=== PATIENT | male | born 1985 | race American Indian/Alaskan Native ===

== ENCOUNTER 2017-02-13 11:46 | Inpatient (IN) | payer OTHER ==
[2017-02-13] MEDS ORDERED: ZOFRAN ONE (11:51)
[2017-02-13] MEDS ORDERED: NACL 0.9% 1000 ML 1,000 ML ONE ×2 (11:51→20:13)
[2017-02-13] MEDS ORDERED: ZOFRAN IV ONE ×3 (12:15→13:20)
[2017-02-13] MEDS ORDERED: NACL 0.9% 1000 ML 1,000 ML IV ONE ×3 (12:15→21:11)
[2017-02-13 12:49] LABS: Basophils % (Auto) 0.7 % (0.0-1.8); Eosinophils % (Auto) 0.9 % (0.0-4.3); Hematocrit 38.5 % (35.5-45.6); Mean Corpuscular HGB Conc 31 % (32-34); Mean Corpuscular Hemoglobin 26 pg (28-32); Mean Corpuscular Volume 84 fl (84-94); Platelet Count 321 K/mm3 (140-440); Red Blood Count 4.59 M/mm3 (3.65-5.03); Red Cell Distribution Width 12.8 % (13.2-15.2); White Blood Count 7.5 K/mm3 (4.5-11.0)
[2017-02-13 13:14] LABS: Anion Gap 35 mmol/L; BUN/Creatinine Ratio 20.95; Blood Urea Nitrogen 44 mg/dL (9-20); Calcium 9.8 mg/dL (8.4-10.2); Carbon Dioxide 16 mmol/L (22-30); Chloride 87.3 mmol/L (98-107); Potassium 5.1 mmol/L (3.6-5.0); Sodium 133 mmol/L (137-145)
[2017-02-13] MEDS ORDERED: MORPHINE ONE ×2 (13:14→19:28)
[2017-02-13 13:16] LABS: Glucose 664 mg/dL (75-100)
[2017-02-13 13:25] LABS: Alanine Aminotransferase 103 units/L (7-56)
[2017-02-13 13:38] LABS: Alkaline Phosphatase 89 units/L (35-129)
[2017-02-13 14:35] LABS: BUN/Creatinine Ratio 24.21; Calcium 9.3 mg/dL (8.4-10.2); Chloride 90.3 mmol/L (98-107); Magnesium 2.3 mg/dL (1.7-2.3)
[2017-02-13] MEDS ORDERED: NovoLIN R 100 UNITS in NACL 0.9% 99 ML IV SCH (16:00)
[2017-02-13] MEDS ORDERED: D50W (25GM) Syringe IV PRN ×2 (17:00→21:11)
[2017-02-13] MEDS ORDERED: PHENERGAN PR ONE (18:00)
[2017-02-13 19:37] LABS: Bilirubin,Urine NEG (Negative); Blood,Urine SM (Negative); Ketones,Urine 80 mg/dL (Negative); Leukocyte Esterase,Urine NEG (Negative); Mucus,Urine FEW /HPF; Nitrite,Urine NEG (Negative); Protein,Urine <15 mg/dL mg/dL (Negative); Urobilinogen,Urine < 2.0 mg/dL (<2.0); WBC,Urine < 1.0 /HPF (0.0-6.0)
--- NOTE | 2017-02-13 20:21 | History and Physical Report ---
History of Present Illness Date of examination: 02/13/17 (Accu-Cheks with sliding scale NovoLog high-dose normally split type 2 diabetes) Date of admission: 02/13/2017 Chief complaint: Nausea vomiting diarrhea abdominal pain and elevated blood sugars History of present illness: 31-year-old gentleman who has been in long term for the past 2 years was released from long term yesterday apparently he has been out of insulin since after he was released. He states that he has not gotten any insulin even while he was in long term since Monday because he was being transferred over here. He started having severe abdominal pain cramping nausea vomiting and diarrhea and has not been able to tolerate anything by mouth since yesterday. His blood sugars started running high and he was getting ready significant for further evaluation and management. He denies any fevers chills no chest pain shortness of breath palpitations no other GI or symptoms Past History Past Medical History: diabetes (type 1) Past Surgical History: Other (brain surgery) Social history: other (was released from long term yesterday). denies: smoking, alcohol abuse, IV drug use Medications and Allergies Allergies Allergy/AdvReac Type Severity Reaction Status Date / Time phenytoin sodium Allergy Hives Verified 02/13/17 13:07 [From Dilantin] phenytoin sodium extended Allergy Hives Verified 02/13/17 13:07 [From Dilantin] Active Meds: Active Medications Dextrose (D50w (25gm) Syringe) 50 ml IV PRN PRN PRN Reason: Hypoglycemia Insulin Human Regular 100 (units/ Sodium Chloride) 100 mls @ 1 mls/hr IV TITR CODY; 1 UNITS/HR PRN Reason: Protocol Review of Systems All systems: negative (as in HPI) Exam - Constitutional Vitals: Temp Pulse Resp BP Pulse Ox 97.3 F L 102 H 18 115/61 96 02/13/17 12:08 02/13/17 13:31 02/13/17 13:31 02/13/17 13:31 02/13/17 13:31 General appearance: Present: mild distress, well-nourished - EENT Eyes: Present: PERRL, EOM intact ENT: clear oral mucosa (severely dry), no oropharyngeal erythema - Neck Neck: Present: supple, normal ROM. Absent: enlarged thyroid, masses or JVD, cervical LAD, carotid bruits - Respiratory Respiratory effort: normal Respiratory: bilateral: CTA - Cardiovascular Rhythm: regular Heart Sounds: Present: S1 & S2. Absent: gallop, systolic murmur - Extremities Extremities: no ischemia, pulses intact, pulses symmetrical, No edema, normal temperature, normal color, Full ROM - Abdominal General gastrointestinal: Present: soft, tender (generalized mildly, no rebound guarding or rigidity), non-distended - Integumentary Integumentary: Present: clear, warm, dry. Absent: erythema, rash - Musculoskeletal Musculoskeletal: strength equal bilaterally - Psychiatric Psychiatric: appropriate mood/affect, intact judgment & insight - Neurologic Neurologic: CNII-XII intact, no focal deficits, moves all extremities Results - Labs CBC & Chem 7: 02/13/17 12:28 02/13/17 16:52 Labs: Laboratory Last Values WBC 7.5 K/mm3 (4.5-11.0) 02/13/17 12:28 RBC 4.59 M/mm3 (3.65-5.03) 02/13/17 12:28 Hgb 12.0 gm/dl (11.8-15.2) 02/13/17 12:28 Hct 38.5 % (35.5-45.6) 02/13/17 12:28 MCV 84 fl (84-94) 02/13/17 12:28 MCH 26 pg (28-32) L 02/13/17 12:28 MCHC 31 % (32-34) L 02/13/17 12:28 RDW 12.8 % (13.2-15.2) L 02/13/17 12:28 Plt Count 321 K/mm3 (140-440) 02/13/17 12:28 Lymph % (Auto) 19.2 % (13.4-35.0) 02/13/17 12:28 [place] % (Auto) 5.9 % (0.0-7.3) 02/13/17 12:28 Eos % (Auto) 0.9 % (0.0-4.3) 02/13/17 12:28 Baso % (Auto) 0.7 % (0.0-1.8) 02/13/17 12:28 Lymph # 1.4 K/mm3 (1.2-5.4) 02/13/17 12:28 [place] # 0.4 K/mm3 (0.0-0.8) 02/13/17 12:28 Eos # 0.1 K/mm3 (0.0-0.4) 02/13/17 12:28 Baso # 0.1 K/mm3 (0.0-0.1) 02/13/17 12:28 Seg Neutrophils % 73.3 % (40.0-70.0) H 02/13/17 12:28 Seg Neutrophils # 5.5 K/mm3 (1.8-7.7) 02/13/17 12:28 VBG pH 7.219 (7.320-7.420) L 02/13/17 12:28 Sodium 133 mmol/L (137-145) L 02/13/17 14:06 Potassium 6.0 mmol/L (3.6-5.0) H 02/13/17 14:06 Chloride 90.3 mmol/L (98-107) L 02/13/17 14:06 Carbon Dioxide 17 mmol/L (22-30) L 02/13/17 14:06 Anion Gap 32 mmol/L 02/13/17 14:06 BUN 46 mg/dL (9-20) H 02/13/17 14:06 Creatinine 1.9 mg/dL (0.8-1.5) H 02/13/17 14:06 Estimated GFR 50 ml/min 02/13/17 14:06 BUN/Creatinine Ratio 24.21 % 02/13/17 14:06 Glucose 507 mg/dL (75-100) H* 02/13/17 16:52 POC Glucose 343 (70-105) H 02/13/17 19:21 Lactic Acid 2.40 mmol/L (0.7-2.0) H* 02/13/17 12:47 Calcium 9.3 mg/dL (8.4-10.2) 02/13/17 14:06 Phosphorus 5.00 mg/dL (2.5-4.5) H 02/13/17 14:06 Magnesium 2.30 mg/dL (1.7-2.3) 02/13/17 14:06 Total Bilirubin 0.30 mg/dL (0.1-1.2) 02/13/17 12:47 AST 77 units/L (5-40) H 02/13/17 12:47 ALT 103 units/L (7-56) H 02/13/17 12:47 Alkaline Phosphatase 89 units/L (35-129) 02/13/17 12:47 Total Protein 8.0 g/dL (6.3-8.2) 02/13/17 12:47 Albumin 4.0 g/dL (3.9-5) 02/13/17 12:47 Albumin/Globulin Ratio 1.0 % 02/13/17 12:47 Urine Color Straw (Yellow) 02/13/17 18:30 Urine Turbidity Clear (Clear) 02/13/17 18:30 Urine pH 5.0 (5.0-7.0) 02/13/17 18:30 Ur Specific [place] 1.023 (1.003-1.030) 02/13/17 18:30 Urine Protein <15 mg/dl mg/dL (Negative) 02/13/17 18:30 Urine Glucose (UA) >=500 mg/dL (Negative) 02/13/17 18:30 Urine Ketones 80 mg/dL (Negative) 02/13/17 18:30 Urine Blood Sm (Negative) 02/13/17 18:30 Urine Nitrite Neg (Negative) 02/13/17 18:30 Urine Bilirubin Neg (Negative) 02/13/17 18:30 Urine Urobilinogen < 2.0 mg/dL (<2.0) 02/13/17 18:30 Ur Leukocyte Esterase Neg (Negative) 02/13/17 18:30 Urine WBC (Auto) < 1.0 /HPF (0.0-6.0) 02/13/17 18:30 Urine RBC (Auto) 3.0 /HPF (0.0-6.0) 02/13/17 18:30 Urine Mucus Few /HPF 02/13/17 18:30 Assessment and Plan VTE prophylaxis?: Chemical, Mechanical Plan of care discussed with patient/family: Yes
[2017-02-13] MEDS ORDERED: MORPHINE IV PRN (21:19)
[2017-02-13] MEDS ORDERED: AMBIEN PO PRN (21:20)
[2017-02-13] MEDS ORDERED: ZOFRAN IV PRN (21:20)
[2017-02-13] MEDS ORDERED: ATIVAN IV PRN (21:21)
[2017-02-13 21:40] LABS: BUN/Creatinine Ratio 23.52; Calcium 8.9 mg/dL (8.4-10.2)
[2017-02-13 21:43] LABS: Potassium 4.7 mmol/L (3.6-5.0)
[2017-02-13] MEDS ORDERED: KCL 10MEQ/100ML 10 MEQ/100 ML BAG IV SCH ×2 (22:00)
[2017-02-13] MEDS ORDERED: SODIUM CHLORIDE FLUSH SYRINGE 10 ML IV NR (22:00)
[2017-02-13] MEDS ORDERED: D5W/0.45% NACL/KCL 20 MEQ 20 MEQ/1,000 ML BAG IV SCH (22:00)
[2017-02-13] MEDS ORDERED: KCL 10MEQ/100ML 20 MEQ/200 ML BAG IV ONE (22:16)
[2017-02-13] MEDS ORDERED: D5NS 0.2% 0 ML IV ONE (22:19)
[2017-02-13] MEDS ORDERED: D5/0.45NS 1,000 ML IV ONE (22:23)
[2017-02-13 23:16] LABS: BUN/Creatinine Ratio 22.35; Calcium 8.9 mg/dL (8.4-10.2); Chloride 103.9 mmol/L (98-107); Potassium 4.8 mmol/L (3.6-5.0)
[2017-02-13 23:21] LABS: Magnesium 2.4 mg/dL (1.7-2.3)
[2017-02-13 23:43] LABS: Phosphorous 3.6 mg/dL (2.5-4.5)
[2017-02-14 06:35] LABS: Anion Gap 21 mmol/L; BUN/Creatinine Ratio 21.42; Blood Urea Nitrogen 30 mg/dL (9-20); Calcium 9.2 mg/dL (8.4-10.2); Carbon Dioxide 20 mmol/L (22-30); Glucose 99 mg/dL (75-100); Potassium 5.3 mmol/L (3.6-5.0); Sodium 144 mmol/L (137-145)
[2017-02-14] MEDS ORDERED: D5/0.45NS 1,000 ML IV ONE (08:37)
[2017-02-14 09:26] LABS: Anion Gap 20 mmol/L; Blood Urea Nitrogen 28 mg/dL (9-20); Calcium 9.1 mg/dL (8.4-10.2); Carbon Dioxide 22 mmol/L (22-30); Chloride 106.7 mmol/L (98-107); Glucose 110 mg/dL (75-100); Potassium 4.7 mmol/L (3.6-5.0); Sodium 144 mmol/L (137-145)
[2017-02-14 09:30] LABS: Alanine Aminotransferase 66 units/L (7-56); Albumin 3.5 g/dL (3.9-5); Albumin/Globulin Ratio 1.1 %; Alkaline Phosphatase 67 units/L (35-129); Anion Gap 21 mmol/L; BUN/Creatinine Ratio 18.66; Blood Urea Nitrogen 28 mg/dL (9-20); Carbon Dioxide 22 mmol/L (22-30); Chloride 105.9 mmol/L (98-107); Glucose 110 mg/dL (75-100); Potassium 4.7 mmol/L (3.6-5.0); Sodium 144 mmol/L (137-145); Total Protein 6.6 g/dL (6.3-8.2)
[2017-02-14] MEDS: NOVOLOG SUB-Q SCH ×2 (10:17→17:31)
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
[2017-02-14 14:25] LABS: Anion Gap 19 mmol/L; BUN/Creatinine Ratio 18.46; Blood Urea Nitrogen 24 mg/dL (9-20); Carbon Dioxide 23 mmol/L (22-30); Chloride 102.3 mmol/L (98-107); Glucose 148 mg/dL (75-100); Potassium 4.2 mmol/L (3.6-5.0); Sodium 140 mmol/L (137-145)
[2017-02-14] MEDS ORDERED: REGLAN IV PRN (14:50)
--- NOTE | 2017-02-14 14:58 | Progress Note ---
Assessment and Plan Assessment and plan: Patient is a 31-year-old man with history of insulin-dependent diabetes mellitus and seizure disorder who presents with nausea vomiting diarrhea and hyperglycemia and DKA. Patient states he was just released from [facility] yesterday without insulin. -DKA, anion gap closed and I Discussed with Dr. Verde, ok to start long-acting insulin, feed him and he tolerates diet he can be transferred out of ICU -Acute renal failure, vasomotor nephropathy present on admission: To IV fluids -Hyperkalemia related to above -Acute gastroenteritis: Treat symptomatically -History of seizure disorder: Restart his home medication -DVT prophylaxis: SCDs and subcutaneous heparin History Interval history: Patient was seen and examined. Follow-up on current diagnosis/hyperglycemia. Overnight uneventful. Patient denies any chest pain, shortness breath, or severe headaches. Imaging, nursing note, chart, labs and old chart reviewed. Discussed with patient. Hospitalist Physical - Physical exam Narrative exam: GEN: WDWN, NAD, AWAKE, ALERT, ORIENTATED 3 HEENT: NCAT, EOMI, PERRL, OP Clear NECK: supple, no adenopathy, no thyromegaly, no JVD CVS/HEART: RRR, NORMAL S1S2, NO JVD, pulses present bilaterally CHEST/LUNGS: CTA B, Symmetrical chest expansion, good air entry bilaterally GI/Abdomen: soft, NTND, good bowel sounds, no guarding or rebound /Bladder: no suprapubic tenderness, no CVA or paraspinal tenderness EXT/Skin: no c/c/e, no significant edema or obvious rash MSK: FROM x 4 Neuro: CN 2-12 grossly intact, no new focal deficits Psych: calm - Constitutional Vitals: Temp Pulse Resp BP Pulse Ox 98 F 81 10 L 112/62 98 02/14/17 12:00 02/14/17 11:00 02/14/17 11:00 02/14/17 11:00 02/14/17 11:00 General appearance: Present: well-nourished Results - Labs CBC & Chem 7: 02/13/17 12:28 02/14/17 13:41 Labs: Laboratory Last Values WBC 7.5 K/mm3 (4.5-11.0) 02/13/17 12:28 RBC 4.59 M/mm3 (3.65-5.03) 02/13/17 12:28 Hgb 12.0 gm/dl (11.8-15.2) 02/13/17 12:28 Hct 38.5 % (35.5-45.6) 02/13/17 12:28 MCV 84 fl (84-94) 02/13/17 12:28 MCH 26 pg (28-32) L 02/13/17 12:28 MCHC 31 % (32-34) L 02/13/17 12:28 RDW 12.8 % (13.2-15.2) L 02/13/17 12:28 Plt Count 321 K/mm3 (140-440) 02/13/17 12:28 Lymph % (Auto) 19.2 % (13.4-35.0) 02/13/17 12:28 [place] % (Auto) 5.9 % (0.0-7.3) 02/13/17 12:28 Eos % (Auto) 0.9 % (0.0-4.3) 02/13/17 12:28 Baso % (Auto) 0.7 % (0.0-1.8) 02/13/17 12:28 Lymph # 1.4 K/mm3 (1.2-5.4) 02/13/17 12:28 [place] # 0.4 K/mm3 (0.0-0.8) 02/13/17 12:28 Eos # 0.1 K/mm3 (0.0-0.4) 02/13/17 12:28 Baso # 0.1 K/mm3 (0.0-0.1) 02/13/17 12:28 Seg Neutrophils % 73.3 % (40.0-70.0) H 02/13/17 12:28 Seg Neutrophils # 5.5 K/mm3 (1.8-7.7) 02/13/17 12:28 VBG pH 7.219 (7.320-7.420) L 02/13/17 12:28 Sodium 140 mmol/L (137-145) 02/14/17 13:41 Potassium 4.2 mmol/L (3.6-5.0) 02/14/17 13:41 Chloride 102.3 mmol/L (98-107) 02/14/17 13:41 Carbon Dioxide 23 mmol/L (22-30) 02/14/17 13:41 Anion Gap 19 mmol/L 02/14/17 13:41 BUN 24 mg/dL (9-20) H 02/14/17 13:41 Creatinine 1.3 mg/dL (0.8-1.5) 02/14/17 13:41 Estimated GFR > 60 ml/min 02/14/17 13:41 BUN/Creatinine Ratio 18.46 % 02/14/17 13:41 Glucose 148 mg/dL (75-100) H 02/14/17 13:41 POC Glucose 112 (70-105) H 02/14/17 06:04 Lactic Acid 2.40 mmol/L (0.7-2.0) H* 02/13/17 12:47 Calcium 9.0 mg/dL (8.4-10.2) 02/14/17 13:41 Phosphorus 3.60 mg/dL (2.5-4.5) D 02/13/17 22:07 Magnesium 2.40 mg/dL (1.7-2.3) H 02/13/17 22:07 Total Bilirubin 0.30 mg/dL (0.1-1.2) 02/14/17 08:34 AST 32 units/L (5-40) 02/14/17 08:34 ALT 66 units/L (7-56) H 02/14/17 08:34 Alkaline Phosphatase 67 units/L (35-129) 02/14/17 08:34 Total Protein 6.6 g/dL (6.3-8.2) 02/14/17 08:34 Albumin 3.5 g/dL (3.9-5) L 02/14/17 08:34 Albumin/Globulin Ratio 1.1 % 02/14/17 08:34 Urine Color Straw (Yellow) 02/13/17 18:30 Urine Turbidity Clear (Clear) 02/13/17 18:30 Urine pH 5.0 (5.0-7.0) 02/13/17 18:30 Ur Specific [place] 1.023 (1.003-1.030) 02/13/17 18:30 Urine Protein <15 mg/dl mg/dL (Negative) 02/13/17 18:30 Urine Glucose (UA) >=500 mg/dL (Negative) 02/13/17 18:30 Urine Ketones 80 mg/dL (Negative) 02/13/17 18:30 Urine Blood Sm (Negative) 02/13/17 18:30 Urine Nitrite Neg (Negative) 02/13/17 18:30 Urine Bilirubin Neg (Negative) 02/13/17 18:30 Urine Urobilinogen < 2.0 mg/dL (<2.0) 02/13/17 18:30 Ur Leukocyte Esterase Neg (Negative) 02/13/17 18:30 Urine WBC (Auto) < 1.0 /HPF (0.0-6.0) 02/13/17 18:30 Urine RBC (Auto) 3.0 /HPF (0.0-6.0) 02/13/17 18:30 Urine Mucus Few /HPF 02/13/17 18:30
[2017-02-14] MEDS ORDERED: D50W (25GM) Syringe IV PRN (16:00)
[2017-02-14] MEDS ORDERED: ZOFRAN IV PRN (16:00)
[2017-02-14] MEDS ORDERED: NACL 0.9% 1000 ML 1,000 ML IV SCH (16:00)
[2017-02-14] MEDS ORDERED: TYLENOL PO PRN (16:00)
[2017-02-14] MEDS ORDERED: LEVEMIR SUB-Q ONE (16:30)
[2017-02-15 06:17] LABS: Hematocrit 33.3 % (35.5-45.6); Hemoglobin 10.8 gm/dl (11.8-15.2); Mean Corpuscular HGB Conc 32 % (32-34); Mean Corpuscular Hemoglobin 26 pg (28-32); Mean Corpuscular Volume 82 fl (84-94); Platelet Count 260 K/mm3 (140-440); Red Blood Count 4.08 M/mm3 (3.65-5.03); Red Cell Distribution Width 13.6 % (13.2-15.2); White Blood Count 6.3 K/mm3 (4.5-11.0)
[2017-02-15 07:50] LABS: Anion Gap 17 mmol/L; BUN/Creatinine Ratio 11.81; Blood Urea Nitrogen 13 mg/dL (9-20); Carbon Dioxide 24 mmol/L (22-30); Chloride 103.1 mmol/L (98-107); Glucose 219 mg/dL (75-100); Potassium 4.2 mmol/L (3.6-5.0); Sodium 140 mmol/L (137-145)
[2017-02-15] MEDS ORDERED: LEVEMIR 20 UNIT SQ SCH (08:00)
[2017-02-15] MEDS ORDERED: LEVEMIR SUB-Q SCH (08:00)
[2017-02-15] MEDS: NOVOLOG SUB-Q SCH ×3 (09:09→13:24)
[2017-02-15] MEDS ORDERED: PROTONIX PO SCH (10:00)
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
[2017-02-15 11:25] VITALS: BP 151/87
[2017-02-15] MEDS ORDERED: HEPARIN SUB-Q SCH (18:00)
== END 2017-02-15 13:28 | disposition home or self-care (01) | DRG 682 ==
LOC: ED 11:46 → CC1 17:00 → 3A 02-14 17:59
PROVIDERS: ADMIT Internal Medicine Geriatric Medicine; ATTEND Internal Medicine
DX: N17.0 Acute kidney failure with tubular necrosis (principal); E13.10 Other specified diabetes mellitus with ketoacidosis without coma; Z88.8 Allergy status to other drugs, medicaments and biological substances; E87.5 Hyperkalemia; K52.9 Noninfective gastroenteritis and colitis, unspecified; G40.909 Epilepsy, unspecified, not intractable, without status epilepticus
CPT/HCPCS: 36415; 80048; 80053; 81001; 82140; 82805; 82947; 82962; 83735; 84100; 85025; 85027; 93005; 93010; 96365; 96375; 96376; 99285; J1815; J1818; J2270; J2405; J3480; J7030

== ENCOUNTER 2017-11-13 17:46 | Inpatient (IN) | payer OTHER ==
[2017-11-13] MEDS ORDERED: NACL 0.9% 500 ML 500 ML IV ONE (18:33)
[2017-11-13 19:18] LABS: Basophils % (Auto) 0.6 % (0.0-1.8); Eosinophils # (Auto) 0.1 K/mm3 (0.0-0.4); Hemoglobin 11.2 gm/dl (11.8-15.2); Lymphocytes # (Auto) 1.3 K/mm3 (1.2-5.4); Lymphocytes % (Auto) 17.3 % (13.4-35.0); Mean Corpuscular HGB Conc 32 % (32-34); Mean Corpuscular Hemoglobin 26 pg (28-32); Mean Corpuscular Volume 83 fl (84-94); Monocytes # (Auto) 0.5 K/mm3 (0.0-0.8); Monocytes % (Auto) 7.4 % (0.0-7.3); Platelet Count 314 K/mm3 (140-440); Red Blood Count 4.24 M/mm3 (3.65-5.03); Red Cell Distribution Width 12.4 % (13.2-15.2)
[2017-11-13 19:25] LABS: INR 0.8 (0.87-1.13)
[2017-11-13 19:36] LABS: Albumin 2.9 g/dL (3.9-5); Calcium 8.9 mg/dL (8.4-10.2)
--- NOTE | 2017-11-13 20:03 | XRay Report ---
FINAL REPORT EXAM: XR CHEST ROUTINE 2V HISTORY: possible Sepsis TECHNIQUE: Two view chest PA and lateral PRIORS: None. FINDINGS: Cardiac and mediastinal contours are unremarkable. No focal pulmonary infiltrate is identified. No pleural fluid collection seen. Pulmonary vasculature is unremarkable. IMPRESSION: Negative two-view chest
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
--- NOTE | 2017-11-14 00:42 | XRay Report ---
FINAL REPORT EXAM: XR FOOT 3+V LT HISTORY: diabetic foot infection fourth and fifth toes COMPARISON: None available. FINDINGS: Three views of left foot obtained. Soft tissue swelling and pockets a gas along the lateral margin of the 5th toe. No focal bony erosive changes by plain film. Bony structures are intact. IMPRESSION: Soft tissue swelling along the lateral margin of the 5th toe. No definite bony erosive changes by plain film.
[2017-11-14] MEDS ORDERED: VANCOMYCIN 1,500 MG in NACL 0.9% 500 ML 500 ML IV ONE (01:00)
[2017-11-14] MEDS ORDERED: VANCOMYCIN/NS 1 GM/250 ML 1 GM/250 ML BAG IV SCH (01:00)
[2017-11-14] MEDS ORDERED: VANCOMYCIN PHARMACY TO DOSE IV SCH (01:00)
[2017-11-14] MEDS ORDERED: ZOSYN/NS 4.5GM/100ML 4.5 GM/100 ML VIAL IV SCH (01:00)
[2017-11-14] MEDS ORDERED: NORCO 5/325 PO ONE (01:13)
[2017-11-14] MEDS ORDERED: HumuLIN R IV ONE (01:13)
[2017-11-14] MEDS ORDERED: NACL 0.9% 1000 ML 1,000 ML IV ONE (01:13)
[2017-11-14] MEDS ORDERED: REGLAN IV PRN (01:51)
[2017-11-14] MEDS ORDERED: TYLENOL PO PRN (01:51)
[2017-11-14] MEDS ORDERED: D50W (25GM) Syringe IV PRN (01:51)
[2017-11-14] MEDS ORDERED: ZOFRAN IV PRN (01:51)
--- NOTE | 2017-11-14 01:55 | History and Physical Report ---
History of Present Illness Date of examination: 11/14/17 History of present illness: 31-year-old man with a history of diabetes, seizure goes emergency room for evaluation of his left foot. He stated that he usually stand on his feet at work for total of 7 hours. It is noticed that his feet started swelling at the end of the day,his shoes felt tight. Patient state that his left fifth toe was so swollen that it burst open. He denies any fever or chills, admits to. In a discharge from the left fifth toe Review of systems Constitutional: no weight loss, chills Ears, eyes, nose, mouth and throat: no nasal congestion, no nasal discharge, no sinus pressure, no vision change, no red eye. Neck: No neck pain or rigidity. Cardiovascular: no chest pain, palpitations Respiratory: No shortness of breath, cough Gastrointestinal: no abdominal pain, hematochezia Genitourinary : no frequency , no hematuria Musculoskeletal: no joint swelling or muscle ache Integumentary: no rash, no pruritis Neurological: no parathesias, no numbness, no focal weakness Endocrine: no cold or heat intolerance, no polyuria or polydipsia Hematologic/Lymphatic: no easy bruising, no easy bleeding, no gland swelling Allergic/Immunologic: no urticaria, no angioedema. PAST MEDICAL HISTORY: diabetes, seizure PAST SURGICAL HISTORY: Brain surgery SOCIAL HISTORY: Smokes cigars, social alcohol, no drug FAMILY HISTORY: Hypertension Medications and Allergies Allergies Allergy/AdvReac Type Severity Reaction Status Date / Time phenytoin sodium Allergy Hives Verified 02/13/17 13:07 [From Dilantin] phenytoin sodium extended Allergy Hives Verified 02/13/17 13:07 [From Dilantin] Home Medications Medication Instructions Recorded Confirmed Last Taken Type carBAMazepine [TEGretol] 200 mg PO BID #60 tablet 02/15/17 11/14/17 Unknown Rx Insulin Aspart [NovoLOG Flexpen] See Protocol SQ AC 11/14/17 11/17/17 11/13/17 08:00 History Lantus 20 units SQ BID 11/17/17 11/17/17 Unknown History Active Meds: Active Medications Vancomycin HCl 1,500 mg/ (Sodium Chloride) 515 mls @ 333.333 mls/hr IV ONCE ONE Stop: 11/14/17 02:32 Sodium Chloride (Nacl 0.9% 1000 Ml) 1,000 mls @ 999 mls/hr IV ONCE ONE Stop: 11/14/17 02:13 Vancomycin HCl (Vancomycin Pharmacy To Dose) 1 each IV PKCONSULT CODY Exam - Physical Exam Narrative exam: Gen. appearance: Patient lying in bed, no apparent distress HEENT: Normocephalic, atraumatic, pupils equally round and reactive to light, extraocular movement intact, and no sclericterus,. No JVD or thyromegaly or nodule,neck supple, no carotid bruit ,mucous membranes moist, no exudate or erythema Heart: S1, S2, regular rate and rhythm Lungs: Clear to auscultation bilaterally, breathing comfortable Abdomen: Positive bowel sounds, nontender, nondistended, no organomegaly Extremity: No edema left foot diffusely swollen, small ulceration on the medial 4th digit, ulceration on the medial tip and lateral aspect of the fifth digit, purulent discharge, tender to touch, no cyanosis, clubbing Skin: No rash, nodules, warm, dry Neuro: no tremors, Oriented 3, cranial nerves II-12 intact, speech is fluent, motor and sensory intact - Constitutional Vitals: Temp Pulse Resp BP Pulse Ox 98.9 F 88 16 144/95 96 11/13/17 23:00 11/13/17 23:00 11/14/17 00:05 11/13/17 23:00 11/13/17 23:00 Results - Labs CBC & Chem 7: 11/20/17 05:28 11/19/17 08:04 Labs: Abnormal lab results 11/13/17 11/13/17 11/13/17 Range/Units 18:44 18:44 18:44 Hgb 11.2 L (11.8-15.2) gm/dl Hct 35.0 L (35.5-45.6) % MCV 83 L (84-94) fl MCH 26 L (28-32) pg RDW 12.4 L (13.2-15.2) % [place] % (Auto) 7.4 H (0.0-7.3) % Seg Neutrophils % 72.7 H (40.0-70.0) % PT 11.5 L (12.2-14.9) Sec. INR 0.80 L (0.87-1.13) Sodium 128 L (137-145) mmol/L Chloride 89.9 L (98-107) mmol/L Creatinine 1.8 H (0.8-1.5) mg/dL Glucose 526 H* (75-100) mg/dL POC Glucose (70-105) Albumin 2.9 L (3.9-5) g/dL 11/13/17 11/14/17 Range/Units 22:54 01:16 Hgb (11.8-15.2) gm/dl Hct (35.5-45.6) % MCV (84-94) fl MCH (28-32) pg RDW (13.2-15.2) % [place] % (Auto) (0.0-7.3) % Seg Neutrophils % (40.0-70.0) % PT (12.2-14.9) Sec. INR (0.87-1.13) Sodium (137-145) mmol/L Chloride (98-107) mmol/L Creatinine (0.8-1.5) mg/dL Glucose (75-100) mg/dL POC Glucose 492 H 439 H (70-105) Albumin (3.9-5) g/dL - Imaging and Cardiology Chest x-ray: image reviewed Assessment and Plan Surgery of left foot reviewed Assessment Diabetic foot ulcer Renal insufficiency, probably acute Seizure Plan Admit to medicine Start IV Zosyn, follow cultures Start IV fluids, check fingersticks initiate insulin sliding scale Continue appropriate outpatient medications DVT prophylaxis,pain medication
[2017-11-14] MEDS ORDERED: ZOSYN/NS 3.375GM/50ML 3.375 GM/50 ML BAG IV SCH (02:00)
[2017-11-14] MEDS: SODIUM CHLORIDE FLUSH SYRINGE 10 ML IV PRN (03:20)
[2017-11-14 03:28] LABS: Bilirubin,Urine NEG (Negative); Blood,Urine SM (Negative); Color,Urine Yellow (Yellow); Urobilinogen,Urine < 2.0 mg/dL (<2.0)
[2017-11-14] MEDS ORDERED: INSULIN DETEMIR 20 UNIT SUB-Q SCH (08:00)
[2017-11-14] MEDS: HumaLOG SUB-Q SCH ×4 (09:47→23:00)
[2017-11-14] MEDS: LANTUS SUB-Q SCH (09:47)
[2017-11-14] MEDS: LOVENOX SUB-Q SCH (09:48)
[2017-11-14] MEDS: SODIUM CHLORIDE FLUSH SYRINGE 10 ML IV SCH ×2 (09:48→23:00)
[2017-11-14] MEDS ORDERED: LOVENOX SUB-Q SCH (10:00)
[2017-11-14] MEDS: ZOSYN/NS 4.5GM/100ML 4.5 GM/100 ML VIAL IV SCH ×2 (10:44→18:23)
--- NOTE | 2017-11-14 18:05 | Event Note ---
Date: 11/14/17 Patient reassesed Assessment and Plan Surgery of left foot reviewed Assessment Diabetic foot ulcer Renal insufficiency, probably acute Seizure Plan Admit to medicine Start IV Zosyn, follow cultures Start IV fluids, check fingersticks initiate insulin sliding scale Continue appropriate outpatient medications DVT prophylaxis,pain medication
[2017-11-14] MEDS: MORPHINE IV PRN (19:38)
[2017-11-15] MEDS: MORPHINE IV PRN ×2 (01:06→10:51)
[2017-11-15] MEDS: ZOSYN/NS 4.5GM/100ML 4.5 GM/100 ML VIAL IV SCH ×3 (02:30→18:47)
[2017-11-15 08:18] LABS: Basophils # (Auto) 0.1 K/mm3 (0.0-0.1); Basophils % (Auto) 0.8 % (0.0-1.8); Eosinophils # (Auto) 0.2 K/mm3 (0.0-0.4); Eosinophils % (Auto) 3.8 % (0.0-4.3); Hematocrit 33.1 % (35.5-45.6); Hemoglobin 10.8 gm/dl (11.8-15.2); Lymphocytes % (Auto) 32.9 % (13.4-35.0); Mean Corpuscular HGB Conc 33 % (32-34); Mean Corpuscular Hemoglobin 27 pg (28-32); Mean Corpuscular Volume 82 fl (84-94); Monocytes # (Auto) 0.4 K/mm3 (0.0-0.8); Platelet Count 324 K/mm3 (140-440); Red Blood Count 4.02 M/mm3 (3.65-5.03); Red Cell Distribution Width 12.6 % (13.2-15.2)
[2017-11-15 08:28] LABS: Calcium 8.8 mg/dL (8.4-10.2)
[2017-11-15] MEDS: LOVENOX SUB-Q SCH (09:13)
[2017-11-15] MEDS: HumaLOG SUB-Q SCH ×3 (09:13→17:16)
[2017-11-15] MEDS: SODIUM CHLORIDE FLUSH SYRINGE 10 ML IV SCH ×2 (09:16→22:40)
[2017-11-15] MEDS: LANTUS SUB-Q SCH (09:17)
[2017-11-15] MEDS ORDERED: LANTUS SUB-Q SCH (10:00)
[2017-11-15] MEDS ORDERED: LANTUS SUB-Q NR (11:00)
--- NOTE | 2017-11-15 17:26 | Progress Note ---
Assessment and Plan - Patient Problems (1) Diabetic foot infection Current Visit: Yes Status: Acute Plan to address problem: Wound care initiated Surgery consult initiated for possible debridement IV abx pending cultures (2) IDDM (insulin dependent diabetes mellitus) Current Visit: Yes Status: Chronic Plan to address problem: Patient started on Lantus 30 units BID and coverage Maybe changed to Basal bolus regimen (3) Anemia Current Visit: Yes Status: Acute Qualifiers: Anemia type: unspecified type Qualified Code(s): D64.9 - Anemia, unspecified Plan to address problem: Anemia work up (4) DVT prophylaxis Current Visit: Yes Status: Acute Plan to address problem: On Heparin Subjective Date of service: 11/15/17 Principal diagnosis: L 5th toe ulcer with drainage Interval history: Running high sugars Objective - Constitutional Vitals: Vital Signs - 12hr 11/15/17 11/15/17 11/15/17 07:42 10:00 15:41 Temperature 97.7 F 98.0 F Pulse Rate 67 79 Respiratory 15 15 Rate Blood Pressure 148/88 128/85 O2 Sat by Pulse 96 96 98 Oximetry General appearance: Present: no acute distress, well-nourished - EENT Eyes: PERRL, EOM intact ENT: hearing intact, clear oral mucosa Ears: bilateral: normal - Neck Neck: supple, normal ROM - Respiratory Respiratory effort: normal Respiratory: bilateral: CTA - Breasts Breasts: normal - Cardiovascular Heart rate: 78 Rhythm: regular Heart Sounds: Present: S1 & S2. Absent: gallop, rub Extremities: pulses intact, No edema, normal color, Full ROM, abnormal Extremity abnormal: ulceration ( with serosanguinous discharge), other - Gastrointestinal General gastrointestinal: Present: soft, non-tender, non-distended, normal bowel sounds - Genitourinary Male genitourinary: normal - Integumentary Integumentary: clear, warm, dry - Musculoskeletal Musculoskeletal: 1, strength equal bilaterally - Neurologic Neurologic: moves all extremities - Psychiatric Psychiatric: memory intact, appropriate mood/affect, intact judgment & insight - Labs CBC & Chem 7: 11/15/17 06:46 11/15/17 06:46 Labs: Abnormal lab results 11/15/17 11/15/17 11/15/17 Range/Units 06:27 06:46 06:46 Hgb 10.8 L (11.8-15.2) gm/dl Hct 33.1 L (35.5-45.6) % MCV 82 L (84-94) fl MCH 27 L (28-32) pg RDW 12.6 L (13.2-15.2) % Sodium 133 L (137-145) mmol/L Chloride 94.9 L (98-107) mmol/L Creatinine 1.8 H (0.8-1.5) mg/dL Glucose 467 H (75-100) mg/dL POC Glucose 433 H (70-105) 11/15/17 11/15/17 Range/Units 12:18 17:16 Hgb (11.8-15.2) gm/dl Hct (35.5-45.6) % MCV (84-94) fl MCH (28-32) pg RDW (13.2-15.2) % Sodium (137-145) mmol/L Chloride (98-107) mmol/L Creatinine (0.8-1.5) mg/dL Glucose (75-100) mg/dL POC Glucose 246 H 61 L (70-105)
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
[2017-11-16] MEDS: HumaLOG SUB-Q SCH ×5 (01:24→23:15)
[2017-11-16] MEDS: ZOSYN/NS 4.5GM/100ML 4.5 GM/100 ML VIAL IV SCH ×3 (01:25→19:02)
[2017-11-16] MEDS: LANTUS SUB-Q SCH ×3 (01:30→23:18)
[2017-11-16] MEDS: SODIUM CHLORIDE FLUSH SYRINGE 10 ML IV PRN ×3 (01:34→06:15)
[2017-11-16] MEDS: MORPHINE IV PRN ×5 (01:41→20:39)
[2017-11-16] MEDS: SODIUM CHLORIDE FLUSH SYRINGE 10 ML IV SCH ×2 (09:36→23:20)
[2017-11-16] MEDS: LOVENOX SUB-Q SCH (09:37)
--- NOTE | 2017-11-16 17:37 | Progress Note ---
Assessment and Plan - Patient Problems (1) Diabetic foot infection Current Visit: Yes Status: Acute Plan to address problem: A ruth with diabetic foot wound continue present broad-spectrum antibiotic coverage. Patient scheduled for debridement in a.m. Plan would be home antibiotics. (2) IDDM (insulin dependent diabetes mellitus) Current Visit: Yes Status: Chronic Plan to address problem: Patient continues to have suboptimal control diabetes we'll increase Lantus to 35 units twice a day. History Interval history: Patient resting comfortably scheduled for surgical debridement of diabetic foot in the a.m. Plan to discharge in a.m. after debridement. Hospitalist Physical - Constitutional Vitals: Temp Pulse Resp BP Pulse Ox 98.0 F 76 19 146/84 98 11/16/17 07:48 11/16/17 07:48 11/16/17 07:48 11/16/17 07:48 11/16/17 07:48 General appearance: Present: no acute distress, well-nourished - EENT Eyes: Present: PERRL, EOM intact ENT: hearing intact, clear oral mucosa, dentition normal - Neck Neck: Present: supple, normal ROM - Respiratory Respiratory: bilateral: CTA - Extremities Extremities: no ischemia, pulses intact, normal temperature Extremity abnormal: edema, other (patient has ulcers on the third and fourth toe and dry necrosis on fourth toe) - Abdominal General gastrointestinal: soft, non-tender, non-distended - Psychiatric Psychiatric: appropriate mood/affect, intact judgment & insight - Neurologic Neurologic: CNII-XII intact, moves all extremities Results - Labs CBC & Chem 7: 11/15/17 06:46 11/15/17 06:46 Labs: Laboratory Last Values WBC 6.1 K/mm3 (4.5-11.0) 11/15/17 06:46 RBC 4.02 M/mm3 (3.65-5.03) 11/15/17 06:46 Hgb 10.8 gm/dl (11.8-15.2) L 11/15/17 06:46 Hct 33.1 % (35.5-45.6) L 11/15/17 06:46 MCV 82 fl (84-94) L 11/15/17 06:46 MCH 27 pg (28-32) L 11/15/17 06:46 MCHC 33 % (32-34) 11/15/17 06:46 RDW 12.6 % (13.2-15.2) L 11/15/17 06:46 Plt Count 324 K/mm3 (140-440) 11/15/17 06:46 Lymph % (Auto) 32.9 % (13.4-35.0) 11/15/17 06:46 [place] % (Auto) 7.0 % (0.0-7.3) 11/15/17 06:46 Eos % (Auto) 3.8 % (0.0-4.3) 11/15/17 06:46 Baso % (Auto) 0.8 % (0.0-1.8) 11/15/17 06:46 Lymph # 2.0 K/mm3 (1.2-5.4) 11/15/17 06:46 [place] # 0.4 K/mm3 (0.0-0.8) 11/15/17 06:46 Eos # 0.2 K/mm3 (0.0-0.4) 11/15/17 06:46 Baso # 0.1 K/mm3 (0.0-0.1) 11/15/17 06:46 Seg Neutrophils % 55.5 % (40.0-70.0) 11/15/17 06:46 Seg Neutrophils # 3.4 K/mm3 (1.8-7.7) 11/15/17 06:46 PT 11.5 Sec. (12.2-14.9) L 11/13/17 18:44 INR 0.80 (0.87-1.13) L 11/13/17 18:44 VBG pH 7.390 (7.320-7.420) 11/13/17 18:44 Sodium 133 mmol/L (137-145) L 11/15/17 06:46 Potassium 5.0 mmol/L (3.6-5.0) 11/15/17 06:46 Chloride 94.9 mmol/L (98-107) L 11/15/17 06:46 Carbon Dioxide 28 mmol/L (22-30) 11/15/17 06:46 Anion Gap 15 mmol/L 11/15/17 06:46 BUN 17 mg/dL (9-20) 11/15/17 06:46 Creatinine 1.8 mg/dL (0.8-1.5) H 11/15/17 06:46 Estimated GFR 54 ml/min 11/15/17 06:46 BUN/Creatinine Ratio 9 % 11/15/17 06:46 Glucose 467 mg/dL (75-100) H 11/15/17 06:46 POC Glucose 123 (70-105) H 11/16/17 05:18 Hemoglobin A1c 12.8 % (4-6) H 11/14/17 02:05 Lactic Acid 1.40 mmol/L (0.7-2.0) 11/13/17 21:18 Calcium 8.8 mg/dL (8.4-10.2) 11/15/17 06:46 Total Bilirubin 0.40 mg/dL (0.1-1.2) 11/13/17 18:44 AST 20 units/L (5-40) 11/13/17 18:44 ALT 15 units/L (7-56) 11/13/17 18:44 Alkaline Phosphatase 60 units/L (35-129) 11/13/17 18:44 Total Protein 7.6 g/dL (6.3-8.2) 11/13/17 18:44 Albumin 2.9 g/dL (3.9-5) L 11/13/17 18:44 Albumin/Globulin Ratio 0.6 % 11/13/17 18:44 Urine Color Yellow (Yellow) 11/13/17 03:00 Urine Turbidity Clear (Clear) 11/13/17 03:00 Urine pH 6.0 (5.0-7.0) 11/13/17 03:00 Ur Specific [place] 1.025 (1.003-1.030) 11/13/17 03:00 Urine Protein 100 mg/dl mg/dL (Negative) 11/13/17 03:00 Urine Glucose (UA) >=500 mg/dL (Negative) 11/13/17 03:00 Urine Ketones Neg mg/dL (Negative) 11/13/17 03:00 Urine Blood Sm (Negative) 11/13/17 03:00 Urine Nitrite Neg (Negative) 11/13/17 03:00 Urine Bilirubin Neg (Negative) 11/13/17 03:00 Urine Urobilinogen < 2.0 mg/dL (<2.0) 11/13/17 03:00 Ur Leukocyte Esterase Neg (Negative) 11/13/17 03:00 Urine WBC (Auto) 1.0 /HPF (0.0-6.0) 11/13/17 03:00 Urine RBC (Auto) 4.0 /HPF (0.0-6.0) 11/13/17 03:00
--- NOTE | 2017-11-16 20:02 | Progress Note ---
Assessment and Plan - Patient Problems (1) Diabetic foot infection Current Visit: Yes Status: Acute Plan to address problem: Pt stable. In need of debridement in the OR. Discussed the importance of post- op wound care. He may have to buy supplies on his own as he has no insurance. Procedure, risks, benefits alternatives discussed. All questions answered. Pt wishes to proceed. Consent obtained. To OR tomorrow. time=15min Subjective Date of service: 11/16/17 Patient Reports: Positive: no new complaints Objective Vital Signs - 12hr 11/16/17 18:34 Temperature 98.0 F Pulse Rate 90 Respiratory 19 Rate Blood Pressure 140/86 O2 Sat by Pulse 98 Oximetry - General physical appearance no distress, no pain - Respiratory normal expansion, normal respiratory effort - Integumentary other - Psychiatric oriented to time, oriented to person, oriented to place, speech is normal, memory intact - Labs 11/15/17 06:46 11/15/17 06:46
[2017-11-17] MEDS: MORPHINE IV PRN ×4 (02:03→20:00)
[2017-11-17] MEDS: ZOSYN/NS 4.5GM/100ML 4.5 GM/100 ML VIAL IV SCH ×3 (02:04→19:54)
[2017-11-17] MEDS: HumaLOG SUB-Q SCH ×4 (09:13→22:17)
[2017-11-17] MEDS: LANTUS SUB-Q SCH ×2 (09:14→22:18)
[2017-11-17] MEDS: LOVENOX SUB-Q SCH (09:14)
[2017-11-17] MEDS: SODIUM CHLORIDE FLUSH SYRINGE 10 ML IV SCH ×2 (11:23→22:17)
[2017-11-17] MEDS ORDERED: D5NS 1,000 ML IV SCH (13:00)
[2017-11-17] MEDS ORDERED: DIPRIVAN 10 MG/ML IV ONE (14:55)
[2017-11-17] MEDS ORDERED: XYLOCAINE MPF 2% ONE (14:55)
[2017-11-17] MEDS ORDERED: HYDROGEN PEROXIDE ONE (15:05)
[2017-11-17] MEDS ORDERED: MARCAINE 0.5% 30 ML INFILTRATI ONE (15:05)
[2017-11-17] MEDS ORDERED: NACL 0.9% 1000 ML 1,000 ML ONE (15:47)
--- NOTE | 2017-11-17 15:49 | Anesthesia Day of Surgery ---
Anesthesia Day of Surgery - Day of Surgery Patient Examined: Yes Patient H&P Reviewed: Yes Patient is NPO: Yes
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
[2017-11-17] MEDS ORDERED: ZOFRAN IV PRN (15:54)
[2017-11-17] MEDS ORDERED: DILAUDID IV PRN (15:54)
[2017-11-17] MEDS: NACL 0.9% 1000 ML 1,000 ML IV SCH (16:00)
[2017-11-17] MEDS ORDERED: NACL 0.9% 1000 ML 1,000 ML IV SCH (16:00)
[2017-11-17] MEDS: VERSED IV NR ×2 (16:13→16:18)
--- NOTE | 2017-11-17 17:31 | Post Operative Note ---
Date of procedure: 11/17/17 (Dictation:[id number]) Pre-op diagnosis: Diabetic Foot Ulcers Post-op diagnosis: same Findings: Necrotic tissue on both toes. No tunneling Procedure: Debridement of 4th/5th toes on left foot Anesthesia: ANDERSON Surgeon: JUAN VILLAGOMEZ Estimated blood loss: minimal Pathology: list (toe skin and tissue cultures) Specimen disposition: to lab Condition: stable Disposition: PACU
--- NOTE | 2017-11-17 19:35 | Progress Note ---
Assessment and Plan Assessment and plan: --Diabetic foot infection; Elevate the limb, IV antibiotics, wound care, pain management Surgical debridement today --Type 2 diabetes mellitus; uncontrolled Accu-Chek sliding scale coverage and ADA diet and insulin Hemoglobin A1c 12.8, diabetic education, nutrition education --Severe malnutrition; hypoalbuminemia[albumin 2.9] Nutrition supplements, supportive care --Acute kidney injury; gentle hydration, due to ATN Closely monitor his renal function, avoid nephrotoxins, nephrology evaluation, If no improvement --DVT prophylaxis; Lovenox DC planning per case management; patient may need home health Home health nurse for disease monitoring when medically stable Closely monitor the patient and adjust the management as needed Plan of care reviewed with the patient and his nurse History Interval history: Patient seen and examined medical records reviewed Admitted with diabetic foot ulcers Scheduled for surgical debridement of the left foot fourth and fifth toes She complains of some pain Alert awake oriented 3 Vital signs reviewed Hospitalist Physical - Constitutional Vitals: Temp Pulse Resp BP Pulse Ox 97.5 F L 69 16 165/101 99 11/17/17 18:45 11/17/17 18:45 11/17/17 18:45 11/17/17 18:45 11/17/17 18:45 General appearance: Present: no acute distress, well-nourished - EENT Eyes: Present: PERRL, EOM intact - Neck Neck: Present: supple, normal ROM - Respiratory Respiratory effort: normal Respiratory: negative: rales, rhonchi, wheezing - Cardiovascular Rhythm: regular Heart Sounds: Present: S1 & S2 - Extremities Extremities: abnormal (diabetic foot ulcer left foot, toes, dressing in place) Extremity abnormal: edema - Abdominal General gastrointestinal: soft, non-tender, non-distended, normal bowel sounds - Integumentary Integumentary: Present: clear, warm - Psychiatric Psychiatric: appropriate mood/affect, cooperative - Neurologic Neurologic: CNII-XII intact, moves all extremities Results - Labs CBC & Chem 7: 11/15/17 06:46 11/17/17 13:37 Labs: Laboratory Last Values WBC 6.1 K/mm3 (4.5-11.0) 11/15/17 06:46 RBC 4.02 M/mm3 (3.65-5.03) 11/15/17 06:46 Hgb 10.8 gm/dl (11.8-15.2) L 11/15/17 06:46 Hct 33.1 % (35.5-45.6) L 11/15/17 06:46 MCV 82 fl (84-94) L 11/15/17 06:46 MCH 27 pg (28-32) L 11/15/17 06:46 MCHC 33 % (32-34) 11/15/17 06:46 RDW 12.6 % (13.2-15.2) L 11/15/17 06:46 Plt Count 324 K/mm3 (140-440) 11/15/17 06:46 Lymph % (Auto) 32.9 % (13.4-35.0) 11/15/17 06:46 [place] % (Auto) 7.0 % (0.0-7.3) 11/15/17 06:46 Eos % (Auto) 3.8 % (0.0-4.3) 11/15/17 06:46 Baso % (Auto) 0.8 % (0.0-1.8) 11/15/17 06:46 Lymph # 2.0 K/mm3 (1.2-5.4) 11/15/17 06:46 [place] # 0.4 K/mm3 (0.0-0.8) 11/15/17 06:46 Eos # 0.2 K/mm3 (0.0-0.4) 11/15/17 06:46 Baso # 0.1 K/mm3 (0.0-0.1) 11/15/17 06:46 Seg Neutrophils % 55.5 % (40.0-70.0) 11/15/17 06:46 Seg Neutrophils # 3.4 K/mm3 (1.8-7.7) 11/15/17 06:46 PT 11.5 Sec. (12.2-14.9) L 11/13/17 18:44 INR 0.80 (0.87-1.13) L 11/13/17 18:44 VBG pH 7.390 (7.320-7.420) 11/13/17 18:44 Sodium 133 mmol/L (137-145) L 11/15/17 06:46 Potassium 4.7 mmol/L (3.6-5.0) 11/17/17 13:37 Chloride 94.9 mmol/L (98-107) L 11/15/17 06:46 Carbon Dioxide 28 mmol/L (22-30) 11/15/17 06:46 Anion Gap 15 mmol/L 11/15/17 06:46 BUN 17 mg/dL (9-20) 11/15/17 06:46 Creatinine 1.8 mg/dL (0.8-1.5) H 11/15/17 06:46 Estimated GFR 54 ml/min 11/15/17 06:46 BUN/Creatinine Ratio 9 % 11/15/17 06:46 Glucose 467 mg/dL (75-100) H 11/15/17 06:46 POC Glucose 123 (70-105) H 11/17/17 15:30 Hemoglobin A1c 12.8 % (4-6) H 11/14/17 02:05 Lactic Acid 1.40 mmol/L (0.7-2.0) 11/13/17 21:18 Calcium 8.8 mg/dL (8.4-10.2) 11/15/17 06:46 Total Bilirubin 0.40 mg/dL (0.1-1.2) 11/13/17 18:44 AST 20 units/L (5-40) 11/13/17 18:44 ALT 15 units/L (7-56) 11/13/17 18:44 Alkaline Phosphatase 60 units/L (35-129) 11/13/17 18:44 Total Protein 7.6 g/dL (6.3-8.2) 11/13/17 18:44 Albumin 2.9 g/dL (3.9-5) L 11/13/17 18:44 Albumin/Globulin Ratio 0.6 % 11/13/17 18:44 Urine Color Yellow (Yellow) 11/13/17 03:00 Urine Turbidity Clear (Clear) 11/13/17 03:00 Urine pH 6.0 (5.0-7.0) 11/13/17 03:00 Ur Specific [place] 1.025 (1.003-1.030) 11/13/17 03:00 Urine Protein 100 mg/dl mg/dL (Negative) 11/13/17 03:00 Urine Glucose (UA) >=500 mg/dL (Negative) 11/13/17 03:00 Urine Ketones Neg mg/dL (Negative) 11/13/17 03:00 Urine Blood Sm (Negative) 11/13/17 03:00 Urine Nitrite Neg (Negative) 11/13/17 03:00 Urine Bilirubin Neg (Negative) 11/13/17 03:00 Urine Urobilinogen < 2.0 mg/dL (<2.0) 11/13/17 03:00 Ur Leukocyte Esterase Neg (Negative) 11/13/17 03:00 Urine WBC (Auto) 1.0 /HPF (0.0-6.0) 11/13/17 03:00 Urine RBC (Auto) 4.0 /HPF (0.0-6.0) 11/13/17 03:00
--- NOTE | 2017-11-17 22:09 | Operative Report ---
PREOPERATIVE DIAGNOSIS: Diabetic foot ulcers on the left fourth and fifth digits. POSTOPERATIVE DIAGNOSIS: Diabetic foot ulcers on the left fourth and fifth digits. PROCEDURE: Debridement of subcutaneous tissue including epidermis and dermis. ATTENDING PHYSICIAN: Drew Santa MD ANESTHESIA: General. ESTIMATED BLOOD LOSS: Minimal. FLUIDS: 25 mL. FINDINGS: Hyperkeratotic and necrotic tissue on the lateral aspects of the fourth and fifth toes. The fifth toe was significantly swollen, some necrotic and purulent material, were found on the inside of the fifth toe just underneath the ulcer. SPECIMENS: Tissue was sent for permanent evaluation as well as tissue culture of the fifth toe. DRAINS: None. COMPLICATIONS: None. DISPOSITION: Stable transport to Recovery Room. INDICATIONS: This is a 31-year-old male with diabetic foot ulcers, who is felt to be in need for debridement. The patient still had sensation intact and I felt the amount of debridement that would be necessary would be difficult to tolerate at the bedside. Therefore, the patient was assessed to be in need for debridement in the operating room. Procedure, risks, benefits were explained to the patient. Risks included but were not limited to infection, bleeding, pain, injury to surrounding structures, possible need for further procedures in the future, possible chronic wounds. The patient understood and consented. OPERATIVE NOTE: The patient was brought to the operating room and placed on the table in supine position. After adequate general anesthesia was established. The patient was prepped and draped in usual sterile fashion. Time-out had been called. SCD was present on the right leg. The patient was already on antibiotics. I began by excising the nonviable tissue and hyperkeratotic tissue on both digits. On the fifth digit, there was some necrotic tissue underneath. This was sent for tissue culture. The surrounding nonviable tissue was sent for permanent. On the fourth digit, the nonviable tissue was sent for permanent evaluation. The wounds were then curetted to get rid of any chronic tissue. Once this was done, pressure was held for hemostasis. Electrocautery was also used eventually for hemostasis. I then placed 0.5% Marcaine soaked dressing in each wound. Dressings were placed. The patient tolerated procedure well. There were no complications. All counts were correct at the end of the case. I did check each wound to make sure that it did not tunnel anywhere and I could not find any tunneling into any adjacent area. PSYCHIATRIC# [id number] RESHMA/YENY
[2017-11-17] MEDS: APRESOLINE PO SCH (22:16)
[2017-11-18] MEDS: MORPHINE IV PRN ×4 (01:11→17:53)
[2017-11-18] MEDS: ZOSYN/NS 4.5GM/100ML 4.5 GM/100 ML VIAL IV SCH ×3 (01:12→17:35)
[2017-11-18] MEDS: APRESOLINE PO SCH ×4 (06:38→21:11)
[2017-11-18 07:48] LABS: Basophils % (Auto) 0.8 % (0.0-1.8); Calcium 8.8 mg/dL (8.4-10.2); Eosinophils # (Auto) 0.1 K/mm3 (0.0-0.4); Eosinophils % (Auto) 2.5 % (0.0-4.3); Hematocrit 32.7 % (35.5-45.6); Hemoglobin 10.7 gm/dl (11.8-15.2); Lymphocytes # (Auto) 1.7 K/mm3 (1.2-5.4); Lymphocytes % (Auto) 34.8 % (13.4-35.0); Mean Corpuscular HGB Conc 33 % (32-34); Mean Corpuscular Hemoglobin 27 pg (28-32); Mean Corpuscular Volume 82 fl (84-94); Monocytes # (Auto) 0.3 K/mm3 (0.0-0.8); Monocytes % (Auto) 6.8 % (0.0-7.3); Platelet Count 358 K/mm3 (140-440); Red Cell Distribution Width 12.3 % (13.2-15.2)
[2017-11-18] MEDS: HumaLOG SUB-Q SCH ×4 (08:00→22:10)
--- NOTE | 2017-11-18 09:21 | Progress Note ---
Subjective Date of service: 11/18/17 Principal diagnosis: L 5th toe ulcer with drainage Interval history: Patient is doing well He has no anesthetic complaints. Objective - Constitutional Vitals: Vital Signs - 12hr 11/17/17 11/17/17 11/17/17 21:44 22:00 22:16 Temperature 97.8 F Pulse Rate 76 75 Respiratory 20 Rate Respiratory 18 Rate [Abdomen] Blood Pressure 154/94 154/94 O2 Sat by Pulse 98 Oximetry 11/17/17 11/18/17 11/18/17 22:19 01:11 01:41 Temperature Pulse Rate Respiratory 18 17 18 Rate Respiratory Rate [Abdomen] Blood Pressure O2 Sat by Pulse Oximetry 11/18/17 11/18/17 11/18/17 06:34 06:38 06:39 Temperature Pulse Rate 77 74 Respiratory 18 Rate Respiratory Rate [Abdomen] Blood Pressure 157/100 157/100 O2 Sat by Pulse 96 Oximetry 11/18/17 07:09 Temperature Pulse Rate Respiratory 17 Rate Respiratory Rate [Abdomen] Blood Pressure O2 Sat by Pulse Oximetry - Labs CBC & Chem 7: 11/18/17 05:25 11/18/17 05:25 Labs: Abnormal lab results 11/17/17 11/17/17 11/17/17 Range/Units 07:58 10:10 15:30 Hgb (11.8-15.2) gm/dl Hct (35.5-45.6) % MCV (84-94) fl MCH (28-32) pg RDW (13.2-15.2) % Creatinine (0.8-1.5) mg/dL Glucose (75-100) mg/dL POC Glucose 159 H 139 H 123 H (70-105) 11/17/17 11/18/17 11/18/17 Range/Units 21:29 00:59 05:25 Hgb 10.7 L (11.8-15.2) gm/dl Hct 32.7 L (35.5-45.6) % MCV 82 L (84-94) fl MCH 27 L (28-32) pg RDW 12.3 L (13.2-15.2) % Creatinine (0.8-1.5) mg/dL Glucose (75-100) mg/dL POC Glucose 273 H 231 H (70-105) 11/18/17 11/18/17 11/18/17 Range/Units 05:25 05:34 06:47 Hgb (11.8-15.2) gm/dl Hct (35.5-45.6) % MCV (84-94) fl MCH (28-32) pg RDW (13.2-15.2) % Creatinine 1.7 H (0.8-1.5) mg/dL Glucose 53 L (75-100) mg/dL POC Glucose 54 L 146 H (70-105)
[2017-11-18] MEDS: LOVENOX SUB-Q SCH (10:14)
[2017-11-18] MEDS: LANTUS SUB-Q SCH ×2 (10:15→22:10)
[2017-11-18] MEDS: SODIUM CHLORIDE FLUSH SYRINGE 10 ML IV SCH ×2 (10:16→21:14)
--- NOTE | 2017-11-18 11:39 | Progress Note ---
Assessment and Plan Assessment and plan: --Hypertension: Uncontrolled Secondary to noncompliance, counseled the patient advised the importance of BP control --Diabetic foot infection; s/p surgical debridement left 4th,5th toes yesterday Elevate the limb, IV antibiotics, wound care, pain management --Type 2 diabetes mellitus; uncontrolled Accu-Chek sliding scale coverage and ADA diet and insulin Hemoglobin A1c 12.8, diabetic education, nutrition education --Severe malnutrition; hypoalbuminemia[albumin 2.9] Nutrition supplements, supportive care --Acute kidney injury; gentle hydration, due to ATN Closely monitor his renal function, avoid nephrotoxins, nephrology evaluation, If no improvement --DVT prophylaxis; Lovenox DC planning per case management; patient may need home health Home health nurse for disease monitoring when medically stable Closely monitor the patient and adjust the management as needed Plan of care reviewed with the patient and his nurse History Interval history: Patient seen and examined medical records reviewed Patient complains of pain Refusing blood pressure medications Counseled the importance of optimal BP controlled Verbalized understanding Alert awake oriented 3 not in acute distress Hospitalist Physical - Constitutional Vitals: Temp Pulse Resp BP Pulse Ox 97.7 F 79 20 161/102 96 11/18/17 07:40 11/18/17 10:34 11/18/17 07:40 11/18/17 10:34 11/18/17 06:34 General appearance: Present: no acute distress, well-nourished - EENT Eyes: Present: PERRL, EOM intact - Neck Neck: Present: supple, normal ROM - Respiratory Respiratory effort: normal Respiratory: negative: rales, rhonchi, wheezing - Cardiovascular Rhythm: regular Heart Sounds: Present: S1 & S2 - Extremities Extremities: abnormal (foot dressing in place) - Abdominal General gastrointestinal: soft, non-tender, non-distended, normal bowel sounds - Integumentary Integumentary: Present: clear, warm - Psychiatric Psychiatric: appropriate mood/affect, cooperative - Neurologic Neurologic: CNII-XII intact, moves all extremities Results - Labs CBC & Chem 7: 11/18/17 05:25 11/18/17 05:25 Labs: Laboratory Last Values WBC 4.8 K/mm3 (4.5-11.0) 11/18/17 05:25 RBC 4.00 M/mm3 (3.65-5.03) 11/18/17 05:25 Hgb 10.7 gm/dl (11.8-15.2) L 11/18/17 05:25 Hct 32.7 % (35.5-45.6) L 11/18/17 05:25 MCV 82 fl (84-94) L 11/18/17 05:25 MCH 27 pg (28-32) L 11/18/17 05:25 MCHC 33 % (32-34) 11/18/17 05:25 RDW 12.3 % (13.2-15.2) L 11/18/17 05:25 Plt Count 358 K/mm3 (140-440) 11/18/17 05:25 Lymph % (Auto) 34.8 % (13.4-35.0) 11/18/17 05:25 [place] % (Auto) 6.8 % (0.0-7.3) 11/18/17 05:25 Eos % (Auto) 2.5 % (0.0-4.3) 11/18/17 05:25 Baso % (Auto) 0.8 % (0.0-1.8) 11/18/17 05:25 Lymph # 1.7 K/mm3 (1.2-5.4) 11/18/17 05:25 [place] # 0.3 K/mm3 (0.0-0.8) 11/18/17 05:25 Eos # 0.1 K/mm3 (0.0-0.4) 11/18/17 05:25 Baso # 0.0 K/mm3 (0.0-0.1) 11/18/17 05:25 Seg Neutrophils % 55.1 % (40.0-70.0) 11/18/17 05:25 Seg Neutrophils # 2.6 K/mm3 (1.8-7.7) 11/18/17 05:25 PT 11.5 Sec. (12.2-14.9) L 11/13/17 18:44 INR 0.80 (0.87-1.13) L 11/13/17 18:44 VBG pH 7.390 (7.320-7.420) 11/13/17 18:44 Sodium 141 mmol/L (137-145) D 11/18/17 05:25 Potassium 4.2 mmol/L (3.6-5.0) 11/18/17 05:25 Chloride 103.0 mmol/L (98-107) 11/18/17 05:25 Carbon Dioxide 28 mmol/L (22-30) 11/18/17 05:25 Anion Gap 14 mmol/L 11/18/17 05:25 BUN 13 mg/dL (9-20) 11/18/17 05:25 Creatinine 1.7 mg/dL (0.8-1.5) H 11/18/17 05:25 Estimated GFR 57 ml/min 11/18/17 05:25 BUN/Creatinine Ratio 8 % 11/18/17 05:25 Glucose 53 mg/dL (75-100) L 11/18/17 05:25 POC Glucose 146 (70-105) H 11/18/17 06:47 Hemoglobin A1c 12.8 % (4-6) H 11/14/17 02:05 Lactic Acid 1.40 mmol/L (0.7-2.0) 11/13/17 21:18 Calcium 8.8 mg/dL (8.4-10.2) 11/18/17 05:25 Magnesium 1.90 mg/dL (1.7-2.3) 11/18/17 05:25 Total Bilirubin 0.40 mg/dL (0.1-1.2) 11/13/17 18:44 AST 20 units/L (5-40) 11/13/17 18:44 ALT 15 units/L (7-56) 11/13/17 18:44 Alkaline Phosphatase 60 units/L (35-129) 11/13/17 18:44 Total Protein 7.6 g/dL (6.3-8.2) 11/13/17 18:44 Albumin 2.9 g/dL (3.9-5) L 11/13/17 18:44 Albumin/Globulin Ratio 0.6 % 11/13/17 18:44 Urine Color Yellow (Yellow) 11/13/17 03:00 Urine Turbidity Clear (Clear) 11/13/17 03:00 Urine pH 6.0 (5.0-7.0) 11/13/17 03:00 Ur Specific [place] 1.025 (1.003-1.030) 11/13/17 03:00 Urine Protein 100 mg/dl mg/dL (Negative) 11/13/17 03:00 Urine Glucose (UA) >=500 mg/dL (Negative) 11/13/17 03:00 Urine Ketones Neg mg/dL (Negative) 11/13/17 03:00 Urine Blood Sm (Negative) 11/13/17 03:00 Urine Nitrite Neg (Negative) 11/13/17 03:00 Urine Bilirubin Neg (Negative) 11/13/17 03:00 Urine Urobilinogen < 2.0 mg/dL (<2.0) 11/13/17 03:00 Ur Leukocyte Esterase Neg (Negative) 11/13/17 03:00 Urine WBC (Auto) 1.0 /HPF (0.0-6.0) 11/13/17 03:00 Urine RBC (Auto) 4.0 /HPF (0.0-6.0) 11/13/17 03:00
[2017-11-18] MEDS ORDERED: DILAUDID IV ONE (14:00)
--- NOTE | 2017-11-18 14:14 | Progress Note ---
Assessment and Plan - Patient Problems (1) Diabetic foot infection Current Visit: Yes Status: Acute Plan to address problem: Diabetic Foot Ulcers. Pt stable. s/p Debridement of Left 4th/5th toes - 11/17/17 - POD#1. Pt stable. Wound look good. Mesalt applied. Next dressing change by Wound Care Nurse on Monday. Should be ok to discharge after that. Needs to speak with Tool Grinder Operator for multiple social issues. Please call with questions. Subjective Date of service: 11/18/17 Patient Reports: Positive: still having pain Objective Vital Signs - 12hr 11/18/17 11/18/17 11/18/17 06:34 06:38 06:39 Temperature Pulse Rate 77 74 Respiratory 18 Rate Blood Pressure 157/100 157/100 O2 Sat by Pulse 96 Oximetry 11/18/17 11/18/17 11/18/17 07:09 07:40 10:34 Temperature 97.7 F Pulse Rate 79 Respiratory 17 20 Rate Blood Pressure 155/94 161/102 O2 Sat by Pulse Oximetry - General physical appearance no distress, no pain, other (does not appear ill. In very good spirits) - Respiratory normal expansion, normal respiratory effort - Integumentary other (Wounds are clean. No signs of residual necrotic or infected tissue) - Labs 11/18/17 05:25 11/18/17 05:25 Diabetes panel 11/17/17 11/18/17 Range/Units 13:37 05:25 Sodium 141 D (137-145) mmol/L Potassium 4.7 4.2 (3.6-5.0) mmol/L Chloride 103.0 (98-107) mmol/L Carbon Dioxide 28 (22-30) mmol/L BUN 13 (9-20) mg/dL Creatinine 1.7 H (0.8-1.5) mg/dL Glucose 53 L (75-100) mg/dL Calcium 8.8 (8.4-10.2) mg/dL Calcium panel 11/18/17 Range/Units 05:25 Calcium 8.8 (8.4-10.2) mg/dL Pituitary panel 11/17/17 11/18/17 Range/Units 13:37 05:25 Sodium 141 D (137-145) mmol/L Potassium 4.7 4.2 (3.6-5.0) mmol/L Chloride 103.0 (98-107) mmol/L Carbon Dioxide 28 (22-30) mmol/L BUN 13 (9-20) mg/dL Creatinine 1.7 H (0.8-1.5) mg/dL Glucose 53 L (75-100) mg/dL Calcium 8.8 (8.4-10.2) mg/dL Adrenal panel 11/17/17 11/18/17 Range/Units 13:37 05:25 Sodium 141 D (137-145) mmol/L Potassium 4.7 4.2 (3.6-5.0) mmol/L Chloride 103.0 (98-107) mmol/L Carbon Dioxide 28 (22-30) mmol/L BUN 13 (9-20) mg/dL Creatinine 1.7 H (0.8-1.5) mg/dL Glucose 53 L (75-100) mg/dL Calcium 8.8 (8.4-10.2) mg/dL
[2017-11-18] MEDS: PERCOCET 5/325 PO PRN (21:12)
[2017-11-18] MEDS: NACL 0.9% 1000 ML 1,000 ML IV SCH (21:24)
[2017-11-19] MEDS: ZOSYN/NS 4.5GM/100ML 4.5 GM/100 ML VIAL IV SCH ×3 (01:46→18:35)
[2017-11-19] MEDS: MORPHINE IV PRN ×3 (01:46→18:36)
[2017-11-19] MEDS: APRESOLINE PO SCH ×3 (06:02→23:05)
[2017-11-19] MEDS: HumaLOG SUB-Q SCH ×4 (08:00→23:05)
[2017-11-19 09:09] LABS: Calcium 8.8 mg/dL (8.4-10.2)
[2017-11-19] MEDS: LANTUS SUB-Q SCH ×2 (09:43→23:06)
[2017-11-19] MEDS: NACL 0.9% 1000 ML 1,000 ML IV SCH ×2 (09:49→23:04)
[2017-11-19] MEDS: LOVENOX SUB-Q SCH (09:50)
[2017-11-19] MEDS: SODIUM CHLORIDE FLUSH SYRINGE 10 ML IV SCH ×2 (09:53→22:05)
--- NOTE | 2017-11-19 09:54 | Progress Note ---
Assessment and Plan Assessment and plan: --Hypertension: Uncontrolled Secondary to noncompliance, counseled the patient advised the importance of BP control --Diabetic foot infection; s/p surgical debridement left 4th,5th toes yesterday Elevate the limb, IV antibiotics, wound care, pain management Wound cultures gram-negative, follow sensitivities, continue Zosyn --Type 2 diabetes mellitus; uncontrolled Accu-Chek sliding scale coverage and ADA diet and insulin Hemoglobin A1c 12.8, diabetic education, nutrition education --Severe malnutrition; hypoalbuminemia[albumin 2.9] Nutrition supplements, supportive care --Acute kidney injury; gentle hydration, due to ATN Closely monitor his renal function, avoid nephrotoxins, nephrology evaluation, If no improvement --DVT prophylaxis; Lovenox DC planning per case management; patient may need home health Home health nurse for disease monitoring when medically stable Closely monitor the patient and adjust the management as needed Plan of care reviewed with the patient and his nurse History Interval history: Patient seen and examined medical records reviewed Patient doesn't like the food and keeps complaining not good Poor oral intake, hypoglycemia Morning 70/30 insulin held Alert awake oriented 3 Vital Signs noted Hospitalist Physical - Constitutional Vitals: Temp Pulse Resp BP Pulse Ox 97.7 F 71 20 153/79 98 11/19/17 07:38 11/19/17 07:38 11/19/17 07:38 11/19/17 07:38 11/19/17 07:38 General appearance: Present: no acute distress, well-nourished - EENT Eyes: Present: PERRL, EOM intact - Neck Neck: Present: supple, normal ROM - Respiratory Respiratory effort: normal Respiratory: negative: rales, rhonchi, wheezing - Cardiovascular Rhythm: regular Heart Sounds: Present: S1 & S2 - Extremities Extremities: No edema, abnormal (diabetic foot ulcer status post debridement) - Abdominal General gastrointestinal: soft, non-tender, non-distended, normal bowel sounds - Integumentary Integumentary: Present: clear, warm - Psychiatric Psychiatric: appropriate mood/affect, cooperative - Neurologic Neurologic: moves all extremities Results - Labs CBC & Chem 7: 11/18/17 05:25 11/19/17 08:04 Labs: Laboratory Last Values WBC 4.8 K/mm3 (4.5-11.0) 11/18/17 05:25 RBC 4.00 M/mm3 (3.65-5.03) 11/18/17 05:25 Hgb 10.7 gm/dl (11.8-15.2) L 11/18/17 05:25 Hct 32.7 % (35.5-45.6) L 11/18/17 05:25 MCV 82 fl (84-94) L 11/18/17 05:25 MCH 27 pg (28-32) L 11/18/17 05:25 MCHC 33 % (32-34) 11/18/17 05:25 RDW 12.3 % (13.2-15.2) L 11/18/17 05:25 Plt Count 358 K/mm3 (140-440) 11/18/17 05:25 Lymph % (Auto) 34.8 % (13.4-35.0) 11/18/17 05:25 [place] % (Auto) 6.8 % (0.0-7.3) 11/18/17 05:25 Eos % (Auto) 2.5 % (0.0-4.3) 11/18/17 05:25 Baso % (Auto) 0.8 % (0.0-1.8) 11/18/17 05:25 Lymph # 1.7 K/mm3 (1.2-5.4) 11/18/17 05:25 [place] # 0.3 K/mm3 (0.0-0.8) 11/18/17 05:25 Eos # 0.1 K/mm3 (0.0-0.4) 11/18/17 05:25 Baso # 0.0 K/mm3 (0.0-0.1) 11/18/17 05:25 Seg Neutrophils % 55.1 % (40.0-70.0) 11/18/17 05:25 Seg Neutrophils # 2.6 K/mm3 (1.8-7.7) 11/18/17 05:25 PT 11.5 Sec. (12.2-14.9) L 11/13/17 18:44 INR 0.80 (0.87-1.13) L 11/13/17 18:44 VBG pH 7.390 (7.320-7.420) 11/13/17 18:44 Sodium 142 mmol/L (137-145) 11/19/17 08:04 Potassium 4.8 mmol/L (3.6-5.0) 11/19/17 08:04 Chloride 103.0 mmol/L (98-107) 11/19/17 08:04 Carbon Dioxide 30 mmol/L (22-30) 11/19/17 08:04 Anion Gap 14 mmol/L 11/19/17 08:04 BUN 22 mg/dL (9-20) H 11/19/17 08:04 Creatinine 2.0 mg/dL (0.8-1.5) H 11/19/17 08:04 Estimated GFR 47 ml/min 11/19/17 08:04 BUN/Creatinine Ratio 11 % 11/19/17 08:04 Glucose 77 mg/dL (75-100) 11/19/17 08:04 POC Glucose 67 (70-105) L 11/19/17 06:00 Hemoglobin A1c 12.8 % (4-6) H 11/14/17 02:05 Lactic Acid 1.40 mmol/L (0.7-2.0) 11/13/17 21:18 Calcium 8.8 mg/dL (8.4-10.2) 11/19/17 08:04 Magnesium 1.90 mg/dL (1.7-2.3) 11/18/17 05:25 Total Bilirubin 0.40 mg/dL (0.1-1.2) 11/13/17 18:44 AST 20 units/L (5-40) 11/13/17 18:44 ALT 15 units/L (7-56) 11/13/17 18:44 Alkaline Phosphatase 60 units/L (35-129) 11/13/17 18:44 Total Protein 7.6 g/dL (6.3-8.2) 11/13/17 18:44 Albumin 2.9 g/dL (3.9-5) L 11/13/17 18:44 Albumin/Globulin Ratio 0.6 % 11/13/17 18:44 Urine Color Yellow (Yellow) 11/13/17 03:00 Urine Turbidity Clear (Clear) 11/13/17 03:00 Urine pH 6.0 (5.0-7.0) 11/13/17 03:00 Ur Specific [place] 1.025 (1.003-1.030) 11/13/17 03:00 Urine Protein 100 mg/dl mg/dL (Negative) 11/13/17 03:00 Urine Glucose (UA) >=500 mg/dL (Negative) 11/13/17 03:00 Urine Ketones Neg mg/dL (Negative) 11/13/17 03:00 Urine Blood Sm (Negative) 11/13/17 03:00 Urine Nitrite Neg (Negative) 11/13/17 03:00 Urine Bilirubin Neg (Negative) 11/13/17 03:00 Urine Urobilinogen < 2.0 mg/dL (<2.0) 11/13/17 03:00 Ur Leukocyte Esterase Neg (Negative) 11/13/17 03:00 Urine WBC (Auto) 1.0 /HPF (0.0-6.0) 11/13/17 03:00 Urine RBC (Auto) 4.0 /HPF (0.0-6.0) 11/13/17 03:00
[2017-11-19] MEDS ORDERED: LANTUS SUB-Q SCH (11:00)
[2017-11-19] MEDS: PERCOCET 5/325 PO PRN ×2 (17:23→23:11)
[2017-11-20] MEDS: MORPHINE IV PRN ×3 (01:33→13:54)
[2017-11-20] MEDS: ZOSYN/NS 4.5GM/100ML 4.5 GM/100 ML VIAL IV SCH ×2 (02:31→10:00)
[2017-11-20] MEDS ORDERED: BENADRYL IV PRN (04:06)
[2017-11-20 06:32] LABS: Basophils % (Auto) 0.6 % (0.0-1.8); Eosinophils # (Auto) 0.1 K/mm3 (0.0-0.4); Eosinophils % (Auto) 2.4 % (0.0-4.3); Hematocrit 32.3 % (35.5-45.6); Hemoglobin 10.5 gm/dl (11.8-15.2); Lymphocytes # (Auto) 2.2 K/mm3 (1.2-5.4); Lymphocytes % (Auto) 36.7 % (13.4-35.0); Mean Corpuscular HGB Conc 32 % (32-34); Mean Corpuscular Hemoglobin 27 pg (28-32); Mean Corpuscular Volume 83 fl (84-94); Monocytes # (Auto) 0.4 K/mm3 (0.0-0.8); Monocytes % (Auto) 7.5 % (0.0-7.3); Platelet Count 341 K/mm3 (140-440); Red Blood Count 3.89 M/mm3 (3.65-5.03); Red Cell Distribution Width 12.6 % (13.2-15.2)
[2017-11-20 06:53] LABS: Calcium 8.6 mg/dL (8.4-10.2)
[2017-11-20] MEDS: APRESOLINE PO SCH ×2 (06:56→13:53)
[2017-11-20] MEDS: HumaLOG SUB-Q SCH ×3 (07:30→16:30)
[2017-11-20 08:15] VITALS: BP 164/96
[2017-11-20] MEDS: LOVENOX SUB-Q SCH (10:11)
[2017-11-20] MEDS: LANTUS SUB-Q SCH (10:12)
[2017-11-20] MEDS: NACL 0.9% 1000 ML 1,000 ML IV SCH (10:13)
[2017-11-20] MEDS: SODIUM CHLORIDE FLUSH SYRINGE 10 ML IV SCH (10:14)
--- NOTE | 2017-11-20 17:17 | Discharge Summary ---
Providers - Providers Date of Admission: 11/14/17 01:51 Date of discharge: 11/20/17 Attending physician: JJ WASHINGTON 11/14/17 06:39 Consult to Wound/ET Nurse [CONS] Stat Reason For Exam: wound eval 11/15/17 10:52 Consult to Physician [CONS] Urgent Comment: Consulting Provider: JUAN VILLAGOMEZ Physician Instructions: PLEASE EVALUATE FOR DEBRIDEMENT Reason For Exam: EVALUATE FOR DEBRIDEMENT Primary care physician: FORMATION TESTING OPERATOR Hospitalization Condition: Fair Disposition: DC/[place]-06 HOME UNDER HOME [facility] Time spent for discharge: 35 min Core Measure Documentation - Palliative Care Palliative Care/ Comfort Measures: Not Applicable - Core Measures Any of the following diagnoses?: none Exam - Constitutional Vitals: Temp Pulse Resp BP Pulse Ox 97.7 F 76 19 164/96 97 11/20/17 07:48 11/20/17 07:30 11/20/17 07:48 11/20/17 07:48 11/20/17 07:30 General appearance: Present: no acute distress, well-nourished - EENT Eyes: Present: PERRL, EOM intact - Neck Neck: Present: supple, normal ROM - Respiratory Respiratory effort: normal Respiratory: negative: rales, rhonchi, wheezing - Cardiovascular Rhythm: regular Heart Sounds: Present: S1 & S2 - Extremities Extremities: no ischemia, No edema, abnormal (lt foot wound /dressing in place) - Abdominal General gastrointestinal: Present: soft, non-tender, non-distended, normal bowel sounds - Integumentary Integumentary: Present: clear, warm - Musculoskeletal Musculoskeletal: strength equal bilaterally - Psychiatric Psychiatric: appropriate mood/affect, cooperative - Neurologic Neurologic: CNII-XII intact Plan Diet: low salt, diabetic Wound: per wound nurse instructions, other (home wound care) Special Instructions: smoking cessation Additional Instructions: Outpatient wound care as needed Follow up with: EDWAR SINGH MD [Primary Care Provider] - 3-5 Days JUAN VILLAGOMEZ MD [Staff Physician] - 7 Days SUNNY DE LA CRUZ MD [Staff Physician] - 7 Days Prescriptions: carBAMazepine [TEGretol] 200 mg PO BID #60 tablet Ciprofloxacin HCl [Ciprofloxacin TAB] 250 mg PO BID #20 tablet Clindamycin HCl 300 mg PO TID #30 capsule hydrALAZINE [Apresoline TAB] 10 mg PO Q8HR #90 tablet Insulin Aspart [NovoLOG Flexpen] See Protocol SQ AC #1 [email or web address].pen Insulin Glargine [Lantus VIAL] 14 units SUB-Q BID 30 Days units Lantus 20 units SQ BID 30 Days Lispro Insulin [Humalog] 0 unit SUB-Q ACHS 30 Days units
[2017-11-20] MEDS: PERCOCET 5/325 PO PRN (18:11)
[2017-11-20] MEDS ORDERED: HumaLOG SUB-Q SCH (22:00)
== END 2017-11-20 18:41 | disposition home health service (06) | DRG 622 ==
LOC: ED 17:46 → 3A 11-14 01:51
PROVIDERS: ADMIT Internal Medicine; ATTEND Internal Medicine
PROC: 0JBR0ZZ Excision of Left Foot Subcutaneous Tissue and Fascia, Open Approach (ICD-10-PCS; principal; 2017-11-17)
DX: E10.621 Type 1 diabetes mellitus with foot ulcer (principal); E43 Unspecified severe protein-calorie malnutrition; G40.909 Epilepsy, unspecified, not intractable, without status epilepticus; F17.200 Nicotine dependence, unspecified, uncomplicated; E10.21 Type 1 diabetes mellitus with diabetic nephropathy; I10 Essential (primary) hypertension; E88.09 Other disorders of plasma-protein metabolism, not elsewhere classified; N17.0 Acute kidney failure with tubular necrosis; K21.9 Gastro-esophageal reflux disease without esophagitis; D64.9 Anemia, unspecified; L97.529 Non-pressure chronic ulcer of other part of left foot with unspecified severity; E10.65 Type 1 diabetes mellitus with hyperglycemia; Z71.6 Tobacco abuse counseling; Z91.14 Patient's other noncompliance with medication regimen; Z71.89 Other specified counseling; Z68.22 Body mass index [BMI] 22.0-22.9, adult; Z79.4 Long term (current) use of insulin; Z79.899 Other long term (current) drug therapy; Z82.49 Family history of ischemic heart disease and other diseases of the circulatory system
CPT/HCPCS: 36415; 71046; 80048; 80053; 81001; 82140; 82805; 82962; 83036; 83735; 84132; 85025; 85610; 87040; 87076; 87086; 87116; 87186; 88302; 88311; 93005; 93010; 99406; J1170; J1200; J1650; J1815; J2250; J2270; J2543; J2704; J3370; J7030; J7040; J7042

== ENCOUNTER 2018-09-06 13:05 | Inpatient (IN) | payer SELFPAY ==
--- NOTE | 2018-09-06 13:36 | Emergency Department Report ---
Blank Doc - Documentation Documentation: This is a 32-year-old male that presents with nausea vomiting and abdominal pa in. This initial assessment/diagnostic orders/clinical plan/treatment(s) is/are subject to change based on patient's health status, clinical progression and re- assessment by fellow clinical providers in the ED. Further treatment and workup at subsequent clinical providers discretion. Patient/guardians urged not to elope from the ED as their condition may be serious if not clinically assessed and managed. Initial orders include: 1- Patient sent to [facility] for further evaluation and treatment 2- labs 3- UA
[2018-09-06] MEDS ORDERED: ZOFRAN ODT PO ONE (13:37)
[2018-09-06] MEDS ORDERED: TORADOL IV ONE (14:11)
[2018-09-06] MEDS ORDERED: PEPCID IV ONE (14:11)
[2018-09-06] MEDS ORDERED: NACL 0.9% 1000 ML 1,000 ML IV ONE ×3 (14:11→18:25)
[2018-09-06] MEDS ORDERED: ZOFRAN IV ONE ×2 (14:11→18:25)
[2018-09-06] MEDS ORDERED: BENTYL IM ONE (14:12)
[2018-09-06 15:14] LABS: Basophils % (Auto) 0.8 % (0.0-1.8); Eosinophils # (Auto) 0.1 K/mm3 (0.0-0.4); Eosinophils % (Auto) 1.1 % (0.0-4.3); Hematocrit 35.6 % (35.5-45.6); Hemoglobin 11.6 gm/dl (11.8-15.2); Lymphocytes # (Auto) 1.4 K/mm3 (1.2-5.4); Lymphocytes % (Auto) 24.9 % (13.4-35.0); Mean Corpuscular HGB Conc 33 % (32-34); Mean Corpuscular Volume 82 fl (84-94); Monocytes # (Auto) 0.4 K/mm3 (0.0-0.8); Monocytes % (Auto) 7.8 % (0.0-7.3); Platelet Count 262 K/mm3 (140-440); Red Blood Count 4.36 M/mm3 (3.65-5.03); Red Cell Distribution Width 13.3 % (13.2-15.2)
[2018-09-06] MEDS ORDERED: MORPHINE IV ONE ×2 (15:25→18:25)
[2018-09-06 15:30] LABS: Alanine Aminotransferase 26 units/L (7-56); Albumin 2.9 g/dL (3.9-5); BUN/Creatinine Ratio 8; Blood Urea Nitrogen 19 mg/dL (9-20); Hemolysis Index 45
[2018-09-06 15:38] LABS: Bilirubin,Direct < 0.2 mg/dL (0-0.2)
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
--- NOTE | 2018-09-06 18:22 | Cat Scan Report ---
PROCEDURE: CT ABDOMEN PELVIS WO CON TECHNIQUE: CT of the abdomen and pelvis was performed without intravenous contrast. Coronal and sagittal reconstructions were included. HISTORY: NV abd pain COMPARISONS: None FINDINGS: Lower thorax: The lung bases are clear. The visualized portions of the heart demonstrate no abnormali ty. Liver: Normal attenuation. No masses. Gallbladder/biliary system: No cholelithiasis. The common bile duct appears nondilated. Spleen: No splenic mass. Pancreas: No masses. No pancreatic duct dilation. Adrenal glands: No masses. Kidneys: No masses or cysts. No hydronephrosis. No renal or ureteral calculi. Vasculature: The abdominal aorta is nondilated. Lymph nodes: No enlarged lymph nodes. Bowel: No bowel obstruction. No free fluid. No free air. The appendix is nondilated and noninflamed. No diverticulosis. Pelvis: Normal anatomy. No urinary bladder wall thickening or filling defects. There is a trace amoun t of free fluid in the pelvis. Abdominal wall: No hernia or other subcutaneous findings. Bones: Subacute right lateral 10th and 11th rib fractures are seen. Subacute left lateral 11th rib fr acture is seen. IMPRESSION: 1. Trace amount of free fluid in the pelvis. 2. Subacute right 10th and 11th and left 11th rib fractures. This document is electronically signed by Tess Perez., September 06 2018 06:20:34 PM ET
[2018-09-06] MEDS ORDERED: REGLAN PO ONE (18:25)
[2018-09-06] MEDS ORDERED: MORPHINE ONE (18:28)
[2018-09-06] MEDS ORDERED: ZOFRAN ONE (18:28)
[2018-09-06] MEDS ORDERED: TYLENOL PO PRN (18:54)
[2018-09-06] MEDS ORDERED: PROVENTIL IH PRN (18:54)
[2018-09-06] MEDS ORDERED: SODIUM CHLORIDE FLUSH SYRINGE 10 ML IV PRN (18:54)
[2018-09-06] MEDS ORDERED: D50W (25GM) Syringe IV PRN (18:57)
--- NOTE | 2018-09-06 18:58 | History and Physical Report ---
History of Present Illness Chief complaint: My stomach started hurting after I ate some [employer] History of present illness: 32 YO Male with Seizure Disorder, DM complicated by Gastroparesis, Asthma presents to ED for evaluation. Pt states that he has experienced abdominal pain over the past 3 days. Pt states that the pain began after eating [employer]. Pt also acknowledges nausea, and multiple episodes of vomiting. Pt states that he has been unable to tolerate oral diet over the past 3 days. Pt denies fever, chills, CP, Palpitations, hemoptysis, BRBPR, Skin rash, Trauma, syncope, or recent ill contacts. Pt transported to [facility] ED via private vehicle. Pt seen and evaluated in ED and found to have Acute Renal Failure, and Hypertensive Urgency. Pt admitted to medical floor, and initiated on antihypertensive therapy. Urine drug screen pending at time of exam. CT Abdomen pelvis shows subacute right rib fractures. Prior admission on 11/14/17/ reviewed. All listed medication reconciled at time of exam. Past History Past Medical History: diabetes, seizures Past Surgical History: Other (brain surgery) Social history: single. denies: smoking, alcohol abuse, prescription drug abuse Family history: no significant family history (reviewed) Medications and Allergies Allergies Allergy/AdvReac Type Severity Reaction Status Date / Time phenytoin sodium Allergy Hives Verified 02/13/17 13:07 [From Dilantin] phenytoin sodium extended Allergy Hives Verified 02/13/17 13:07 [From Dilantin] Home Medications Medication Instructions Recorded Confirmed Last Taken Type Ciprofloxacin HCl [Ciprofloxacin 250 mg PO BID #20 tablet 11/20/17 Unknown Rx TAB] Clindamycin HCl 300 mg PO TID #30 capsule 11/20/17 Unknown Rx Lantus 20 units SQ BID 30 Days 11/20/17 Unknown Rx Lispro Insulin [Humalog] 0 unit SUB-Q ACHS 30 Days units 11/20/17 Unknown Rx carBAMazepine [TEGretol] 200 mg PO BID #30 tablet 11/20/17 Unknown Rx hydrALAZINE [Apresoline TAB] 10 mg PO Q8HR #90 tablet 11/20/17 Unknown Rx Active Meds: Active Medications Acetaminophen (Tylenol) 650 mg PO Q4H PRN PRN Reason: Pain MILD(1-3)/Fever >100.5/[place]OD[place] Albuterol (Proventil) 2.5 mg IH Q4HRT PRN PRN Reason: Shortness Of Breath Carbamazepine (Tegretol) 200 mg PO BID [facility] Dextrose (D50w (25gm) Syringe) 50 ml IV PRN PRN PRN Reason: Hypoglycemia Hydralazine HCl (Apresoline) 10 mg PO Q8HR [facility] Sodium Chloride (Nacl 0.9% 1000 Ml) 1,000 mls @ 999 mls/hr IV BOLUS ONE Stop: 09/06/18 19:25 Last Admin: 09/06/18 18:28 Dose: 999 mls/hr Documented by: Insulin Human Lispro (Humalog) 0 unit SUB-Q Q6HR [facility]; Protocol Ondansetron HCl (Zofran) 4 mg IV Q8H PRN PRN Reason: Nausea And Vomiting Sodium Chloride (Sodium Chloride Flush Syringe 10 Ml) 10 ml IV BID [facility] Sodium Chloride (Sodium Chloride Flush Syringe 10 Ml) 10 ml IV PRN PRN PRN Reason: LINE FLUSH Review of Systems Constitutional: no weight loss, no weight gain, no fever, no chills Cardiovascular: no chest pain, no orthopnea, no palpitations, no rapid/irregular heart beat, no edema, no syncope, no lightheadedness, no shortness of breath, no dyspnea on exertion, no paroxysmal nocturnal dyspnea, no claudication, no phlebitis Respiratory: no cough, no cough with sputum, no excessive sputum, no hemoptysis, no shortness of breath Gastrointestinal: abdominal pain, nausea, vomiting, no diarrhea, no constipation, no BRBPR, no melena, no hematochezia Genitourinary Male: no dysuria, no hematuria, no flank pain, no discharge, no urinary frequency, no urinary hesitancy Rectal: no pain, no incontinence, no bleeding Musculoskeletal: no neck stiffness, no neck pain, no shooting arm pain, no arm numbness/tingling Integumentary: no rash, no pruritis, no redness, no sores, no wounds, no jaundice Neurological: no head injury, no transient paralysis, no paralysis, no weakness, no numbness, no tingling, no seizures Psychiatric: no anxiety, no memory loss, no change in sleep habits, no sleep disturbances, no hypersomnia Endocrine: no cold intolerance, no heat intolerance, no polyphagia, no excessive thirst, no polydipsia, no polyuria Hematologic/Lymphatic: no easy bruising, no easy bleeding, no lymphadenopathy Allergic/Immunologic: no urticaria, no allergic rhinitis, no persistent infections, no anaphylaxis Exam - Constitutional Vitals: Temp Pulse Resp BP Pulse Ox 98.1 F 111 H 18 153/106 99 09/06/18 13:35 09/06/18 13:35 09/06/18 18:33 09/06/18 13:35 09/06/18 18:33 General appearance: Present: no acute distress, well-nourished - EENT Eyes: Present: PERRL ENT: hearing intact, clear oral mucosa - Neck Neck: Present: supple, normal ROM - Respiratory Respiratory effort: normal Respiratory: bilateral: CTA - Cardiovascular Heart Sounds: Present: S1 & S2. Absent: rub, click - Extremities Extremities: pulses symmetrical, No edema Peripheral Pulses: within normal limits - Abdominal General gastrointestinal: Present: soft, non-tender, non-distended, normal bowel sounds Male genitourinary: Present: normal - Integumentary Integumentary: Present: clear, warm, dry - Musculoskeletal Musculoskeletal: gait normal, strength equal bilaterally - Psychiatric Psychiatric: appropriate mood/affect, intact judgment & insight - Neurologic Neurologic: CNII-XII intact, moves all extremities Results - Labs CBC & Chem 7: 09/06/18 14:49 09/06/18 14:49 Labs: Abnormal lab results 09/06/18 09/06/18 Range/Units 14:49 14:49 Hgb 11.6 L (11.8-15.2) gm/dl MCV 82 L (84-94) fl MCH 27 L (28-32) pg [place] % (Auto) 7.8 H (0.0-7.3) % Creatinine 2.5 H (0.8-1.5) mg/dL Total Protein 6.2 L (6.3-8.2) g/dL Albumin 2.9 L (3.9-5) g/dL Lipase 8 L (13-60) units/L Assessment and Plan - Patient Problems (1) ARF (acute renal failure) with tubular necrosis Current Visit: Yes Status: Acute Plan to address problem: IVF resuscitation therapy, monitor uop q shift, urine electrolytes, repeat bmp to monitor serum creatnine, UDS pending at time of admission, avoid nephrotoxic agents. (2) Seizure disorder Current Visit: Yes Status: Acute Plan to address problem: Resume tegretol, seizure precautions, neuro checks (3) IDDM (insulin dependent diabetes mellitus) Current Visit: No Status: Chronic Plan to address problem: ADA diet, insulin, accu check (4) Hypertensive urgency Current Visit: Yes Status: Acute Plan to address problem: Urine drug screen, IV hydralazine prn, monitor bp q shift, (5) DVT prophylaxis Current Visit: No Status: Acute Plan to address problem: SCD to BLE while in bed, Prophylactic heparin
[2018-09-06] MEDS ORDERED: APRESOLINE IV PRN (19:29)
[2018-09-06 21:14] LABS: Bacteria,Urine 1+ /HPF (Negative); Bilirubin,Urine NEG (Negative); Blood,Urine MOD (Negative); Color,Urine Yellow (Yellow); Mucus,Urine FEW /HPF; Urobilinogen,Urine < 2.0 mg/dL (<2.0)
[2018-09-06 21:16] LABS: Protein,Urine >500 mg/dL (Negative)
[2018-09-06 21:18] LABS: Amphetamine Screen,Urine PRESUMPTIVE NEGATIVE; Benzodiazepines Screen,Urine PRESUMPTIVE NEGATIVE; Cannabinoid Screen,Urine PRESUMPTIVE NEGATIVE; Cocaine Screen,Urine PRESUMPTIVE NEGATIVE; Creatinine,Urine 353.3 mg/dL (0.1-20.0); Methadone Screen,Urine PRESUMPTIVE NEGATIVE; Opiate Screen,Urine PRESUMPTIVE NEGATIVE
[2018-09-06] MEDS ORDERED: ATIVAN IV PRN (22:13)
[2018-09-06] MEDS: APRESOLINE PO SCH (23:09)
[2018-09-06] MEDS: HEPARIN SUB-Q SCH (23:10)
[2018-09-06] MEDS: APRESOLINE IV PRN (23:11)
[2018-09-06] MEDS: SODIUM CHLORIDE FLUSH SYRINGE 10 ML IV SCH (23:16)
[2018-09-06] MEDS: MORPHINE IV PRN (23:45)
[2018-09-06] MEDS ORDERED: NACL 0.9% 1000 ML 1,000 ML IV SCH (23:45)
[2018-09-07] MEDS: HumaLOG SUB-Q SCH ×4 (00:23→17:36)
[2018-09-07] MEDS: MORPHINE IV PRN ×6 (05:04→22:56)
[2018-09-07] MEDS: ZOFRAN IV PRN ×2 (05:28→22:57)
[2018-09-07] MEDS: APRESOLINE PO SCH ×3 (05:33→23:41)
[2018-09-07] MEDS: HEPARIN SUB-Q SCH ×2 (09:27→22:57)
[2018-09-07] MEDS: APRESOLINE IV PRN ×2 (13:42→17:56)
[2018-09-07] MEDS: SODIUM CHLORIDE FLUSH SYRINGE 10 ML IV SCH ×2 (13:43→22:58)
[2018-09-07] MEDS ORDERED: APRESOLINE PO SCH (17:20)
--- NOTE | 2018-09-07 17:21 | Progress Note ---
Assessment and Plan (1) ARF (acute renal failure) with tubular necrosis Current Visit: Yes Status: Acute Plan to address problem: IVF resuscitation therapy, monitor uop q shift, urine electrolytes, repeat bmp to monitor serum creatnine, UDS pending at time of admission, avoid nephrotoxic agents. Check creainine levels Cr 2.5 Baseline creatnine 1.8 11/20/17 (2) Seizure disorder Current Visit: Yes Status: Acute Plan to address problem: Resume tegretol, seizure precautions, neuro checks (3) IDDM (insulin dependent diabetes mellitus) Current Visit: No Status: Chronic Plan to address problem: ADA diet, insulin, accu check (4) Hypertensive urgency Current Visit: Yes Status: Acute Plan to address problem: Urine drug screen, IV hydralazine prn, monitor bp q shift, (5) DVT prophylaxis Current Visit: No Status: Acute Plan to address problem: SCD to BLE while in bed, Prophylactic heparin Subjective Date of service: 09/07/18 Principal diagnosis: DEANNA Interval history: Symptomatically better Objective - Constitutional Vitals: Vital Signs - 12hr 09/07/18 09/07/18 09/07/18 10:00 11:18 13:42 Temperature 97.9 F Pulse Rate 100 H 90 Respiratory 18 Rate Blood Pressure 151/91 189/114 O2 Sat by Pulse 99 99 Oximetry 09/07/18 13:45 Temperature Pulse Rate 90 Respiratory Rate Blood Pressure 189/114 O2 Sat by Pulse Oximetry General appearance: Present: no acute distress, well-nourished - EENT Eyes: PERRL, EOM intact ENT: hearing intact, clear oral mucosa Ears: bilateral: normal - Neck Neck: supple, normal ROM - Respiratory Respiratory effort: normal Respiratory: bilateral: CTA - Breasts Breasts: normal - Cardiovascular Rhythm: regular Heart Sounds: Present: S1 & S2. Absent: gallop, rub Extremities: pulses intact, No edema, normal color, Full ROM - Gastrointestinal General gastrointestinal: Present: soft, non-tender, non-distended, normal bowel sounds - Genitourinary Male genitourinary: normal - Integumentary Integumentary: clear, warm, dry - Musculoskeletal Musculoskeletal: 1, strength equal bilaterally - Neurologic Neurologic: moves all extremities - Psychiatric Psychiatric: memory intact, appropriate mood/affect, intact judgment & insight - Labs CBC & Chem 7: 09/08/18 06:19 09/09/18 15:49 Labs: Abnormal lab results 09/06/18 09/06/18 09/06/18 Range/Units 20:50 20:50 23:38 Chloride (98-107) mmol/L Creatinine (0.8-1.5) mg/dL Glucose (75-100) mg/dL POC Glucose 332 H (70-105) Calcium (8.4-10.2) mg/dL Urine WBC (Auto) 8.0 H (0.0-6.0) /HPF Urine Creatinine 353.3 H (0.1-20.0) mg/dL 09/07/18 09/07/18 09/07/18 Range/Units 04:48 05:21 11:21 Chloride 108.6 H (98-107) mmol/L Creatinine 2.9 H (0.8-1.5) mg/dL Glucose 205 H (75-100) mg/dL POC Glucose 223 H 180 H (70-105) Calcium 8.0 L (8.4-10.2) mg/dL Urine WBC (Auto) (0.0-6.0) /HPF Urine Creatinine (0.1-20.0) mg/dL
[2018-09-07] MEDS: COZAAR PO SCH (17:47)
[2018-09-07] MEDS: COREG PO SCH (22:58)
[2018-09-08] MEDS: HumaLOG SUB-Q SCH ×6 (01:33→23:08)
[2018-09-08] MEDS: MORPHINE IV PRN ×4 (05:09→20:18)
[2018-09-08] MEDS: ZOFRAN IV PRN ×3 (05:09→16:59)
[2018-09-08] MEDS: APRESOLINE PO SCH ×3 (05:12→23:07)
[2018-09-08] MEDS ORDERED: APRESOLINE PO SCH (06:00)
[2018-09-08 07:01] LABS: Basophils % (Auto) 0.7 % (0.0-1.8); Eosinophils # (Auto) 0.2 K/mm3 (0.0-0.4); Eosinophils % (Auto) 3.5 % (0.0-4.3); Hematocrit 29.3 % (35.5-45.6); Hemoglobin 9.7 gm/dl (11.8-15.2); Lymphocytes # (Auto) 1.8 K/mm3 (1.2-5.4); Lymphocytes % (Auto) 34.3 % (13.4-35.0); Mean Corpuscular HGB Conc 33 % (32-34); Mean Corpuscular Volume 83 fl (84-94); Monocytes # (Auto) 0.4 K/mm3 (0.0-0.8); Monocytes % (Auto) 7.5 % (0.0-7.3); Platelet Count 205 K/mm3 (140-440); Red Blood Count 3.52 M/mm3 (3.65-5.03); Red Cell Distribution Width 13.6 % (13.2-15.2)
[2018-09-08 07:22] LABS: Albumin 2.6 g/dL (3.9-5); Calcium 7.9 mg/dL (8.4-10.2)
[2018-09-08] MEDS: COZAAR PO SCH (09:34)
[2018-09-08] MEDS: COREG PO SCH ×2 (09:35→23:06)
[2018-09-08] MEDS: SODIUM CHLORIDE FLUSH SYRINGE 10 ML IV SCH ×2 (09:38→23:07)
[2018-09-08] MEDS: HEPARIN SUB-Q SCH ×2 (12:21→23:08)
[2018-09-08] MEDS: APRESOLINE IV PRN ×2 (12:22→17:25)
--- NOTE | 2018-09-08 13:20 | Progress Note ---
Assessment and Plan (1) ARF (acute renal failure) with tubular necrosis Current Visit: Yes Status: Acute Plan to address problem: IVF resuscitation therapy Creatinine 2.5 No improvement inspite of IV fluids (2) Seizure disorder Current Visit: Yes Status: Acute Plan to address problem: Cont tegretol, seizure precautions, neuro checks (3) IDDM (insulin dependent diabetes mellitus) Current Visit: No Status: Chronic Plan to address problem: ADA diet, insulin, accu check (4) Hypertensive urgency Current Visit: Yes Status: Acute Plan to address problem: BP improved 148/88,131/81 (5) DVT prophylaxis Current Visit: No Status: Acute Plan to address problem: SCD to BLE while in bed, Prophylactic heparin Subjective Date of service: 09/08/18 Principal diagnosis: DEANNA,IDDM Interval history: Symptomatically better Objective - Constitutional Vitals: Vital Signs - 12hr 09/08/18 09/08/18 09/08/18 04:29 05:09 05:39 Temperature 98.1 F Pulse Rate 90 Respiratory 20 18 18 Rate Blood Pressure 160/96 O2 Sat by Pulse 95 Oximetry General appearance: Present: no acute distress, well-nourished - EENT Eyes: PERRL, EOM intact ENT: hearing intact, clear oral mucosa Ears: bilateral: normal - Neck Neck: supple, normal ROM - Respiratory Respiratory effort: normal Respiratory: bilateral: CTA - Breasts Breasts: normal - Cardiovascular Rhythm: regular Heart Sounds: Present: S1 & S2. Absent: gallop, rub Extremities: pulses intact, No edema, normal color, Full ROM - Gastrointestinal General gastrointestinal: Present: soft, non-tender, non-distended, normal bowel sounds - Genitourinary Male genitourinary: normal - Integumentary Integumentary: clear, warm, dry - Musculoskeletal Musculoskeletal: 1, strength equal bilaterally - Neurologic Neurologic: moves all extremities - Psychiatric Psychiatric: memory intact, appropriate mood/affect, intact judgment & insight - Labs CBC & Chem 7: 09/08/18 06:19 09/09/18 15:49 Labs: Abnormal lab results 09/07/18 09/07/18 09/08/18 Range/Units 17:23 23:51 06:19 RBC 3.52 L (3.65-5.03) M/mm3 Hgb 9.7 L (11.8-15.2) gm/dl Hct 29.3 L D (35.5-45.6) % MCV 83 L (84-94) fl MCH 27 L (28-32) pg [place] % (Auto) 7.5 H (0.0-7.3) % Creatinine (0.8-1.5) mg/dL Glucose (75-100) mg/dL POC Glucose 228 H 147 H (70-105) Calcium (8.4-10.2) mg/dL Total Protein (6.3-8.2) g/dL Albumin (3.9-5) g/dL 09/08/18 09/08/18 09/08/18 Range/Units 06:19 07:58 12:23 RBC (3.65-5.03) M/mm3 Hgb (11.8-15.2) gm/dl Hct (35.5-45.6) % MCV (84-94) fl MCH (28-32) pg [place] % (Auto) (0.0-7.3) % Creatinine 2.5 H (0.8-1.5) mg/dL Glucose 281 H (75-100) mg/dL POC Glucose 264 H 218 H (70-105) Calcium 7.9 L (8.4-10.2) mg/dL Total Protein 5.3 L (6.3-8.2) g/dL Albumin 2.6 L (3.9-5) g/dL
[2018-09-08] MEDS: NORVASC PO SCH (13:50)
[2018-09-08] MEDS: NACL 0.9% 1000 ML 1,000 ML IV SCH ×2 (14:30→23:20)
[2018-09-08] MEDS: REGLAN IV PRN (20:33)
[2018-09-08] MEDS: LANTUS SUB-Q SCH (23:08)
[2018-09-08] MEDS ORDERED: AMBIEN PO PRN (23:42)
[2018-09-09] MEDS: APRESOLINE IV PRN (02:13)
[2018-09-09] MEDS: APRESOLINE PO SCH ×2 (07:04→14:16)
[2018-09-09] MEDS: HumaLOG SUB-Q SCH ×3 (08:30→18:00)
[2018-09-09] MEDS: MORPHINE IV PRN (09:15)
[2018-09-09] MEDS: ZOFRAN IV PRN (09:15)
[2018-09-09] MEDS: COREG PO SCH (10:13)
[2018-09-09] MEDS: COZAAR PO SCH (10:13)
[2018-09-09] MEDS: HEPARIN SUB-Q SCH (10:14)
[2018-09-09] MEDS: NACL 0.9% 1000 ML 1,000 ML IV SCH (10:15)
[2018-09-09] MEDS: NORVASC PO SCH (10:25)
[2018-09-09] MEDS: SODIUM CHLORIDE FLUSH SYRINGE 10 ML IV SCH (10:26)
[2018-09-09] MEDS: LANTUS SUB-Q SCH (10:29)
[2018-09-09] MEDS: REGLAN IV PRN (13:14)
[2018-09-09 14:20] VITALS: BP 131/81
[2018-09-09 16:19] LABS: Calcium 7.7 mg/dL (8.4-10.2)
--- NOTE | 2018-09-09 22:40 | Discharge Summary ---
Providers - Providers Date of Admission: 09/06/18 18:55 Date of discharge: 09/09/18 Attending physician: JEREMY YOUNG None Hospitalization Condition: Stable Hospital course: (1) ARF (acute renal failure) with tubular necrosis Current Visit: Yes Status: Acute Plan to address problem: IVF resuscitation therapy Creatinine 2.5 No improvement inspite of IV fluids Patient has underlying CKD Cr 2.5 to 2.9 to 2.5 Needs follow up with Nephrology Follow up with Dr Salcedo Make appointment by calling [phone] (2) Seizure disorder Current Visit: Yes Status: Acute Plan to address problem: Cont tegretol, seizure precautions, neuro checks (3) IDDM (insulin dependent diabetes mellitus) Current Visit: No Status: Chronic Plan to address problem: Tighter control of BG levels Follow p with PCP (4) Hypertensive urgency Current Visit: Yes Status: Acute Plan to address problem: BP improved 148/88,131/81 Disposition: DC-01 TO HOME OR SELFCARE Core Measure Documentation - Palliative Care Palliative Care/ Comfort Measures: Not Applicable - Core Measures Any of the following diagnoses?: none Exam - Constitutional Vitals: Temp Pulse Resp BP Pulse Ox 98.3 F 84 16 131/81 96 09/09/18 12:14 09/09/18 14:16 09/09/18 12:14 09/09/18 14:16 09/09/18 12:14 General appearance: Present: no acute distress, well-nourished - EENT Eyes: Present: PERRL ENT: hearing intact, clear oral mucosa - Neck Neck: Present: supple, normal ROM - Respiratory Respiratory effort: normal Respiratory: bilateral: CTA - Cardiovascular Heart rate: 78 Rhythm: regular Heart Sounds: Present: S1 & S2. Absent: rub, click - Extremities Extremities: no ischemia, pulses intact, pulses symmetrical, No edema Peripheral Pulses: within normal limits - Abdominal General gastrointestinal: Present: soft, non-tender, non-distended, normal bowel sounds Male genitourinary: Present: normal - Rectal Rectal Exam: deferred - Integumentary Integumentary: Present: clear, warm, dry - Musculoskeletal Musculoskeletal: gait normal, strength equal bilaterally - Psychiatric Psychiatric: appropriate mood/affect, intact judgment & insight - Neurologic Neurologic: CNII-XII intact, moves all extremities - Allied Health Allied health notes reviewed: nursing, case management Plan Activity: no restrictions Diet: diabetic Follow up with: [facility] [Other] - 3-5 Days
== END 2018-09-09 19:00 | disposition home or self-care (01) | DRG 304 ==
LOC: ED 13:05 → 3A 18:55
PROVIDERS: ADMIT Internal Medicine; ATTEND Internal Medicine
DX: I16.0 Hypertensive urgency (principal); N17.0 Acute kidney failure with tubular necrosis; G40.909 Epilepsy, unspecified, not intractable, without status epilepticus; E11.9 Type 2 diabetes mellitus without complications; J45.909 Unspecified asthma, uncomplicated; Z79.899 Other long term (current) drug therapy; Z79.4 Long term (current) use of insulin
CPT/HCPCS: 36415; 74176; 80048; 80053; 80076; 80307; 81001; 82570; 82962; 83690; 84300; 85025; 87116; 87806; 93005; 93010; 96374; 96375; 99285; G0378; J0360; J0500; J1644; J1815; J1885; J2270; J2405; J2765; J7030; Q0162

== ENCOUNTER 2019-11-09 07:08 | Emergency (ER) | payer SELFPAY ==
[2019-11-09] MEDS ORDERED: DEXTROSE 50% IN WATER (25GM) 50 ML SYRINGE IV ONE (07:12)
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
[2019-11-09] MEDS ORDERED: ONDANSETRON 4 MG/2 ML INJ IV ONE (07:26)
[2019-11-09 08:10] LABS: Basophils % (Auto) 0.8 % (0.0-1.8); Eosinophils # (Auto) 0.1 K/mm3 (0.0-0.4); Eosinophils % (Auto) 1.6 % (0.0-4.3); Hematocrit 31.1 % (35.5-45.6); Hemoglobin 9.7 gm/dl (11.8-15.2); Lymphocytes # (Auto) 1.2 K/mm3 (1.2-5.4); Lymphocytes % (Auto) 19.5 % (13.4-35.0); Mean Corpuscular HGB Conc 31 % (32-34); Mean Corpuscular Volume 86 fl (84-94); Monocytes # (Auto) 0.4 K/mm3 (0.0-0.8); Monocytes % (Auto) 7.3 % (0.0-7.3); Platelet Count 348 K/mm3 (140-440); Red Blood Count 3.61 M/mm3 (3.65-5.03); Red Cell Distribution Width 14.1 % (13.2-15.2)
[2019-11-09 08:34] LABS: Calcium 8.8 mg/dL (8.4-10.2)
[2019-11-09 09:12] LABS: INR 0.9 (0.87-1.13); Partial Thromboplastin Time 24.7 Sec. (24.2-36.6)
[2019-11-09 09:13] LABS: Thrombin Time 20.5 Sec. (15.1-19.6)
[2019-11-09] MEDS ORDERED: METOCLOPRAMIDE 10 MG/2 ML INJ IM ONE (09:56)
[2019-11-09] MEDS ORDERED: GLUCAGON (HUMAN RECOMBINANT) 1 MG/ML INJ IM ONE (11:34)
[2019-11-09] MEDS ORDERED: ALUM-MAG HYDROXIDE-SIMETHICONE 200-200-20MG/5ML ORAL LIQD 30 ML PO ONE (11:34)
[2019-11-09] MEDS ORDERED: LIDOCAINE VISCOUS 2% 15 ML ORAL LIQD PO ONE (11:34)
[2019-11-09 11:51] LABS: Alanine Aminotransferase 31 units/L (7-56); Albumin 2.8 g/dL (3.9-5)
[2019-11-09 11:52] LABS: Bilirubin,Direct < 0.2 mg/dL (0-0.2)
[2019-11-09 16:11] VITALS: BP 196/100
== END 2019-11-09 13:10 | disposition home or self-care (01) ==
LOC: ED 07:08
DX: E11.649 Type 2 diabetes mellitus with hypoglycemia without coma (principal); Z87.891 Personal history of nicotine dependence; Z88.6 Allergy status to analgesic agent; Z79.899 Other long term (current) drug therapy
CPT/HCPCS: 36415; 70450; 80048; 80076; 80156; 82962; 83690; 85025; 85610; 85670; 85730; 96372; 99284; J1610; J2405; J2765

== ENCOUNTER 2019-11-11 09:22 | Inpatient (IN) | payer OTHER, SELFPAY ==
[2019-11-11] MEDS ORDERED: ONDANSETRON 4 MG/2 ML INJ IV ONE ×2 (10:13→11:54)
[2019-11-11] MEDS ORDERED: PANTOPRAZOLE 40 MG INJ IV ONE (10:25)
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
[2019-11-11] MEDS ORDERED: MORPHINE 4 MG/1 ML INJ IV ONE (10:45)
[2019-11-11 10:54] LABS: Basophils # (Auto) 0.1 K/mm3 (0.0-0.1); Basophils % (Auto) 1.4 % (0.0-1.8); Eosinophils % (Auto) 0.6 % (0.0-4.3); Hematocrit 31.9 % (35.5-45.6); Hemoglobin 10.3 gm/dl (11.8-15.2); Lymphocytes # (Auto) 1.1 K/mm3 (1.2-5.4); Lymphocytes % (Auto) 16.8 % (13.4-35.0); Mean Corpuscular HGB Conc 32 % (32-34); Mean Corpuscular Volume 87 fl (84-94); Monocytes # (Auto) 0.2 K/mm3 (0.0-0.8); Platelet Count 315 K/mm3 (140-440); Red Blood Count 3.69 M/mm3 (3.65-5.03); Red Cell Distribution Width 13.8 % (13.2-15.2)
[2019-11-11 11:03] LABS: INR 0.95 (0.87-1.13)
[2019-11-11 11:04] LABS: Partial Thromboplastin Time 23.3 Sec. (24.2-36.6)
[2019-11-11 11:22] LABS: Alanine Aminotransferase 36 units/L (7-56); Albumin 2.8 g/dL (3.9-5); BUN/Creatinine Ratio 6; Blood Urea Nitrogen 49 mg/dL (9-20); Hemolysis Index 20
[2019-11-11] MEDS ORDERED: SODIUM CHLORIDE 0.9% 1000 ML 1,000 ML IV ONE (11:24)
[2019-11-11 11:29] LABS: Bilirubin,Direct < 0.2 mg/dL (0-0.2)
[2019-11-11] MEDS ORDERED: ALBUTEROL 2.5 MG/3 ML NEBU IH ONE (11:34)
[2019-11-11] MEDS ORDERED: INSULIN REGULAR, HUMAN 100 UNITS/1 ML IV ONE (11:34)
--- NOTE | 2019-11-11 11:45 | XRay Report ---
ABDOMEN 4 VIEW(S) INDICATION / CLINICAL INFORMATION: Acute generalized abdominal pain. COMPARISON: CT abdomen/pelvis from 10/20/2019 FINDINGS: TUBES / LINES: None. BOWEL GAS PATTERN: No significant abnormality. FREE AIR / EXTRALUMINAL GAS: None seen. ADDITIONAL FINDINGS: Clear lungs with normal heart size. IMPRESSION: 1. No significant abnormality. Signer Name: Lemuel Collins MD Signed: 11/11/2019 11:41 AM Workstation Name: [id number]
[2019-11-11] MEDS ORDERED: CALCIUM GLUCONATE 1,000 MG in SODIUM CHLORIDE 0.9% 100 ML IV ONE (12:00)
--- NOTE | 2019-11-11 12:28 | Cat Scan Report ---
CT OF THE ABDOMEN AND PELVIS WITHOUT CONTRAST INDICATION / CLINICAL INFORMATION: Abdominal pain with nausea and vomiting. TECHNIQUE: All CT scans at this location are performed using CT dose reduction for ALARA by means of automated e xposure control. COMPARISON: 10/20/2019. FINDINGS: ABDOMEN: There is mild generalized body wall edema, increased from the prior exam. The liver, spleen, gallbladder, bile ducts, pancreas, adrenal glands, kidneys and bowel demonstrate no significant abno rmality. There is no evidence of bowel obstruction, wall thickening or free air. Small left para-aort ic lymph nodes are not pathologically enlarged. The lung bases are clear. PELVIS: A minimal amount of free fluid in the lower pelvis is new. Diffuse thickening of the wall of the urinary bladder may be partially related to incomplete distention. The prostate gland and seminal vesicles are normal. A normal appendix is present and there is no evidence of diverticulitis. There is no evidence of mass or hernia. No acute osseous abnormality is seen. IMPRESSION: 1. Mild anasarca and minimal free fluid in the pelvis. 2. Possible diffuse thickening of the wall of the urinary bladder. The findings may just be related t o incomplete distention. Signer Name: Adan León MD Signed: 11/11/2019 12:23 PM Workstation Name: [id number]
[2019-11-11] MEDS ORDERED: SODIUM POLYSTYRENE 15 GM/60 ML ORAL LIQD PO ONE ×2 (12:39→20:29)
[2019-11-11] MEDS ORDERED: SODIUM POLYSTYRENE 15 GM/60 ML ORAL LIQD ONE (13:18)
--- NOTE | 2019-11-11 14:14 | Consultation ---
History of Present Illness - Reason for Consult Consult date: 11/11/19 acute renal failure, chronic renal failure, hyperkalemia - History of Present Illness Very pleasant 33 y/o AAM, with PMHx of Type I DM diagnosed at the age of 18, with recent inability to follow up with his primary care physician secondary to financial constraints which have been affected by the recent COVID-19 pandemic, presented to the ER secondary to worsening nausea, vomiting, malaise. He had a similar admission earlier last month for severe DEANNA on likely underlying CKD secondary to HHS, pre-renal injury. He was hydrated and his HHS was treated medically prior to discharge. Per automotive internet sales consultant's note he was supposed to follow up with nephrology but had not been able to follow up as an outpatient since his admission. Nephrology consulted at this time secondary to hyperkalemia in the setting of severe renal impairment. Overall renal function is similar to previous admission, which increases likelihood of significant CKD V at baseline. Patient was given IVF along with kayexulate, insulin/D50 and albuterol for i nitial hyperkalemia. No repeat labs since being transferred from the ED. Past History Past Medical History: diabetes, hypertension, hyperlipidemia, renal failure, seizures Past Surgical History: Other (brain surgery ) Social history: single Family history: diabetes, hypertension Medications and Allergies Allergies Allergy/AdvReac Type Severity Reaction Status Date / Time phenytoin sodium Allergy Hives Verified 11/11/19 10:02 [From Dilantin] phenytoin sodium extended Allergy Hives Verified 11/11/19 10:02 [From Dilantin] Home Medications Medication Instructions Recorded Confirmed Last Taken Type Ciprofloxacin HCl [Ciprofloxacin 250 mg PO BID #20 tablet 11/20/17 10/21/19 Unknown Rx TAB] Clindamycin HCl 300 mg PO TID #30 capsule 11/20/17 10/21/19 Unknown Rx carBAMazepine [TEGretol] 200 mg PO BID #30 tablet 11/20/17 10/21/19 10/21/19 Rx hydrALAZINE [Apresoline TAB] 10 mg PO Q8HR #90 tablet 11/20/17 10/21/19 Unknown Rx Insulin Glargine,Hum.rec.anlog 15 unit SQ BID 09/08/18 10/21/19 Unknown History [Lantus] Insulin Regular, Human [HumuLIN R] 15 units SQ QAM&QHS 10/21/19 10/22/19 10/21/19 History Ondansetron [Zofran Odt] 4 mg PO Q8HR #30 tab.rapdis 10/25/19 Unknown Rx Famotidine [Pepcid] 20 mg PO BID #20 tablet 11/09/19 Unknown Rx Promethazine [Phenergan] 25 mg PO Q6HR PRN #20 tab 11/09/19 Unknown Rx Promethazine [Phenergan] 25 mg DE Q6HR PRN #5 supp.rect 11/09/19 Unknown Rx Active Meds: Active Medications Sodium Chloride (Nacl 0.9% 1000 Ml) 1,000 mls @ 250 mls/hr IV ONCE ONE Stop: 11/11/19 15:23 Last Admin: 11/11/19 12:02 Dose: 250 mls/hr Documented by: Review of Systems All systems: negative Constitutional: fatigue, weakness, malaise, poor appetite Exam - Vital Signs Vital signs: Vital Signs Pulse Ox 98 11/11/19 09:43 - General Appearance General appearance: appears stated age, fatigue EENT: ATNC Neck: Present: neck supple, trachea midline Respiratory: Clear to Ascultation, Normal Exam Heart: regular, S1S2 Gastrointestinal: Present: normal, normoactive bowel sounds Integumentary: no rash, warm and dry Neurologic: no focal deficit, no asterixis, alert and oriented x3 Musculoskeletal: Present: deferred Psychiatric: mood/affect appropriate, cooperative Results - Lab Results 11/11/19 10:19 11/11/19 10:19 Most recent lab results Calcium 9.0 mg/dL (8.4-10.2) 11/11/19 10:19 - Image Kidney/bladder ultrasound: pending (will order ) Assessment and Plan - Patient Problems (1) Acute on chronic renal failure Current Visit: Yes Status: Acute Qualifiers: Acute renal failure type: unspecified Chronic kidney disease stage: stage 5, not on chronic dialysis Qualified Code(s): N17.9 - Acute kidney failure, unspecified; N18.5 - Chronic kidney disease, stage 5 Plan to address problem: Patient has likely shown progression of his renal disease, and I am concerned that at this time he is likely progressed to CKD V. I am concerned that his symptoms of generalized malaise, persistent nausea, vomiting and poor appetite can also be as a consequence of worsening uremia. We will be rechecking his labs to see for appropriate correction of his hyperk alemia. Will start her on D5w/150 meq NaHCO3 at 100 cc/hr. Will obtain a renal US today. (2) Hypertensive chronic kidney disease with stage 5 chronic kidney disease or end stage renal disease Current Visit: Yes Status: Acute Plan to address problem: Maintain on current regimen. Will monitor closely. Blood pressures are currently stable at present time. (3) Hyperkalemia Current Visit: Yes Status: Acute Plan to address problem: Patient has received insulin, D50, albuterol, and is in the process of consuming kayexulate. Will plan to have labs rechecked this evening to ensure correction. Will monitor closely. (4) Intractable nausea and vomiting Current Visit: Yes Status: Acute Plan to address problem: This may be multi-factorial as this may be due to significant gastroparesis with his h/o DM, but it also may be in the setting of uremia from progressive renal failure. Symptomatic management per primary team. (5) Metabolic acidosis Current Visit: No Status: Acute Plan to address problem: Will initiate sodium bicarbonate with D5W at 100 cc/hr. (6) IDDM (insulin dependent diabetes mellitus) Current Visit: No Status: Chronic Plan to address problem: DM management per primary attending.
[2019-11-11] MEDS: SODIUM BICARBONATE 150 MEQ in DEXTROSE 5% IN WATER 1,000 ML IV SCH (15:51)
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
[2019-11-11] MEDS: HYDROmorphone 1 MG/1 ML INJ IV PRN ×2 (18:02→21:29)
[2019-11-11 19:19] LABS: Bilirubin,Urine NEG (Negative); Blood,Urine NEG (Negative); Color,Urine Straw (Yellow); RBC,Urine < 1.0 /HPF (0.0-6.0); Urobilinogen,Urine < 2.0 mg/dL (<2.0)
[2019-11-11 19:24] LABS: Protein,Urine >500 mg/dL (Negative)
[2019-11-11 19:58] LABS: Calcium 8.7 mg/dL (8.4-10.2)
[2019-11-11] MEDS ORDERED: CALCIUM GLUCONATE 2,000 MG in SODIUM CHLORIDE 0.9% 100 ML IV ONE (20:29)
[2019-11-11] MEDS ORDERED: ONDANSETRON 4 MG/2 ML INJ IV PRN (21:37)
[2019-11-11] MEDS ORDERED: INSULIN REGULAR, HUMAN 100 UNITS/1 ML SUB-Q ONE (21:47)
[2019-11-11] MEDS ORDERED: PROMETHAZINE 25 MG TAB PO PRN (21:58)
[2019-11-11] MEDS ORDERED: PROMETHAZINE 25 MG RECT SUPP PR PRN (21:58)
[2019-11-11] MEDS ORDERED: METOCLOPRAMIDE 10 MG/2 ML INJ IV PRN (22:01)
[2019-11-11] MEDS ORDERED: ACETAMINOPHEN 325 MG TAB PO PRN (22:01)
[2019-11-11] MEDS: ONDANSETRON 4 MG ODT TAB PO SCH (22:20)
[2019-11-11] MEDS: carBAMazepine 200 MG TAB PO SCH (22:28)
[2019-11-11] MEDS: hydrALAZINE 25 MG TAB PO SCH (22:29)
[2019-11-11] MEDS: METOCLOPRAMIDE 10 MG/2 ML INJ IV PRN (22:29)
[2019-11-11] MEDS ORDERED: FAMOTIDINE 20 MG/2 ML INJ IV SCH (23:00)
[2019-11-11] MEDS ORDERED: INSULIN LISPRO 100 UNIT/ML SUB-Q SCH (23:00)
--- NOTE | 2019-11-12 00:55 | Ultrasound Report ---
ULTRASOUND RENAL INDICATION: DEANNA. COMPARISON: CT abdomen and pelvis without contrast from 11/11/2019. FINDINGS: RIGHT KIDNEY: Size: 10.7 x 3.9 cm. Echogenicity: Normal. Cortical thickness: Moderate thinning, 0.9 cm. Hydronephrosis: None. Cyst or mass: None. Stones: None. LEFT KIDNEY: Size: 10.5 x 6.1 cm. Echogenicity: Normal. Cortical thickness: Mild thickening, 1.1 cm. Hydronephrosis: None. Cyst or mass: None. Stones: None. Urinary Bladder: No significant abnormality. Free Fluid: None. Additional Findings: None. IMPRESSION 1. No acute sonographic abnormality of the kidneys. Signer Name: Seferino Mallory MD Signed: 11/12/2019 12:51 AM Workstation Name: [id number]
[2019-11-12] MEDS: FAMOTIDINE 20 MG/2 ML INJ IV SCH ×3 (01:24→21:16)
[2019-11-12] MEDS: SODIUM BICARBONATE 150 MEQ in DEXTROSE 5% IN WATER 1,000 ML IV SCH (05:51)
[2019-11-12] MEDS: ONDANSETRON 4 MG ODT TAB PO SCH ×3 (05:51→21:15)
[2019-11-12 06:04] LABS: Basophils # (Auto) 0.1 K/mm3 (0.0-0.1); Eosinophils # (Auto) 0.2 K/mm3 (0.0-0.4); Eosinophils % (Auto) 2.3 % (0.0-4.3); Hematocrit 24.7 % (35.5-45.6); Hemoglobin 8.2 gm/dl (11.8-15.2); Lymphocytes # (Auto) 2.7 K/mm3 (1.2-5.4); Lymphocytes % (Auto) 29.6 % (13.4-35.0); Mean Corpuscular HGB Conc 33 % (32-34); Mean Corpuscular Volume 84 fl (84-94); Monocytes # (Auto) 1.1 K/mm3 (0.0-0.8); Monocytes % (Auto) 12.4 % (0.0-7.3); Platelet Count 278 K/mm3 (140-440); Red Blood Count 2.93 M/mm3 (3.65-5.03); Red Cell Distribution Width 13.6 % (13.2-15.2)
[2019-11-12] MEDS: METOCLOPRAMIDE 10 MG/2 ML INJ IV PRN ×2 (06:05→21:16)
[2019-11-12] MEDS: HYDROmorphone 1 MG/1 ML INJ IV PRN ×2 (06:05→21:18)
[2019-11-12] MEDS: ONDANSETRON 4 MG/2 ML INJ IV PRN (06:06)
[2019-11-12] MEDS: hydrALAZINE 25 MG TAB PO SCH ×3 (06:17→21:15)
[2019-11-12 06:24] LABS: Alanine Aminotransferase 25 units/L (7-56); Albumin 2.3 g/dL (3.9-5); BUN/Creatinine Ratio 6; Blood Urea Nitrogen 52 mg/dL (9-20); Calcium 8.9 mg/dL (8.4-10.2); Hemolysis Index 1
--- NOTE | 2019-11-12 09:59 | Progress Note ---
Assessment and Plan - Patient Problems (1) Acute on chronic renal failure Current Visit: Yes Status: Acute Qualifiers: Acute renal failure type: unspecified Chronic kidney disease stage: stage 5, not on chronic dialysis Qualified Code(s): N17.9 - Acute kidney failure, unspecified; N18.5 - Chronic kidney disease, stage 5 Plan to address problem: Patient has likely shown progression of his renal disease, and I am concerned that at this time he is likely progressed to CKD V. I am concerned that his symptoms of generalized malaise, persistent nausea, vomiting and poor appetite can also be as a consequence of worsening uremia. He has been having recurrent hyperkalemia despite medical treatment and with no changes in renal function, will decide to proceed with dialysis. Will make patient NPO at this time and have contacted IR for permcath placement. (2) Hypertensive chronic kidney disease with stage 5 chronic kidney disease or end stage renal disease Current Visit: Yes Status: Acute Plan to address problem: Maintain on current regimen. Will monitor closely. Blood pressures are currently stable at present time. (3) Hyperkalemia Current Visit: Yes Status: Acute Plan to address problem: Patient has received insulin, D50, albuterol, and is in the process of consuming kayexulate. Despite this he had another spike in serum potassium levels last which required another round of treatment. Will plan to have permcath placed and start him on HD during this admission. (4) Intractable nausea and vomiting Current Visit: Yes Status: Acute Plan to address problem: This may be multi-factorial as this may be due to significant gastroparesis with his h/o DM, but it also may be in the setting of uremia from progressive renal failure. Symptomatic management per primary team. (5) Metabolic acidosis Current Visit: No Status: Acute Plan to address problem: Initiated sodium bicarbonate gtt. Once HD is started will discontinue and manage with dialysis treatments. (6) IDDM (insulin dependent diabetes mellitus) Current Visit: No Status: Chronic Plan to address problem: DM management per primary attending. Subjective Date of service: 11/12/19 Interval history: Patient with recurrent hyperkalemia in the evening with no significant changes in renal function. Discussed with patient and at this point explained to him that we will need to proceed with dialysis. Objective - Vital Signs Vital signs: Vital Signs - 12hr 11/11/19 11/11/19 11/12/19 22:23 22:29 01:04 Temperature 98.0 F Pulse Rate 101 H 101 H 90 Respiratory 20 Rate Blood Pressure 196/94 196/94 149/83 O2 Sat by Pulse 95 95 Oximetry 11/12/19 11/12/19 06:11 06:17 Temperature 97.5 F L Pulse Rate 84 84 Respiratory 20 Rate Blood Pressure 164/90 164/90 O2 Sat by Pulse 95 Oximetry - General Appearance General appearance: appears stated age, frail EENT: ATNC Neck: no JVD Respiratory: Present: Clear to Ascultation Cardiology: regular, S1S2 Gastrointestinal: normal Integumentary: no rash Neurologic: no focal deficit, alert and oriented x3 Musculoskeletal: deferred Psychiatric: mood/affect appropriate, cooperative - Lab 11/12/19 05:17 11/12/19 05:17 Most recent lab results Calcium 8.9 mg/dL (8.4-10.2) 11/12/19 05:17 - Allied health notes Allied health notes reviewed: nursing Medications & Allergies - Medications Allergies/Adverse Reactions: Allergies phenytoin sodium [From Dilantin] Allergy (Verified 11/11/19 10:02) Hives phenytoin sodium extended [From Dilantin] Allergy (Verified 11/11/19 10:02) Hives Home Medications: Home Medications Medication Instructions Recorded Confirmed Last Taken Type Ciprofloxacin HCl [Ciprofloxacin 250 mg PO BID #20 tablet 11/20/17 10/21/19 Unknown Rx TAB] Clindamycin HCl 300 mg PO TID #30 capsule 11/20/17 10/21/19 Unknown Rx carBAMazepine [TEGretol] 200 mg PO BID #30 tablet 11/20/17 10/21/19 10/21/19 Rx hydrALAZINE [Apresoline TAB] 10 mg PO Q8HR #90 tablet 11/20/17 10/21/19 Unknown Rx Insulin Glargine,Hum.rec.anlog 15 unit SQ BID 09/08/18 10/21/19 11/07/19 History [Lantus] Insulin Regular, Human [HumuLIN R] 15 units SQ QAM&QHS 10/21/19 10/22/19 11/07/19 History Ondansetron [Zofran Odt] 4 mg PO Q8HR #30 tab.rapdis 10/25/19 Unknown Rx Famotidine [Pepcid] 20 mg PO BID #20 tablet 11/09/19 Unknown Rx Promethazine [Phenergan] 25 mg PO Q6HR PRN #20 tab 11/09/19 Unknown Rx Promethazine [Phenergan] 25 mg [place] Q6HR PRN #5 supp.rect 11/09/19 Unknown Rx Active Medications: Generic Name Dose Route Start Last Admin Trade Name Freq PRN Reason Stop Dose Admin Acetaminophen 650 mg 11/11/19 22:01 Tylenol PO Q4H PRN Pain MILD(1-3)/Fever >100.5/RODGERS Carbamazepine 200 mg 11/11/19 22:00 11/11/19 22:28 Tegretol PO 200 mg BID CODY Administration Famotidine 10 mg 11/11/19 23:00 11/12/19 01:24 Pepcid IV 10 mg BID CODY Administration Hydralazine HCl 25 mg 11/11/19 22:00 11/12/19 06:17 Apresoline PO 25 mg Q8HR CODY Administration Hydromorphone HCl 1 mg 11/11/19 22:05 11/12/19 06:05 Dilaudid IV 1 mg Q3H PRN Administration Pain , Severe (7-10) Sodium Bicarbonate 150 meq/ 1,150 mls @ 100 mls/hr 11/11/19 15:00 11/12/19 05:51 Dextrose IV 100 mls/hr DIRECT CODY Administration Insulin Human Isoph/Insulin Regular 15 unit 11/12/19 08:00 Humulin 70/30 SUB-Q BIDDIAB CODY Insulin Human Lispro 0 unit 11/12/19 11:30 Humalog SUB-Q ACHS [facility] Protocol Metoclopramide HCl 5 mg 11/11/19 22:13 11/12/19 06:05 Reglan IV 5 mg Q6H PRN Administration Nausea And Vomiting Ondansetron HCl 4 mg 11/11/19 22:00 11/12/19 05:51 Zofran Odt PO 4 mg Q8HR CODY Administration Ondansetron HCl 4 mg 11/11/19 22:01 11/12/19 06:06 Zofran IV 4 mg Q3H PRN Administration Nausea And Vomiting Oxycodone/Acetaminophen 1 tab 11/11/19 22:01 Percocet 5/325 PO Q6H PRN Pain, Moderate (4-6) Promethazine HCl 25 mg 11/11/19 21:58 Phenergan PO Q6HR PRN Nausea Promethazine HCl 25 mg 11/11/19 21:58 Phenergan [place] Q6HR PRN Vomiting Sodium Chloride 10 ml 11/12/19 10:00 Sodium Chloride Flush Syringe 10 Ml IV BID CODY Sodium Chloride 10 ml 11/11/19 22:01 Sodium Chloride Flush Syringe 10 Ml IV PRN PRN LINE FLUSH
[2019-11-12] MEDS ORDERED: ALBUMIN HUMAN 25% (12.5 GM/50 ML) INJ IV PRN (10:00)
[2019-11-12] MEDS ORDERED: SODIUM CHLORIDE 0.9% 100 ML IV PRN ×3 (10:00→10:52)
[2019-11-12] MEDS ORDERED: LIDOCAINE 1%/EPINEPHRINE 1:100,000 VIAL (20 ML) INFILTRATI ONE ×2 (12:07→13:30)
[2019-11-12] MEDS ORDERED: HEPARIN 10,000 UNITS/10 ML VIAL ONE (12:07)
[2019-11-12] MEDS ORDERED: HEPARIN/NS 5000 UNIT/500ML 500 ML IR ONE (12:07)
[2019-11-12] MEDS ORDERED: SODIUM CHLORIDE 0.9% 250ML 0 ML ONE (12:08)
[2019-11-12] MEDS ORDERED: ceFAZolin/Water 2 GM/20 ML 2 GM/20 ML SYRINGE IV ONE (12:08)
[2019-11-12] MEDS: MIDAZOLAM 2 MG/2 ML INJ ONE ×2 (13:20→13:25)
[2019-11-12] MEDS: fentaNYL 100 MCG/2 ML INJ ONE ×2 (13:20→13:25)
--- NOTE | 2019-11-12 13:55 | Progress Note ---
Assessment and Plan Day # 2 For vascath today and HD - Patient Problems (1) DEANNA (acute kidney injury) Current Visit: Yes Status: Acute Plan to address problem: A small component this time ATN No IV fluids -becuse he may go into fluid overload (2) End-stage renal disease needing dialysis Current Visit: Yes Status: Acute Plan to address problem: patient will need HD Will defer to Nephrology For vascath and HD today (3) Hyperkalemia Current Visit: Yes Status: Acute Plan to address problem: Treatedd in ED HD sonia (4) Non-compliance Current Visit: No Status: Acute Plan to address problem: Counselled about compliance (5) IDDM (insulin dependent diabetes mellitus) Current Visit: No Status: Chronic (6) DVT prophylaxis Current Visit: No Status: Acute Subjective Date of service: 11/12/19 Principal diagnosis: ESRd needing HD Interval history: 33-year-old -Swedish male presents to the emergency department with a complaint of a 3-day history of nausea and vomiting with some hematemesis, diarrhea, and left-sided abdominal pain. Patient has a history of diabetes, hypertension, seizure disorder and he also appears to have a history of some chronic kidney disease. Patient denies any history of CKD but had a creatinine of 2 in 2018. Patient was here in October of this year for similar symptoms as today and was found to have acute renal failure at that time with a creatinine of greater than 10. The patient was also here 2 days ago for a hypoglycemic unresponsive episode. He improved after getting glucose and was able to be discharged home but the patient had a creatinine of 7.6 at that time as well showing his CKD. 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 He has not taken anything for his current symptoms prior to presentation today. He denies taking any NSAIDs. He does admit to some decreased urine output but cannot give a timeframe for when he has noticed this. No recent travel or sick contacts at home. Symptomatically better Objective - Constitutional Vitals: Vital Signs - 12hr 11/12/19 11/12/19 11/12/19 06:11 06:17 11:18 Temperature 97.5 F L 98.1 F Pulse Rate 84 84 88 Respiratory 20 18 Rate Blood Pressure 164/90 164/90 178/99 O2 Sat by Pulse 95 96 Oximetry General appearance: Present: no acute distress, well-nourished - EENT Eyes: PERRL, EOM intact ENT: hearing intact, clear oral mucosa Ears: bilateral: normal - Neck Neck: supple, normal ROM - Respiratory Respiratory effort: normal Respiratory: bilateral: CTA - Breasts Breasts: normal - Cardiovascular Rhythm: regular Heart Sounds: Present: S1 & S2. Absent: gallop, rub Extremities: pulses intact, No edema, normal color, Full ROM - Gastrointestinal General gastrointestinal: Present: soft, non-tender, non-distended, normal bowel sounds - Genitourinary Male genitourinary: normal - Integumentary Integumentary: clear, warm, dry - Musculoskeletal Musculoskeletal: 1, strength equal bilaterally - Neurologic Neurologic: moves all extremities - Psychiatric Psychiatric: memory intact, appropriate mood/affect, intact judgment & insight - Labs CBC & Chem 7: 11/12/19 05:17 11/12/19 05:17 Labs: Abnormal lab results 11/11/19 11/11/19 11/12/19 Range/Units 18:18 21:44 05:17 RBC 2.93 L (3.65-5.03) M/mm3 Hgb 8.2 L (11.8-15.2) gm/dl Hct 24.7 L D (35.5-45.6) % Steele % (Auto) 12.4 H (0.0-7.3) % Steele # 1.1 H (0.0-0.8) K/mm3 Sodium 134 L (137-145) mmol/L Potassium 7.5 H* (3.6-5.0) mmol/L Carbon Dioxide 10 L (22-30) mmol/L BUN 52 H (9-20) mg/dL Creatinine 8.6 H (0.8-1.5) mg/dL Glucose 455 H (75-100) mg/dL POC Glucose 460 H (70-105) Hemoglobin A1c (4-6) % Total Protein (6.3-8.2) g/dL Albumin (3.9-5) g/dL 11/12/19 11/12/19 11/12/19 Range/Units 05:17 05:17 11:29 RBC (3.65-5.03) M/mm3 Hgb (11.8-15.2) gm/dl Hct (35.5-45.6) % Steele % (Auto) (0.0-7.3) % Steele # (0.0-0.8) K/mm3 Sodium (137-145) mmol/L Potassium 5.2 H D (3.6-5.0) mmol/L Carbon Dioxide (22-30) mmol/L BUN 52 H (9-20) mg/dL Creatinine 9.1 H (0.8-1.5) mg/dL Glucose 121 H (75-100) mg/dL POC Glucose 264 H (70-105) Hemoglobin A1c 8.6 H (4-6) % Total Protein 5.1 L (6.3-8.2) g/dL Albumin 2.3 L (3.9-5) g/dL
--- NOTE | 2019-11-12 14:01 | Consultation ---
History of Present Illness - Reason for Consult Consult date: 11/12/19 ESRD Requesting physician: TYREL RAMOS - History of Present Illness Very pleasant 33 y/o AAM, with PMHx of Type I DM diagnosed at the age of 18, with recent inability to follow up with his primary care physician secondary to financial constraints which have been affected by the recent COVID-19 pandemic, presented to the ER secondary to worsening nausea, vomiting, malaise. He had a similar admission earlier last month for severe DEANNA on likely underlying CKD secondary to HHS, pre-renal injury. He was hydrated and his HHS was treated medically prior to discharge. Per client service consultant's note he was supposed to follow up with nephrology but had not been able to follow up as an outpatient since his admission. Nephrology consulted at this time secondary to hyperkalemia in the setting of severe renal impairment. Overall renal function is similar to previous admission, which increases likelihood of significant CKD V at baseline. Patient was given IVF along with kayexulate, insulin/D50 and albuterol for initial hyperkalemia. No repeat labs since being transferred from the ED. Vascular consulted for PermCath placement. Patient is right-handed. Discussed dialysis initiation and types of dialysis and hemodialysis. Provided card told to follow-up as outpatient. Plan for PermCath. Past History Past Medical History: diabetes, hypertension, hyperlipidemia, renal failure, seizures Past Surgical History: Other (brain surgery ) Social history: single Family history: diabetes, hypertension Medications and Allergies Allergies Allergy/AdvReac Type Severity Reaction Status Date / Time phenytoin sodium Allergy Hives Verified 11/11/19 10:02 [From Dilantin] phenytoin sodium extended Allergy Hives Verified 11/11/19 10:02 [From Dilantin] Home Medications Medication Instructions Recorded Confirmed Last Taken Type Ciprofloxacin HCl [Ciprofloxacin 250 mg PO BID #20 tablet 11/20/17 10/21/19 Unknown Rx TAB] Clindamycin HCl 300 mg PO TID #30 capsule 11/20/17 10/21/19 Unknown Rx carBAMazepine [TEGretol] 200 mg PO BID #30 tablet 11/20/17 10/21/19 10/21/19 Rx hydrALAZINE [Apresoline TAB] 10 mg PO Q8HR #90 tablet 11/20/17 10/21/19 Unknown Rx Insulin Glargine,Hum.rec.anlog 15 unit SQ BID 09/08/18 10/21/19 11/07/19 History [Lantus] Insulin Regular, Human [HumuLIN R] 15 units SQ QAM&QHS 10/21/19 10/22/19 11/07/19 History Ondansetron [Zofran Odt] 4 mg PO Q8HR #30 tab.rapdis 10/25/19 Unknown Rx Famotidine [Pepcid] 20 mg PO BID #20 tablet 11/09/19 Unknown Rx Promethazine [Phenergan] 25 mg PO Q6HR PRN #20 tab 11/09/19 Unknown Rx Promethazine [Phenergan] 25 mg [place] Q6HR PRN #5 supp.rect 11/09/19 Unknown Rx Active Meds: Active Medications Acetaminophen (Tylenol) 650 mg PO Q4H PRN PRN Reason: Pain MILD(1-3)/Fever >100.5/RODGERS Albumin Human (Alburx 25% (Albumin)) 12.5 gm IV KATE PRN PRN Reason: Hypotension Carbamazepine (Tegretol) 200 mg PO BID [facility] Last Admin: 11/11/19 22:28 Dose: 200 mg Documented by: Famotidine (Pepcid) 10 mg IV BID [facility] Last Admin: 11/12/19 01:24 Dose: 10 mg Documented by: Hydralazine HCl (Apresoline) 25 mg PO Q8HR [facility] Last Admin: 11/12/19 06:17 Dose: 25 mg Documented by: Hydromorphone HCl (Dilaudid) 1 mg IV Q3H PRN PRN Reason: Pain , Severe (7-10) Last Admin: 11/12/19 06:05 Dose: 1 mg Documented by: Sodium Bicarbonate 150 meq/ (Dextrose) 1,150 mls @ 100 mls/hr IV DIRECT [facility] Last Admin: 11/12/19 05:51 Dose: 100 mls/hr Documented by: Sodium Chloride (Nacl 0.9%) 100 mls @ 999 mls/hr IV KATE PRN PRN Reason: Hypotension Insulin Human Isoph/Insulin Regular (Humulin 70/30) 15 unit SUB-Q BIDDIAB [facility] Insulin Human Lispro (Humalog) 0 unit SUB-Q ACHS [facility]; Protocol Metoclopramide HCl (Reglan) 5 mg IV Q6H PRN PRN Reason: Nausea And Vomiting Last Admin: 11/12/19 06:05 Dose: 5 mg Documented by: Ondansetron HCl (Zofran Odt) 4 mg PO Q8HR CODY Last Admin: 11/12/19 05:51 Dose: 4 mg Documented by: Ondansetron HCl (Zofran) 4 mg IV Q3H PRN PRN Reason: Nausea And Vomiting Last Admin: 11/12/19 06:06 Dose: 4 mg Documented by: Oxycodone/Acetaminophen (Percocet 5/325) 1 tab PO Q6H PRN PRN Reason: Pain, Moderate (4-6) Promethazine HCl (Phenergan) 25 mg PO Q6HR PRN PRN Reason: Nausea Promethazine HCl (Phenergan) 25 mg [place] Q6HR PRN PRN Reason: Vomiting Sodium Chloride (Sodium Chloride Flush Syringe 10 Ml) 10 ml IV BID CODY Sodium Chloride (Sodium Chloride Flush Syringe 10 Ml) 10 ml IV PRN PRN PRN Reason: LINE FLUSH Review of Systems All systems: negative (see HPI) Exam - Constitutional Vitals: Temp Pulse Resp BP Pulse Ox 98.1 F 88 18 178/99 96 11/12/19 11:18 11/12/19 11:18 11/12/19 11:18 11/12/19 11:18 11/12/19 11:18 General appearance: Present: no acute distress - EENT Eyes: Present: EOM intact ENT: hearing intact - Respiratory Respiratory effort: normal - Extremities Extremities: normal temperature, normal color Peripheral Pulses: within normal limits (Bilateral upper extremities) - Abdominal General gastrointestinal: Present: soft - Psychiatric Psychiatric: appropriate mood/affect, cooperative Results - Labs CBC & Chem 7: 11/12/19 05:17 11/12/19 05:17 Labs: Abnormal lab results 11/11/19 11/11/19 11/12/19 Range/Units 18:18 21:44 05:17 RBC 2.93 L (3.65-5.03) M/mm3 Hgb 8.2 L (11.8-15.2) gm/dl Hct 24.7 L D (35.5-45.6) % [place] % (Auto) 12.4 H (0.0-7.3) % [place] # 1.1 H (0.0-0.8) K/mm3 Sodium 134 L (137-145) mmol/L Potassium 7.5 H* (3.6-5.0) mmol/L Carbon Dioxide 10 L (22-30) mmol/L BUN 52 H (9-20) mg/dL Creatinine 8.6 H (0.8-1.5) mg/dL Glucose 455 H (75-100) mg/dL POC Glucose 460 H (70-105) Hemoglobin A1c (4-6) % Total Protein (6.3-8.2) g/dL Albumin (3.9-5) g/dL 11/12/19 11/12/19 11/12/19 Range/Units 05:17 05:17 11:29 RBC (3.65-5.03) M/mm3 Hgb (11.8-15.2) gm/dl Hct (35.5-45.6) % [place] % (Auto) (0.0-7.3) % [place] # (0.0-0.8) K/mm3 Sodium (137-145) mmol/L Potassium 5.2 H D (3.6-5.0) mmol/L Carbon Dioxide (22-30) mmol/L BUN 52 H (9-20) mg/dL Creatinine 9.1 H (0.8-1.5) mg/dL Glucose 121 H (75-100) mg/dL POC Glucose 264 H (70-105) Hemoglobin A1c 8.6 H (4-6) % Total Protein 5.1 L (6.3-8.2) g/dL Albumin 2.3 L (3.9-5) g/dL Assessment and Plan 33-year-old male with type 1 diabetes and end-stage renal disease requiring initiation of hemodialysis. N.p.o. except sips of water with meds. PermCath placement today. Follow-up for dialysis access creation. Provided card. Vein mapping ordered. Avoid venipunctures and IV placement in the left upper extremity.
--- NOTE | 2019-11-12 14:04 | Operative Report ---
Operative Report Operative Report: EXAM: 1. Ultrasound-guided puncture of the right internal jugular vein 2. Fluoroscopic-guided placement of a right internal jugular tunneled cuffed hemodialysis catheter. DATE: 11/12/2019 INDICATION: End-stage renal disease requiring hemodialysis access. MEDICATIONS: Please see nursing report for full details. DEVICES: 23 cm tip to cuff 15 Fr dual lumen hemodialysis catheter TOE LINING CLOSER: JASPREET BOB MD CONTRAST: None PROCEDURE: The risks, benefits, and alternatives were discussed and informed consent was obtained. The patient was transported to the angiography suite in satisfactory/stable condition and was transported onto the angiography table. The patient's right internal jugular vein was assessed with ultrasound and determined to be patent prior to procedure. The patient was prepped and draped in a sterile fashion. The puncture site was anesthetized. Under sonographic guidance, the right internal jugular vein was punctured with a 21-gauge micropuncture needle and a 0.018 inch wire was advanced into the inferior vena cava. The micropuncture needle was exchanged for a transitional dilator and the wire was retracted into the right atrium to lyudmila intravascular distance. The wire and inner dilator were removed. 0.035 inch wire was advanced through the transitional dilator into the inferior vena cava. A suitable exit site was identified on the patient's chest inferior and lateral to the venotomy. The site was anesthetized with local anesthetic and the track was anesthetized. Dermatotomy was made. The PermCath was attached to the tunneling device and tunneled between the dermatotomy to the venotomy. Over the 0.035 inch wire, serial dilatation was performed with ultimate placement of a peel-away sheath. The catheter was advanced through the peel- away sheath after the wire was removed and positioned centrally under fluoroscopic guidance. The peel-away sheath was removed. 4-0 Vicryl suture was used to close the venotomy and Dermabond was then applied. 2-0 Ethilon suture was used to secure the catheter at the dermatotomy. The catheter was charged with heparin 1000 units/mL of space. Sterile dressing and Biopatch applied. The patient was transferred from the angiography suite back to the floor in stable condition. FINDINGS: 1. Excellent flow was obtained through the dialysis catheter with 20 mL syringes. 2. The catheter tip is in the right atrium. IMPRESSION: 1. Successful ultrasound and fluoroscopically guided placement of a right internal jugular tunneled cuffed hemodialysis catheter.
[2019-11-12] MEDS: INSULIN NPH/REGULAR 70/30 INJ SUB-Q SCH ×2 (17:02→17:29)
[2019-11-12] MEDS: carBAMazepine 200 MG TAB PO SCH ×2 (17:27→21:16)
[2019-11-12] MEDS: INSULIN LISPRO 100 UNIT/ML SUB-Q SCH ×3 (17:28→21:17)
[2019-11-12] MEDS: oxyCODONE /ACETAMINOPHEN 5-325MG TAB PO PRN (17:38)
[2019-11-12 18:23] LABS: Hepatitis B Surface Antigen Non-Reactive (Negative); Hepatitis C Virus Antibody Non-Reactive (NonReactive)
[2019-11-13] MEDS: HYDROmorphone 1 MG/1 ML INJ IV PRN ×2 (01:50→09:15)
[2019-11-13] MEDS: ONDANSETRON 4 MG/2 ML INJ IV PRN ×2 (01:50→06:48)
[2019-11-13] MEDS: ONDANSETRON 4 MG ODT TAB PO SCH ×4 (06:48→22:41)
[2019-11-13] MEDS: hydrALAZINE 25 MG TAB PO SCH ×3 (06:52→23:39)
[2019-11-13] MEDS: INSULIN LISPRO 100 UNIT/ML SUB-Q SCH ×4 (09:03→22:36)
[2019-11-13] MEDS: INSULIN NPH/REGULAR 70/30 INJ SUB-Q SCH ×2 (09:04→17:29)
[2019-11-13] MEDS: FAMOTIDINE 20 MG/2 ML INJ IV SCH (09:19)
--- NOTE | 2019-11-13 09:57 | Progress Note ---
Assessment and Plan - Patient Problems (1) Acute on chronic renal failure Current Visit: Yes Status: Acute Qualifiers: Acute renal failure type: unspecified Chronic kidney disease stage: stage 5, not on chronic dialysis Qualified Code(s): N17.9 - Acute kidney failure, unspecified; N18.5 - Chronic kidney disease, stage 5 Plan to address problem: Patient has likely shown progression of his renal disease, and I am concerned that at this time he is likely progressed to CKD V. I am concerned that his symptoms of generalized malaise, persistent nausea, vomiting and poor appetite can also be as a consequence of worsening uremia. He has been having recurrent hyperkalemia despite medical treatment and with no changes in renal function, will decide to proceed with dialysis. Patient is s/p permcath placement and had first session of HD yesterday. Plan for two more consecutive treatments and then will place on inpatient schedule. CM working with placement at outpatient dialysis facility. (2) Hypertensive chronic kidney disease with stage 5 chronic kidney disease or end stage renal disease Current Visit: Yes Status: Acute Plan to address problem: Maintain on current regimen. Will monitor closely. (3) Hyperkalemia Current Visit: Yes Status: Acute Plan to address problem: Will correct now with HD. Please ensure that he is on a low K diet. (4) Intractable nausea and vomiting Current Visit: Yes Status: Acute Plan to address problem: This may be multi-factorial as this may be due to significant gastroparesis with his h/o DM, but it also may be in the setting of uremia from progressive renal failure. Symptomatic management per primary team. (5) Metabolic acidosis Current Visit: No Status: Acute Plan to address problem: As HD has been started, we will discontinue IV sodium bicarbonate and manage with dialysis treatments. (6) IDDM (insulin dependent diabetes mellitus) Current Visit: No Status: Chronic Plan to address problem: DM management per primary attending. Subjective Date of service: 11/13/19 Interval history: s/p RIJ permcath placement yesterday. Had first session of HD and tolerated well. Plan for second HD session today. Objective - Vital Signs Vital signs: Vital Signs - 12hr 11/13/19 11/13/19 04:43 06:52 Temperature 98.2 F Pulse Rate 80 80 Respiratory 20 Rate Blood Pressure 190/109 190/109 O2 Sat by Pulse 95 Oximetry - General Appearance General appearance: appears stated age EENT: ATNC Neck: no JVD, no thyromegaly Respiratory: Present: Clear to Ascultation, Normal Exam Cardiology: regular, S1S2 Gastrointestinal: normal, normoactive bowel sounds Integumentary: no rash, warm and dry Neurologic: no focal deficit, alert and oriented x3 Musculoskeletal: deferred Psychiatric: mood/affect appropriate, cooperative - Lab 11/12/19 05:17 11/12/19 05:17 Most recent lab results Calcium 8.9 mg/dL (8.4-10.2) 11/12/19 05:17 - Allied health notes Allied health notes reviewed: nursing Medications & Allergies - Medications Allergies/Adverse Reactions: Allergies phenytoin sodium [From Dilantin] Allergy (Verified 11/11/19 10:02) Hives phenytoin sodium extended [From Dilantin] Allergy (Verified 11/11/19 10:02) Hives Home Medications: Home Medications Medication Instructions Recorded Confirmed Last Taken Type Ciprofloxacin HCl [Ciprofloxacin 250 mg PO BID #20 tablet 11/20/17 10/21/19 Unknown Rx TAB] Clindamycin HCl 300 mg PO TID #30 capsule 11/20/17 10/21/19 Unknown Rx carBAMazepine [TEGretol] 200 mg PO BID #30 tablet 11/20/17 10/21/19 10/21/19 Rx hydrALAZINE [Apresoline TAB] 10 mg PO Q8HR #90 tablet 11/20/17 10/21/19 Unknown Rx Insulin Glargine,Hum.rec.anlog 15 unit SQ BID 09/08/18 10/21/19 11/07/19 History [Lantus] Insulin Regular, Human [HumuLIN R] 15 units SQ QAM&QHS 10/21/19 10/22/19 11/07/19 History Ondansetron [Zofran Odt] 4 mg PO Q8HR #30 tab.rapdis 10/25/19 Unknown Rx Famotidine [Pepcid] 20 mg PO BID #20 tablet 11/09/19 Unknown Rx Promethazine [Phenergan] 25 mg PO Q6HR PRN #20 tab 11/09/19 Unknown Rx Promethazine [Phenergan] 25 mg ID Q6HR PRN #5 supp.rect 11/09/19 Unknown Rx Active Medications: Generic Name Dose Route Start Last Admin Trade Name Freq PRN Reason Stop Dose Admin Acetaminophen 650 mg 11/11/19 22:01 Tylenol PO Q4H PRN Pain MILD(1-3)/Fever >100.5/RODGERS Albumin Human 12.5 gm 11/12/19 10:00 Alburx 25% (Albumin) IV KATE PRN Hypotension Carbamazepine 200 mg 11/11/19 22:00 11/12/19 21:16 Tegretol PO 200 mg BID COYD Administration Famotidine 10 mg 11/11/19 23:00 11/13/19 09:19 Pepcid IV 10 mg BID CODY Administration Hydralazine HCl 25 mg 11/11/19 22:00 11/13/19 06:52 Apresoline PO 25 mg Q8HR CODY Administration Hydromorphone HCl 1 mg 11/11/19 22:05 11/13/19 09:15 Dilaudid IV 1 mg Q3H PRN Administration Pain , Severe (7-10) Sodium Bicarbonate 150 meq/ 1,150 mls @ 100 mls/hr 11/11/19 15:00 11/12/19 05:51 Dextrose IV 100 mls/hr DIRECT CODY Administration Sodium Chloride 100 mls @ 999 mls/hr 11/12/19 10:52 Nacl 0.9% IV KATE PRN Hypotension Insulin Human Isoph/Insulin Regular 15 unit 11/12/19 08:00 11/13/19 09:04 Humulin 70/30 SUB-Q 15 unit BIDDIAB CODY Administration Insulin Human Lispro 0 unit 11/12/19 11:30 11/13/19 09:03 Humalog SUB-Q 3 unit ACHS CODY Administration Protocol Metoclopramide HCl 5 mg 11/11/19 22:13 11/12/19 21:16 Reglan IV 5 mg Q6H PRN Administration Nausea And Vomiting Ondansetron HCl 4 mg 11/11/19 22:00 11/13/19 06:50 Zofran Odt PO 4 mg Q8HR CODY Administration Ondansetron HCl 4 mg 11/11/19 22:01 11/13/19 06:48 Zofran IV 4 mg Q3H PRN Administration Nausea And Vomiting Oxycodone/Acetaminophen 1 tab 11/11/19 22:01 11/12/19 17:38 Percocet 5/325 PO 1 tab Q6H PRN Administration Pain, Moderate (4-6) Promethazine HCl 25 mg 11/11/19 21:58 Phenergan PO Q6HR PRN Nausea Promethazine HCl 25 mg 11/11/19 21:58 Phenergan ID Q6HR PRN Vomiting Sodium Chloride 10 ml 11/12/19 10:00 11/12/19 21:18 Sodium Chloride Flush Syringe 10 Ml IV 10 ml BID CODY Administration Sodium Chloride 10 ml 11/11/19 22:01 Sodium Chloride Flush Syringe 10 Ml IV PRN PRN LINE FLUSH
[2019-11-13] MEDS: carBAMazepine 200 MG TAB PO SCH ×2 (11:56→22:41)
--- NOTE | 2019-11-13 16:23 | Vascular Lab Report ---
DOPPLER ULTRASOUND UPPER EXTREMITY VENOUS MAPPING, BILATERAL INDICATION: Vein mapping UE, ESRD TECHNIQUE: Grayscale, color and spectral Doppler imaging of the venous system of the right and left upper extrem ities was performed. COMPARISON: None available. FINDINGS: RIGHT UPPER EXTREMITY: Cephalic Vein (Diameter (cm) - Upper Arm: 0.07 / - Mid Arm: 0.06 / - Antecubital: 0.13 / - Upper Forearm: 0.11 / - Mid Forearm: 0.07 / - Wrist: 2.08 / Basilic Vein (Diameter (cm) - Upper Arm: 0.17 / - Mid Arm: 0.18 / - Antecubital: 0.09 / - Upper Forearm: 0.08 / - Mid Forearm: 0.05 / - Wrist: 0.05 / Brachial vein (diameter) (centimeters) -Upper arm: 0.70/0.55 -Mid: 0.52/0.32 LEFT UPPER EXTREMITY: Cephalic Vein (Diameter /(cm) - Upper Arm: 0.11 / - Mid Arm: 0.09 / - Antecubital: 0.09 / - Upper Forearm: 0.10 / - Mid Forearm: 0.04 / - Wrist: 0.04 / Basilic Vein (Diameter (cm) - Upper Arm: 0.25 / - Mid Arm: 0.20 / - Antecubital: 0.15 / - Upper Forearm: 0.17 / - Mid Forearm: 0.18 / - Wrist: 0.07 / Brachial vein (diameter) (CM) -Upper arm: 0.39/0.29 -Mid: 0.36/0.27 -Lower: 0.34/0.42 Right radial artery diameters 0.23 cm. With velocity of 72 cm/s Left radial artery diameter is 0.31 cm. With velocity of 98 cm/s Additional Findings: None. IMPRESSION: 1. There appears to be some thrombus in the left cephalic vein. 2. Upper extremity venous mapping as above. Signer Name: Julian Wilburn MD Signed: 11/13/2019 4:19 PM Workstation Name: [id number]
[2019-11-13] MEDS: oxyCODONE /ACETAMINOPHEN 5-325MG TAB PO PRN (17:20)
[2019-11-13] MEDS: METOCLOPRAMIDE 10 MG/2 ML INJ IV PRN (17:21)
[2019-11-13] MEDS ORDERED: hydrALAZINE 20 MG/1 ML INJ IV ONE (20:37)
[2019-11-13] MEDS ORDERED: cloNIDine 0.1 MG TAB PO ONE (22:30)
[2019-11-13] MEDS: FAMOTIDINE 10 MG TAB PO SCH (22:41)
[2019-11-14] MEDS: hydrALAZINE 25 MG TAB PO SCH ×3 (05:48→22:29)
[2019-11-14] MEDS: ONDANSETRON 4 MG ODT TAB PO SCH ×3 (05:48→22:29)
--- NOTE | 2019-11-14 07:21 | Progress Note ---
Assessment and Plan - Patient Problems (1) DEANNA (acute kidney injury) Current Visit: Yes Status: Acute Plan to address problem: A small component this time ATN Vas cath --HD (2) End-stage renal disease needing dialysis Current Visit: Yes Status: Acute Plan to address problem: patient will need HD Will defer to Nephrology Vac cath to HD and then outpatient set up for HD (3) Hyperkalemia Current Visit: Yes Status: Acute Plan to address problem: Treatedd in ED HD sonia (4) Non-compliance Current Visit: No Status: Acute Plan to address problem: Counselled about compliance (5) IDDM (insulin dependent diabetes mellitus) Current Visit: No Status: Chronic Plan to address problem: CNeeds tighter control Check A1c (6) DVT prophylaxis Current Visit: No Status: Acute Plan to address problem: On Heparin (7) Discharge planning issues Current Visit: Yes Status: Acute Plan to address problem: Patient can be dischared if HD chair and time arranged Subjective Date of service: 11/13/19 Principal diagnosis: New onset ESRd needing vas cath and HD Interval history: 33-year-old -Citizen Of [place] male presents to the emergency department with a complaint of a 3-day history of nausea and vomiting with some hematemesis, diarrhea, and left-sided abdominal pain. Patient has a history of diabetes, hypertension, seizure disorder and he also appears to have a history of some chronic kidney disease. Patient denies any history of CKD but had a creatinine of 2 in 2018. Patient was here in October of this year for similar symptoms as today and was found to have acute renal failure at that time with a creatinine of greater than 10. The patient was also here 2 days ago for a hypoglycemic unr esponsive episode. He improved after getting glucose and was able to be discharged home but the patient had a creatinine of 7.6 at that time as well showing his CKD. He says he has an appointment coming up on the with a word processing supervisor, although he cannot remember the name of the physician or group. He has not taken anything for his current symptoms prior to presentation today. He denies taking any NSAIDs. He does admit to some decreased urine output but cannot give a timeframe for when he has noticed this. No recent travel or sick contacts at home. Symptomatically better Objective - Constitutional Vitals: Vital Signs - 12hr 06/10/20 06/10/20 06/10/20 20:27 21:42 23:36 Temperature 98.5 F Pulse Rate 98 H Respiratory 18 Rate Blood Pressure 183/107 182/105 150/87 O2 Sat by Pulse 96 Oximetry 11/14/19 11/14/19 05:27 06:07 Temperature 98.2 F Pulse Rate 75 Respiratory 18 Rate Blood Pressure 152/100 164/102 O2 Sat by Pulse 95 Oximetry General appearance: Present: no acute distress, well-nourished - EENT Eyes: PERRL, EOM intact ENT: hearing intact, clear oral mucosa Ears: bilateral: normal - Neck Neck: supple, normal ROM - Respiratory Respiratory effort: normal Respiratory: bilateral: CTA - Breasts Breasts: normal - Cardiovascular Rhythm: regular Heart Sounds: Present: S1 & S2. Absent: gallop, rub Extremities: pulses intact, No edema, normal color, Full ROM - Gastrointestinal General gastrointestinal: Present: soft, non-tender, non-distended, normal bowel sounds - Genitourinary Male genitourinary: normal - Integumentary Integumentary: clear, warm, dry - Musculoskeletal Musculoskeletal: 1, strength equal bilaterally - Neurologic Neurologic: moves all extremities - Psychiatric Psychiatric: memory intact, appropriate mood/affect, intact judgment & insight - Labs CBC & Chem 7: 11/12/19 05:17 11/12/19 05:17 Labs: Abnormal lab results 11/13/19 Range/Units 07:43 POC Glucose 226 H (70-105)
[2019-11-14 08:55] LABS: Basophils % (Auto) 0.4 % (0.0-1.8); Eosinophils # (Auto) 0.2 K/mm3 (0.0-0.4); Eosinophils % (Auto) 3.2 % (0.0-4.3); Hematocrit 24.8 % (35.5-45.6); Hemoglobin 8.1 gm/dl (11.8-15.2); Lymphocytes # (Auto) 1.4 K/mm3 (1.2-5.4); Lymphocytes % (Auto) 24.5 % (13.4-35.0); Mean Corpuscular HGB Conc 33 % (32-34); Mean Corpuscular Volume 85 fl (84-94); Monocytes # (Auto) 0.7 K/mm3 (0.0-0.8); Monocytes % (Auto) 12.6 % (0.0-7.3); Platelet Count 181 K/mm3 (140-440); Red Blood Count 2.92 M/mm3 (3.65-5.03); Red Cell Distribution Width 13.5 % (13.2-15.2)
[2019-11-14] MEDS: INSULIN LISPRO 100 UNIT/ML SUB-Q SCH ×4 (09:04→22:30)
[2019-11-14] MEDS: INSULIN NPH/REGULAR 70/30 INJ SUB-Q SCH ×2 (09:04→17:07)
[2019-11-14 09:10] LABS: Calcium 7.6 mg/dL (8.4-10.2)
[2019-11-14] MEDS: FAMOTIDINE 10 MG TAB PO SCH ×2 (09:15→22:29)
[2019-11-14] MEDS: carBAMazepine 200 MG TAB PO SCH ×2 (09:16→22:29)
--- NOTE | 2019-11-14 13:54 | Progress Note ---
Assessment and Plan - Patient Problems (1) Acute on chronic renal failure Current Visit: Yes Status: Acute Qualifiers: Acute renal failure type: unspecified Chronic kidney disease stage: stage 5, not on chronic dialysis Qualified Code(s): N17.9 - Acute kidney failure, unspecified; N18.5 - Chronic kidney disease, stage 5 Plan to address problem: Patient has likely shown progression of his renal disease, and I am concerned that at this time he is likely progressed to CKD V. I am concerned that his symptoms of generalized malaise, persistent nausea, vomiting and poor appetite can also be as a consequence of worsening uremia. He has been having recurrent hyperkalemia despite medical treatment and with no changes in renal function, will decide to proceed with dialysis. Patient is s/p permcath placement and had three sessions of HD as an inpatient. Place on inpatient TTS schedule. Outpatient dialysis placement for TTS at [facility]. (2) Hypertensive chronic kidney disease with stage 5 chronic kidney disease or end stage renal disease Current Visit: Yes Status: Acute Plan to address problem: Maintain on current regimen. Will monitor closely. (3) Hyperkalemia Current Visit: Yes Status: Acute Plan to address problem: Will correct now with HD. Please ensure that he is on a low K diet. (4) Intractable nausea and vomiting Current Visit: Yes Status: Acute Plan to address problem: This may be multi-factorial as this may be due to significant gastroparesis with his h/o DM, but it also may be in the setting of uremia from progressive renal failure. Symptomatic management per primary team. (5) Metabolic acidosis Current Visit: No Status: Acute Plan to address problem: As HD has been started, we have discontinued IV sodium bicarbonate and manage with dialysis treatments. (6) IDDM (insulin dependent diabetes mellitus) Current Visit: No Status: Chronic Plan to address problem: DM management per primary attending. Subjective Date of service: 11/14/19 Principal diagnosis: ESRd needing HD Interval history: Tolerated his third session of HD well. Patient placed at [facility] to start on 11/18. Objective - Vital Signs Vital signs: Vital Signs - 12hr 11/14/19 11/14/19 11/14/19 05:27 06:07 09:35 Temperature 98.2 F 98.4 F Pulse Rate 75 81 Respiratory 18 16 Rate Blood Pressure 152/100 164/102 194/107 O2 Sat by Pulse 95 Oximetry 11/14/19 11/14/19 11/14/19 09:50 10:00 10:20 Temperature Pulse Rate 81 79 85 Respiratory Rate Blood Pressure 164/107 188/111 198/106 O2 Sat by Pulse Oximetry 11/14/19 11/14/19 11/14/19 10:30 10:45 11:00 Temperature Pulse Rate 80 88 76 Respiratory Rate Blood Pressure 196/108 184/109 191/104 O2 Sat by Pulse Oximetry 11/14/19 11/14/19 11/14/19 11:15 11:30 11:45 Temperature Pulse Rate 76 72 70 Respiratory Rate Blood Pressure 175/102 176/100 175/100 O2 Sat by Pulse Oximetry 11/14/19 11/14/19 11/14/19 12:01 12:15 12:32 Temperature Pulse Rate 71 70 70 Respiratory Rate Blood Pressure 174/96 183/100 180/101 O2 Sat by Pulse Oximetry 11/14/19 11/14/19 11/14/19 12:45 12:50 13:01 Temperature 98.4 F Pulse Rate 77 88 86 Respiratory 16 Rate Blood Pressure 180/100 180/96 180/94 O2 Sat by Pulse Oximetry 11/14/19 13:31 Temperature Pulse Rate Respiratory Rate Blood Pressure 167/100 O2 Sat by Pulse Oximetry - General Appearance General appearance: well-developed, well-nourished, appears stated age EENT: ATNC, PERRL Neck: no JVD, no thyromegaly Respiratory: Present: Clear to Ascultation, Normal Exam Cardiology: regular, S1S2 Gastrointestinal: normal Integumentary: no rash, warm and dry Neurologic: no focal deficit, alert and oriented x3 Musculoskeletal: deferred Psychiatric: cooperative - Lab 11/14/19 08:35 11/14/19 08:35 Most recent lab results Calcium 7.6 mg/dL (8.4-10.2) L 11/14/19 08:35 - Allied health notes Allied health notes reviewed: nursing Medications & Allergies - Medications Allergies/Adverse Reactions: Allergies phenytoin sodium [From Dilantin] Allergy (Verified 11/11/19 10:02) Hives phenytoin sodium extended [From Dilantin] Allergy (Verified 11/11/19 10:02) Hives Home Medications: Home Medications Medication Instructions Recorded Confirmed Last Taken Type Ciprofloxacin HCl [Ciprofloxacin 250 mg PO BID #20 tablet 11/20/17 10/21/19 Unknown Rx TAB] Clindamycin HCl 300 mg PO TID #30 capsule 11/20/17 10/21/19 Unknown Rx carBAMazepine [TEGretol] 200 mg PO BID #30 tablet 11/20/17 10/21/19 10/21/19 Rx hydrALAZINE [Apresoline TAB] 10 mg PO Q8HR #90 tablet 11/20/17 10/21/19 Unknown Rx Insulin Glargine,Hum.rec.anlog 15 unit SQ BID 09/08/18 10/21/19 11/07/19 History [Lantus] Insulin Regular, Human [HumuLIN R] 15 units SQ QAM&QHS 10/21/19 10/22/19 11/07/19 History Ondansetron [Zofran Odt] 4 mg PO Q8HR #30 tab.rapdis 10/25/19 Unknown Rx Famotidine [Pepcid] 20 mg PO BID #20 tablet 11/09/19 Unknown Rx Promethazine [Phenergan] 25 mg PO Q6HR PRN #20 tab 11/09/19 Unknown Rx Promethazine [Phenergan] 25 mg NM Q6HR PRN #5 supp.rect 11/09/19 Unknown Rx Active Medications: Generic Name Dose Route Start Last Admin Trade Name Freq PRN Reason Stop Dose Admin Acetaminophen 650 mg 11/11/19 22:01 Tylenol PO Q4H PRN Pain MILD(1-3)/Fever >100.5/RODGERS Albumin Human 12.5 gm 11/12/19 10:00 Alburx 25% (Albumin) IV KATE PRN Hypotension Carbamazepine 200 mg 11/11/19 22:00 11/14/19 09:16 Tegretol PO 200 mg BID CODY Administration Famotidine 10 mg 11/13/19 22:00 11/14/19 09:15 Pepcid PO 10 mg BID CODY Administration Hydralazine HCl 25 mg 11/11/19 22:00 11/14/19 13:31 Apresoline PO 25 mg Q8HR CODY Administration Hydromorphone HCl 1 mg 11/11/19 22:05 11/13/19 09:15 Dilaudid IV 1 mg Q3H PRN Administration Pain , Severe (7-10) Sodium Chloride 100 mls @ 999 mls/hr 11/12/19 10:52 Nacl 0.9% IV AKTE PRN Hypotension Insulin Human Isoph/Insulin Regular 15 unit 11/12/19 08:00 11/14/19 09:04 Humulin 70/30 SUB-Q 15 unit BIDDIAB CODY Administration Insulin Human Lispro 0 unit 11/12/19 11:30 11/14/19 13:32 Humalog SUB-Q Not Given A[facility]S [facility] Protocol Metoclopramide HCl 5 mg 11/11/19 22:13 11/13/19 17:21 Reglan IV 5 mg Q6H PRN Administration Nausea And Vomiting Ondansetron HCl 4 mg 11/11/19 22:00 11/14/19 13:31 Zofran Odt PO 4 mg Q8HR CODY Administration Ondansetron HCl 4 mg 11/11/19 22:01 11/13/19 06:48 Zofran IV 4 mg Q3H PRN Administration Nausea And Vomiting Oxycodone/Acetaminophen 1 tab 11/11/19 22:01 11/13/19 17:20 Percocet 5/325 PO 1 tab Q6H PRN Administration Pain, Moderate (4-6) Promethazine HCl 25 mg 11/11/19 21:58 Phenergan PO Q6HR PRN Nausea Sodium Chloride 10 ml 11/12/19 10:00 11/14/19 09:05 Sodium Chloride Flush Syringe 10 Ml IV 10 ml BID CODY Administration Sodium Chloride 10 ml 11/11/19 22:01 Sodium Chloride Flush Syringe 10 Ml IV PRN PRN LINE FLUSH
--- NOTE | 2019-11-14 14:25 | Progress Note ---
Assessment and Plan Assessment and plan: 33-year-old -Micron[place] male presents to the emergency department with a complaint of a 3-day history of nausea and vomiting with some hematemesis, diarrhea, and left-sided abdominal pain. Patient has a history of diabetes, hypertension, seizure disorder and he also appears to have a history of some chronic kidney disease. Patient denies any history of CKD but had a creatinine of 2 in 2018. Patient was here in October of this year for similar symptoms as today and was found to have acute renal failure at that time with a creatinine of greater than 10. The patient was also here 2 days ago for a hypoglycemic unresponsive episode. He improved after getting glucose and was able to be discharged home but the patient had a creatinine of 7.6 at that time as well showing his CKD. He says he has an appointment coming up on the with a strapper, although he cannot remember the name of the physician or group. He has not taken anything for his current symptoms prior to presentation today. He denies taking any NSAIDs. He does admit to some decreased urine output but cannot give a timeframe for when he has noticed this. No recent travel or sick contacts at home. Symptomatically better 11/13: Elevated BP, Hydralazin, needs assistance - Patient Problems (1) DEANNA (acute kidney injury) with vasomotor nephropathy Current Visit: Yes Status: Acute Plan to address problem: A small component this time ATN Vas cath --HD (2) End-stage renal disease needing dialysis Current Visit: Yes Status: Acute Plan to address problem: patient will need HD Will defer to Nephrology Vac cath to HD and then outpatient set up for HD (3) Hyperkalemia Current Visit: Yes Status: Acute Plan to address problem: Treatedd in ED HD sonia (4) Non-compliance Current Visit: No Status: Acute Plan to address problem: Counselled about compliance (5) IDDM (insulin dependent diabetes mellitus) Current Visit: No Status: Chronic Plan to address problem: CNeeds tighter control Check A1c (6) DVT prophylaxis Current Visit: No Status: Acute Plan to address problem: On Heparin (7) Discharge planning issues Current Visit: Yes Status: Acute Plan to address problem: Patient can be dischared if HD chair and time arranged History Interval history: Patient seen and examined, resting comfortable. Bp slightly elevated Hospitalist Physical - Physical exam Narrative exam: General appearance: Present: no acute distress, well-nourished - EENT Eyes: PERRL, EOM intact ENT: hearing intact, clear oral mucosa Ears: bilateral: normal - Neck Neck: supple, normal ROM - Respiratory Respiratory effort: normal Respiratory: bilateral: CTA - Breasts Breasts: normal - Cardiovascular Rhythm: regular Heart Sounds: Present: S1 & S2. Absent: gallop, rub Extremities: pulses intact, No edema, normal color, Full ROM - Gastrointestinal General gastrointestinal: Present: soft, non-tender, non-distended, normal bowel sounds - Genitourinary Male genitourinary: normal - Integumentary Integumentary: clear, warm, dry - Musculoskeletal Musculoskeletal: 1, strength equal bilaterally - Neurologic Neurologic: moves all extremities - Psychiatric Psychiatric: memory intact, appropriate mood/affect, intact judgment & insight - Constitutional Vitals: Temp Pulse Resp BP Pulse Ox 98.4 F 86 16 167/100 95 11/14/19 13:01 11/14/19 13:01 11/14/19 13:01 11/14/19 13:31 11/14/19 05:27 General appearance: Present: no acute distress, well-nourished Results - Labs CBC & Chem 7: 11/14/19 08:35 11/14/19 08:35 Labs: Laboratory Last Values WBC 5.8 K/mm3 (4.5-11.0) 11/14/19 08:35 RBC 2.92 M/mm3 (3.65-5.03) L 11/14/19 08:35 Hgb 8.1 gm/dl (11.8-15.2) L 11/14/19 08:35 Hct 24.8 % (35.5-45.6) L 11/14/19 08:35 MCV 85 fl (84-94) 11/14/19 08:35 MCH 28 pg (28-32) 11/14/19 08:35 MCHC 33 % (32-34) 11/14/19 08:35 RDW 13.5 % (13.2-15.2) 11/14/19 08:35 Plt Count 181 K/mm3 (140-440) 11/14/19 08:35 Lymph % (Auto) 24.5 % (13.4-35.0) 11/14/19 08:35 [place] % (Auto) 12.6 % (0.0-7.3) H 11/14/19 08:35 Eos % (Auto) 3.2 % (0.0-4.3) 11/14/19 08:35 Baso % (Auto) 0.4 % (0.0-1.8) 11/14/19 08:35 Lymph # 1.4 K/mm3 (1.2-5.4) 11/14/19 08:35 [place] # 0.7 K/mm3 (0.0-0.8) 11/14/19 08:35 Eos # 0.2 K/mm3 (0.0-0.4) 11/14/19 08:35 Baso # 0.0 K/mm3 (0.0-0.1) 11/14/19 08:35 Seg Neutrophils % 59.3 % (40.0-70.0) 11/14/19 08:35 Seg Neutrophils # 3.5 K/mm3 (1.8-7.7) 11/14/19 08:35 PT 12.5 Sec. (12.2-14.9) 11/11/19 10:19 INR 0.95 (0.87-1.13) 11/11/19 10:19 APTT 23.3 Sec. (24.2-36.6) L 11/11/19 10:19 Sodium 135 mmol/L (137-145) L 11/14/19 08:35 Potassium 4.3 mmol/L (3.6-5.0) 11/14/19 08:35 Chloride 98.3 mmol/L (98-107) 11/14/19 08:35 Carbon Dioxide 26 mmol/L (22-30) 11/14/19 08:35 Anion Gap 15 mmol/L 11/14/19 08:35 BUN 19 mg/dL (9-20) 11/14/19 08:35 Creatinine 5.7 mg/dL (0.8-1.5) H 11/14/19 08:35 Estimated GFR 14 ml/min 11/14/19 08:35 BUN/Creatinine Ratio 3 % 11/14/19 08:35 Glucose 287 mg/dL (75-100) H 11/14/19 08:35 POC Glucose 258 (70-105) H 11/14/19 08:14 Hemoglobin A1c 8.6 % (4-6) H 11/12/19 05:17 Calcium 7.6 mg/dL (8.4-10.2) L 11/14/19 08:35 Total Bilirubin < 0.20 mg/dL (0.1-1.2) 11/12/19 05:17 Direct Bilirubin < 0.2 mg/dL (0-0.2) 11/11/19 10:19 Indirect Bilirubin 0.0 mg/dL 11/11/19 10:19 AST 12 units/L (5-40) 11/12/19 05:17 ALT 25 units/L (7-56) 11/12/19 05:17 Alkaline Phosphatase 61 units/L (35-129) 11/12/19 05:17 Total Protein 5.1 g/dL (6.3-8.2) L 11/12/19 05:17 Albumin 2.3 g/dL (3.9-5) L 11/12/19 05:17 Albumin/Globulin Ratio 0.8 % 11/12/19 05:17 Lipase 17 units/L (13-60) 11/11/19 10:19 Urine Color Straw (Yellow) 11/11/19 Unknown Urine Turbidity Clear (Clear) 11/11/19 Unknown Urine pH 6.0 (5.0-7.0) 11/11/19 Unknown Ur Specific [place] 1.011 (1.003-1.030) 11/11/19 Unknown Urine Protein >500 mg/dL (Negative) 11/11/19 Unknown Urine Glucose (UA) 50 mg/dL (Negative) 11/11/19 Unknown Urine Ketones Neg mg/dL (Negative) 11/11/19 Unknown Urine Blood Neg (Negative) 11/11/19 Unknown Urine Nitrite Neg (Negative) 11/11/19 Unknown Urine Bilirubin Neg (Negative) 11/11/19 Unknown Urine Urobilinogen < 2.0 mg/dL (<2.0) 11/11/19 Unknown Ur Leukocyte Esterase Neg (Negative) 11/11/19 Unknown Urine WBC (Auto) 2.0 /HPF (0.0-6.0) 11/11/19 Unknown Urine RBC (Auto) < 1.0 /HPF (0.0-6.0) 11/11/19 Unknown Hepatitis A IgM Ab Non-reactive (NonReactive) 11/12/19 14:00 Hep Bs Antigen Non-reactive (Negative) 11/12/19 14:00 Hep B Core IgM Ab Non-reactive (NonReactive) 11/12/19 14:00 Hepatitis C Antibody Non-reactive (NonReactive) 11/12/19 14:00 Wells/IV: Voiding Method Toilet IV Catheter Type [Right perm cath Internal Jugular] IV Catheter Type [Left Hand] INT / Saline Lock Active Medications - Current Medications Current Medications: Generic Name Dose Route Start Last Admin Trade Name Freq PRN Reason Stop Dose Admin Acetaminophen 650 mg 11/11/19 22:01 Tylenol PO Q4H PRN Pain MILD(1-3)/Fever >100.5/RODGERS Albumin Human 12.5 gm 11/12/19 10:00 Alburx 25% (Albumin) IV KATE PRN Hypotension Carbamazepine 200 mg 11/11/19 22:00 11/14/19 09:16 Tegretol PO 200 mg BID CODY Administration Famotidine 10 mg 11/13/19 22:00 11/14/19 09:15 Pepcid PO 10 mg BID CODY Administration Hydralazine HCl 25 mg 11/11/19 22:00 11/14/19 13:31 Apresoline PO 25 mg Q8HR CODY Administration Hydromorphone HCl 1 mg 11/11/19 22:05 11/13/19 09:15 Dilaudid IV 1 mg Q3H PRN Administration Pain , Severe (7-10) Sodium Chloride 100 mls @ 999 mls/hr 11/14/19 14:30 Nacl 0.9% IV KATE PRN Hypotension Insulin Human Isoph/Insulin Regular 15 unit 11/12/19 08:00 11/14/19 09:04 Humulin 70/30 SUB-Q 15 unit BIDDIAB CODY Administration Insulin Human Lispro 0 unit 11/12/19 11:30 11/14/19 13:32 Humalog SUB-Q Not Given [facility] Protocol Metoclopramide HCl 5 mg 11/11/19 22:13 11/13/19 17:21 Reglan IV 5 mg Q6H PRN Administration Nausea And Vomiting Ondansetron HCl 4 mg 11/11/19 22:00 11/14/19 13:31 Zofran Odt PO 4 mg Q8HR CODY Administration Ondansetron HCl 4 mg 11/11/19 22:01 11/13/19 06:48 Zofran IV 4 mg Q3H PRN Administration Nausea And Vomiting Oxycodone/Acetaminophen 1 tab 11/11/19 22:01 11/13/19 17:20 Percocet 5/325 PO 1 tab Q6H PRN Administration Pain, Moderate (4-6) Promethazine HCl 25 mg 11/11/19 21:58 Phenergan PO Q6HR PRN Nausea Sodium Chloride 10 ml 11/12/19 10:00 11/14/19 09:05 Sodium Chloride Flush Syringe 10 Ml IV 10 ml BID CODY Administration Sodium Chloride 10 ml 11/11/19 22:01 Sodium Chloride Flush Syringe 10 Ml IV PRN PRN LINE FLUSH
[2019-11-14] MEDS ORDERED: SODIUM CHLORIDE 0.9% 100 ML IV PRN (14:30)
[2019-11-14] MEDS: HYDROmorphone 1 MG/1 ML INJ IV PRN (22:23)
[2019-11-14] MEDS: hydrALAZINE 20 MG/1 ML INJ IV PRN (22:23)
[2019-11-15] MEDS: hydrALAZINE 20 MG/1 ML INJ IV PRN ×2 (00:20→06:32)
[2019-11-15] MEDS ORDERED: ZOLPIDEM 5 MG TAB PO ONE (01:00)
[2019-11-15] MEDS: ONDANSETRON 4 MG ODT TAB PO SCH ×4 (06:33→21:49)
[2019-11-15] MEDS: oxyCODONE /ACETAMINOPHEN 5-325MG TAB PO PRN (06:33)
[2019-11-15] MEDS: ONDANSETRON 4 MG/2 ML INJ IV PRN (06:39)
[2019-11-15] MEDS: hydrALAZINE 25 MG TAB PO SCH ×3 (06:42→21:49)
[2019-11-15] MEDS: INSULIN LISPRO 100 UNIT/ML SUB-Q SCH ×4 (07:51→23:04)
[2019-11-15] MEDS: carBAMazepine 200 MG TAB PO SCH ×2 (09:19→21:50)
[2019-11-15] MEDS: FAMOTIDINE 10 MG TAB PO SCH ×2 (09:20→21:49)
[2019-11-15] MEDS: amLODIPine 10 MG TAB PO SCH (09:21)
[2019-11-15] MEDS: INSULIN NPH/REGULAR 70/30 INJ SUB-Q SCH ×2 (09:26→18:04)
--- NOTE | 2019-11-15 15:41 | Progress Note ---
Assessment and Plan Assessment and plan: 33-year-old -Croatian male presents to the emergency department with a complaint of a 3-day history of nausea and vomiting with some hematemesis, diarrhea, and left-sided abdominal pain. Patient has a history of diabetes, hypertension, seizure disorder and he also appears to have a history of some chronic kidney disease. Patient denies any history of CKD but had a creatinine of 2 in 2018. Patient was here in October of this year for similar symptoms as today and was found to have acute renal failure at that time with a creatinine of greater than 10. The patient was also here 2 days ago for a hypoglycemic unresponsive episode. He improved after getting glucose and was able to be discharged home but the patient had a creatinine of 7.6 at that time as well showing his CKD. He says he has an appointment coming up on the with a paper wood cutter, although he cannot remember the name of the physician or group. He has not taken anything for his current symptoms prior to presentation today. He denies taking any NSAIDs. He does admit to some decreased urine output but cannot give a timeframe for when he has noticed this. No recent travel or sick contacts at home. Symptomatically better 11/13: Elevated BP, Hydralazine 11/14: Blood pressure improving. We will continue to monitor adjustments may need to be made. Anticipate discharge in a.m. Patient verbalized understanding and understands the need for compliance on discharge. - Patient Problems (1) DEANNA (acute kidney injury) with vasomotor nephropathy Current Visit: Yes Status: Acute Plan to address problem: A small component this time ATN Vas cath --HD (2) End-stage renal disease needing dialysis Current Visit: Yes Status: Acute Plan to address problem: patient will need HD Will defer to Nephrology Vac cath to HD and then outpatient set up for HD (3) Hyperkalemia Current Visit: Yes Status: Acute Plan to address problem: Treatedd in ED HD sonia (4) Non-compliance Current Visit: No Status: Acute Plan to address problem: Counselled about compliance (5) IDDM (insulin dependent diabetes mellitus) Current Visit: No Status: Chronic Plan to address problem: CNeeds tighter control Check A1c (6) DVT prophylaxis Current Visit: No Status: Acute Plan to address problem: On Heparin (7) Discharge planning issues Current Visit: Yes Status: Acute Plan to address problem: Patient can be dischared if HD chair and time arranged History Interval history: Patient seen and examined, resting comfortable. Bp slightly elevated but improving compared to yesterday no other acute issues reported Hospitalist Physical - Physical exam Narrative exam: General appearance: Present: no acute distress, well-nourished - EENT Eyes: PERRL, EOM intact ENT: hearing intact, clear oral mucosa Ears: bilateral: normal - Neck Neck: supple, normal ROM - Respiratory Respiratory effort: normal Respiratory: bilateral: CTA - Breasts Breasts: normal - Cardiovascular Rhythm: regular Heart Sounds: Present: S1 & S2. Absent: gallop, rub Extremities: pulses intact, No edema, normal color, Full ROM - Gastrointestinal General gastrointestinal: Present: soft, non-tender, non-distended, normal bowel sounds - Genitourinary Male genitourinary: normal - Integumentary Integumentary: clear, warm, dry - Musculoskeletal Musculoskeletal: 1, strength equal bilaterally - Neurologic Neurologic: moves all extremities - Psychiatric Psychiatric: memory intact, appropriate mood/affect, intact judgment & insight - Constitutional Vitals: Temp Pulse Resp BP Pulse Ox 97.3 F L 81 20 157/85 95 11/15/19 11:51 11/15/19 11:51 11/15/19 11:51 11/15/19 13:19 11/15/19 11:51 General appearance: Present: no acute distress, well-nourished Results - Labs CBC & Chem 7: 11/14/19 08:35 11/14/19 08:35 Labs: Laboratory Last Values WBC 5.8 K/mm3 (4.5-11.0) 11/14/19 08:35 RBC 2.92 M/mm3 (3.65-5.03) L 11/14/19 08:35 Hgb 8.1 gm/dl (11.8-15.2) L 11/14/19 08:35 Hct 24.8 % (35.5-45.6) L 11/14/19 08:35 MCV 85 fl (84-94) 11/14/19 08:35 MCH 28 pg (28-32) 11/14/19 08:35 MCHC 33 % (32-34) 11/14/19 08:35 RDW 13.5 % (13.2-15.2) 11/14/19 08:35 Plt Count 181 K/mm3 (140-440) 11/14/19 08:35 Lymph % (Auto) 24.5 % (13.4-35.0) 11/14/19 08:35 [place] % (Auto) 12.6 % (0.0-7.3) H 11/14/19 08:35 Eos % (Auto) 3.2 % (0.0-4.3) 11/14/19 08:35 Baso % (Auto) 0.4 % (0.0-1.8) 11/14/19 08:35 Lymph # 1.4 K/mm3 (1.2-5.4) 11/14/19 08:35 [place] # 0.7 K/mm3 (0.0-0.8) 11/14/19 08:35 Eos # 0.2 K/mm3 (0.0-0.4) 11/14/19 08:35 Baso # 0.0 K/mm3 (0.0-0.1) 11/14/19 08:35 Seg Neutrophils % 59.3 % (40.0-70.0) 11/14/19 08:35 Seg Neutrophils # 3.5 K/mm3 (1.8-7.7) 11/14/19 08:35 PT 12.5 Sec. (12.2-14.9) 11/11/19 10:19 INR 0.95 (0.87-1.13) 11/11/19 10:19 APTT 23.3 Sec. (24.2-36.6) L 11/11/19 10:19 Sodium 135 mmol/L (137-145) L 11/14/19 08:35 Potassium 4.3 mmol/L (3.6-5.0) 11/14/19 08:35 Chloride 98.3 mmol/L (98-107) 11/14/19 08:35 Carbon Dioxide 26 mmol/L (22-30) 11/14/19 08:35 Anion Gap 15 mmol/L 11/14/19 08:35 BUN 19 mg/dL (9-20) 11/14/19 08:35 Creatinine 5.7 mg/dL (0.8-1.5) H 11/14/19 08:35 Estimated GFR 14 ml/min 11/14/19 08:35 BUN/Creatinine Ratio 3 % 11/14/19 08:35 Glucose 287 mg/dL (75-100) H 11/14/19 08:35 POC Glucose 142 (70-105) H 11/15/19 12:05 Hemoglobin A1c 8.6 % (4-6) H 11/12/19 05:17 Calcium 7.6 mg/dL (8.4-10.2) L 11/14/19 08:35 Total Bilirubin < 0.20 mg/dL (0.1-1.2) 11/12/19 05:17 Direct Bilirubin < 0.2 mg/dL (0-0.2) 11/11/19 10:19 Indirect Bilirubin 0.0 mg/dL 11/11/19 10:19 AST 12 units/L (5-40) 11/12/19 05:17 ALT 25 units/L (7-56) 11/12/19 05:17 Alkaline Phosphatase 61 units/L (35-129) 11/12/19 05:17 Total Protein 5.1 g/dL (6.3-8.2) L 11/12/19 05:17 Albumin 2.3 g/dL (3.9-5) L 11/12/19 05:17 Albumin/Globulin Ratio 0.8 % 11/12/19 05:17 Lipase 17 units/L (13-60) 11/11/19 10:19 Urine Color Straw (Yellow) 11/11/19 Unknown Urine Turbidity Clear (Clear) 11/11/19 Unknown Urine pH 6.0 (5.0-7.0) 11/11/19 Unknown Ur Specific [place] 1.011 (1.003-1.030) 11/11/19 Unknown Urine Protein >500 mg/dL (Negative) 11/11/19 Unknown Urine Glucose (UA) 50 mg/dL (Negative) 11/11/19 Unknown Urine Ketones Neg mg/dL (Negative) 11/11/19 Unknown Urine Blood Neg (Negative) 11/11/19 Unknown Urine Nitrite Neg (Negative) 11/11/19 Unknown Urine Bilirubin Neg (Negative) 11/11/19 Unknown Urine Urobilinogen < 2.0 mg/dL (<2.0) 11/11/19 Unknown Ur Leukocyte Esterase Neg (Negative) 11/11/19 Unknown Urine WBC (Auto) 2.0 /HPF (0.0-6.0) 11/11/19 Unknown Urine RBC (Auto) < 1.0 /HPF (0.0-6.0) 11/11/19 Unknown Coronavirus (PCR) Negative (Negative) 11/14/19 Unknown Hepatitis A IgM Ab Non-reactive (NonReactive) 11/12/19 14:00 Hep Bs Antigen Non-reactive (Negative) 11/12/19 14:00 Hep B Core IgM Ab Non-reactive (NonReactive) 11/12/19 14:00 Hepatitis C Antibody Non-reactive (NonReactive) 11/12/19 14:00 Wells/IV: Voiding Method Urinal IV Catheter Type [Right perm cath Internal Jugular] IV Catheter Type [Left Hand] INT / Saline Lock Active Medications - Current Medications Current Medications: Generic Name Dose Route Start Last Admin Trade Name Freq PRN Reason Stop Dose Admin Acetaminophen 650 mg 11/11/19 22:01 11/14/19 16:06 Tylenol PO 650 mg Q4H PRN Administration Pain MILD(1-3)/Fever >100.5/RODGERS Albumin Human 12.5 gm 11/12/19 10:00 Alburx 25% (Albumin) IV KATE PRN Hypotension Amlodipine Besylate 10 mg 11/15/19 10:00 11/15/19 09:21 Amlodipine PO 10 mg QDAY CODY Administration Carbamazepine 200 mg 11/11/19 22:00 11/15/19 09:19 Tegretol PO 200 mg BID CODY Administration Famotidine 10 mg 11/13/19 22:00 11/15/19 09:20 Pepcid PO 10 mg BID CODY Administration Hydralazine HCl 10 mg 11/14/19 19:16 11/15/19 06:32 Apresoline IV 10 mg Q6H PRN Administration Blood Pressure Hydralazine HCl 50 mg 11/14/19 22:46 11/15/19 13:19 Apresoline PO 50 mg Q8HR CODY Administration Hydromorphone HCl 1 mg 11/11/19 22:05 11/14/19 22:23 Dilaudid IV 1 mg Q3H PRN Administration Pain , Severe (7-10) Sodium Chloride 100 mls @ 999 mls/hr 11/14/19 14:30 Nacl 0.9% IV KATE PRN Hypotension Insulin Human Isoph/Insulin Regular 15 unit 11/12/19 08:00 11/15/19 09:26 Humulin 70/30 SUB-Q 15 unit BIDDIAB CODY Administration Insulin Human Lispro 0 unit 11/12/19 11:30 11/15/19 12:20 Humalog SUB-Q Not Given [facility] Protocol Metoclopramide HCl 5 mg 11/11/19 22:13 11/13/19 17:21 Reglan IV 5 mg Q6H PRN Administration Nausea And Vomiting Ondansetron HCl 4 mg 11/11/19 22:00 11/15/19 13:19 Zofran Odt PO 4 mg Q8HR CODY Administration Ondansetron HCl 4 mg 11/11/19 22:01 11/15/19 06:39 Zofran IV 4 mg Q3H PRN Administration Nausea And Vomiting Oxycodone/Acetaminophen 1 tab 11/11/19 22:01 11/15/19 06:33 Percocet 5/325 PO 1 tab Q6H PRN Administration Pain, Moderate (4-6) Promethazine HCl 25 mg 11/11/19 21:58 Phenergan PO Q6HR PRN Nausea Sodium Chloride 10 ml 11/12/19 10:00 11/15/19 09:20 Sodium Chloride Flush Syringe 10 Ml IV 10 ml BID CODY Administration Sodium Chloride 10 ml 11/11/19 22:01 Sodium Chloride Flush Syringe 10 Ml IV PRN PRN LINE FLUSH
[2019-11-15] MEDS: HYDROmorphone 1 MG/1 ML INJ IV PRN (21:50)
[2019-11-16] MEDS: HYDROmorphone 1 MG/1 ML INJ IV PRN ×2 (02:59→08:03)
[2019-11-16] MEDS: hydrALAZINE 20 MG/1 ML INJ IV PRN (03:08)
[2019-11-16] MEDS: ONDANSETRON 4 MG ODT TAB PO SCH (05:55)
[2019-11-16] MEDS: hydrALAZINE 25 MG TAB PO SCH (05:56)
[2019-11-16] MEDS: INSULIN NPH/REGULAR 70/30 INJ SUB-Q SCH (08:03)
[2019-11-16] MEDS: INSULIN LISPRO 100 UNIT/ML SUB-Q SCH ×2 (08:37→12:05)
[2019-11-16] MEDS ORDERED: amLODIPine 10 MG TAB ONE (10:00)
--- NOTE | 2019-11-16 10:05 | Discharge Summary ---
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 Patient has a history of diabetes, hypertension, seizure disorder and he also appears to have a history of some chronic kidney disease. Patient denies any history of CKD but had a creatinine of 2 in 2018. Patient was here in October of this year for similar symptoms as today and was found to have acute renal failure at that time with a creatinine of greater than 10. The patient was also here 2 days ago for a hypoglycemic unresponsive episode. He improved after getting glucose and was able to be discharged home but the patient had a creatinine of 7.6 at that time as well showing his CKD. He says he has an appointment coming up on the with a gallery manager, although he cannot remember the name of the physician or group. He has not taken anything for his current symptoms prior to presentation today. He denies taking any NSAIDs. He does admit to some decreased urine output but cannot give a timeframe for when he has noticed this. No recent travel or sick contacts at home. Symptomatically better 11/13: Elevated BP, Hydralazine 11/14: Blood pressure improving. We will continue to monitor adjustments may need to be made. Anticipate discharge in a.m. Patient verbalized understanding and understands the need for compliance on discharge. 11/15: Secondary patient clinically improved dialysis hemo-catheter was placed and patient will be discharged today to continue dialysis outpatient which has been set up. Adjustments were made to blood pressure control. Dialysis days has been discussed with the patient he is aware compliance has been stressed 30 minutes of counseling provided - Patient Problems (1) DEANNA (acute kidney injury) with vasomotor nephropathy (2) End-stage renal disease needing dialysis (3) Hyperkalemia (4) Non-compliance (5) IDDM (insulin dependent diabetes mellitus) (6) Hypertensive chronic kidney disease with stage 5 chronic kidney disease or end stage renal disease (7) Intractable nausea and vomiting (8) Metabolic acidosis Current Visit: No Status: Acute Disposition: DC-01 TO HOME OR SELFCARE Time spent for discharge: 35-minute Core Measure Documentation - Palliative Care Palliative Care/ Comfort Measures: Not Applicable - Core Measures Any of the following diagnoses?: none Exam - Physical Exam Narrative exam: General appearance: Present: no acute distress, well-nourished - EENT Eyes: PERRL, EOM intact ENT: hearing intact, clear oral mucosa Ears: bilateral: normal - Neck Neck: supple, normal ROM - Respiratory Respiratory effort: normal Respiratory: bilateral: CTA - Breasts Breasts: normal - Cardiovascular Rhythm: regular Heart Sounds: Present: S1 & S2. Absent: gallop, rub Extremities: pulses intact, No edema, normal color, Full ROM - Gastrointestinal General gastrointestinal: Present: soft, non-tender, non-distended, normal bowel sounds - Genitourinary Male genitourinary: normal - Integumentary Integumentary: clear, warm, dry - Musculoskeletal Musculoskeletal: 1, strength equal bilaterally - Neurologic Neurologic: moves all extremities - Psychiatric Psychiatric: memory intact, appropriate mood/affect, intact judgment & insight - Constitutional Vitals: Temp Pulse Resp BP Pulse Ox 97.4 F L 100 H 20 160/92 97 11/16/19 05:57 11/16/19 05:57 11/16/19 05:57 11/16/19 05:57 11/16/19 05:57 Plan Activity: advance as tolerated, fall precautions Diet: diabetic, renal Special Instructions: restrict fluid intake to (1200cc/hr), record daily weights, record daily BP diary Additional Instructions: Outpatient dialysis placement for TTS at [facility]. Follow up with: PRIMARY CARE, [Primary Care Provider] - 7 Days TYREL RAMOS DO [Staff Physician] - 7 Days Prescriptions: amLODIPine 10 mg PO QDAY #30 tablet hydrALAZINE [Apresoline TAB] 50 mg PO Q8HR #90 tablet Famotidine [Pepcid] 10 mg PO BID #60 tablet
--- NOTE | 2019-11-16 11:27 | Progress Note ---
Assessment and Plan - Patient Problems (1) Acute on chronic renal failure Current Visit: Yes Status: Acute Qualifiers: Acute renal failure type: unspecified Chronic kidney disease stage: stage 5, not on chronic dialysis Qualified Code(s): N17.9 - Acute kidney failure, unspecified; N18.5 - Chronic kidney disease, stage 5 Plan to address problem: Patient has likely shown progression of his renal disease, and I am concerned that at this time he is likely progressed to CKD V. I am concerned that his symptoms of generalized malaise, persistent nausea, vomiting and poor appetite can also be as a consequence of worsening uremia. He has been having recurrent hyperkalemia despite medical treatment and with no changes in renal function, will decide to proceed with dialysis. Patient is s/p permcath placement and had three sessions of HD as an inpatient. Place on inpatient TTS schedule. Outpatient dialysis placement for TTS at [facility] From nephrology standpoint patient is stable for DC. (2) Hypertensive chronic kidney disease with stage 5 chronic kidney disease or end stage renal disease Current Visit: Yes Status: Acute Plan to address problem: Maintain on current regimen. Will monitor closely. (3) Hyperkalemia Current Visit: Yes Status: Acute Plan to address problem: Will correct now with HD. Please ensure that he is on a low K diet. (4) Intractable nausea and vomiting Current Visit: Yes Status: Acute Plan to address problem: This may be multi-factorial as this may be due to significant gastroparesis with his h/o DM, but it also may be in the setting of uremia from progressive renal failure. Symptomatic management per primary team. (5) Metabolic acidosis Current Visit: No Status: Acute Plan to address problem: As HD has been started, we have discontinued IV sodium bicarbonate and manage with dialysis treatments. (6) IDDM (insulin dependent diabetes mellitus) Current Visit: No Status: Chronic Plan to address problem: DM management per primary attending. Subjective Date of service: 11/16/19 Principal diagnosis: ESRd needing HD Interval history: No issues this am. Tolerated HD well. Has placement at [facility] set up for TTS with first session for November 18. Objective - Vital Signs Vital signs: Vital Signs - 12hr 11/16/19 11/16/19 11/16/19 02:53 03:08 05:56 Temperature Pulse Rate Respiratory Rate Blood Pressure 186/107 182/100 160/92 O2 Sat by Pulse Oximetry 11/16/19 05:57 Temperature 97.4 F L Pulse Rate 100 H Respiratory 20 Rate Blood Pressure 160/92 O2 Sat by Pulse 97 Oximetry - General Appearance General appearance: well-developed, well-nourished, appears stated age EENT: ATNC, PERRL Neck: no JVD Respiratory: Present: Clear to Ascultation, Normal Exam Cardiology: regular, S1S2 Gastrointestinal: normal, normoactive bowel sounds Integumentary: warm and dry Neurologic: no focal deficit, alert and oriented x3 Musculoskeletal: deferred Psychiatric: cooperative - Lab 11/14/19 08:35 11/14/19 08:35 Most recent lab results Calcium 7.6 mg/dL (8.4-10.2) L 11/14/19 08:35 - Allied health notes Allied health notes reviewed: nursing Medications & Allergies - Medications Allergies/Adverse Reactions: Allergies phenytoin sodium [From Dilantin] Allergy (Verified 11/11/19 10:02) Hives phenytoin sodium extended [From Dilantin] Allergy (Verified 11/11/19 10:02) Hives Home Medications: Home Medications Medication Instructions Recorded Confirmed Last Taken Type carBAMazepine [TEGretol] 200 mg PO BID #30 tablet 11/20/17 10/21/19 10/21/19 Rx Insulin Glargine,Hum.rec.anlog 15 unit SQ BID 09/08/18 10/21/19 11/07/19 History [Lantus] Insulin Regular, Human [HumuLIN R] 15 units SQ QAM&QHS 10/21/19 10/22/19 11/07/19 History Ondansetron [Zofran ODT TAB] 4 mg PO Q8HR #30 tab.rapdis 10/25/19 Unknown Rx Promethazine [Phenergan SUPPOS] 25 mg SD Q6HR PRN #5 supp.rect 11/09/19 Unknown Rx Promethazine [Phenergan] 25 mg PO Q6HR PRN #20 tab 11/09/19 Unknown Rx Famotidine [Pepcid] 10 mg PO BID #60 tablet 11/16/19 Unknown Rx amLODIPine 10 mg PO QDAY #30 tablet 11/16/19 Unknown Rx hydrALAZINE [Apresoline TAB] 50 mg PO Q8HR #90 tablet 11/16/19 Unknown Rx Active Medications: Generic Name Dose Route Start Last Admin Trade Name Freq PRN Reason Stop Dose Admin Acetaminophen 650 mg 11/11/19 22:01 11/14/19 16:06 Tylenol PO 650 mg Q4H PRN Administration Pain MILD(1-3)/Fever >100.5/RODGERS Albumin Human 12.5 gm 11/12/19 10:00 Alburx 25% (Albumin) IV KATE PRN Hypotension Amlodipine Besylate 10 mg 11/15/19 10:00 11/15/19 09:21 Amlodipine PO 10 mg QDAY CODY Administration Carbamazepine 200 mg 11/11/19 22:00 11/15/19 21:50 Tegretol PO 200 mg BID CODY Administration Famotidine 10 mg 11/13/19 22:00 11/15/19 21:49 Pepcid PO 10 mg BID CODY Administration Hydralazine HCl 10 mg 11/14/19 19:16 11/16/19 03:08 Apresoline IV 10 mg Q6H PRN Administration Blood Pressure Hydralazine HCl 50 mg 11/14/19 22:46 11/16/19 05:56 Apresoline PO 50 mg Q8HR CODY Administration Hydromorphone HCl 1 mg 11/11/19 22:05 11/16/19 08:03 Dilaudid IV 1 mg Q3H PRN Administration Pain , Severe (7-10) Sodium Chloride 100 mls @ 999 mls/hr 11/14/19 14:30 Nacl 0.9% IV KATE PRN Hypotension Insulin Human Isoph/Insulin Regular 15 unit 11/12/19 08:00 11/16/19 08:03 Humulin 70/30 SUB-Q 15 unit BIDDIAB CODY Administration Insulin Human Lispro 0 unit 11/12/19 11:30 11/16/19 08:37 Humalog SUB-Q 2 unit ACHS CODY Administration Protocol Metoclopramide HCl 5 mg 11/11/19 22:13 11/13/19 17:21 Reglan IV 5 mg Q6H PRN Administration Nausea And Vomiting Ondansetron HCl 4 mg 11/11/19 22:00 11/16/19 05:55 Zofran Odt PO 4 mg Q8HR CODY Administration Ondansetron HCl 4 mg 11/11/19 22:01 11/15/19 06:39 Zofran IV 4 mg Q3H PRN Administration Nausea And Vomiting Oxycodone/Acetaminophen 1 tab 11/11/19 22:01 11/15/19 06:33 Percocet 5/325 PO 1 tab Q6H PRN Administration Pain, Moderate (4-6) Promethazine HCl 25 mg 11/11/19 21:58 Phenergan PO Q6HR PRN Nausea Sodium Chloride 10 ml 11/12/19 10:00 11/15/19 21:50 Sodium Chloride Flush Syringe 10 Ml IV 10 ml BID CODY Administration Sodium Chloride 10 ml 11/11/19 22:01 Sodium Chloride Flush Syringe 10 Ml IV PRN PRN LINE FLUSH
[2019-11-16] MEDS: amLODIPine 10 MG TAB PO SCH (13:43)
[2019-11-16 13:48] VITALS: BP 170/90
[2019-11-16] MEDS ORDERED: SODIUM CHLORIDE*PRIMING MACHINE ONLY FOR DIALYSIS MC ONE (17:06)
== END 2019-11-16 14:19 | disposition home or self-care (01) | DRG 674 ==
LOC: ED 09:22 → 3A 12:31
PROVIDERS: ADMIT Internal Medicine; ATTEND Internal Medicine
PROC: 0JH63XZ Insertion of Tunneled Vascular Access Device into Chest Subcutaneous Tissue and Fascia, Percutaneous Approach (ICD-10-PCS; principal; 2019-11-12)
PROC: 02H633Z Insertion of Infusion Device into Right Atrium, Percutaneous Approach (ICD-10-PCS; 2019-11-12)
PROC: B5181ZA Fluoroscopy of Superior Vena Cava using Low Osmolar Contrast, Guidance (ICD-10-PCS; 2019-11-12)
PROC: B543ZZA Ultrasonography of Right Jugular Veins, Guidance (ICD-10-PCS; 2019-11-12)
PROC: 5A1D70Z Performance of Urinary Filtration, Intermittent, Less than 6 Hours Per Day (ICD-10-PCS; 2019-11-12)
PROC: 5A1D70Z Performance of Urinary Filtration, Intermittent, Less than 6 Hours Per Day (ICD-10-PCS; 2019-11-13)
PROC: 5A1D70Z Performance of Urinary Filtration, Intermittent, Less than 6 Hours Per Day (ICD-10-PCS; 2019-11-14)
PROC: 5A1D70Z Performance of Urinary Filtration, Intermittent, Less than 6 Hours Per Day (ICD-10-PCS; 2019-11-16)
DX: N17.0 Acute kidney failure with tubular necrosis (principal); E87.2 Acidosis; I12.0 Hypertensive chronic kidney disease with stage 5 chronic kidney disease or end stage renal disease; N18.6 End stage renal disease; E87.5 Hyperkalemia; E11.22 Type 2 diabetes mellitus with diabetic chronic kidney disease; E11.43 Type 2 diabetes mellitus with diabetic autonomic (poly)neuropathy; K31.84 Gastroparesis; Z20.828 Contact with and (suspected) exposure to other viral communicable diseases; Z79.4 Long term (current) use of insulin; Z91.14 Patient's other noncompliance with medication regimen; Z82.49 Family history of ischemic heart disease and other diseases of the circulatory system; Z79.899 Other long term (current) drug therapy; Z83.3 Family history of diabetes mellitus
CPT/HCPCS: 36415; 36558; 74022; 74176; 76770; 76937; 77001; 80048; 80053; 80074; 80076; 81001; 82962; 83036; 83690; 85025; 85610; 85730; 93005; 93970; 96374; 96375; 96376; G0378; C1750; C9113; J0360; J0610; J0690; J1170; J1644; J1815; J2250; J2270; J2405; J2765; J3010; J7030; J7050; J7070; Q0162; U0003-CS

== ENCOUNTER 2020-02-10 11:24 | Inpatient (IN) | payer OTHER ==
[2020-02-10] MEDS ORDERED: SODIUM CHLORIDE 0.9% 1000 ML 1,000 ML IV ONE ×2 (11:34→13:01)
[2020-02-10] MEDS ORDERED: ONDANSETRON 4 MG/2 ML INJ IV ONE (11:35)
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
[2020-02-10] MEDS ORDERED: INSULIN REGULAR, HUMAN 100 UNIT/ML 3ML VIAL IV ONE ×2 (11:57→14:32)
--- NOTE | 2020-02-10 12:19 | XRay Report ---
CHEST 1 VIEW 02/10/2020 11:07 AM INDICATION / CLINICAL INFORMATION: Lightheadedness/Dizziness. COMPARISON: 12/14/19 FINDINGS: SUPPORT DEVICES: Right PermCath is unchanged. HEART / MEDIASTINUM: Heart appears mildly enlarged for AP portable technique. LUNGS / PLEURA: No significant pulmonary or pleural abnormality. No pneumothorax. ADDITIONAL FINDINGS: No significant additional findings. IMPRESSION: 1. Borderline cardiomegaly but no acute pulmonary or pleural findings. Signer Name: Mandi Marroquin MD Signed: 02/10/2020 12:15 PM Workstation Name: [id number]
[2020-02-10 12:35] LABS: Mean Corpuscular HGB Conc 28 % (32-34); Mean Corpuscular Volume 94 fl (84-94); Platelet Count 214 K/mm3 (140-440); Red Blood Count 4.03 M/mm3 (3.65-5.03); Red Cell Distribution Width 18.4 % (13.2-15.2)
[2020-02-10 12:37] LABS: Hemoglobin 10.6 gm/dl (11.8-15.2)
[2020-02-10] MEDS ORDERED: CALCIUM CHLORIDE 1,000 MG in SODIUM CHLORIDE 0.9% 100 ML IV ONE (12:58)
[2020-02-10] MEDS ORDERED: SODIUM BICARB 8.4% 50 MEQ/50 ML SYRINGE IV ONE ×2 (12:58→12:59)
[2020-02-10] MEDS ORDERED: INSULIN REGULAR, HUMAN 100 UNITS/1 ML ONE ×3 (13:00)
[2020-02-10] MEDS ORDERED: ALBUTEROL 2.5 MG/3 ML NEBU IH ONE (13:01)
[2020-02-10] MEDS ORDERED: CALCIUM CHLORIDE 1,000 MG/10 ML SYRINGE IV ONE (13:02)
[2020-02-10] MEDS ORDERED: PIPERACILLIN/TAZOBACTAM 3.375 3.375 GM/50 ML BAG IV ONE (13:06)
--- NOTE | 2020-02-10 13:19 | History and Physical Report ---
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 Pt is confused, and lethargic upon exam and is unable to provide history at the time of my evaluation. Patient history provided by EMS staff, ED staff, as well as patient family. As per family the patient was found to be confused and "not acting right". Patient family also reports that patient has not been taking his insulin. EMS was notified and upon arrival the patient was found to be in distress and subsequently transported to [facility] for further evaluation and care. Patient seen and evaluated in the emergency department. Lab and imaging studies reviewed. Patient found to have DKA, Metabolic Acidosis, Metabolic Encephalopathy, SIRS without any sign of hypoperfusion. No further history obtainable. Nephrology team consulted in ED for urgent dialysis. Patient initiated on DKA protocol and admitted to ICU for medical stabilization due to increased risk of decompensation. Prior admission on 12/14/2019 reviewed. All listed medication reconciled at time of exam. Advanced care planning conducted in the emergency department. Past History Past Medical History: diabetes, other (See HPI) Past Surgical History: Other (Brain surgery) Social history: single. denies: smoking, alcohol abuse Family history: diabetes, hypertension Medications and Allergies Allergies Allergy/AdvReac Type Severity Reaction Status Date / Time phenytoin sodium Allergy Hives Verified 11/11/19 10:02 [From Dilantin] phenytoin sodium extended Allergy Hives Verified 11/11/19 10:02 [From Dilantin] Home Medications Medication Instructions Recorded Confirmed Last Taken Type carBAMazepine [TEGretol] 200 mg PO BID #30 tablet 11/20/17 12/15/19 12/14/19 Rx Insulin Glargine,Hum.rec.anlog 15 unit SQ BID 09/08/18 12/15/19 12/14/19 History [Lantus] Insulin Regular, Human [HumuLIN R] 15 units SQ QAM&QHS 10/21/19 12/15/19 History Ondansetron [Zofran ODT TAB] 4 mg PO Q8HR #30 tab.rapdis 10/25/19 12/15/19 12/14/19 Rx Promethazine [Phenergan] 25 mg PO Q6HR PRN #20 tab 11/09/19 12/15/19 12/14/19 Rx Famotidine [Pepcid] 10 mg PO BID #60 tablet 11/16/19 12/15/19 12/14/19 Rx amLODIPine 10 mg PO QDAY #30 tablet 11/16/19 12/15/19 12/14/19 Rx hydrALAZINE [Apresoline TAB] 50 mg PO Q8HR #90 tablet 11/16/19 12/15/19 12/14/19 Rx Dicyclomine [Bentyl] 10 mg PO QID #20 capsule 12/17/19 Unknown Rx Lactulose [Cephulac] 30 gm PO Q6HR #450 ml 01/21/20 Unknown Rx Metoclopramide [Reglan] 10 mg PO BID #10 tab 01/21/20 Unknown Rx Active Meds: Active Medications Sodium Chloride (Nacl 0.9% 1000 Ml) 1,000 mls @ 999 mls/hr IV BOLUS ONE Stop: 02/10/20 14:01 Insulin Human Regular 100 (units/ Sodium Chloride) 100 mls @ 1 mls/hr IV TITR CODY; Protocol Piperacillin Sod/Tazobactam Sod (Zosyn/Ns 3.375gm/50ml) 3.375 gm in 50 mls @ 100 mls/hr IV ONCE ONE; Protocol Stop: 02/10/20 13:35 Review of Systems ROS unobtainable: due to mental status Exam - Constitutional Vitals: Temp Pulse Resp BP Pulse Ox 97.8 F 85 18 110/59 95 02/10/20 12:51 02/10/20 13:17 02/10/20 13:17 02/10/20 12:30 02/10/20 12:30 General appearance: Present: mild distress, obese - EENT Eyes: Present: PERRL ENT: clear oral mucosa, hearing decreased - Neck Neck: Present: supple, normal ROM - Respiratory Respiratory effort: normal Respiratory: bilateral: diminished - Cardiovascular Rhythm: regular Heart Sounds: Present: S1 & S2 Peripheral Pulses: within normal limits - Abdominal General gastrointestinal: Present: soft, non-tender, non-distended, normal bowel sounds Male genitourinary: Present: normal - Integumentary Integumentary: Present: dry, clammy, decreased turgor - Musculoskeletal Musculoskeletal: generalized weakness - Psychiatric Psychiatric: no appropriate mood/affect, no intact judgment & insight, no memory intact - Neurologic Neurologic: CNII-XII intact, no focal deficits, moves all extremities, no gait normal Results - Labs CBC & Chem 7: 02/10/20 12:02 02/10/20 14:00 Labs: Abnormal lab results 02/10/20 02/10/20 02/10/20 Range/Units 11:56 12:02 12:02 WBC 16.4 H (4.5-11.0) K/mm3 Hgb 10.6 L (11.8-15.2) gm/dl MCH 26 L (28-32) pg MCHC 28 L (32-34) % RDW 18.4 H (13.2-15.2) % Sodium 113 L* (137-145) mmol/L Potassium 8.6 H* (3.6-5.0) mmol/L Chloride 73.2 L (98-107) mmol/L Carbon Dioxide 11 L (22-30) mmol/L BUN 56 H (9-20) mg/dL Creatinine 9.8 H (0.8-1.3) mg/dL Glucose 1350 H* (75-100) mg/dL POC Glucose > 500 H (70-105) Lactic Acid (0.7-2.0) mmol/L 02/10/20 Range/Units 12:02 WBC (4.5-11.0) K/mm3 Hgb (11.8-15.2) gm/dl MCH (28-32) pg MCHC (32-34) % RDW (13.2-15.2) % Sodium (137-145) mmol/L Potassium (3.6-5.0) mmol/L Chloride (98-107) mmol/L Carbon Dioxide (22-30) mmol/L BUN (9-20) mg/dL Creatinine (0.8-1.3) mg/dL Glucose (75-100) mg/dL POC Glucose (70-105) Lactic Acid 5.90 H* (0.7-2.0) mmol/L Assessment and Plan - Patient Problems (1) DKA (diabetic ketoacidoses) Current Visit: Yes Status: Acute Plan to address problem: DKA protocol: Admit to ICU, CBC, CMP, insulin drip, serial BMP to monitor anion gap, IV fluid resuscitation therapy as clinically indicated, strict I's/O, monitor urine output every shift, serial lactic acid level, potassium repletion and monitoring as per protocol The high probability of a clinically significant, sudden or life threatening deterioration of the [renal, cardiac, pulmonary, neuro, endocrine] system(s) required my full and direct attention, intervention and personal management. The aggregate critical care time was [65] minutes. This time is in addition to time spent performing reported procedures but includes the following: [x] Data Review and interpretation [x] Patient assessment and monitoring of vital signs [x] Documentation [x] Medication orders and management (2) End stage renal disease Current Visit: Yes Status: Acute Plan to address problem: Nephrology team consulted in ED for urgent dialysis. Strict I/O, monitor urine output every shift, avoid nephrotoxic agents. (3) Metabolic encephalopathy Current Visit: Yes Status: Acute Plan to address problem: Supportive care. Suspect secondary to uremia due to missed dialysis. Urgent dialysis, neuro check, seizure precautions, aspiration precautions. (4) Metabolic acidosis Current Visit: Yes Status: Acute Plan to address problem: Supportive care, IV bicarbonate therapy, BMP, repeat BMP in a.m., (5) Systemic inflammatory response syndrome Current Visit: Yes Status: Acute Plan to address problem: CBC, CMP, chest x-ray, urinalysis, empiric IV antibiotic therapy. Suspect secondary to DKA. No active source of infection. No signs of hypoperfusion. (6) DVT prophylaxis Current Visit: Yes Status: Acute Plan to address problem: SCD bilateral lower extremities while in bed, prophylactic heparin (7) Advance care planning Current Visit: Yes Status: Acute Plan to address problem: Disease education conducted, patient and family counseled regarding symptoms of continued noncompliance. Patient is full code, disease education conducted, +30 minutes.
[2020-02-10] MEDS ORDERED: SODIUM CHLORIDE 0.9% 100 ML IV PRN (13:27)
[2020-02-10] MEDS ORDERED: EPOETIN ALFA 10,000 UNIT/1 ML INJ IV PRN (13:27)
[2020-02-10] MEDS ORDERED: HEPARIN 10,000 UNIT/1 ML VIAL IV PRN (13:27)
[2020-02-10 13:33] LABS: Anisocytosis 1+; Basophils % (Manual) 0 % (0.0-1.8); Eosinophils % (Manual) 0 % (0.0-4.3); Monocytes % (Manual) 0 % (0.0-7.3); Total Cells Counted 100
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
[2020-02-10 13:34] LABS: Macrocytosis Few; Platelet Estimate Consistent w Auto
[2020-02-10] MEDS ORDERED: EPOETIN ALFA 10,000 UNIT/1 ML INJ ONE (13:41)
[2020-02-10] MEDS ORDERED: ALBUTEROL 2.5 MG/3 ML NEBU IH PRN (13:58)
[2020-02-10] MEDS ORDERED: INSULIN REGULAR, HUMAN 100 UNITS in SODIUM CHLORIDE 0.9% 99 ML IV SCH (14:00)
[2020-02-10] MEDS ORDERED: HEPARIN 5,000 UNIT/1 ML VIAL ONE (14:16)
[2020-02-10 14:38] LABS: Calcium 9.2 mg/dL (8.4-10.2)
[2020-02-10 14:47] LABS: Hepatitis B Surface Antigen Non-Reactive (Negative); Hepatitis C Virus Antibody Non-Reactive (NonReactive)
[2020-02-10] MEDS ORDERED: LORazepam 2 MG/ML VIAL IV ONE (15:37)
[2020-02-10] MEDS ORDERED: LORazepam 2 MG/ML VIAL ONE (15:39)
[2020-02-10] MEDS ORDERED: SODIUM CHLORIDE 0.9% 1000 ML 2,000 ML ONE (17:16)
[2020-02-10 17:56] LABS: Calcium 8.3 mg/dL (8.4-10.2)
[2020-02-10 18:39] LABS: Calcium 8.6 mg/dL (8.4-10.2)
[2020-02-10 19:49] LABS: Calcium 8.7 mg/dL (8.4-10.2)
[2020-02-10] MEDS ORDERED: D5W/0.45% NACL 1,000 ML IV SCH (22:00)
[2020-02-11 05:47] LABS: Calcium 8.3 mg/dL (8.4-10.2)
--- NOTE | 2020-02-11 08:00 | Progress Note ---
Assessment and Plan Assessment and plan: DKA -Patient is managed according to DKA protocol -DKA resolved, anion gap closed -Patient started on sliding scale insulin and dose of Lantus -Patient counseled about compliance with medications Metabolic encephalopathy -Improving Severe metabolic acidosis -Resolved End-stage renal disease on hemodialysis -Nephrology consulted and patient dialyzed Hyponatremia -Due to hyperglycemia -corrected Hyperkalemia -Resolved Disposition; transfer to medical floor. History Interval history: Patient was seen and evaluated this morning Patient was alert and oriented Complains mild abdominal pain No other complaints Hospitalist Physical - Physical exam Narrative exam: Not in cardiopulmonary distress. The patient appeared well nourished and normally developed. Vital signs as documented. Head exam is unremarkable. No scleral icterus . Neck is without jugular venous distension, thyromegaly, or carotid bruits. Lungs are clear to auscultation. Cardiac exam reveals regular rate and Rhythm. Abdominal exam reveals normal bowel sounds, nontender, no organomegaly. Extremities are nonedematous and both femoral and pedal pulses are normal. ENVIRONMENTAL COMMUNICATIONS SPECIALIST: Alert and oriented 3. No focal weakness. - Constitutional Vitals: Temp Pulse Resp BP Pulse Ox 99.7 F H 89 14 177/102 91 02/11/20 04:00 02/11/20 06:15 02/11/20 06:15 02/11/20 06:15 02/11/20 06:15 General appearance: Present: mild distress, obese Results - Labs CBC & Chem 7: 02/10/20 12:02 02/11/20 04:49 Labs: Laboratory Last Values WBC 16.4 K/mm3 (4.5-11.0) H 02/10/20 12:02 RBC 4.03 M/mm3 (3.65-5.03) 02/10/20 12:02 Hgb 10.6 gm/dl (11.8-15.2) L 02/10/20 12:02 Hct 38.0 % (35.5-45.6) 02/10/20 12:02 MCV 94 fl (84-94) 02/10/20 12:02 MCH 26 pg (28-32) L 02/10/20 12:02 MCHC 28 % (32-34) L 02/10/20 12:02 RDW 18.4 % (13.2-15.2) H 02/10/20 12:02 Plt Count 214 K/mm3 (140-440) 02/10/20 12:02 Add Manual Diff Complete 02/10/20 12:02 Total Counted 100 02/10/20 12:02 Seg Neutrophils % Finish Inspector 02/10/20 12:02 Seg Neuts % (Manual) 94.0 % (40.0-70.0) H 02/10/20 12:02 Band Neutrophils % 0 % 02/10/20 12:02 Lymphocytes % (Manual) 6.0 % (13.4-35.0) L 02/10/20 12:02 Reactive Lymphs % (Man) 0 % 02/10/20 12:02 Monocytes % (Manual) 0 % (0.0-7.3) 02/10/20 12:02 Eosinophils % (Manual) 0 % (0.0-4.3) 02/10/20 12:02 Basophils % (Manual) 0 % (0.0-1.8) 02/10/20 12:02 Metamyelocytes % 0 % 02/10/20 12:02 Myelocytes % 0 % 02/10/20 12:02 Promyelocytes % 0 % 02/10/20 12:02 Blast Cells % 0 % 02/10/20 12:02 Nucleated RBC % Not Reportable 02/10/20 12:02 Seg Neutrophils # Man 15.4 K/mm3 (1.8-7.7) H 02/10/20 12:02 Band Neutrophils # 0.0 K/mm3 02/10/20 12:02 Lymphocytes # (Manual) 1.0 K/mm3 (1.2-5.4) L 02/10/20 12:02 Abs React Lymphs (Man) 0.0 K/mm3 02/10/20 12:02 Monocytes # (Manual) 0.0 K/mm3 (0.0-0.8) 02/10/20 12:02 Eosinophils # (Manual) 0.0 K/mm3 (0.0-0.4) 02/10/20 12:02 Basophils # (Manual) 0.0 K/mm3 (0.0-0.1) 02/10/20 12:02 Metamyelocytes # 0.0 K/mm3 02/10/20 12:02 Myelocytes # 0.0 K/mm3 02/10/20 12:02 Promyelocytes # 0.0 K/mm3 02/10/20 12:02 Blast Cells # 0.0 K/mm3 02/10/20 12:02 WBC Morphology Not Reportable 02/10/20 12:02 Hypersegmented Neuts Not Reportable 02/10/20 12:02 Hyposegmented Neuts Not Reportable 02/10/20 12:02 Hypogranular Neuts Not Reportable 02/10/20 12:02 Smudge Cells Not Reportable 02/10/20 12:02 Toxic Granulation Not Reportable 02/10/20 12:02 Toxic Vacuolation Not Reportable 02/10/20 12:02 Dohle Bodies Not Reportable 02/10/20 12:02 Pelger-Huet Anomaly Not Reportable 02/10/20 12:02 Codie Rods Not Reportable 02/10/20 12:02 Platelet Estimate Consistent w auto 02/10/20 12:02 Clumped Platelets Not Reportable 02/10/20 12:02 Plt Clumps, EDTA Not Reportable 02/10/20 12:02 Large Platelets Not Reportable 02/10/20 12:02 Giant Platelets Not Reportable 02/10/20 12:02 Platelet Satelliting Not Reportable 02/10/20 12:02 Plt Morphology Comment Not Reportable 02/10/20 12:02 RBC Morphology Not Reportable 02/10/20 12:02 Dimorphic RBCs Not Reportable 02/10/20 12:02 Polychromasia Not Reportable 02/10/20 12:02 Hypochromasia Not Reportable 02/10/20 12:02 Poikilocytosis Not Reportable 02/10/20 12:02 Anisocytosis 1+ 02/10/20 12:02 Microcytosis Few 02/10/20 12:02 Macrocytosis Few 02/10/20 12:02 Spherocytes Not Reportable 02/10/20 12:02 Pappenheimer Bodies Not Reportable 02/10/20 12:02 Sickle Cells Not Reportable 02/10/20 12:02 Target Cells Not Reportable 02/10/20 12:02 Tear Drop Cells Not Reportable 02/10/20 12:02 Ovalocytes Not Reportable 02/10/20 12:02 Helmet Cells Not Reportable 02/10/20 12:02 Olivia-Chalfont Bodies Not Reportable 02/10/20 12:02 Granite Quarry Rings Not Reportable 02/10/20 12:02 Goldfield Cells Not Reportable 02/10/20 12:02 Bite Cells Not Reportable 02/10/20 12:02 Crenated Cell Not Reportable 02/10/20 12:02 Elliptocytes Not Reportable 02/10/20 12:02 Acanthocytes (Spur) Not Reportable 02/10/20 12:02 Rouleaux Not Reportable 02/10/20 12:02 Hemoglobin C Crystals Not Reportable 02/10/20 12:02 Schistocytes Not Reportable 02/10/20 12:02 Malaria parasites Not Reportable 02/10/20 12:02 Wilson Bodies Not Reportable 02/10/20 12:02 Hem Pathologist Commnt No 02/10/20 12:02 Sodium 138 mmol/L (137-145) 02/11/20 04:49 Potassium 4.1 mmol/L (3.6-5.0) 02/11/20 04:49 Chloride 99.2 mmol/L (98-107) 02/11/20 04:49 Carbon Dioxide 27 mmol/L (22-30) 02/11/20 04:49 Anion Gap 16 mmol/L 02/11/20 04:49 BUN 32 mg/dL (9-20) H 02/11/20 04:49 Creatinine 7.3 mg/dL (0.8-1.3) H 02/11/20 04:49 Estimated GFR 10 ml/min 02/11/20 04:49 BUN/Creatinine Ratio 4 % 02/11/20 04:49 Glucose 101 mg/dL (75-100) H 02/11/20 04:49 POC Glucose 148 (70-105) H 02/11/20 07:49 Lactic Acid 0.70 mmol/L (0.7-2.0) 02/11/20 04:49 Calcium 8.3 mg/dL (8.4-10.2) L 02/11/20 04:49 Phosphorus 8.70 mg/dL (2.5-4.5) H 02/10/20 14:00 Magnesium 2.10 mg/dL (1.7-2.3) 02/10/20 14:00 Lipase 42 units/L (13-60) 02/10/20 12:02 Plasma/Serum Alcohol < 0.01 % (0-0.07) 02/10/20 12:02 Hepatitis A IgM Ab Non-reactive (NonReactive) 02/10/20 14:00 Hep Bs Antigen Non-reactive (Negative) 02/10/20 14:00 Hep B Core IgM Ab Non-reactive (NonReactive) 02/10/20 14:00 Hepatitis C Antibody Non-reactive (NonReactive) 02/10/20 14:00 Wells/IV: IV Catheter Type [Right Hand] Peripheral IV IV Catheter Type [Right Chest] VAS Cath IV Catheter Type [Left Hand] Peripheral IV Active Medications - Current Medications Current Medications: Generic Name Dose Route Start Last Admin Trade Name Freq PRN Reason Stop Dose Admin Albuterol 2.5 mg 02/10/20 13:58 Proventil IH Q3HRT PRN Shortness Of Breath Epoetin José Manuel 10,000 unit 02/10/20 13:27 Procrit IV KATE PRN hemodialysis Heparin Sodium (Porcine) 5,000 unit 02/10/20 13:27 Heparin IV KATE PRN hemodialysis Insulin Human Regular 100 100 mls @ 1 mls/hr 02/10/20 14:00 02/11/20 05:59 units/ Sodium Chloride IV 0 units/hr TITR CODY 0 mls/hr Titration Protocol 1 UNITS/HR Sodium Chloride 100 mls @ 999 mls/hr 02/10/20 13:27 Nacl 0.9% IV KATE PRN Hypotension Dextrose/Sodium Chloride 1,000 mls @ 125 mls/hr 02/10/20 22:00 02/11/20 05:59 D5/0.45ns IV 0 mls/hr DIRECT CODY Infusion Insulin Glargine 15 units 02/11/20 08:00 Lantus SUB-Q QAMDIAB CODY Insulin Human Lispro 0 unit 02/11/20 07:30 Humalog SUB-Q ACHS CODY Protocol Sodium Chloride 10 ml 02/10/20 22:00 02/10/20 22:01 Sodium Chloride Flush Syringe 10 Ml IV 10 ml BID CODY Administration Sodium Chloride 10 ml 02/10/20 13:58 Sodium Chloride Flush Syringe 10 Ml IV PRN PRN LINE FLUSH
[2020-02-11] MEDS: INSULIN GLARGINE 100 UNITS/ML SUB-Q SCH (08:30)
[2020-02-11] MEDS: INSULIN LISPRO 100 UNIT/ML VIAL 3 mL SUB-Q SCH ×4 (08:31→21:04)
[2020-02-11] MEDS ORDERED: PROMETHAZINE 25 MG TAB PO PRN (10:29)
[2020-02-11] MEDS: FAMOTIDINE 10 MG TAB PO SCH ×3 (10:45→21:07)
[2020-02-11] MEDS: amLODIPine 10 MG TAB PO SCH (10:45)
[2020-02-11] MEDS ORDERED: METOCLOPRAMIDE 10 MG TAB PO SCH (11:00)
[2020-02-11] MEDS: carBAMazepine 200 MG TAB PO SCH ×3 (11:00→21:07)
[2020-02-11] MEDS ORDERED: amLODIPine 10 MG TAB PO SCH (11:00)
[2020-02-11] MEDS: DICYCLOMINE 10 MG CAP PO SCH ×4 (13:03→21:06)
[2020-02-11] MEDS: hydrALAZINE 25 MG TAB PO SCH ×3 (13:03→21:06)
--- NOTE | 2020-02-11 19:55 | Progress Note ---
Assessment and Plan - Patient Problems (1) Acute hyperkalemia Current Visit: Yes Status: Acute Plan to address problem: Hyperkalemia secondary to transcellular shift with acidosis and also decreased clearance with end-stage renal disease status. Improved with dialysis. (2) Acute hyponatremia Current Visit: Yes Status: Acute Plan to address problem: Hyponatremia secondary to severe hyperglycemia. There is also associated hypervolemic hyponatremia. Improved with blood sugar control and fluid removal on dialysis (3) DKA (diabetic ketoacidoses) Current Visit: Yes Status: Acute Plan to address problem: Resolved. Continue blood sugar control by primary attending (4) Diabetic gastroparesis associated with type 1 diabetes mellitus Current Visit: Yes Status: Acute Plan to address problem: Antiemetics and analgesics per primary attending. (5) End-stage renal disease needing dialysis Current Visit: No Status: Chronic Plan to address problem: Hemodialysis stat. Hemodialysis again tomorrow and then resume regular schedule (6) Hypertensive chronic kidney disease with stage 5 chronic kidney disease or end stage renal disease Current Visit: No Status: Acute Plan to address problem: Follow-up blood pressure on current medications (7) Metabolic acidosis, increased anion gap Current Visit: No Status: Acute Plan to address problem: Ketoacidosis and uremic acidosis. Improved with dialysis and blood sugar control. Subjective Date of service: 02/11/20 Principal diagnosis: End-stage renal disease with refractory nausea, vomiting and abdominal pain Interval history: Patient seen lying in bed. Still complains of nausea and abdominal pain. He is not able to tolerate meals due to the nausea Objective - Exam Narrative Exam: Young -[place] male lying in bed in no acute distress. HEENT: NCAT, randolph Neck: Supple, no venous distention CVS: S1S2 RRR with no murmur, rub or gallop Chest: Clear to auscultation Abdomen: Protuberant, soft, nontender, no organomegaly, bowel sounds are present Extremities: Trace edema Genitourinary deferred Skin: Warm and dry Neuro: Awake and alert, moving all extremities - Vital Signs Vital signs: Vital Signs - 12hr 02/11/20 02/11/20 02/11/20 08:00 08:16 08:30 Temperature 99.2 F Pulse Rate 91 H 96 H 94 H Pulse Rate [ 91 H From Monitor] Respiratory 17 11 L 23 Rate Blood Pressure 171/83 158/80 182/108 Blood Pressure [Left] O2 Sat by Pulse 86 85 84 Oximetry 02/11/20 02/11/20 02/11/20 08:45 09:00 09:09 Temperature Pulse Rate 91 H 91 H Pulse Rate [ From Monitor] Respiratory 17 16 Rate Blood Pressure 175/97 176/95 Blood Pressure [Left] O2 Sat by Pulse 89 84 95 Oximetry 02/11/20 02/11/20 02/11/20 09:15 09:30 09:45 Temperature Pulse Rate 85 84 88 Pulse Rate [ From Monitor] Respiratory 16 14 15 Rate Blood Pressure 185/99 172/83 179/100 Blood Pressure [Left] O2 Sat by Pulse 92 92 94 Oximetry 02/11/20 02/11/20 02/11/20 10:00 10:15 10:30 Temperature Pulse Rate 85 83 85 Pulse Rate [ From Monitor] Respiratory 13 13 19 Rate Blood Pressure 173/85 172/86 176/94 Blood Pressure [Left] O2 Sat by Pulse 93 94 90 Oximetry 02/11/20 02/11/20 02/11/20 10:45 11:00 11:15 Temperature Pulse Rate 84 83 84 Pulse Rate [ From Monitor] Respiratory 20 23 24 Rate Blood Pressure 170/94 177/101 174/95 Blood Pressure [Left] O2 Sat by Pulse 86 85 88 Oximetry 02/11/20 02/11/20 02/11/20 11:30 11:45 12:00 Temperature 98.9 F Pulse Rate 87 83 86 Pulse Rate [ 86 From Monitor] Respiratory 15 19 16 Rate Blood Pressure 180/100 183/97 182/99 Blood Pressure [Left] O2 Sat by Pulse 87 88 Oximetry 02/11/20 02/11/20 02/11/20 12:16 12:30 12:45 Temperature Pulse Rate 92 H 86 85 Pulse Rate [ From Monitor] Respiratory 12 17 16 Rate Blood Pressure 182/99 187/101 162/80 Blood Pressure [Left] O2 Sat by Pulse 90 86 86 Oximetry 02/11/20 02/11/20 02/11/20 13:00 13:03 13:15 Temperature Pulse Rate 85 86 86 Pulse Rate [ From Monitor] Respiratory 14 18 Rate Blood Pressure 164/83 164/83 166/93 Blood Pressure [Left] O2 Sat by Pulse 94 94 Oximetry 02/11/20 15:08 Temperature 97.7 F Pulse Rate 80 Pulse Rate [ From Monitor] Respiratory 18 Rate Blood Pressure Blood Pressure 162/88 [Left] O2 Sat by Pulse 93 Oximetry - Lab 02/10/20 12:02 02/11/20 04:49 Most recent lab results Calcium 8.3 mg/dL (8.4-10.2) L 02/11/20 04:49 Phosphorus 8.70 mg/dL (2.5-4.5) H 02/10/20 14:00 Magnesium 2.10 mg/dL (1.7-2.3) 02/10/20 14:00 Medications & Allergies - Medications Allergies/Adverse Reactions: Allergies phenytoin sodium [From Dilantin] Allergy (Verified 11/11/19 10:02) Hives phenytoin sodium extended [From Dilantin] Allergy (Verified 11/11/19 10:02) Hives Home Medications: Home Medications Medication Instructions Recorded Confirmed Last Taken Type carBAMazepine [TEGretol] 200 mg PO BID #30 tablet 11/20/17 12/15/19 12/14/19 Rx Insulin Glargine,Hum.rec.anlog 15 unit SQ BID 09/08/18 12/15/19 12/14/19 History [Lantus] Insulin Regular, Human [HumuLIN R] 15 units SQ QAM&QHS 10/21/19 12/15/19 12/14/19 History Ondansetron [Zofran ODT TAB] 4 mg PO Q8HR #30 tab.rapdis 10/25/19 12/15/19 12/14/19 Rx Promethazine [Phenergan] 25 mg PO Q6HR PRN #20 tab 11/09/19 12/15/19 12/14/19 Rx Famotidine [Pepcid] 10 mg PO BID #60 tablet 11/16/19 12/15/19 12/14/19 Rx amLODIPine 10 mg PO QDAY #30 tablet 11/16/19 12/15/19 12/14/19 Rx hydrALAZINE [Apresoline TAB] 50 mg PO Q8HR #90 tablet 11/16/19 12/15/19 12/14/19 Rx Dicyclomine [Bentyl] 10 mg PO QID #20 capsule 12/17/19 Unknown Rx Lactulose [Cephulac] 30 gm PO Q6HR #450 ml 01/21/20 Unknown Rx Metoclopramide [Reglan] 10 mg PO BID #10 tab 01/21/20 Unknown Rx Active Medications: Generic Name Dose Route Start Last Admin Trade Name Freq PRN Reason Stop Dose Admin Albuterol 2.5 mg 02/10/20 13:58 Proventil IH Q3HRT PRN Shortness Of Breath Amlodipine Besylate 10 mg 02/11/20 11:00 02/11/20 10:45 Amlodipine PO 10 mg QDAY CODY Administration Carbamazepine 200 mg 02/11/20 11:00 02/11/20 11:00 Tegretol PO 200 mg BID CODY Administration Dicyclomine HCl 10 mg 02/11/20 14:00 02/11/20 18:20 Bentyl PO Not Given QID CODY Epoetin José Manuel 10,000 unit 02/10/20 13:27 Procrit IV KATE PRN hemodialysis Famotidine 10 mg 02/11/20 11:00 02/11/20 10:45 Pepcid PO 10 mg BID CODY Administration Heparin Sodium (Porcine) 5,000 unit 02/10/20 13:27 Heparin IV KATE PRN hemodialysis Hydralazine HCl 50 mg 02/11/20 14:00 02/11/20 13:03 Apresoline PO 50 mg Q8HR CODY Administration Sodium Chloride 100 mls @ 999 mls/hr 02/10/20 13:27 Nacl 0.9% IV KATE PRN Hypotension Dextrose/Sodium Chloride 1,000 mls @ 125 mls/hr 02/10/20 22:00 02/11/20 05:59 D5/0.45ns IV 0 mls/hr DIRECT CODY Infusion Insulin Glargine 15 units 02/11/20 08:00 02/11/20 08:30 Lantus SUB-Q 15 units QAMDIAB CODY Administration Insulin Human Lispro 0 unit 02/11/20 07:30 02/11/20 18:19 Humalog SUB-Q 2 unit ACHS CODY Administration Protocol Labetalol HCl 100 mg 02/11/20 11:00 02/11/20 10:45 Labetalol PO 100 mg BID CODY Administration Metoclopramide HCl 5 mg 02/11/20 22:00 Reglan PO BID CODY Promethazine HCl 25 mg 02/11/20 10:29 Phenergan PO Q6HR PRN Nausea Sodium Chloride 10 ml 02/10/20 22:00 02/11/20 09:41 Sodium Chloride Flush Syringe 10 Ml IV 10 ml BID CODY Administration Sodium Chloride 10 ml 02/10/20 13:58 Sodium Chloride Flush Syringe 10 Ml IV PRN PRN LINE FLUSH
[2020-02-11] MEDS: METOCLOPRAMIDE 10 MG TAB PO SCH ×2 (20:46→21:07)
[2020-02-12] MEDS: hydrALAZINE 25 MG TAB PO SCH ×2 (05:05→15:41)
[2020-02-12] MEDS: DICYCLOMINE 10 MG CAP PO SCH ×3 (05:06→15:41)
[2020-02-12] MEDS ORDERED: cloNIDine 0.2 MG TAB PO ONE (06:26)
[2020-02-12] MEDS: INSULIN LISPRO 100 UNIT/ML VIAL 3 mL SUB-Q SCH ×3 (07:30→11:30)
[2020-02-12] MEDS: INSULIN GLARGINE 100 UNITS/ML SUB-Q SCH (08:24)
[2020-02-12] MEDS: carBAMazepine 200 MG TAB PO SCH (09:35)
[2020-02-12] MEDS: FAMOTIDINE 10 MG TAB PO SCH (09:35)
[2020-02-12] MEDS: METOCLOPRAMIDE 10 MG TAB PO SCH (09:35)
[2020-02-12] MEDS: amLODIPine 10 MG TAB PO SCH (09:35)
--- NOTE | 2020-02-12 09:56 | Discharge Summary ---
Providers - Providers Date of Admission: 02/10/20 13:58 Date of discharge: 02/12/20 Attending physician: HENRRY SANABRIA MD 02/10/20 13:08 Consult to Physician [CONS] Stat Comment: Consulting Provider: CARMELA TOVAR Physician Instructions: Reason For Exam: End-stage renal disease, acute hyperkalemia 02/10/20 13:58 Consult to Physician [CONS] Routine Comment: Consulting Provider: CARLINE DAWN Physician Instructions: Reason For Exam: DKA Primary care physician: CONTENT COORDINATOR Hospitalization Reason for admission: DKA, hyperkalemia Condition: Stable Pertinent studies: Chest x-ray Hospital course: 34 YO Male with Seizure Disorder, 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 Pt is confused, and lethargic upon exam and is unable to provide history at the time of my evaluation. Patient history provided by EMS staff, ED staff, as well as patient family. As per family the patient was found to be confused and "not acting right". Patient family also reports that patient has not been taking his insulin. EMS was notified and upon arrival the patient was found to be in distress and subsequently transported to [facility] for further evaluation and care. Patient seen and evaluated in the emergency department. Lab and imaging studies reviewed. Patient found to have DKA, Metabolic Acidosis, Metabolic Encephalopathy, SIRS without any sign of hypoperfusion. No further history obtainable. Nephrology team consulted in ED for urgent dialysis. Patient initiated on DKA protocol and admitted to ICU for medical stabilization due to increased risk of decompens ation. Prior admission on 12/14/2019 reviewed. All listed medication reconciled at time of exam. Advanced care planning conducted in the emergency department. Patient was admitted to ICU and was managed for DKA according to DKA protocol and DKA resolved. Anion gap corrected. Lactic acid level resolved. Patient has end-stage renal disease on hemodialysis with hyperkalemia. Nephrology consulted and did dialysis. Hyperkalemia resolved with acute medical management and with dialysis. Patient said he was taking Lantus 15 units twice daily at home and regular insulin. He said he has medications at home. Patient counseled about compliance with medications. Patient verbalized he understood. Patient discharged home in stable condition. We will continue with dialysis as an outpatient. Disposition: DC-01 TO HOME OR SELFCARE Time spent for discharge: 32 minutes - Discharge Diagnoses (1) Acute hyperkalemia Status: Acute (2) Acute hyponatremia Status: Acute (3) Acute nausea with nonbilious vomiting Status: Acute (4) DKA (diabetic ketoacidoses) Status: Acute (5) Diabetic gastroparesis associated with type 1 diabetes mellitus Status: Acute (6) End stage renal disease Status: Acute Core Measure Documentation - Palliative Care Palliative Care/ Comfort Measures: Not Applicable - Core Measures Any of the following diagnoses?: none Exam - Physical Exam Narrative exam: Not in cardiopulmonary distress. The patient appeared well nourished and normally developed. Vital signs as documented. Head exam is unremarkable. No scleral icterus . Neck is without jugular venous distension, thyromegaly, or carotid bruits. Lungs are clear to auscultation. Cardiac exam reveals regular rate and Rhythm. Abdominal exam reveals normal bowel sounds, nontender, no organomegaly. Extremities are nonedematous and both femoral and pedal pulses are normal. ADMINISTRATIVE DIRECTOR: Alert and oriented 3. No focal weakness. - Constitutional Vitals: Temp Pulse Resp BP Pulse Ox 99.6 F 95 H 20 181/90 92 02/12/20 06:19 02/12/20 06:19 02/12/20 06:19 02/12/20 06:19 02/12/20 06:19 Plan Activity: no restrictions Weight Bearing Status: Full Weight Bearing Diet: diabetic, renal Follow up with: PRIMARY CARE, [Primary Care Provider] - 3-5 Days Prescriptions: Insulin Regular, Human [HumuLIN R] 15 units SQ QAM&QHS #1 units
[2020-02-12 10:40] LABS: Basophils # (Auto) 0.1 K/mm3 (0.0-0.1); Basophils % (Auto) 0.7 % (0.0-1.8); Eosinophils # (Auto) 0.1 K/mm3 (0.0-0.4); Eosinophils % (Auto) 0.8 % (0.0-4.3); Hematocrit 31.3 % (35.5-45.6); Hemoglobin 9.8 gm/dl (11.8-15.2); Lymphocytes # (Auto) 1.5 K/mm3 (1.2-5.4); Lymphocytes % (Auto) 12.1 % (13.4-35.0); Mean Corpuscular HGB Conc 31 % (32-34); Mean Corpuscular Volume 81 fl (84-94); Monocytes # (Auto) 0.7 K/mm3 (0.0-0.8); Monocytes % (Auto) 5.9 % (0.0-7.3); Platelet Count 188 K/mm3 (140-440); Red Blood Count 3.86 M/mm3 (3.65-5.03); Red Cell Distribution Width 17.1 % (13.2-15.2)
[2020-02-12] MEDS ORDERED: SODIUM CHLORIDE 0.9% 100 ML IV PRN (10:56)
[2020-02-12 10:59] LABS: Calcium 8.1 mg/dL (8.4-10.2)
[2020-02-12 16:41] VITALS: BP 177/94
--- NOTE | 2020-02-12 17:50 | Progress Note ---
Assessment and Plan - Patient Problems (1) Acute hyperkalemia Current Visit: Yes Status: Acute Plan to address problem: Hyperkalemia secondary to transcellular shift with acidosis and also decreased clearance with end-stage renal disease status. Improved with dialysis. (2) Acute hyponatremia Current Visit: Yes Status: Acute Plan to address problem: Hyponatremia secondary to severe hyperglycemia. There is also associated hypervolemic hyponatremia. Improved with blood sugar control and fluid removal on dialysis (3) DKA (diabetic ketoacidoses) Current Visit: Yes Status: Acute Plan to address problem: Resolved. Continue blood sugar control by primary attending (4) Diabetic gastroparesis associated with type 1 diabetes mellitus Current Visit: Yes Status: Acute Plan to address problem: Antiemetics and analgesics per primary attending. Follow-up with gas troenterologist as an outpatient (5) End-stage renal disease needing dialysis Current Visit: No Status: Chronic Plan to address problem: Hemodialysis today and then resume regular schedule on Monday, and Monday as an outpatient tomorrow (6) Hypertensive chronic kidney disease with stage 5 chronic kidney disease or end stage renal disease Current Visit: No Status: Acute Plan to address problem: Follow-up blood pressure on current medications (7) Metabolic acidosis, increased anion gap Current Visit: No Status: Acute Plan to address problem: Ketoacidosis and uremic acidosis. Improved with dialysis and blood sugar control. Subjective Date of service: 02/12/20 Principal diagnosis: End-stage renal disease with refractory nausea, vomiting and abdominal pain Interval history: Patient seen lying in bed. Still complains of abdominal pain. No longer having nausea or vomiting. Tolerating diet. Objective - Exam Narrative Exam: Young -[place] male lying in bed in no acute distress. HEENT: NCAT, randolph Neck: Supple, no venous distention CVS: S1S2 RRR with no murmur, rub or gallop Chest: Clear to auscultation Abdomen: Protuberant, soft, nontender, no organomegaly, bowel sounds are present Extremities: Trace edema Genitourinary deferred Skin: Warm and dry Neuro: Awake and alert, moving all extremities - Vital Signs Vital signs: Vital Signs - 12hr 02/12/20 02/12/20 02/12/20 06:19 10:00 10:45 Temperature 99.6 F 99.6 F Pulse Rate 95 H 89 Respiratory 20 20 Rate Blood Pressure 181/90 176/93 O2 Sat by Pulse 92 94 94 Oximetry 02/12/20 16:04 Temperature 98.0 F Pulse Rate 85 Respiratory 16 Rate Blood Pressure 177/94 O2 Sat by Pulse 92 Oximetry - Lab 02/12/20 09:43 02/12/20 09:43 Most recent lab results Calcium 8.1 mg/dL (8.4-10.2) L 02/12/20 09:43 Phosphorus 8.70 mg/dL (2.5-4.5) H 02/10/20 14:00 Magnesium 2.10 mg/dL (1.7-2.3) 02/10/20 14:00 Medications & Allergies - Medications Allergies/Adverse Reactions: Allergies phenytoin sodium [From Dilantin] Allergy (Verified 11/11/19 10:02) Hives phenytoin sodium extended [From Dilantin] Allergy (Verified 11/11/19 10:02) Hives Home Medications: Home Medications Medication Instructions Recorded Confirmed Last Taken Type carBAMazepine [TEGretol] 200 mg PO BID #30 tablet 11/20/17 02/12/20 12/14/19 Rx Insulin Glargine,Hum.rec.anlog 15 unit SQ BID 09/08/18 02/12/20 12/14/19 History [Lantus] Ondansetron [Zofran ODT TAB] 4 mg PO Q8HR #30 tab.rapdis 10/25/19 02/12/20 12/14/19 Rx Promethazine [Phenergan] 25 mg PO Q6HR PRN #20 tab 11/09/19 02/12/20 12/14/19 Rx Famotidine [Pepcid] 10 mg PO BID #60 tablet 11/16/19 02/12/20 12/14/19 Rx amLODIPine 10 mg PO QDAY #30 tablet 11/16/19 02/12/20 12/14/19 Rx hydrALAZINE [Apresoline TAB] 50 mg PO Q8HR #90 tablet 11/16/19 02/12/20 12/14/19 Rx Dicyclomine [Bentyl] 10 mg PO QID #20 capsule 12/17/19 02/12/20 Unknown Rx Lactulose [Cephulac] 30 gm PO Q6HR #450 ml 01/21/20 02/12/20 Unknown Rx Metoclopramide [Reglan TAB] 10 mg PO BID #10 tab 01/21/20 02/12/20 Unknown Rx Insulin Regular, Human [HumuLIN R] 15 units SQ QAM&QHS #1 units 02/12/20 Unknown Rx Active Medications: Generic Name Dose Route Start Last Admin Trade Name Freq PRN Reason Stop Dose Admin Albuterol 2.5 mg 02/10/20 13:58 Proventil IH Q3HRT PRN Shortness Of Breath Amlodipine Besylate 10 mg 02/11/20 11:00 02/12/20 09:35 Amlodipine PO 10 mg QDAY CODY Administration Carbamazepine 200 mg 02/11/20 11:00 02/12/20 09:35 Tegretol PO 200 mg BID CODY Administration Dicyclomine HCl 10 mg 02/11/20 14:00 02/12/20 15:41 Bentyl PO 10 mg QID CODY Administration Epoetin José Manuel 10,000 unit 02/10/20 13:27 Procrit IV KATE PRN hemodialysis Famotidine 10 mg 02/11/20 11:00 02/12/20 09:35 Pepcid PO 10 mg BID CODY Administration Heparin Sodium (Porcine) 5,000 unit 02/10/20 13:27 Heparin IV KATE PRN hemodialysis Hydralazine HCl 50 mg 02/11/20 14:00 02/12/20 15:41 Apresoline PO 50 mg Q8HR CODY Administration Dextrose/Sodium Chloride 1,000 mls @ 125 mls/hr 02/10/20 22:00 02/11/20 05:59 D5/0.45ns IV 0 mls/hr DIRECT CODY Infusion Sodium Chloride 100 mls @ 999 mls/hr 02/12/20 10:56 Nacl 0.9% IV KATE PRN Hypotension Insulin Glargine 15 units 02/11/20 08:00 02/12/20 08:24 Lantus SUB-Q 15 units QAMDIAB CODY Administration Insulin Human Lispro 0 unit 02/11/20 07:30 02/12/20 11:30 Humalog SUB-Q Not Given ACHS CODY Protocol Labetalol HCl 100 mg 02/11/20 11:00 02/12/20 09:36 Labetalol PO 100 mg BID CODY Administration Metoclopramide HCl 5 mg 02/11/20 22:00 02/12/20 09:35 Reglan PO 5 mg BID CODY Administration Promethazine HCl 25 mg 02/11/20 10:29 02/12/20 05:06 Phenergan PO 25 mg Q6HR PRN Administration Nausea Sodium Chloride 10 ml 02/10/20 22:00 02/12/20 09:35 Sodium Chloride Flush Syringe 10 Ml IV 10 ml BID CODY Administration Sodium Chloride 10 ml 02/10/20 13:58 Sodium Chloride Flush Syringe 10 Ml IV PRN PRN LINE FLUSH
== END 2020-02-12 17:59 | disposition home or self-care (01) | DRG 637 ==
LOC: ED 11:24 → CC1 13:58 → 3A 02-11 14:15
PROVIDERS: ADMIT Internal Medicine; ATTEND Internal Medicine
PROC: 5A1D70Z Performance of Urinary Filtration, Intermittent, Less than 6 Hours Per Day (ICD-10-PCS; principal; 2020-02-12)
DX: E10.10 Type 1 diabetes mellitus with ketoacidosis without coma (principal); N18.6 End stage renal disease; G93.41 Metabolic encephalopathy; G93.40 Encephalopathy, unspecified; R65.10 Systemic inflammatory response syndrome (SIRS) of non-infectious origin without acute organ dysfunction; E87.1 Hypo-osmolality and hyponatremia; I12.0 Hypertensive chronic kidney disease with stage 5 chronic kidney disease or end stage renal disease; E87.5 Hyperkalemia; G40.909 Epilepsy, unspecified, not intractable, without status epilepticus; K31.84 Gastroparesis; E10.22 Type 1 diabetes mellitus with diabetic chronic kidney disease; E10.43 Type 1 diabetes mellitus with diabetic autonomic (poly)neuropathy; Z99.2 Dependence on renal dialysis; Z79.4 Long term (current) use of insulin; Z91.14 Patient's other noncompliance with medication regimen; Z83.3 Family history of diabetes mellitus; Z82.49 Family history of ischemic heart disease and other diseases of the circulatory system
CPT/HCPCS: 36415; 71045; 80048; 80074; 80320; 82140; 82962; 83690; 83735; 84100; 85007; 85025; 93005; 94644; 94760; 96365; 96366; 96367; 96375; G0378; G0480; J0885; J1642; J1644; J1815; J2060; J2405; J2543; J7030; Q0169

== ENCOUNTER 2020-05-17 00:30 | Emergency (ER) | payer SELFPAY | END 2020-05-17 03:00 | disposition left against medical advice (07) | LOC: ED 00:30 | DX: F41.9 Anxiety disorder, unspecified (principal); Z53.21 Procedure and treatment not carried out due to patient leaving prior to being seen by health care provider ==

== ENCOUNTER 2020-07-05 18:57 | Emergency (ER) | payer MEDICAID ==
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
[2020-07-05] MEDS ORDERED: HYDROcodone/ACETAMINOPHEN 5-325 MG TAB PO ONE (21:21)
[2020-07-05 22:53] VITALS: BP 189/106
== END 2020-07-06 00:03 | disposition home or self-care (01) ==
LOC: ED 18:57
DX: S00.83XA Contusion of other part of head, initial encounter (principal); S09.90XA Unspecified injury of head, initial encounter; R41.82 Altered mental status, unspecified; E11.649 Type 2 diabetes mellitus with hypoglycemia without coma; I10 Essential (primary) hypertension; G40.909 Epilepsy, unspecified, not intractable, without status epilepticus; J45.909 Unspecified asthma, uncomplicated; Z79.899 Other long term (current) drug therapy; W06.XXXA Fall from bed, initial encounter; Y93.89 Activity, other specified; Y92.89 Other specified places as the place of occurrence of the external cause; Y99.8 Other external cause status
CPT/HCPCS: 70450; 70486; 82962; 99283

== ENCOUNTER 2020-08-14 11:59 | Emergency (ER) | payer MEDICAID ==
[2020-08-14] MEDS ORDERED: levETIRAcetam 1000 MG/NS 0.75% 1,000 MG/100 ML BAG IV ONE (12:28)
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
[2020-08-14 14:32] LABS: Calcium 9.4 mg/dL (8.4-10.2)
[2020-08-14 15:47] VITALS: BP 165/100
== END 2020-08-14 15:48 | disposition home or self-care (01) ==
LOC: ED 11:59
DX: E11.22 Type 2 diabetes mellitus with diabetic chronic kidney disease (principal); I12.0 Hypertensive chronic kidney disease with stage 5 chronic kidney disease or end stage renal disease; N18.6 End stage renal disease; G40.909 Epilepsy, unspecified, not intractable, without status epilepticus; E87.5 Hyperkalemia; Z99.2 Dependence on renal dialysis; J45.909 Unspecified asthma, uncomplicated; Z79.4 Long term (current) use of insulin; Z79.899 Other long term (current) drug therapy; Z88.8 Allergy status to other drugs, medicaments and biological substances
CPT/HCPCS: 36415; 80048; 82962; 96374; 99283; J1953

== ENCOUNTER 2020-08-22 19:10 | Emergency (ER) | payer MEDICAID ==
[2020-08-22 19:29] VITALS: BP 160/90
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
== END 2020-08-22 21:14 | disposition home or self-care (01) ==
LOC: ED 19:10
DX: L04.0 Acute lymphadenitis of face, head and neck (principal); I10 Essential (primary) hypertension; E11.9 Type 2 diabetes mellitus without complications; R56.9 Unspecified convulsions; J45.909 Unspecified asthma, uncomplicated; Z98.890 Other specified postprocedural states; Z79.4 Long term (current) use of insulin; Z79.899 Other long term (current) drug therapy; Z88.8 Allergy status to other drugs, medicaments and biological substances
CPT/HCPCS: 99282

== ENCOUNTER 2020-09-25 05:53 | Day surgery (SDC) | payer MEDICAID ==
[2020-09-25] MEDS ORDERED: SODIUM CHLORIDE 0.9% 1000 ML 1,000 ML IV SCH (06:00)
[2020-09-25] MEDS ORDERED: ceFAZolin/Water 2 GM/20 ML 2 GM/20 ML SYRINGE IV NR (06:00)
[2020-09-25] MEDS ORDERED: BACTERIOSTATIC SODIUM CHLORIDE 0.9% 30 ML VIAL INFILTRATI ONE (06:39)
[2020-09-25 07:09] LABS: Hematocrit 27.4 % (35.5-45.6); Hemoglobin 9.1 gm/dl (11.8-15.2); Mean Corpuscular HGB Conc 33 % (32-34); Mean Corpuscular Volume 84 fl (84-94); Platelet Count 215 K/mm3 (140-440); Red Blood Count 3.25 M/mm3 (3.65-5.03)
--- NOTE | 2020-09-25 07:10 | Anesthesia Consultation ---
Anesthesia Consult and Med Hx Date of service: 09/25/20 - Airway Anesthetic Teeth Evaluation: Good ROM Head & Neck: Adequate Mental/Hyoid Distance: Adequate Mallampati Class: Class II Intubation Access Assessment: Probably Good - Pulmonary Exam CTA: Yes - Cardiac Exam Cardiac Exam: RRR - Pre-Operative Health Status ASA Pre-Surgery Classification: ASA3 Proposed Anesthetic Plan: MAC Nerve Block: supraclavicular block - Pulmonary Hx Asthma: Yes COPD: No Hx Pneumonia: No - Cardiovascular System Hx Hypertension: Yes Hx Pacemaker: No Hx Internal Defibrillator: No - Central Nervous System Hx Seizures: Yes (last seizure 6 months ago, unknown cause ) Hx Psychiatric Problems: No - Gastrointestinal Hx Ulcer: Yes - Endocrine Hx Renal Disease: Yes (MW) Hx End Stage Renal Disease: Yes Hx Non-Insulin Dependent Diabetes: Yes (last HgbA1C >12. [id number]) - Other Systems Hx Alcohol Use: Yes Hx Substance Use: No Hx Cancer: No
[2020-09-25] MEDS ORDERED: fentaNYL 100 MCG/2 ML INJ IV NR (07:11)
--- NOTE | 2020-09-25 07:11 | Anesthesia Day of Surgery ---
Anesthesia Day of Surgery - Day of Surgery Patient Examined: Yes Patient H&P Reviewed: Yes Patient is NPO: Yes Beta Blockers: No
[2020-09-25 07:14] LABS: Red Cell Distribution Width 20.7 % (13.2-15.2)
[2020-09-25] MEDS ORDERED: LIDOCAINE (1%) 10 MG/1 ML VIAL 20 ML MDV INFILTRATI NR (07:15)
[2020-09-25] MEDS ORDERED: LIDOCAINE (2%) 20 MG/1 ML VIAL 20 ML MDV INFILTRATI ONE (07:22)
[2020-09-25] MEDS ORDERED: BUPIVACAINE/PF (0.5%) 5 MG/1 ML 30 ML VIAL INFILTRATI ONE ×3 (07:23→09:30)
[2020-09-25] MEDS ORDERED: propofoL 200 MG/20 ML VIAL IV ONE ×2 (07:27→09:11)
[2020-09-25] MEDS ORDERED: HYDROmorphone 1 MG/1 ML INJ ONE (07:27)
[2020-09-25 07:45] LABS: Calcium 8.8 mg/dL (8.4-10.2)
[2020-09-25] MEDS ORDERED: HEPARIN 10,000 UNITS/10 ML VIAL ONE (07:57)
[2020-09-25] MEDS ORDERED: rifAMPin 600 MG VIAL ONE (07:59)
[2020-09-25] MEDS ORDERED: SODIUM CHLORIDE 0.9% P/F 10 ML VIAL INFILTRATI NR (08:00)
[2020-09-25] MEDS ORDERED: MIDAZOLAM 2 MG/2 ML INJ IV NR (08:00)
[2020-09-25] MEDS ORDERED: BUPIVACAINE/PF (0.5%) 5 MG/1 ML 10 ML VIAL INFILTRATI NR (08:00)
[2020-09-25] MEDS ORDERED: SODIUM CHLORIDE 0.9% 500 ML 500 ML ONE (08:00)
[2020-09-25] MEDS ORDERED: SODIUM CHLORIDE 0.9% 250ML 250 ML ONE (08:01)
[2020-09-25] MEDS ORDERED: LIDOCAINE MPF (2%) 20 MG/1 ML VIAL 5 ML ONE (08:39)
[2020-09-25] MEDS ORDERED: SODIUM CHLORIDE 0.9% P/F 10 ML VIAL IV ONE (09:30)
[2020-09-25] MEDS ORDERED: rifAMPin 600 MG VIAL IV ONE (09:30)
[2020-09-25] MEDS ORDERED: HEPARIN 10,000 UNITS/10 ML VIAL IV ONE ×2 (09:30)
[2020-09-25] MEDS ORDERED: SODIUM CHLORIDE 0.9% IRR 500 ML BOTTLE IR ONE (09:30)
[2020-09-25] MEDS ORDERED: HEPARIN 10,000 UNITS/10 ML VIAL IV NR (10:46)
--- NOTE | 2020-09-25 10:46 | Short Stay Summary ---
Short Stay Documentation Date of service: 09/25/20 Narrative H&P: See H&P - History H&P: obtained from office - Allergies and Medications Current Medications: Allergies phenytoin sodium [From Dilantin] Allergy (Verified 11/11/19 10:02) Hives phenytoin sodium extended [From Dilantin] Allergy (Verified 11/11/19 10:02) Hives Home Medications Medication Instructions Recorded Confirmed Last Taken Type Insulin Glargine,Hum.rec.anlog 15 unit SQ BID 09/08/18 09/25/20 09/24/20 20:00 History [Lantus] Promethazine [Phenergan] 25 mg PO Q6HR PRN #20 tab 11/09/19 09/18/20 12/14/19 Rx amLODIPine 10 mg PO QDAY #30 tablet 11/16/19 09/25/20 09/24/20 09:00 Rx hydrALAZINE [Apresoline TAB] 50 mg PO Q8HR #90 tablet 11/16/19 09/25/20 09/24/20 09:00 Rx OXcarbazepine [Trileptal] 300 mg PO BID 90 Days #180 tablet 08/14/20 09/18/20 Unknown Rx Insulin Regular, Human [HumuLIN R] 15 units SQ AC 09/18/20 09/18/20 Unknown History Active Medications Bupivacaine HCl (Bupivacaine/Pf (0.5%) 5 Mg/1 Ml 10 Ml Vial) 20 ml INFILTRATI PREOP NR Stop: 09/25/20 20:00 Fentanyl (Fentanyl 100 Mcg/2 Ml Inj) 100 mcg IV ONCE NR Stop: 09/25/20 12:00 Last Admin: 09/25/20 07:49 Dose: 100 mcg Documented by: Cefazolin Sodium (Ancef/Sterile Water 2 Gm/20 Ml) 2 gm in 20 mls @ 80 mls/hr IV PREOP NR; Protocol Stop: 09/25/20 23:59 Sodium Chloride (Nacl 0.9% 1000 Ml) 1,000 mls @ 42 mls/hr IV DIRECT CODY Last Admin: 09/25/20 06:50 Dose: 42 mls/hr Documented by: Lidocaine (Lidocaine (1%) 10 Mg/1 Ml Vial 20 Ml Mdv) 10 ml INFILTRATI PREOP NR Stop: 09/25/20 12:00 Midazolam HCl (Midazolam 2 Mg/2 Ml Inj) 2 mg IV PREOP NR Stop: 09/25/20 23:59 Last Admin: 09/25/20 07:49 Dose: 2 mg Documented by: Sodium Chloride (Sodium Chloride 0.9% P/F 10 Ml Vial) 1 ml INFILTRATI PREOP NR Stop: 09/26/20 07:59 - Brief post op/procedure progress note Date of procedure: 09/25/20 Pre-op diagnosis: End-Stage Renal Disease Post-op diagnosis: same Procedure: Creation of Left Brachial Artery to Left Axillary Vein Arteriovenous Graft with 6 mm Bovine Artegraft Anesthesia: MAC, regional Surgeon: BRITTNEY SILVERIO Estimated blood loss: minimal Pathology: none Condition: stable - Disposition Condition at discharge: Good Disposition: DC-01 TO HOME OR SELFCARE Short Stay Discharge Plan Activity: other (No heavy lifting with left arm for 2 weeks.) Wound: open to air, keep clean and dry, other (Okay to wash the left arm wounds with soap and water but do not soak in water for 2 weeks.) Follow up with: BRITTNEY SILVERIO MD [Staff Physician] - 14 Days Prescriptions: HYDROcodone/APAP 7.5-325 [Ravenel 7.5/325] 1 each PO Q6HR PRN #40 tablet PRN Reason: Pain
--- NOTE | 2020-09-25 10:47 | Operative Report ---
Operative Report Operative Report: Date of procedure: 09/25/2020 Pre-operative diagnosis: End-Stage Renal Disease Post-operative diagnosis: Same Procedure(s): 1. Creation of Left Brachial Artery to Axillary Vein AV Graft with 6 mm Bovine Graft Artergraft Surgeon: Sina Dobson MD Computer Systems Architect: None Anesthesia: Regional/MAC EBL: Minimal Counts: Correct Complications: None Condition: Stable Findings: Successful Creation of Left Arm AV Graft with Palpable Thrill and Palpable Radial Pulse at the Completion of the Case. Specimen: None Indication: The patient is a 34-year-old male with a history of end-stage renal disease who is in need of long-term dialysis access. He did not have adequate vein for creation of an arteriovenous fistula so he was offered an arteriovenous graft. He was given the risk, benefits, and alternative procedures and consented to the procedure. Description of Procedure: Prior to being transported to the operating room the patient had a regional block of the left arm performed. After the block was performed the patient was transported to the operating room and adequately sedated. The patient's left arm was then prepped and draped in normal sterile fashion. A longitudinal incision was made on the medial aspect of the arm just proximal to the antecubital crease and carried down to the brachial artery using sharp dissection. The brachial artery was dissected out circumferentially both proximally and distally and controlled with vessel loops. A second incision was created in longitudinal fashion on the medial aspect of the arm just distal to the axillary crease and carried down to the axillary vein using sharp dissection. Axillary vein was dissected out circumferentially and controlled with a vessel loop. I then used a Rosa-Wick tunneler to tunnel from the brachial artery incision to the axillary vein incision and then put an 6 mm bovine through the tunnel. I infused with heparinized saline to ensure that it was not twisted or kinked. I put the brachial artery vessel loops on tension controlling the flow and then created an arteriotomy using an 11 blade and Olivarez scissors. I beveled the graft and created an end-to-side anastomosis using 6-0 Prolene running fashion. I clamped the graft just proximal to the anastomosis and then released the vessel loops restoring flow in the brachial artery. I placed quick clot in incision to achieve hemostasis. I cut the proximal end of the graft to the appropriate length and beveled the graft in preparation for a venous anastomosis. I controlled the axillary vein a Satinsky clamp and created a venotomy using an 11 blade and Olivarez scissors. I created an end to side anastomosis using a 6-0 Prolene in running fashion. Prior to completing the anastomosis I flushed the graft to ensure there was no thrombus and then completed the anastamosis. I released all clamps allowing flow into the AV graft which had an excellent thrill. I packed the wound with quick clot to achieve hemostasis. I then closed both wounds in 2 layers using 3-0 Vicryl in running fashion in the deep dermal layer and 4-0 Monocryl in running fashion the subcuticular layer. I dressed both wounds with Dermabond. The patient tolerated the procedure well all sponge, needle, and instrument counts were correct. The patient was taken to recovery in stable condition.
[2020-09-25] MEDS ORDERED: DEXTROSE 50% IN WATER (25GM) 50 ML SYRINGE IV ONE ×2 (10:58→11:04)
[2020-09-25] MEDS ORDERED: HEPARIN 10,000 UNIT/1 ML VIAL ONE (11:18)
[2020-09-25] MEDS ORDERED: HEPARIN 10,000 UNIT/1 ML VIAL IV PRN (11:23)
--- NOTE | 2020-09-25 13:20 | Post Anesthesia Evaluation ---
- Post Anesthesia Evaluation Patient Participated: Yes Airway Patent: Yes Stable Respiratory Function: Yes Nausea/Vomiting: No Temp > 96.8F: Yes Pain Manageable: Yes Adequeate Hydration: Yes Anesthesia Complications: No Block Receding Appropriately: Yes Patient on Ventilator: No
[2020-09-25 18:35] VITALS: BP 135/78
== END 2020-09-25 05:54 | disposition home or self-care (01) ==
LOC: OR 05:53
PROVIDERS: ATTEND Surgery Vascular Surgery
DX: I12.0 Hypertensive chronic kidney disease with stage 5 chronic kidney disease or end stage renal disease (principal); E11.22 Type 2 diabetes mellitus with diabetic chronic kidney disease; N18.6 End stage renal disease; G40.909 Epilepsy, unspecified, not intractable, without status epilepticus; J45.909 Unspecified asthma, uncomplicated; Z72.89 Other problems related to lifestyle; Z98.890 Other specified postprocedural states
CPT/HCPCS: 36415; 36830; 64415; 76942; 80048; 82962; 85027; C1768; J0690; J1170; J1644; J2250; J2704; J3010; J3490; J7030; J7040; J7050; 64450

== ENCOUNTER 2020-11-14 07:20 | Inpatient (IN) | payer MEDICAID ==
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
[2020-11-14 08:35] LABS: Hematocrit 34.3 % (35.5-45.6); Hemoglobin 11.4 gm/dl (11.8-15.2)
[2020-11-14] MEDS ORDERED: diphenhydrAMINE 50 MG/ML VIAL IV ONE ×2 (08:39→11:09)
[2020-11-14] MEDS ORDERED: SODIUM CHLORIDE 0.9% 500 ML 500 ML IV ONE (08:39)
[2020-11-14] MEDS ORDERED: METOCLOPRAMIDE 10 MG/2 ML INJ IV ONE (08:39)
[2020-11-14 09:08] LABS: Albumin 4.1 g/dL (3.9-5)
[2020-11-14] MEDS ORDERED: SODIUM CHLORIDE 0.9% 100 ML IV PRN (10:37)
[2020-11-14] MEDS ORDERED: METOCLOPRAMIDE 10 MG/2 ML INJ ONE (11:07)
[2020-11-14] MEDS: levETIRAcetam 1000 MG/NS 0.75% 1,000 MG/100 ML BAG IV ONE ×2 (11:11→11:25)
[2020-11-14 11:43] LABS: Hepatitis B Surface Antigen Non-Reactive (Negative); Hepatitis C Virus Antibody Non-Reactive (NonReactive)
[2020-11-14] MEDS ORDERED: levETIRAcetam 1000 MG/NS 0.75% 1,000 MG/100 ML BAG IV NR (12:00)
[2020-11-14] MEDS ORDERED: ACETAMINOPHEN 325 MG TAB PO PRN (17:34)
[2020-11-14] MEDS ORDERED: MORPHINE 2 MG/1 ML INJ IV PRN (17:34)
[2020-11-14] MEDS ORDERED: METOCLOPRAMIDE 10 MG/2 ML INJ IV PRN (17:34)
[2020-11-14] MEDS ORDERED: oxyCODONE /ACETAMINOPHEN 5-325MG TAB PO PRN (17:34)
[2020-11-14] MEDS ORDERED: ONDANSETRON 4 MG/2 ML INJ IV PRN (17:34)
[2020-11-14] MEDS ORDERED: LORATADINE 10 MG PO SCH (17:45)
[2020-11-14] MEDS ORDERED: NON-FORMULARY EACH (Ferric Citrate (Nf) 210 MG Tablet) PO SCH (17:45)
[2020-11-14] MEDS: amLODIPine 10 MG TAB PO SCH (19:05)
[2020-11-14] MEDS ORDERED: NON-FORMULARY EACH (Hydralazine Hcl [Hydralazine Hcl] 50 MG Tablet) PO SCH (20:00)
[2020-11-14] MEDS ORDERED: GABAPENTIN 300 MG CAP PO SCH (22:00)
[2020-11-14] MEDS: levETIRAcetam 1,000 MG in DEXTROSE 5% IN WATER 100 ML IV SCH (22:47)
[2020-11-14] MEDS: hydrALAZINE 25 MG TAB PO SCH (22:48)
[2020-11-14] MEDS: cloNIDine 0.2 MG TAB PO SCH (22:48)
[2020-11-14] MEDS: INSULIN GLARGINE 100 UNITS/ML SUB-Q SCH (23:33)
[2020-11-14] MEDS: INSULIN REGULAR, HUMAN 100 UNITS/1 ML SUB-Q SCH (23:33)
[2020-11-15] MEDS ORDERED: INSULIN REGULAR, HUMAN 100 UNITS/1 ML SUB-Q ONE (02:42)
[2020-11-15] MEDS: hydrALAZINE 25 MG TAB PO SCH ×2 (06:39→16:27)
[2020-11-15] MEDS ORDERED: DEXTROSE 50% IN WATER (25GM) 50 ML SYRINGE IV NR (07:53)
[2020-11-15 08:04] LABS: Basophils # (Auto) 0.1 K/mm3 (0.0-0.1); Basophils % (Auto) 0.8 % (0.0-1.8); Eosinophils # (Auto) 0.3 K/mm3 (0.0-0.4); Eosinophils % (Auto) 2.9 % (0.0-4.3); Hematocrit 36.5 % (35.5-45.6); Hemoglobin 12.3 gm/dl (11.8-15.2); Lymphocytes # (Auto) 1.2 K/mm3 (1.2-5.4); Lymphocytes % (Auto) 13.3 % (13.4-35.0); Mean Corpuscular HGB Conc 34 % (32-34); Mean Corpuscular Volume 89 fl (84-94); Monocytes # (Auto) 1.1 K/mm3 (0.0-0.8); Monocytes % (Auto) 12.7 % (0.0-7.3); Platelet Count 178 K/mm3 (140-440); Red Blood Count 4.08 M/mm3 (3.65-5.03); Red Cell Distribution Width 14.8 % (13.2-15.2)
[2020-11-15 08:27] LABS: Albumin 4.1 g/dL (3.9-5); Calcium 9.4 mg/dL (8.4-10.2)
[2020-11-15] MEDS: INSULIN REGULAR, HUMAN 100 UNITS/1 ML SUB-Q SCH ×3 (09:06→16:48)
[2020-11-15] MEDS ORDERED: CETIRIZINE 10 MG TAB PO SCH (10:00)
[2020-11-15] MEDS: INSULIN GLARGINE 100 UNITS/ML SUB-Q SCH (11:00)
[2020-11-15] MEDS: levETIRAcetam 1,000 MG in DEXTROSE 5% IN WATER 100 ML IV SCH (11:19)
[2020-11-15] MEDS: amLODIPine 10 MG TAB PO SCH (11:24)
[2020-11-15] MEDS: cloNIDine 0.2 MG TAB PO SCH (11:31)
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
[2020-11-15] MEDS ORDERED: cloNIDine 0.1 MG TAB PO SCH (16:00)
[2020-11-15] MEDS ORDERED: INSULIN LISPRO 100 UNIT/ML SUB-Q SCH (16:30)
[2020-11-15 16:42] VITALS: BP 109/84
[2020-11-15] MEDS ORDERED: hydrALAZINE 25 MG TAB PO SCH (22:00)
--- NOTE | 2020-11-16 09:46 | Discharge Summary ---
Providers - Providers Date of Admission: 11/14/20 17:52 Date of discharge: 11/15/20 Attending physician: JEREMY YOUNG 11/14/20 10:02 Consult to Physician [CONS] Urgent Comment: Consulting Provider: CARMELA TOVAR Physician Instructions: Reason For Exam: esrd Hospitalization Condition: Good Hospital course: 11/15/2020 History of present illness: 34-year-old -Mosotho male with history of seizures, hypertension and end-stage renal disease brought in by EMS for seizures x2. Patient bit his tongue. Patient is postictal and lethargic. Patient has been noncompliant with his medications. No fever or chills. No exposure to coronavirus. Last hemodialysis was on . Assessment and Plan Advance Directives: Yes (Full code) VTE prophylaxis?: Chemical Plan of care discussed with patient/family: Yes - Patient Problems (1) Acute encephalopathy Current Visit: Yes Status: Acute Plan to address problem: Patient with altered mental status Secondary to seizures (2) Status epilepticus Current Visit: Yes Status: Acute Plan to address problem: Patient to be discharged on oral Keppra Left AMA We will inform the nephrology group so that they can start him on Keppra (3) End-stage renal disease needing dialysis Current Visit: Yes Status: Chronic Plan to address problem: Continue hemodialysis. (4) Seizure disorder Current Visit: Yes Status: Chronic Plan to address problem: Patient to be discharged on oral Keppra 750 mg every 12 (5) Acute hyperkalemia Current Visit: No Status: Acute Plan to address problem: Potassium normalized (6)IDDM Brittle Diabetes Adjust dosage Disposition: DC-07 LEFT AGAINST MED ADVICE Final Discharge Diagnosis (Prints w/discharge instructions): Acute encephalopathy. Seizure disorder. End-stage renal disease on hemodialysis. Hyperkalemia. Insulin-dependent diabetes Time spent for discharge: 35 minutes - Discharge Diagnoses (1) Acute encephalopathy Status: Acute (2) Status epilepticus Status: Acute (3) End-stage renal disease needing dialysis Status: Chronic (4) Seizure disorder Status: Chronic (5) Acute hyperkalemia Status: Acute (6) DVT prophylaxis Status: Acute Core Measure Documentation - Palliative Care Palliative Care/ Comfort Measures: Not Applicable - Core Measures Any of the following diagnoses?: none Exam - Constitutional Vitals: Temp Pulse Resp BP Pulse Ox 98.2 F 68 22 109/84 98 06/13/21 16:16 11/15/20 16:52 11/15/20 16:16 11/15/20 16:52 11/15/20 16:16 General appearance: Present: no acute distress, well-nourished - EENT Eyes: Present: PERRL ENT: hearing intact, clear oral mucosa - Neck Neck: Present: supple, normal ROM - Respiratory Respiratory effort: normal Respiratory: bilateral: CTA - Cardiovascular Heart rate: 78 Rhythm: regular Heart Sounds: Present: S1 & S2. Absent: rub, click - Extremities Extremities: pulses symmetrical, No edema Peripheral Pulses: within normal limits - Abdominal General gastrointestinal: Present: soft, non-tender, non-distended, normal bowel sounds Male genitourinary: Present: normal - Integumentary Integumentary: Present: clear, warm, dry - Musculoskeletal Musculoskeletal: gait normal, strength equal bilaterally - Psychiatric Psychiatric: appropriate mood/affect, intact judgment & insight - Neurologic Neurologic: CNII-XII intact, moves all extremities Plan Activity: no restrictions Diet: renal Special Instructions: smoking cessation Follow up with: BIA CALI [Other] - 3-5 Days
--- NOTE | 2020-11-19 12:46 | Electrocardiograph Report ---
[facility] Test Date: 2020-11-14 Test Time: 08:00:17 Pat Name: JAYLEN HERNANDEZ Department: Room: A373 Gender: M Monotypist: RICKY : 1985 Requested By: MEGHAN MEJIA Order Number: [id number] Reading MD: Carmen Coto Measurements Intervals [place] Rate: 79 P: 71 WV: 161 QRS: 51 QRSD: 100 T: 89 QT: 412 QTc: 471 Interpretive Statements Sinus rhythm Nonspecific lateral T wave abnormality No previous ECG available for comparison Electronically Signed On 11-19-2020 12:45:47 EDT by Carmen Coto
== END 2020-11-15 21:00 | disposition left against medical advice (07) | DRG 100 ==
LOC: ED 07:20 → 3A 17:52
PROVIDERS: ADMIT Internal Medicine; ATTEND Internal Medicine
PROC: 5A1D70Z Performance of Urinary Filtration, Intermittent, Less than 6 Hours Per Day (ICD-10-PCS; principal; 2020-11-14)
PROC: 06HY33Z Insertion of Infusion Device into Lower Vein, Percutaneous Approach (ICD-10-PCS; 2020-11-15)
DX: R56.9 Unspecified convulsions (principal); N18.6 End stage renal disease; K31.84 Gastroparesis; I12.0 Hypertensive chronic kidney disease with stage 5 chronic kidney disease or end stage renal disease; E87.5 Hyperkalemia; E78.5 Hyperlipidemia, unspecified; E10.22 Type 1 diabetes mellitus with diabetic chronic kidney disease; E10.43 Type 1 diabetes mellitus with diabetic autonomic (poly)neuropathy; J45.909 Unspecified asthma, uncomplicated; Z99.2 Dependence on renal dialysis; Z88.8 Allergy status to other drugs, medicaments and biological substances; Z91.19 Patient's noncompliance with other medical treatment and regimen; Z79.899 Other long term (current) drug therapy; Z79.891 Long term (current) use of opiate analgesic; Z83.3 Family history of diabetes mellitus; Z79.01 Long term (current) use of anticoagulants; Z79.4 Long term (current) use of insulin; Z82.49 Family history of ischemic heart disease and other diseases of the circulatory system
CPT/HCPCS: 36415; 80053; 80074; 80320; 82550; 82805; 82962; 83036; 83735; 85014; 85018; 85025; 85049; 93005; 96365; 96375; G0378; G0480; J1200; J1815; J1953; J2765

== ENCOUNTER 2020-12-02 07:31 | Emergency (ER) | payer MEDICAID ==
[2020-12-02] MEDS ORDERED: oxyCODONE /ACETAMINOPHEN 5-325MG TAB PO ONE (10:41)
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
[2020-12-02] MEDS ORDERED: cloNIDine 0.2 MG TAB PO ONE (10:42)
[2020-12-02] MEDS ORDERED: hydrALAZINE 20 MG/1 ML INJ ONE (11:43)
[2020-12-02] MEDS ORDERED: hydrALAZINE 20 MG/1 ML INJ IV ONE (11:44)
[2020-12-02 12:26] LABS: Hematocrit 32.8 % (35.5-45.6); Hemoglobin 10.9 gm/dl (11.8-15.2); Mean Corpuscular HGB Conc 33 % (32-34); Mean Corpuscular Volume 90 fl (84-94); Platelet Count 250 K/mm3 (140-440); Red Blood Count 3.65 M/mm3 (3.65-5.03); Red Cell Distribution Width 14.4 % (13.2-15.2)
[2020-12-02] MEDS ORDERED: MORPHINE 4 MG/1 ML INJ IV ONE (12:28)
[2020-12-02 12:34] LABS: INR 1.02 (0.87-1.13)
--- NOTE | 2020-12-02 12:40 | Vascular Lab Report ---
DUPLEX DOPPLER UPPER EXTREMITY VENOUS, RIGHT INDICATION / CLINICAL INFORMATION: RUE pain and swelling. TECHNIQUE: Duplex doppler imaging was performed through the veins of the right upper extremity using venous compression and other maneuvers. COMPARISON: None available. FINDINGS: RIGHT INTERNAL JUGULAR VEIN: Negative. RIGHT SUBCLAVIAN VEIN: Negative. RIGHT AXILLARY VEIN: Negative. RIGHT BRACHIAL VEIN: Negative. RIGHT FOREARM VEINS: Negative. RIGHT BASILIC VEIN (SUPERFICIAL): Acute thrombus. Nonocclusive ADDITIONAL FINDINGS: There is a small amount of fluid in the soft tissue at the level of the antecubi mirtha fossa possibly representing small amount of hematoma IMPRESSION: 1. No sonographic evidence for DVT. 2. There is nonocclusive thrombus in the right basilic vein at the level of the antecubital fossa whi ch is considered a superficial vein. Signer Name: Julian Wilburn MD Signed: 12/02/2020 12:35 PM Workstation Name: [id number]
[2020-12-02 12:42] LABS: Calcium 10.1 mg/dL (8.4-10.2)
[2020-12-02] MEDS ORDERED: INSULIN REGULAR, HUMAN 100 UNITS/1 ML IV ONE (12:48)
[2020-12-02 13:39] LABS: Total Cells Counted 100
[2020-12-02 13:40] LABS: Promyelocytes # (Manual) 35.5 K/mm3
[2020-12-02 13:42] LABS: Platelet Estimate Consistent w Auto; Toxic Granulation 1+
[2020-12-02 18:45] VITALS: BP 159/76
== END 2020-12-02 16:00 | disposition home or self-care (01) ==
LOC: ED 07:31
DX: E11.22 Type 2 diabetes mellitus with diabetic chronic kidney disease (principal); I12.0 Hypertensive chronic kidney disease with stage 5 chronic kidney disease or end stage renal disease; N18.6 End stage renal disease; E11.65 Type 2 diabetes mellitus with hyperglycemia; I82.611 Acute embolism and thrombosis of superficial veins of right upper extremity; I16.0 Hypertensive urgency; Z99.2 Dependence on renal dialysis; R56.9 Unspecified convulsions; J45.909 Unspecified asthma, uncomplicated; Z98.890 Other specified postprocedural states; Z79.899 Other long term (current) drug therapy; Z88.8 Allergy status to other drugs, medicaments and biological substances
CPT/HCPCS: 36415; 80048; 82962; 85007; 85025; 85610; 93971; 96374; 96375; 99284; J0360; J2270; J1815

== ENCOUNTER 2020-12-26 13:14 | Emergency (ER) | payer MEDICAID ==
[2020-12-26] MEDS ORDERED: ONDANSETRON 4 MG/2 ML INJ ONE ×2 (13:27→15:36)
[2020-12-26] MEDS ORDERED: cloNIDine 0.2 MG TAB PO STA (13:52)
[2020-12-26] MEDS ORDERED: NON-FORMULARY EACH (Hydralazine Hcl [Hydralazine Hcl] 50 MG Tablet) PO STA (13:52)
[2020-12-26] MEDS ORDERED: DEXTROSE 50% IN WATER (25GM) 50 ML VIAL IV PRN (13:52)
[2020-12-26] MEDS ORDERED: LEVETIRACETAM 250 MG PO STA ×2 (13:52→13:57)
[2020-12-26] MEDS ORDERED: amLODIPine 10 MG TAB PO STA (13:52)
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
[2020-12-26] MEDS ORDERED: hydrALAZINE 25 MG TAB PO STA (13:56)
[2020-12-26 14:20] LABS: Hematocrit 39.5 % (35.5-45.6); Hemoglobin 13.3 gm/dl (11.8-15.2)
--- NOTE | 2020-12-26 14:24 | XRay Report ---
CHEST 1 VIEW 12/26/2020 2:13 PM INDICATION / CLINICAL INFORMATION: Hypertension, end-stage renal,. COMPARISON: 02/10/2020 FINDINGS: SUPPORT DEVICES: None. HEART / MEDIASTINUM: No significant abnormality. LUNGS / PLEURA: Questionable nodular densities are seen in bilateral lungs. A majority of these nodul ar densities are small however a few measure up to 5 mm. No pneumothorax. ADDITIONAL FINDINGS: No significant additional findings. IMPRESSION: 1. No focal consolidation. Nodular densities in bilateral lungs could represent granulomas change how ever pulmonary nodule cannot be excluded. Follow-up is recommended. Signer Name: Brock Crockett MD Signed: 12/26/2020 2:20 PM Workstation Name: [id number]
[2020-12-26] MEDS: ONDANSETRON 4 MG/2 ML INJ IM ONE ×2 (14:25→15:48)
[2020-12-26 14:39] LABS: Calcium 10.5 mg/dL (8.4-10.2)
[2020-12-26] MEDS ORDERED: METOCLOPRAMIDE 10 MG/2 ML INJ IV ONE (15:35)
[2020-12-26] MEDS ORDERED: levETIRAcetam 500 MG TAB PO STA (16:09)
[2020-12-26 17:15] VITALS: BP 145/84
--- NOTE | 2020-12-27 14:30 | Electrocardiograph Report ---
[facility] [place] Test Date: 2020-12-26 Test Time: 11:42:42 Pat Name: JAYLEN HERNANDEZ Department: Room: Gender: M Dsp Engineer: DIOR : [id number] Requested By: MEGHAN MEJIA Order Number: [id number] Reading MD: Carmen Coto Measurements Intervals [place] Rate: 90 P: 63 CO: 162 QRS: 23 QRSD: 99 T: 52 QT: 387 QTc: 475 Interpretive Statements Sinus rhythm Compared to ECG 11/14/2020 08:00:17 No significant change Electronically Signed On 12-27-2020 14:29:52 EDT by Carmen Coto
== END 2020-12-26 17:15 | disposition home or self-care (01) ==
LOC: ED 13:14
DX: I12.0 Hypertensive chronic kidney disease with stage 5 chronic kidney disease or end stage renal disease (principal); E11.22 Type 2 diabetes mellitus with diabetic chronic kidney disease; N18.6 End stage renal disease; J45.909 Unspecified asthma, uncomplicated; R03.0 Elevated blood-pressure reading, without diagnosis of hypertension; E11.649 Type 2 diabetes mellitus with hypoglycemia without coma; Z99.2 Dependence on renal dialysis; Z79.899 Other long term (current) drug therapy; Z86.69 Personal history of other diseases of the nervous system and sense organs
CPT/HCPCS: 36415; 71045; 80048; 82550; 82962; 83735; 84443; 85014; 85018; 93005; 96372; 96374; 99284; J2405; J2765; J3246

== ENCOUNTER 2021-01-05 08:42 | Inpatient (IN) | payer MEDICAID ==
[2021-01-05] MEDS ORDERED: ONDANSETRON 4 MG ODT TAB PO ONE (11:56)
--- NOTE | 2021-01-05 11:57 | Event Note ---
ED Screening Note ED Screening Note: n/v that began last night +abd pain no fever no diarrhea pmhx ESRD last dialysis was monday, HTN, DM, seizures This initial assessment/diagnostic orders/clinical plan/treatment(s) is/are subject to change based on patients health status, clinical progression and re- assessment by fellow clinical providers in the ED. Further treatment and workup at subsequent clinical providers discretion. Patient/guardian urged not to elope from the ED as their condition may be serious if not clinically assessed and managed. Initial orders include: labs zofran ODT
[2021-01-05 14:36] LABS: Basophils % (Auto) 0.6 % (0.0-1.8); Eosinophils # (Auto) 0.2 K/mm3 (0.0-0.4); Eosinophils % (Auto) 3.3 % (0.0-4.3); Hematocrit 39.3 % (35.5-45.6); Hemoglobin 12.8 gm/dl (11.8-15.2); Lymphocytes # (Auto) 0.8 K/mm3 (1.2-5.4); Lymphocytes % (Auto) 11.6 % (13.4-35.0); Mean Corpuscular HGB Conc 33 % (32-34); Mean Corpuscular Volume 92 fl (84-94); Monocytes # (Auto) 0.6 K/mm3 (0.0-0.8); Monocytes % (Auto) 9.5 % (0.0-7.3); Platelet Count 260 K/mm3 (140-440); Red Blood Count 4.28 M/mm3 (3.65-5.03); Red Cell Distribution Width 15.4 % (13.2-15.2)
[2021-01-05 14:55] LABS: Albumin 4.3 g/dL (3.9-5); Calcium 9.8 mg/dL (8.4-10.2)
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
[2021-01-06] MEDS ORDERED: MAGNESIUM SULFATE 2 GM/50 ML BAG IV ONE (01:48)
[2021-01-06] MEDS ORDERED: PANTOPRAZOLE 40 MG INJ IV ONE (01:48)
[2021-01-06] MEDS ORDERED: HALOPERIDOL LACTATE 5 MG/1 ML INJ IM ONE (01:48)
[2021-01-06] MEDS ORDERED: SODIUM CHLORIDE 0.9% IV ONE (01:51)
[2021-01-06] MEDS ORDERED: DESMOPRESSIN ACETATE IV ONE (01:51)
[2021-01-06] MEDS ORDERED: INSULIN REGULAR, HUMAN 100 UNITS/1 ML IV ONE (01:56)
[2021-01-06] MEDS ORDERED: ACETAMINOPHEN 325 MG TAB PO PRN (02:49)
[2021-01-06] MEDS ORDERED: DEXTROSE 50% IN WATER (25GM) 50 ML SYRINGE IV PRN (02:49)
[2021-01-06] MEDS ORDERED: HYDROmorphone 1 MG/1 ML INJ IV ONE (02:52)
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
[2021-01-06] MEDS: MORPHINE 4 MG/1 ML INJ IV PRN ×2 (03:50→16:53)
--- NOTE | 2021-01-06 03:52 | XRay Report ---
ABDOMEN 3 VIEW(S) INDICATION / CLINICAL INFORMATION: n/v abd pain. COMPARISON: 11/11/19 FINDINGS: TUBES / LINES: None. BOWEL GAS PATTERN: No significant abnormality. FREE AIR / EXTRALUMINAL GAS: None seen. ADDITIONAL FINDINGS: Small vessel calcifications which can be seen with diabetes and/or renal failure . CHEST: Visualized chest shows no significant abnormality. IMPRESSION: 1. No acute findings. Signer Name: Mandi Marroquin MD Signed: 01/06/2021 3:47 AM Workstation Name: [id number]
[2021-01-06] MEDS: MORPHINE 2 MG/1 ML INJ IV PRN ×2 (07:25→20:40)
[2021-01-06] MEDS ORDERED: INSULIN REGULAR, HUMAN 100 UNITS/1 ML SUB-Q SCH (07:30)
[2021-01-06] MEDS: ONDANSETRON 4 MG/2 ML INJ IV PRN ×2 (08:00→17:04)
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
--- NOTE | 2021-01-06 08:25 | Progress Note ---
Assessment and Plan - Patient Problems (1) Upper GI bleeding Current Visit: Yes Status: Acute Plan to address problem: Resolved Had upper endoscopy Findings FINDINGS: * The entire examined duodenum was normal * Moderate gastritis in the gastric fundus consistent with prior retching * Z-line irregular at 40 cm from incisors * Small amount of bile in the stomach * Remainder of exam unremarkable * * Continues to vomit (2) End-stage renal disease needing dialysis Current Visit: Yes Status: Chronic Plan to address problem: Hemodialysis per schedule Nephrology consult appreciated (3) Diabetic gastroparesis associated with type 1 diabetes mellitus Current Visit: Yes Status: Chronic Plan to address problem: Patient on IV Reglan and IV Zofran Continues to be vomiting (4) Hypertension Current Visit: No Status: Acute Qualifiers: Hypertension type: essential hypertension Qualified Code(s): I10 - Essential (primary) hypertension (5) DVT prophylaxis Current Visit: Yes Status: Acute Plan to address problem: On heparin and GI prophylaxis Subjective Date of service: 01/06/21 Principal diagnosis: Upper GI bleed, end-stage renal disease Interval history: 35-year-old -Swedish male with known history of diabetes mellitus, diabetic gastroparesis, end-stage renal disease on dialysis on Tuesdays, and Saturdays presents to the emergency room complaining of nausea and vomiting generalized malaise and fatigue over the past 24 hours. He has had associated diffuse abdominal pain and has been having coffee-ground emesis. No no relieving or exacerbating factor for his nausea, vomiting and abdominal pain. Patient denies any fever or chills, no chest pain or shortness of breath, no headache or dizziness, no diarrhea. He denies any sick contacts and no recent travel. Denies any contact with anyone with COVID-19. Patient has been fully vaccinated against COVID-19 about 5 months ago. He missed his dialysis yesterday because of the nausea and vomiting. 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 01/06/2021 GI consult appreciated Continues to be vomiting Objective - Constitutional Vitals: Vital Signs - 12hr 01/06/21 01/06/21 01/06/21 02:26 02:30 02:46 Pulse Rate 114 H 113 H 134 H Respiratory 26 H 24 20 Rate Blood Pressure 228/141 228/141 O2 Sat by Pulse 99 100 100 Oximetry 01/06/21 01/06/21 01/06/21 03:00 03:16 03:30 Pulse Rate 116 H 108 H 105 H Respiratory 27 H 13 14 Rate Blood Pressure 196/92 196/92 117/56 O2 Sat by Pulse 87 93 95 Oximetry 01/06/21 01/06/21 01/06/21 03:46 04:00 04:16 Pulse Rate 105 H 107 H 109 H Respiratory 13 18 23 Rate Blood Pressure 117/56 228/141 118/55 O2 Sat by Pulse 96 93 95 Oximetry 01/06/21 01/06/21 01/06/21 04:31 04:45 05:50 Pulse Rate 107 H 104 H Respiratory 9 L 17 Rate Blood Pressure 115/58 115/58 O2 Sat by Pulse 95 93 98 Oximetry General appearance: Present: no acute distress, well-nourished - EENT Eyes: PERRL, EOM intact ENT: hearing intact, clear oral mucosa Ears: bilateral: normal - Neck Neck: supple, normal ROM - Respiratory Respiratory effort: normal Respiratory: bilateral: CTA - Breasts Breasts: normal - Cardiovascular Heart rate: 78 Rhythm: regular Heart Sounds: Present: S1 & S2. Absent: gallop, rub Extremities: pulses intact, No edema, normal color, Full ROM - Gastrointestinal General gastrointestinal: Present: soft, non-tender, non-distended, normal bowel sounds - Genitourinary Male genitourinary: normal - Integumentary Integumentary: clear, warm, dry - Musculoskeletal Musculoskeletal: 1, strength equal bilaterally - Neurologic Neurologic: moves all extremities - Psychiatric Psychiatric: memory intact, appropriate mood/affect, intact judgment & insight - Labs CBC & Chem 7: 01/07/21 04:59 01/07/21 04:59 Labs: Abnormal lab results 01/05/21 01/05/21 01/05/21 Range/Units 13:21 13:21 13:21 RDW 15.4 H (13.2-15.2) % Lymph % (Auto) 11.6 L (13.4-35.0) % [place] % (Auto) 9.5 H (0.0-7.3) % Lymph # (Auto) 0.8 L (1.2-5.4) K/mm3 Seg Neutrophils % 75.0 H (40.0-70.0) % Chloride 93.0 L (98-107) mmol/L BUN 55 H (9-20) mg/dL Creatinine 16.4 H (0.8-1.3) mg/dL Glucose 201 H (75-100) mg/dL POC Glucose (70-105) mg/dL Magnesium 1.50 L (1.7-2.3) mg/dL 01/06/21 01/06/21 Range/Units 03:34 07:43 RDW (13.2-15.2) % Lymph % (Auto) (13.4-35.0) % [place] % (Auto) (0.0-7.3) % Lymph # (Auto) (1.2-5.4) K/mm3 Seg Neutrophils % (40.0-70.0) % Chloride (98-107) mmol/L BUN (9-20) mg/dL Creatinine (0.8-1.3) mg/dL Glucose (75-100) mg/dL POC Glucose 448 H 420 H (70-105) mg/dL Magnesium (1.7-2.3) mg/dL
[2021-01-06] MEDS: PANTOPRAZOLE 40 MG INJ IV SCH ×2 (10:43→22:08)
[2021-01-06] MEDS: INSULIN NPH/REGULAR 70/30 INJ SUB-Q SCH ×2 (10:43→17:01)
[2021-01-06] MEDS: levETIRAcetam 250 MG in DEXTROSE 5% IN WATER (50 ML) 50 ML IV SCH ×2 (11:17→22:09)
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
[2021-01-06] MEDS: INSULIN LISPRO 100 UNIT/ML SUB-Q SCH ×2 (17:00→18:05)
[2021-01-07] MEDS: MORPHINE 2 MG/1 ML INJ IV PRN ×4 (01:24→22:19)
[2021-01-07] MEDS: INSULIN LISPRO 100 UNIT/ML SUB-Q SCH ×4 (02:41→17:58)
[2021-01-07] MEDS: ONDANSETRON 4 MG/2 ML INJ IV PRN ×4 (03:00→21:43)
[2021-01-07 05:19] LABS: Basophils # (Auto) 0.1 K/mm3 (0.0-0.1); Eosinophils # (Auto) 0.2 K/mm3 (0.0-0.4); Eosinophils % (Auto) 2.3 % (0.0-4.3); Hematocrit 32.8 % (35.5-45.6); Hemoglobin 10.8 gm/dl (11.8-15.2); Lymphocytes # (Auto) 1.5 K/mm3 (1.2-5.4); Lymphocytes % (Auto) 15.5 % (13.4-35.0); Mean Corpuscular HGB Conc 33 % (32-34); Mean Corpuscular Volume 92 fl (84-94); Monocytes % (Auto) 10.8 % (0.0-7.3); Platelet Count 285 K/mm3 (140-440); Red Blood Count 3.56 M/mm3 (3.65-5.03); Red Cell Distribution Width 15.7 % (13.2-15.2)
[2021-01-07 05:28] LABS: INR 1.13 (0.87-1.13)
[2021-01-07 05:33] LABS: Calcium 10.6 mg/dL (8.4-10.2)
[2021-01-07] MEDS ORDERED: SODIUM CHLORIDE 0.9% 100 ML IV PRN (07:30)
--- NOTE | 2021-01-07 08:11 | Gastroenterology Progress Note ---
Assessment and Plan Continue supportive care Given patient's significant continued pain I am discussing with the endoscopy suite to see if patient can undergo EGD today versus tomorrow for further evaluation Recommend decrease cannabis use Differential diagnosis includes infectious etiology such as gastroenteritis, remainder of differential diagnosis includes gastroparesis flare due to hyperglycemia, marijuana related cyclic vomiting syndrome, etc. - Patient Problems (1) Diabetic gastroparesis associated with type 1 diabetes mellitus Current Visit: Yes Status: Chronic (2) Hyperglycemia Current Visit: Yes Status: Acute (3) Intractable nausea and vomiting Current Visit: Yes Status: Chronic (4) Abdominal pain, epigastric Current Visit: No Status: Acute Subjective Date of service: 01/07/21 Principal diagnosis: Upper GI bleed, end-stage renal disease Interval history: Patient reports abdominal pain still present severe unchanged Objective - Constitutional Vitals: Temp Pulse Resp BP Pulse Ox 97.8 F 99 H 18 178/88 98 01/06/21 22:15 01/07/21 02:32 01/06/21 22:15 01/06/21 22:15 01/07/21 02:34 General appearance: no acute distress - EENT Eyes: EOM intact - Neck Neck: supple - Respiratory Respiratory effort: normal - Gastrointestinal General gastrointestinal: Present: tender - Labs CBC & Chem 7: 01/07/21 04:59 01/07/21 04:59 Labs: Laboratory Results - last 24 hr 01/06/21 01/06/21 01/06/21 10:47 16:56 18:03 WBC RBC Hgb Hct MCV MCH MCHC RDW Plt Count Lymph % (Auto) [place] % (Auto) Eos % (Auto) Baso % (Auto) Lymph # (Auto) [place] # (Auto) Eos # (Auto) Baso # (Auto) Seg Neutrophils % Seg Neutrophils # PT INR Sodium Potassium Chloride Carbon Dioxide Anion Gap BUN Creatinine Estimated GFR BUN/Creatinine Ratio Glucose POC Glucose 350 H 60 L 82 Calcium 01/06/21 01/07/21 01/07/21 23:54 04:59 04:59 WBC 9.5 RBC 3.56 L Hgb 10.8 L Hct 32.8 L D MCV 92 MCH 30 MCHC 33 RDW 15.7 H Plt Count 285 Lymph % (Auto) 15.5 [place] % (Auto) 10.8 H Eos % (Auto) 2.3 Baso % (Auto) 1.0 Lymph # (Auto) 1.5 [place] # (Auto) 1.0 H Eos # (Auto) 0.2 Baso # (Auto) 0.1 Seg Neutrophils % 70.4 H Seg Neutrophils # 6.7 PT 15.0 H INR 1.13 Sodium Potassium Chloride Carbon Dioxide Anion Gap BUN Creatinine Estimated GFR BUN/Creatinine Ratio Glucose POC Glucose 129 H Calcium 01/07/21 01/07/21 04:59 06:43 WBC RBC Hgb Hct MCV MCH MCHC RDW Plt Count Lymph % (Auto) [place] % (Auto) Eos % (Auto) Baso % (Auto) Lymph # (Auto) [place] # (Auto) Eos # (Auto) Baso # (Auto) Seg Neutrophils % Seg Neutrophils # PT INR Sodium 140 Potassium 4.6 Chloride 88.7 L Carbon Dioxide 25 Anion Gap 31 BUN 83 H Creatinine 20.4 H Estimated GFR 3 BUN/Creatinine Ratio 4 Glucose 195 H POC Glucose 222 H Calcium 10.6 H
[2021-01-07] MEDS: PANTOPRAZOLE 40 MG INJ IV SCH ×3 (08:40→21:44)
[2021-01-07] MEDS: INSULIN NPH/REGULAR 70/30 INJ SUB-Q SCH ×2 (08:40→17:57)
[2021-01-07] MEDS ORDERED: WATER FOR IRRIG STERILE 1,000 ML BOTTLE ONE (08:52)
[2021-01-07] MEDS ORDERED: WATER FOR IRRIG STERILE 250 ML BOTTLE IR ONE (08:52)
[2021-01-07] MEDS: levETIRAcetam 250 MG in DEXTROSE 5% IN WATER (50 ML) 50 ML IV SCH ×2 (09:40→21:43)
[2021-01-07] MEDS ORDERED: SODIUM CHLORIDE 0.9% 1000 ML 1,000 ML IV SCH (10:00)
--- NOTE | 2021-01-07 10:56 | Electrocardiograph Report ---
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
[2021-01-07] MEDS: diphenhydrAMINE 25 MG CAP PO PRN ×2 (12:06→14:25)
[2021-01-07] MEDS: EPOETIN ALFA-EPBX 10,000 UNIT/1 ML VIAL IV PRN (12:08)
[2021-01-07 12:38] LABS: Hepatitis B Surface Antigen Non-Reactive (Negative); Hepatitis C Virus Antibody Non-Reactive (NonReactive)
[2021-01-07] MEDS ORDERED: ePHEDrine SULFATE 50 MG/1 ML INJ ONE (12:43)
[2021-01-07] MEDS ORDERED: propofoL 200 MG/20 ML VIAL IV ONE ×2 (12:43→13:20)
[2021-01-07] MEDS ORDERED: fentaNYL 100 MCG/2 ML INJ ONE (13:12)
[2021-01-07] MEDS ORDERED: HYOSCYAMINE SUBL 0.125 MG TAB SL PRN (13:30)
--- NOTE | 2021-01-07 13:34 | Operative Report ---
Operative Report Operative Report: DOS: 01/07/21 SURGEON: Travis Novoa MD EGD REPORT PREOPERATIVE DIAGNOSIS and POSTOPERATIVE DIAGNOSIS: Abdominal pain ESTIMATED BLOOD LOSS: None DESCRIPTION OF PROCEDURE: A high-resolution EGD scope was passed through the oropharynx, esophagus, stomach, and second portion of duodenum. The scope was carefully withdrawn. Retroflexion was performed in the stomach. At the end of the procedure, the scope was cleaned using normal technique. Vital signs monitored continuously throughout. SEDATION: Provided by Anesthesiology Services. COMPLICATIONS: None. FINDINGS: * The entire examined duodenum was normal * Moderate gastritis in the gastric fundus consistent with prior retching * Z-line irregular at 40 cm from incisors * Small amount of bile in the stomach * Remainder of exam unremarkable RECOMMENDATIONS: No source of patient's symptoms on EGD We will start patient on Levsin now We will continue to follow with you
--- NOTE | 2021-01-07 15:40 | Anesthesia Consultation ---
Anesthesia Consult and Med Hx Date of service: 01/07/21 - Pre-Operative Health Status ASA Pre-Surgery Classification: ASA3 Proposed Anesthetic Plan: MAC - Pulmonary Hx Smoking: Yes (THC) Hx Respiratory Symptoms: No - Cardiovascular System Hx Hypertension: Yes Hx Heart Attack/AMI: No - Central Nervous System Hx Seizures: Yes CVA: No - Gastrointestinal Hx Ulcer: Yes - Endocrine Hx End Stage Renal Disease: Yes (last HD this morning) Hx Liver Disease: No Hx Non-Insulin Dependent Diabetes: Yes Hx Thyroid Disease: No - Hematic Hx Anemia: Yes - Other Systems Hx Substance Use: Yes (THC) Hx Obesity: No - Additional Comments Anesthesia Medical History Comments: Lat eentry; evaluated immediately prior to procedure.
--- NOTE | 2021-01-07 15:40 | Post Anesthesia Evaluation ---
- Post Anesthesia Evaluation Patient Participated: Yes Airway Patent: Yes Stable Respiratory Function: Yes Nausea/Vomiting: No Temp > 96.8F: Yes Pain Manageable: Yes Adequeate Hydration: Yes Anesthesia Complications: No
--- NOTE | 2021-01-07 15:40 | Anesthesia Day of Surgery ---
Anesthesia Day of Surgery - Day of Surgery Patient Examined: Yes Patient H&P Reviewed: Yes Patient is NPO: Yes
--- NOTE | 2021-01-07 19:17 | Progress Note ---
Assessment and Plan - Patient Problems (1) Diabetic gastroparesis associated with type 1 diabetes mellitus Current Visit: Yes Status: Chronic Plan to address problem: GI evaluation and recommendations appreciated. Symptom management per primary attending. (2) Intractable nausea and vomiting Current Visit: Yes Status: Chronic Plan to address problem: As a consequence of gasrtoparesis. Management per primary team. Underwent EGD without any acute abnormalities noted. (3) End stage renal disease Current Visit: No Status: Chronic Plan to address problem: Place on inpatient TTS HD schedule. (4) Hypertensive chronic kidney disease with stage 5 chronic kidney disease or end stage renal disease Current Visit: No Status: Chronic Plan to address problem: Monitor blood pressure under current regimen. (5) Type 2 diabetes mellitus with diabetic chronic kidney disease Current Visit: Yes Status: Chronic Plan to address problem: Management per primary attending Subjective Date of service: 01/07/21 Principal diagnosis: Upper GI bleed, end-stage renal disease Interval history: No acute changes. Seen earlier this am. For HD today. Objective - Vital Signs Vital signs: Vital Signs - 12hr 01/07/21 01/07/21 01/07/21 07:54 08:40 09:11 Temperature 98.0 F Pulse Rate 98 H 100 H Respiratory 18 Rate Blood Pressure 199/107 O2 Sat by Pulse 96 94 Oximetry O2 Sat by Pulse Oximetry [ Bilateral Throughout] 01/07/21 01/07/21 01/07/21 09:50 10:00 10:15 Temperature 98.2 F Pulse Rate 86 94 H 93 H Respiratory 18 Rate Blood Pressure 203/106 201/115 203/116 O2 Sat by Pulse Oximetry O2 Sat by Pulse 99 Oximetry [ Bilateral Throughout] 01/07/21 01/07/21 01/07/21 10:30 10:45 11:00 Temperature Pulse Rate 90 92 H 92 H Respiratory Rate Blood Pressure 201/114 206/113 199/113 O2 Sat by Pulse Oximetry O2 Sat by Pulse Oximetry [ Bilateral Throughout] 01/07/21 01/07/21 01/07/21 11:15 11:30 11:45 Temperature Pulse Rate 90 93 H 96 H Respiratory Rate Blood Pressure 181/107 177/104 176/103 O2 Sat by Pulse Oximetry O2 Sat by Pulse Oximetry [ Bilateral Throughout] 01/07/21 01/07/21 01/07/21 12:00 12:15 12:30 Temperature Pulse Rate 103 H 96 H 99 H Respiratory Rate Blood Pressure 130/71 129/70 148/80 O2 Sat by Pulse Oximetry O2 Sat by Pulse Oximetry [ Bilateral Throughout] 01/07/21 01/07/21 01/07/21 12:45 12:58 13:15 Temperature 98.4 F 98.2 F Pulse Rate 90 102 H 90 Respiratory 15 18 Rate Blood Pressure 146/81 157/77 136/72 O2 Sat by Pulse 94 Oximetry O2 Sat by Pulse 100 Oximetry [ Bilateral Throughout] 01/07/21 01/07/21 01/07/21 13:25 13:40 13:55 Temperature 99.0 F Pulse Rate 98 H 102 H 100 H Respiratory 18 16 16 Rate Blood Pressure 131/71 159/77 154/76 O2 Sat by Pulse 100 100 97 Oximetry O2 Sat by Pulse Oximetry [ Bilateral Throughout] 01/07/21 15:29 Temperature 98.3 F Pulse Rate 101 H Respiratory 20 Rate Blood Pressure 193/96 O2 Sat by Pulse 97 Oximetry O2 Sat by Pulse Oximetry [ Bilateral Throughout] - General Appearance General appearance: well-developed, appears stated age EENT: ATNC Neck: no JVD Respiratory: Present: Clear to Ascultation Cardiology: regular, S1S2 Gastrointestinal: normoactive bowel sounds Integumentary: no rash Neurologic: no focal deficit Musculoskeletal: deferred - Lab 01/07/21 04:59 01/07/21 04:59 Most recent lab results Calcium 10.6 mg/dL (8.4-10.2) H 01/07/21 04:59 Phosphorus 3.20 mg/dL (2.5-4.5) 01/05/21 13:21 Magnesium 1.50 mg/dL (1.7-2.3) L 01/05/21 13:21 Medications & Allergies - Medications Allergies/Adverse Reactions: Allergies phenytoin sodium [From Dilantin] Allergy (Verified 11/14/20 07:35) Hives phenytoin sodium extended [From Dilantin] Allergy (Verified 11/14/20 07:35) Hives Home Medications: Home Medications Medication Instructions Recorded Confirmed Last Taken Type Ferric Citrate (Nf) [Auryxia] 2 tab PO TID 11/14/20 01/07/21 12/29/20 09:00 History Gabapentin 300 mg PO QHS 11/14/20 01/07/21 01/04/21 21:00 History Hydralazine HCl 50 mg PO TID 11/14/20 01/07/21 01/04/21 09:00 History Loratadine [Alavert] 10 mg PO QDAY 11/14/20 12/26/20 01/04/21 21:00 History amLODIPine [Norvasc] 10 mg PO DAILY 11/14/20 01/07/21 01/04/21 09:00 History cloNIDine [Catapres] 0.2 mg PO BID 11/14/20 01/07/21 01/04/21 09:00 History HYDROcodone/APAP 5-325 [[place] 1 each PO Q6HR PRN #12 tablet 12/02/20 12/26/20 07/21/20 21:00 Rx 5/325] Active Medications: Generic Name Dose Route Start Last Admin Trade Name Freq PRN Reason Stop Dose Admin Acetaminophen 650 mg 01/06/21 02:49 Acetaminophen 325 Mg Tab PO Q4H PRN Pain MILD(1-3)/Fever >100.5/RODGERS Dextrose 50 ml 01/06/21 02:49 Dextrose 50% In Water (25gm) 50 Ml Syringe IV Q30MIN PRN Hypoglycemia Protocol Diphenhydramine HCl 25 mg 01/07/21 10:00 01/07/21 14:25 Diphenhydramine 25 Mg Cap PO 25 mg Q8H PRN Administration Itching Hyoscyamine 0.125 mg 01/07/21 13:30 01/07/21 18:19 Hyoscyamine Subl 0.125 Mg Tab SL 0.125 mg QID PRN Administration Spasms Levetiracetam 250 mg/ Dextrose 52.5 mls @ 200 mls/hr 01/06/21 10:00 01/07/21 09:40 IV 200 mls/hr Q12HR CODY Administration Sodium Chloride 100 mls @ 999 mls/hr 01/07/21 07:30 Nacl 0.9% IV KATE PRN Hypotension Sodium Chloride 1,000 mls @ 50 mls/hr 01/07/21 10:00 Nacl 0.9% 1000 Ml IV DIRECT CODY Insulin Human Isoph/Insulin Regular 20 unit 01/06/21 09:00 01/07/21 17:57 Insulin Nph/Regular 70/30 Inj SUB-Q 20 unit BIDDIAB CODY Administration Insulin Human Lispro 0 unit 01/06/21 12:00 01/07/21 17:58 Insulin Lispro 100 Unit/Ml SUB-Q Not Given Q6HR [facility] Protocol Morphine Sulfate 2 mg 01/06/21 02:49 01/07/21 14:25 Morphine 2 Mg/1 Ml Inj IV 2 mg Q4H PRN Administration Pain, Moderate (4-6) Morphine Sulfate 4 mg 01/06/21 02:49 01/06/21 16:53 Morphine 4 Mg/1 Ml Inj IV 4 mg Q4H PRN Administration Pain , Severe (7-10) Ondansetron HCl 4 mg 01/07/21 02:43 01/07/21 18:18 Ondansetron 4 Mg/2 Ml Inj IV 4 mg Q6H PRN Administration Nausea And Vomiting Pantoprazole Sodium 40 mg 01/06/21 10:00 01/07/21 09:39 Pantoprazole 40 Mg Inj IV Not Given BID CODY Sodium Chloride 10 ml 01/06/21 10:00 01/07/21 09:37 Sodium Chloride 0.9% 10 Ml Flush Syringe IV 10 ml BID CODY Administration Sodium Chloride 10 ml 01/06/21 02:49 Sodium Chloride 0.9% 10 Ml Flush Syringe IV PRN PRN LINE FLUSH
[2021-01-07] MEDS: amLODIPine 10 MG TAB PO SCH (21:45)
[2021-01-07] MEDS ORDERED: cloNIDine 0.2 MG TAB PO SCH (22:00)
[2021-01-08] MEDS: INSULIN LISPRO 100 UNIT/ML SUB-Q SCH ×7 (00:31→22:30)
[2021-01-08] MEDS ORDERED: hydrALAZINE 20 MG/1 ML INJ IV PRN (01:50)
[2021-01-08] MEDS: ONDANSETRON 4 MG/2 ML INJ IV PRN ×2 (04:48→17:49)
--- NOTE | 2021-01-08 07:39 | Progress Note ---
Assessment and Plan - Patient Problems (1) Upper GI bleeding Current Visit: Yes Status: Acute Plan to address problem: Resolved Had upper endoscopy Findings FINDINGS: * The entire examined duodenum was normal * Moderate gastritis in the gastric fundus consistent with prior retching * Z-line irregular at 40 cm from incisors * Small amount of bile in the stomach * Remainder of exam unremarkable * * Continues to vomit (2) End-stage renal disease needing dialysis Current Visit: Yes Status: Chronic Plan to address problem: Hemodialysis per schedule Nephrology consult appreciated (3) Diabetic gastroparesis associated with type 1 diabetes mellitus Current Visit: Yes Status: Chronic Plan to address problem: Patient on IV Reglan and IV Zofran Continues to be vomiting (4) Hypertension Current Visit: Yes Status: Chronic Qualifiers: Hypertension type: primary hypertension Qualified Code(s): I10 - Essential (primary) hypertension Plan to address problem: Cont antihypertensive (5) Peripheral neuropathy Current Visit: Yes Status: Chronic Qualifiers: Peripheral neuropathy type: polyneuropathy, unspecified Qualified Code(s): G62.9 - Polyneuropathy, unspecified Plan to address problem: On gabapentin (6) DVT prophylaxis Current Visit: Yes Status: Acute Plan to address problem: On heparin and GI prophylaxis Subjective Date of service: 01/07/21 Principal diagnosis: Upper GI bleed, end-stage renal disease Interval history: 35-year-old -[place] male with known history of diabetes mellitus, diabetic gastroparesis, end-stage renal disease on dialysis on Tuesdays, and Saturdays presents to the emergency room complaining of nausea and vomiting generalized malaise and fatigue over the past 24 hours. He has had associated diffuse abdominal pain and has been having coffee-ground emesis. No no relieving or exacerbating factor for his nausea, vomiting and abdominal pain. Patient denies any fever or chills, no chest pain or shortness of breath, no headache or dizziness, no diarrhea. He denies any sick contacts and no recent travel. Denies any contact with anyone with COVID-19. Patient has been fully vaccinated against COVID-19 about 5 months ago. He missed his dialysis yesterday because of the nausea and vomiting. [employer] on-call and director meetings have been consulted by the ER physician for dialysis and also for his GI bleed. 01/06/2021 GI consult appreciated 01/07/2021 Patient continues to remain vomiting persistently Not able to discharge Objective - Constitutional Vitals: Vital Signs - 12hr 01/07/21 01/07/21 01/07/21 19:52 20:00 21:45 Temperature 98.7 F Pulse Rate 102 H 102 H Respiratory 20 Rate Blood Pressure 232/109 224/115 O2 Sat by Pulse 91 95 Oximetry 01/07/21 01/08/21 01/08/21 23:41 01:00 02:08 Temperature 98.6 F Pulse Rate 92 H 86 92 H Respiratory 20 Rate Blood Pressure 198/101 198/101 O2 Sat by Pulse 95 Oximetry 01/08/21 04:40 Temperature 98.4 F Pulse Rate 101 H Respiratory 20 Rate Blood Pressure 172/90 O2 Sat by Pulse 96 Oximetry General appearance: Present: mild distress, well-nourished - EENT Eyes: PERRL, EOM intact ENT: hearing intact, clear oral mucosa Ears: bilateral: normal - Neck Neck: supple, normal ROM - Respiratory Respiratory effort: normal Respiratory: bilateral: CTA - Breasts Breasts: normal - Cardiovascular Heart rate: 78 Rhythm: regular Heart Sounds: Present: S1 & S2. Absent: gallop, rub Extremities: no ischemia, pulses intact, No edema, normal color, Full ROM - Gastrointestinal General gastrointestinal: Present: soft, non-tender, non-distended, normal bowel sounds - Genitourinary Male genitourinary: normal - Integumentary Integumentary: clear, warm, dry - Musculoskeletal Musculoskeletal: 1, strength equal bilaterally - Neurologic Neurologic: moves all extremities - Psychiatric Psychiatric: memory intact, appropriate mood/affect, intact judgment & insight - Allied health notes Allied health notes reviewed: nursing, case management - Labs CBC & Chem 7: 01/07/21 04:59 01/07/21 04:59 Labs: Abnormal lab results 01/07/21 01/07/21 01/08/21 Range/Units 15:27 21:14 07:35 POC Glucose 252 H 197 H 134 H (70-105) mg/dL
--- NOTE | 2021-01-08 08:34 | Gastroenterology Progress Note ---
Assessment and Plan Continue supportive care Abdominal pain improving Recommend tighter control of patient's labile blood pressure as this may be contributing to his abdominal pain Otherwise, his pain is improving EGD essentially negative therefore GI will sign off please call us back we could be of any further assistance - Patient Problems (1) Diabetic gastroparesis associated with type 1 diabetes mellitus Current Visit: Yes Status: Chronic (2) Hyperglycemia Current Visit: Yes Status: Acute (3) Intractable nausea and vomiting Current Visit: Yes Status: Chronic (4) Abdominal pain, epigastric Current Visit: No Status: Acute Subjective Date of service: 01/08/21 Principal diagnosis: Upper GI bleed, end-stage renal disease Interval history: Patient reports abdominal pain beginning to improve Upper abdomen mild to moderate decreasing in severity Objective - Constitutional Vitals: Temp Pulse Resp BP Pulse Ox 98.4 F 94 H 18 170/91 94 01/08/21 07:33 01/08/21 07:33 01/08/21 07:33 01/08/21 07:33 01/08/21 07:33 General appearance: no acute distress - EENT ENT: hearing intact - Neck Neck: supple - Respiratory Respiratory effort: normal - Gastrointestinal General gastrointestinal: Present: soft, normal bowel sounds, other (Mild tenderness to palpation upper abdomen) - Labs CBC & Chem 7: 01/07/21 04:59 01/07/21 04:59 Labs: Laboratory Results - last 24 hr 01/07/21 01/07/21 01/07/21 08:53 15:27 21:14 POC Glucose 252 H 197 H Hepatitis A IgM Ab Non-reactive Hep Bs Antigen Non-reactive Hep B Core IgM Ab Non-reactive Hepatitis C Antibody Non-reactive 01/08/21 07:35 POC Glucose 134 H Hepatitis A IgM Ab Hep Bs Antigen Hep B Core IgM Ab Hepatitis C Antibody
[2021-01-08] MEDS: PANTOPRAZOLE 40 MG INJ IV SCH ×3 (08:42→21:20)
[2021-01-08] MEDS: MORPHINE 2 MG/1 ML INJ IV PRN ×3 (08:42→17:49)
[2021-01-08] MEDS: INSULIN NPH/REGULAR 70/30 INJ SUB-Q SCH ×2 (08:44→17:50)
--- NOTE | 2021-01-08 09:23 | Progress Note ---
Assessment and Plan - Patient Problems (1) Diabetic gastroparesis associated with type 1 diabetes mellitus Current Visit: Yes Status: Chronic Plan to address problem: GI evaluation and recommendations appreciated. Symptom management per primary attending. (2) Intractable nausea and vomiting Current Visit: Yes Status: Chronic Plan to address problem: As a consequence of gasrtoparesis. Management per primary team. Underwent EGD without any acute abnormalities noted. (3) End stage renal disease Current Visit: No Status: Chronic Plan to address problem: Place on inpatient TTS HD schedule. From renal standpoint, if symptoms continue to improve and he is able to tolerate oral diet, then he can be DC home and will follow up with him in the outpatient dialysis clinic. (4) Hypertensive chronic kidney disease with stage 5 chronic kidney disease or end stage renal disease Current Visit: No Status: Chronic Plan to address problem: Monitor blood pressure under current regimen. Added hydralazine 25 mg TID. (5) Type 2 diabetes mellitus with diabetic chronic kidney disease Current Visit: Yes Status: Chronic Plan to address problem: Management per primary attending Subjective Date of service: 01/08/21 Principal diagnosis: Upper GI bleed, end-stage renal disease Interval history: Patient feeling better, mild nausea this am. Will try to eat breakfast this am. Had HD yesterday without any issues. Objective - Vital Signs Vital signs: Vital Signs - 12hr 01/07/21 01/07/21 01/08/21 21:45 23:41 01:00 Temperature 98.6 F Pulse Rate 102 H 92 H 86 Respiratory 20 Rate Blood Pressure 224/115 198/101 O2 Sat by Pulse 95 Oximetry 01/08/21 01/08/21 01/08/21 02:08 04:40 07:33 Temperature 98.4 F 98.4 F Pulse Rate 92 H 101 H 94 H Respiratory 20 18 Rate Blood Pressure 198/101 172/90 170/91 O2 Sat by Pulse 96 94 Oximetry - General Appearance General appearance: well-developed, appears stated age EENT: ATNC Neck: no JVD Respiratory: Present: Clear to Ascultation, Normal Exam Cardiology: regular, normal heart rate Gastrointestinal: normal Integumentary: no rash Neurologic: no focal deficit, alert and oriented x3 Musculoskeletal: deferred Psychiatric: cooperative - Lab 01/07/21 04:59 01/07/21 04:59 Most recent lab results Calcium 10.6 mg/dL (8.4-10.2) H 01/07/21 04:59 Phosphorus 3.20 mg/dL (2.5-4.5) 01/05/21 13:21 Magnesium 1.50 mg/dL (1.7-2.3) L 01/05/21 13:21 - Allied health notes Allied health notes reviewed: nursing Medications & Allergies - Medications Allergies/Adverse Reactions: Allergies phenytoin sodium [From Dilantin] Allergy (Verified 11/14/20 07:35) Hives phenytoin sodium extended [From Dilantin] Allergy (Verified 11/14/20 07:35) Hives Home Medications: Home Medications Medication Instructions Recorded Confirmed Last Taken Type Ferric Citrate (Nf) [Auryxia] 2 tab PO TID 11/14/20 01/07/21 12/29/20 09:00 History Gabapentin 300 mg PO QHS 11/14/20 01/07/21 01/04/21 21:00 History Hydralazine HCl 50 mg PO TID 11/14/20 01/07/21 01/04/21 09:00 History Loratadine [Alavert] 10 mg PO QDAY 11/14/20 12/26/20 08 21:00 History amLODIPine [Norvasc] 10 mg PO DAILY 11/14/20 01/07/21 01/04/21 09:00 History cloNIDine [Catapres] 0.2 mg PO BID 11/14/20 01/07/21 01/04/21 09:00 History HYDROcodone/APAP 5-325 [[place] 1 each PO Q6HR PRN #12 tablet 12/02/20 12/26/20 07/21/20 21:00 Rx 5/325] Active Medications: Generic Name Dose Route Start Last Admin Trade Name Freq PRN Reason Stop Dose Admin Acetaminophen 650 mg 01/06/21 02:49 Acetaminophen 325 Mg Tab PO Q4H PRN Pain MILD(1-3)/Fever >100.5/RODGERS Amlodipine Besylate 10 mg 01/07/21 21:00 01/07/21 21:45 Amlodipine 10 Mg Tab PO 10 mg QDAY CODY Administration Clonidine HCl 0.2 mg 01/07/21 22:00 01/07/21 21:45 Clonidine 0.2 Mg Tab PO 0.2 mg Q12HR CODY Administration Dextrose 50 ml 01/06/21 02:49 Dextrose 50% In Water (25gm) 50 Ml Syringe IV Q30MIN PRN Hypoglycemia Protocol Diphenhydramine HCl 25 mg 01/07/21 10:00 01/07/21 14:25 Diphenhydramine 25 Mg Cap PO 25 mg Q8H PRN Administration Itching Hydralazine HCl 10 mg 01/08/21 01:50 01/08/21 02:08 Hydralazine 20 Mg/1 Ml Inj IV 10 mg Q4H PRN Administration hypertention Hydralazine HCl 25 mg 01/08/21 14:00 Hydralazine 25 Mg Tab PO Q8HR CODY Hyoscyamine 0.125 mg 01/07/21 13:30 01/07/21 18:19 Hyoscyamine Subl 0.125 Mg Tab SL 0.125 mg QID PRN Administration Spasms Levetiracetam 250 mg/ Dextrose 52.5 mls @ 200 mls/hr 01/06/21 10:00 01/07/21 21:43 IV 200 mls/hr Q12HR CODY Administration Sodium Chloride 100 mls @ 999 mls/hr 01/07/21 07:30 Nacl 0.9% IV KATE PRN Hypotension Sodium Chloride 1,000 mls @ 50 mls/hr 01/07/21 10:00 Nacl 0.9% 1000 Ml IV DIRECT [facility] Insulin Human Isoph/Insulin Regular 20 unit 01/06/21 09:00 01/08/21 08:44 Insulin Nph/Regular 70/30 Inj SUB-Q Not Given BIDDIAB [facility] Insulin Human Lispro 0 unit 01/06/21 12:00 01/08/21 07:23 Insulin Lispro 100 Unit/Ml SUB-Q Not Given Q6HR [facility] Protocol Morphine Sulfate 2 mg 01/06/21 02:49 01/08/21 08:42 Morphine 2 Mg/1 Ml Inj IV 2 mg Q4H PRN Administration Pain, Moderate (4-6) Morphine Sulfate 4 mg 01/06/21 02:49 01/06/21 16:53 Morphine 4 Mg/1 Ml Inj IV 4 mg Q4H PRN Administration Pain , Severe (7-10) Ondansetron HCl 4 mg 01/07/21 02:43 01/08/21 04:48 Ondansetron 4 Mg/2 Ml Inj IV 4 mg Q6H PRN Administration Nausea And Vomiting Pantoprazole Sodium 40 mg 01/06/21 10:00 01/08/21 08:42 Pantoprazole 40 Mg Inj IV 40 mg BID CODY Administration Sodium Chloride 10 ml 01/06/21 10:00 01/07/21 22:52 Sodium Chloride 0.9% 10 Ml Flush Syringe IV 10 ml BID CODY Administration Sodium Chloride 10 ml 01/06/21 02:49 Sodium Chloride 0.9% 10 Ml Flush Syringe IV PRN PRN LINE FLUSH
--- NOTE | 2021-01-08 10:03 | Progress Note ---
Assessment and Plan Assessment and plan: (1) Upper GI bleeding Current Visit: Yes Status: Acute Plan to address problem: Resolved Had upper endoscopy Findings FINDINGS: * The entire examined duodenum was normal * Moderate gastritis in the gastric fundus consistent with prior retching * Z-line irregular at 40 cm from incisors * Small amount of bile in the stomach * Remainder of exam unremarkable * * Continues to vomit (2) End-stage renal disease needing dialysis Current Visit: Yes Status: Chronic Plan to address problem: Hemodialysis per schedule Nephrology consult appreciated (3) Diabetic gastroparesis associated with type 1 diabetes mellitus Current Visit: Yes Status: Chronic Plan to address problem: Patient on IV Reglan and IV Zofran Continues to be vomiting (4) Hypertension Current Visit: Yes Status: Chronic Qualifiers: Hypertension type: primary hypertension Qualified Code(s): I10 - Essential (primary) hypertension Plan to address problem: Cont antihypertensive (5) Peripheral neuropathy Current Visit: Yes Status: Chronic Qualifiers: Peripheral neuropathy type: polyneuropathy, unspecified Qualified Code(s): G62.9 - Polyneuropathy, unspecified Plan to address problem: On gabapentin (6) DVT prophylaxis Current Visit: Yes Status: Acute Plan to address problem: On heparin and GI prophylaxis Subjective Date of service: 01/07/21 Principal diagnosis: Upper GI bleed, end-stage renal disease Interval history: 35-year-old -[place] male with known history of diabetes mellitus, diabetic gastroparesis, end-stage renal disease on dialysis on Tuesdays, and Saturdays presents to the emergency room complaining of nausea and vomiting generalized malaise and fatigue over the past 24 hours. He has had associated diffuse abdominal pain and has been having coffee-ground emesis. No no relieving or exacerbating factor for his nausea, vomiting and abdominal pain. Patient denies any fever or chills, no chest pain or shortness of breath, no headache or dizziness, no diarrhea. He denies any sick contacts and no recent travel. Denies any contact with anyone with COVID-19. Patient has been fully vaccinated against COVID-19 about 5 months ago. He missed his dialysis yesterday because of the nausea and vomiting. 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 01/06/2021 GI consult appreciated 01/07/2021 Patient continues to remain vomiting persistently Not able to discharge 01/08/2021; Patient's blood pressures Medications optimized, hydralazine oral, increase clonidine Patient also continues to have nausea vomiting Management adjusted, monitor 1 more night Possible discharge tomorrow if stable History Interval history: I have seen and examined the patient at the bedside Patient's chart and medications reviewed Patient complains of generalized body pains Continues to have intractable nausea vomiting GI did EGD and cleared for discharge Vital signs noted Hospitalist Physical - Constitutional Vitals: Temp Pulse Resp BP Pulse Ox 98.4 F 94 H 18 170/91 94 01/08/21 07:33 01/08/21 07:33 01/08/21 07:33 01/08/21 07:33 01/08/21 07:33 General appearance: Present: mild distress, well-nourished - EENT Eyes: Present: PERRL, EOM intact - Neck Neck: Present: supple, normal ROM - Respiratory Respiratory effort: normal Respiratory: bilateral: diminished, negative: rales, rhonchi, wheezing - Cardiovascular Rhythm: regular Heart Sounds: Present: S1 & S2 - Extremities Extremities: no ischemia, abnormal (Right fifth toe wound) - Abdominal General gastrointestinal: soft, non-tender, non-distended, normal bowel sounds - Integumentary Integumentary: Present: clear, warm - Psychiatric Psychiatric: appropriate mood/affect, cooperative - Neurologic Neurologic: CNII-XII intact, moves all extremities Results - Labs CBC & Chem 7: 01/07/21 04:59 01/07/21 04:59 Labs: Laboratory Last Values WBC 9.5 K/mm3 (4.5-11.0) 01/07/21 04:59 RBC 3.56 M/mm3 (3.65-5.03) L 01/07/21 04:59 Hgb 10.8 gm/dl (11.8-15.2) L 01/07/21 04:59 Hct 32.8 % (35.5-45.6) L D 01/07/21 04:59 MCV 92 fl (84-94) 01/07/21 04:59 MCH 30 pg (28-32) 01/07/21 04:59 MCHC 33 % (32-34) 01/07/21 04:59 RDW 15.7 % (13.2-15.2) H 01/07/21 04:59 Plt Count 285 K/mm3 (140-440) 01/07/21 04:59 Lymph % (Auto) 15.5 % (13.4-35.0) 01/07/21 04:59 [place] % (Auto) 10.8 % (0.0-7.3) H 01/07/21 04:59 Eos % (Auto) 2.3 % (0.0-4.3) 01/07/21 04:59 Baso % (Auto) 1.0 % (0.0-1.8) 01/07/21 04:59 Lymph # (Auto) 1.5 K/mm3 (1.2-5.4) 01/07/21 04:59 [place] # (Auto) 1.0 K/mm3 (0.0-0.8) H 01/07/21 04:59 Eos # (Auto) 0.2 K/mm3 (0.0-0.4) 01/07/21 04:59 Baso # (Auto) 0.1 K/mm3 (0.0-0.1) 01/07/21 04:59 Seg Neutrophils % 70.4 % (40.0-70.0) H 01/07/21 04:59 Seg Neutrophils # 6.7 K/mm3 (1.8-7.7) 01/07/21 04:59 PT 15.0 Sec. (12.2-14.9) H 01/07/21 04:59 INR 1.13 (0.87-1.13) 01/07/21 04:59 VBG pH 7.320 (7.320-7.420) 01/05/21 13:21 Sodium 140 mmol/L (137-145) 01/07/21 04:59 Potassium 4.6 mmol/L (3.6-5.0) 01/07/21 04:59 Chloride 88.7 mmol/L (98-107) L 01/07/21 04:59 Carbon Dioxide 25 mmol/L (22-30) 01/07/21 04:59 Anion Gap 31 mmol/L 01/07/21 04:59 BUN 83 mg/dL (9-20) H 01/07/21 04:59 Creatinine 20.4 mg/dL (0.8-1.3) H 01/07/21 04:59 Estimated GFR 3 ml/min 01/07/21 04:59 BUN/Creatinine Ratio 4 % 01/07/21 04:59 Glucose 195 mg/dL (75-100) H 01/07/21 04:59 POC Glucose 134 mg/dL (70-105) H 01/08/21 07:35 Calcium 10.6 mg/dL (8.4-10.2) H 01/07/21 04:59 Phosphorus 3.20 mg/dL (2.5-4.5) 01/05/21 13:21 Magnesium 1.50 mg/dL (1.7-2.3) L 01/05/21 13:21 Total Bilirubin 0.30 mg/dL (0.1-1.2) 01/05/21 13:21 AST 13 units/L (5-40) 01/05/21 13:21 ALT 20 units/L (7-56) 01/05/21 13:21 Alkaline Phosphatase 70 units/L (35-129) 01/05/21 13:21 Total Protein 7.6 g/dL (6.3-8.2) 01/05/21 13:21 Albumin 4.3 g/dL (3.9-5) 01/05/21 13:21 Albumin/Globulin Ratio 1.3 % 01/05/21 13:21 Lipase 21 units/L (13-60) 01/05/21 13:21 Hepatitis A IgM Ab Non-reactive (NonReactive) 01/07/21 08:53 Hep Bs Antigen Non-reactive (Negative) 01/07/21 08:53 Hep B Core IgM Ab Non-reactive (NonReactive) 01/07/21 08:53 Hepatitis C Antibody Non-reactive (NonReactive) 01/07/21 08:53 Wells/IV: Voiding Method Toilet Active Medications - Current Medications Current Medications: Generic Name Dose Route Start Last Admin Trade Name Freq PRN Reason Stop Dose Admin Acetaminophen 650 mg 01/06/21 02:49 Acetaminophen 325 Mg Tab PO Q4H PRN Pain MILD(1-3)/Fever >100.5/[place]OD[place] Amlodipine Besylate 10 mg 01/07/21 21:00 01/07/21 21:45 Amlodipine 10 Mg Tab PO 10 mg QDAY C[facility] Administration Clonidine HCl 0.2 mg 01/07/21 22:00 01/07/21 21:45 Clonidine 0.2 Mg Tab PO 0.2 mg Q12HR C[facility] Administration Dextrose 50 ml 01/06/21 02:49 Dextrose 50% In Water (25gm) 50 Ml Syringe IV Q30MIN PRN Hypoglycemia Protocol Diphenhydramine HCl 25 mg 01/07/21 10:00 01/07/21 14:25 Diphenhydramine 25 Mg Cap PO 25 mg Q8H PRN Administration Itching Hydralazine HCl 10 mg 01/08/21 01:50 01/08/21 02:08 Hydralazine 20 Mg/1 Ml Inj IV 10 mg Q4H PRN Administration hypertention Hydralazine HCl 25 mg 01/08/21 14:00 Hydralazine 25 Mg Tab PO Q8HR CODY Hyoscyamine 0.125 mg 01/07/21 13:30 01/07/21 18:19 Hyoscyamine Subl 0.125 Mg Tab SL 0.125 mg QID PRN Administration Spasms Levetiracetam 250 mg/ Dextrose 52.5 mls @ 200 mls/hr 01/06/21 10:00 01/07/21 21:43 IV 200 mls/hr Q12HR CODY Administration Sodium Chloride 100 mls @ 999 mls/hr 01/07/21 07:30 Nacl 0.9% IV KATE PRN Hypotension Sodium Chloride 1,000 mls @ 50 mls/hr 01/07/21 10:00 Nacl 0.9% 1000 Ml IV DIRECT [facility] Insulin Human Isoph/Insulin Regular 20 unit 01/06/21 09:00 01/08/21 08:44 Insulin Nph/Regular 70/30 Inj SUB-Q Not Given BIDDIAB [facility] Insulin Human Lispro 0 unit 01/06/21 12:00 01/08/21 07:23 Insulin Lispro 100 Unit/Ml SUB-Q Not Given Q6HR [facility] Protocol Morphine Sulfate 2 mg 01/06/21 02:49 01/08/21 08:42 Morphine 2 Mg/1 Ml Inj IV 2 mg Q4H PRN Administration Pain, Moderate (4-6) Morphine Sulfate 4 mg 01/06/21 02:49 01/06/21 16:53 Morphine 4 Mg/1 Ml Inj IV 4 mg Q4H PRN Administration Pain , Severe (7-10) Ondansetron HCl 4 mg 01/07/21 02:43 01/08/21 04:48 Ondansetron 4 Mg/2 Ml Inj IV 4 mg Q6H PRN Administration Nausea And Vomiting Pantoprazole Sodium 40 mg 01/06/21 10:00 01/08/21 08:42 Pantoprazole 40 Mg Inj IV 40 mg BID CODY Administration Sodium Chloride 10 ml 01/06/21 10:00 01/07/21 22:52 Sodium Chloride 0.9% 10 Ml Flush Syringe IV 10 ml BID CODY Administration Sodium Chloride 10 ml 01/06/21 02:49 Sodium Chloride 0.9% 10 Ml Flush Syringe IV PRN PRN LINE FLUSH Nutrition/Malnutrition Assess - Dietary Evaluation Nutrition/Malnutrition Findings: Nutrition Notes Start: 01/06/21 17:09 Freq: Status: Active Protocol: Document 01/06/21 17:09 AMANDA (Rec: 01/06/21 17:10 AMANDA [id number]) Nutrition Notes Need for Assessment generated from: MD Order,Education Initial or Follow up Brief Note Subjective/Other Information RD consulted for diet education. Pt in ED at this time. Nutrition Intervention Follow-Up By: 01/12/21 Additional Comments F/U: diet education needs
[2021-01-08] MEDS: hydrALAZINE 25 MG TAB PO SCH ×2 (13:03→21:20)
[2021-01-08] MEDS: cloNIDine 0.2 MG TAB PO SCH ×2 (13:04→21:19)
[2021-01-08] MEDS: amLODIPine 10 MG TAB PO SCH (13:06)
[2021-01-08] MEDS: levETIRAcetam 250 MG in DEXTROSE 5% IN WATER (50 ML) 50 ML IV SCH ×2 (13:06→21:23)
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
[2021-01-08] MEDS: diphenhydrAMINE 25 MG CAP PO PRN (17:49)
[2021-01-09] MEDS: cloNIDine 0.2 MG TAB PO SCH ×2 (02:41→12:01)
[2021-01-09] MEDS: hydrALAZINE 25 MG TAB PO SCH ×2 (06:05→14:00)
[2021-01-09] MEDS: INSULIN LISPRO 100 UNIT/ML SUB-Q SCH ×3 (08:38→16:20)
[2021-01-09] MEDS: INSULIN NPH/REGULAR 70/30 INJ SUB-Q SCH ×2 (08:39→17:00)
[2021-01-09] MEDS: PANTOPRAZOLE 40 MG INJ IV SCH (09:10)
[2021-01-09] MEDS: levETIRAcetam 250 MG in DEXTROSE 5% IN WATER (50 ML) 50 ML IV SCH (09:10)
--- NOTE | 2021-01-09 11:05 | Progress Note ---
Assessment and Plan - Patient Problems (1) Diabetic gastroparesis Current Visit: No Status: Acute Plan to address problem: GI evaluation and recommendations appreciated. Symptom management per primary attending. (2) Intractable nausea and vomiting Current Visit: Yes Status: Chronic Plan to address problem: As a consequence of gastroparesis. Management per primary team. Underwent EGD without any acute abnormalities noted. (3) Type 1 diabetes mellitus with diabetic chronic kidney disease Current Visit: No Status: Acute Plan to address problem: Management per primary attending (4) End stage renal disease Current Visit: No Status: Chronic Plan to address problem: Place on inpatient TTS HD schedule. From renal standpoint, if symptoms continue to improve and he is able to tolerate oral diet, then he can be DC home and will follow up with him in the [facility] dialysis clinic. (5) Hypertension Current Visit: No Status: Acute Qualifiers: Hypertension type: essential hypertension Qualified Code(s): I10 - Essential (primary) hypertension Plan to address problem: Monitor blood pressure under current regimen. Subjective Date of service: 01/09/21 Principal diagnosis: Upper GI bleed, end-stage renal disease Interval history: Pt awake alert, in no acute distress, tolerating HD well without acute comp laints Objective - Vital Signs Vital signs: Vital Signs - 12hr 01/08/21 01/08/21 01/09/21 23:25 23:42 02:41 Temperature 98.2 F Pulse Rate 88 70 70 Respiratory 18 Rate Blood Pressure Blood Pressure 130/82 [Left] O2 Sat by Pulse 97 Oximetry O2 Sat by Pulse Oximetry [ Bilateral Throughout] 01/09/21 01/09/21 01/09/21 06:05 06:06 07:56 Temperature 98.0 F Pulse Rate 60 60 66 Respiratory 20 18 Rate Blood Pressure 145/78 145/78 141/80 Blood Pressure [Left] O2 Sat by Pulse 97 97 Oximetry O2 Sat by Pulse Oximetry [ Bilateral Throughout] 01/09/21 01/09/21 01/09/21 09:35 09:45 10:00 Temperature 97.7 F Pulse Rate 58 L 58 L 61 Respiratory 16 Rate Blood Pressure 151/86 151/86 152/89 Blood Pressure [Left] O2 Sat by Pulse Oximetry O2 Sat by Pulse 100 Oximetry [ Bilateral Throughout] 01/09/21 10:15 Temperature Pulse Rate 60 Respiratory Rate Blood Pressure 144/86 Blood Pressure [Left] O2 Sat by Pulse Oximetry O2 Sat by Pulse Oximetry [ Bilateral Throughout] - General Appearance General appearance: well-developed, well-nourished, appears stated age EENT: ATNC, PERRL, mucous membranes moist Neck: no JVD Respiratory: Present: Clear to Ascultation Cardiology: regular, S1S2 Gastrointestinal: normoactive bowel sounds Integumentary: no rash Neurologic: no focal deficit, alert and oriented x3, strength 5/5, CN 3-12 intact Psychiatric: mood/affect appropriate, cooperative - Lab 01/07/21 04:59 01/07/21 04:59 Most recent lab results Calcium 10.6 mg/dL (8.4-10.2) H 01/07/21 04:59 Phosphorus 3.20 mg/dL (2.5-4.5) 01/05/21 13:21 Magnesium 1.50 mg/dL (1.7-2.3) L 01/05/21 13:21 Medications & Allergies - Medications Allergies/Adverse Reactions: Allergies phenytoin sodium [From Dilantin] Allergy (Verified 11/14/20 07:35) Hives phenytoin sodium extended [From Dilantin] Allergy (Verified 11/14/20 07:35) Hives Home Medications: Home Medications Medication Instructions Recorded Confirmed Last Taken Type Ferric Citrate (Nf) [Auryxia] 2 tab PO TID 11/14/20 01/07/21 12/29/20 09:00 History Gabapentin 300 mg PO QHS 11/14/20 01/07/21 01/04/21 21:00 History Hydralazine HCl 50 mg PO TID 11/14/20 01/07/21 01/04/21 09:00 History Loratadine [Alavert] 10 mg PO QDAY 11/14/20 01/08/21 01/04/21 21:00 History amLODIPine [Norvasc] 10 mg PO DAILY 11/14/20 01/07/21 01/04/21 09:00 History cloNIDine [Catapres] 0.2 mg PO BID 11/14/20 01/07/21 01/04/21 09:00 History Active Medications: Generic Name Dose Route Start Last Admin Trade Name Freq PRN Reason Stop Dose Admin Acetaminophen 650 mg 01/06/21 02:49 Acetaminophen 325 Mg Tab PO Q4H PRN Pain MILD(1-3)/Fever >100.5/[place] Amlodipine Besylate 10 mg 01/07/21 21:00 01/08/21 13:06 Amlodipine 10 Mg Tab PO 10 mg QDAY [facility] Administration Clonidine HCl 0.2 mg 01/08/21 11:00 01/09/21 02:41 Clonidine 0.2 Mg Tab PO 0.2 mg Q8H C[facility] Administration Dextrose 50 ml 01/06/21 02:49 01/09/21 08:31 Dextrose 50% In Water (25gm) 50 Ml Syringe IV 50 ml Q30MIN PRN Administration Hypoglycemia Protocol Diphenhydramine HCl 25 mg 01/07/21 10:00 01/08/21 17:49 Diphenhydramine 25 Mg Cap PO 25 mg Q8H PRN Administration Itching Hydralazine HCl 10 mg 01/08/21 01:50 01/08/21 02:08 Hydralazine 20 Mg/1 Ml Inj IV 10 mg Q4H PRN Administration hypertention Hydralazine HCl 25 mg 01/08/21 14:00 01/09/21 06:05 Hydralazine 25 Mg Tab PO 25 mg Q8HR [facility] Administration Hyoscyamine 0.125 mg 01/07/21 13:30 01/07/21 18:19 Hyoscyamine Subl 0.125 Mg Tab SL 0.125 mg QID PRN Administration Spasms Levetiracetam 250 mg/ Dextrose 52.5 mls @ 200 mls/hr 01/06/21 10:00 01/09/21 09:10 IV 100 mls/hr Q12HR [facility] Administration Sodium Chloride 100 mls @ 999 mls/hr 01/07/21 07:30 Nacl 0.9% IV KATE PRN Hypotension Sodium Chloride 1,000 mls @ 50 mls/hr 01/07/21 10:00 Nacl 0.9% 1000 Ml IV DIRECT [facility] Insulin Human Isoph/Insulin Regular 20 unit 01/06/21 09:00 01/09/21 08:39 Insulin Nph/Regular 70/30 Inj SUB-Q Not Given BIDDIAB [facility] Insulin Human Lispro 0 unit 01/09/21 07:30 01/09/21 08:38 Insulin Lispro 100 Unit/Ml SUB-Q Not Given [facility] Protocol Morphine Sulfate 2 mg 01/06/21 02:49 01/08/21 17:49 Morphine 2 Mg/1 Ml Inj IV 2 mg Q4H PRN Administration Pain, Moderate (4-6) Morphine Sulfate 4 mg 01/06/21 02:49 01/06/21 16:53 Morphine 4 Mg/1 Ml Inj IV 4 mg Q4H PRN Administration Pain , Severe (7-10) Ondansetron HCl 4 mg 01/07/21 02:43 01/08/21 17:49 Ondansetron 4 Mg/2 Ml Inj IV 4 mg Q6H PRN Administration Nausea And Vomiting Pantoprazole Sodium 40 mg 01/06/21 10:00 01/09/21 09:10 Pantoprazole 40 Mg Inj IV 40 mg BID [facility] Administration Sodium Chloride 10 ml 01/06/21 10:00 01/09/21 09:10 Sodium Chloride 0.9% 10 Ml Flush Syringe IV 10 ml BID [facility] Administration Sodium Chloride 10 ml 01/06/21 02:49 01/09/21 08:32 Sodium Chloride 0.9% 10 Ml Flush Syringe IV 10 ml PRN PRN Administration LINE FLUSH
[2021-01-09] MEDS: EPOETIN ALFA-EPBX 10,000 UNIT/1 ML VIAL IV PRN (11:10)
--- NOTE | 2021-01-09 11:17 | Progress Note ---
Assessment and Plan Assessment and plan: --Hypoglycemia; Current Visit: Yes Status: Acute Patient received D50, with significant improvement Hold long-acting insulin, Accu-Chek sliding scale coverage ADA diet -- Upper GI bleeding Current Visit: Yes Status: Acute Plan to address problem: Resolved Had upper endoscopy FINDINGS: * The entire examined duodenum was normal * Moderate gastritis in the gastric fundus consistent with prior retching * Z-line irregular at 40 cm from incisors * Small amount of bile in the stomach * Remainder of exam unremarkable GI cleared for discharge --End-stage renal disease needing dialysis Current Visit: Yes Status: Chronic Hemodialysis per schedule Nephrology consult appreciated --Diabetic gastroparesis associated with type 1 diabetes mellitus Current Visit: Yes Status: Chronic Patient on IV Reglan and IV Zofran Continues to be vomiting --Hypertension Current Visit: Yes Status: Chronic Cont antihypertensive -- Peripheral neuropathy Current Visit: Yes Status: Chronic On gabapentin --DVT prophylaxis Current Visit: Yes Status: Acute On heparin and GI prophylaxis Subjective Date of service: 01/07/21 Principal diagnosis: Upper GI bleed, end-stage renal disease Interval history: 35-year-old -[place] Citizen male with known history of diabetes mellitus, diabetic gastroparesis, end-stage renal disease on dialysis on Tuesdays, and Saturdays presents to the emergency room complaining of nausea and vomiting generalized malaise and fatigue over the past 24 hours. He has had associated diffuse abdominal pain and has been having coffee-ground emesis. No no relieving or exacerbating factor for his nausea, vomiting and abdominal pain. Patient denies any fever or chills, no chest pain or shortness of breath, no headache or dizziness, no diarrhea. He denies any sick contacts and no recent travel. Denies any contact with anyone with COVID-19. Patient has been fully vaccinated against COVID-19 about 5 months ago. He missed his dialysis yesterday because of the nausea and vomiting. 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 01/06/2021 GI consult appreciated 01/07/2021 Patient continues to remain vomiting persistently Not able to discharge 01/08/2021; Patient's blood pressures Medications optimized, hydralazine oral, increase clonidine Patient also continues to have nausea vomiting Management adjusted, monitor 1 more night Possible discharge tomorrow if stable Hospitalist Physical - Constitutional Vitals: Temp Pulse Resp BP Pulse Ox 97.7 F 60 16 144/86 100 01/09/21 09:35 01/09/21 10:15 01/09/21 09:35 01/09/21 10:15 01/09/21 09:35 General appearance: Present: mild distress, well-nourished Results - Labs CBC & Chem 7: 01/07/21 04:59 01/07/21 04:59 Labs: Laboratory Last Values WBC 9.5 K/mm3 (4.5-11.0) 01/07/21 04:59 RBC 3.56 M/mm3 (3.65-5.03) L 01/07/21 04:59 Hgb 10.8 gm/dl (11.8-15.2) L 01/07/21 04:59 Hct 32.8 % (35.5-45.6) L D 01/07/21 04:59 MCV 92 fl (84-94) 01/07/21 04:59 MCH 30 pg (28-32) 01/07/21 04:59 MCHC 33 % (32-34) 01/07/21 04:59 RDW 15.7 % (13.2-15.2) H 01/07/21 04:59 Plt Count 285 K/mm3 (140-440) 01/07/21 04:59 Lymph % (Auto) 15.5 % (13.4-35.0) 01/07/21 04:59 [place] % (Auto) 10.8 % (0.0-7.3) H 01/07/21 04:59 Eos % (Auto) 2.3 % (0.0-4.3) 01/07/21 04:59 Baso % (Auto) 1.0 % (0.0-1.8) 01/07/21 04:59 Lymph # (Auto) 1.5 K/mm3 (1.2-5.4) 01/07/21 04:59 [place] # (Auto) 1.0 K/mm3 (0.0-0.8) H 01/07/21 04:59 Eos # (Auto) 0.2 K/mm3 (0.0-0.4) 01/07/21 04:59 Baso # (Auto) 0.1 K/mm3 (0.0-0.1) 01/07/21 04:59 Seg Neutrophils % 70.4 % (40.0-70.0) H 01/07/21 04:59 Seg Neutrophils # 6.7 K/mm3 (1.8-7.7) 01/07/21 04:59 PT 15.0 Sec. (12.2-14.9) H 01/07/21 04:59 INR 1.13 (0.87-1.13) 01/07/21 04:59 VBG pH 7.320 (7.320-7.420) 01/05/21 13:21 Sodium 140 mmol/L (137-145) 01/07/21 04:59 Potassium 4.6 mmol/L (3.6-5.0) 01/07/21 04:59 Chloride 88.7 mmol/L (98-107) L 01/07/21 04:59 Carbon Dioxide 25 mmol/L (22-30) 01/07/21 04:59 Anion Gap 31 mmol/L 01/07/21 04:59 BUN 83 mg/dL (9-20) H 01/07/21 04:59 Creatinine 20.4 mg/dL (0.8-1.3) H 01/07/21 04:59 Estimated GFR 3 ml/min 01/07/21 04:59 BUN/Creatinine Ratio 4 % 01/07/21 04:59 Glucose 195 mg/dL (75-100) H 01/07/21 04:59 POC Glucose 144 mg/dL (70-105) H 01/09/21 09:06 Calcium 10.6 mg/dL (8.4-10.2) H 01/07/21 04:59 Phosphorus 3.20 mg/dL (2.5-4.5) 01/05/21 13:21 Magnesium 1.50 mg/dL (1.7-2.3) L 01/05/21 13:21 Total Bilirubin 0.30 mg/dL (0.1-1.2) 01/05/21 13:21 AST 13 units/L (5-40) 01/05/21 13:21 ALT 20 units/L (7-56) 01/05/21 13:21 Alkaline Phosphatase 70 units/L (35-129) 01/05/21 13:21 Total Protein 7.6 g/dL (6.3-8.2) 01/05/21 13:21 Albumin 4.3 g/dL (3.9-5) 01/05/21 13:21 Albumin/Globulin Ratio 1.3 % 01/05/21 13:21 Lipase 21 units/L (13-60) 01/05/21 13:21 Nasal Screen MRSA (PCR) Negative (Negative) 01/07/21 Unknown Hepatitis A IgM Ab Non-reactive (NonReactive) 01/07/21 08:53 Hep Bs Antigen Non-reactive (Negative) 01/07/21 08:53 Hep B Core IgM Ab Non-reactive (NonReactive) 01/07/21 08:53 Hepatitis C Antibody Non-reactive (NonReactive) 01/07/21 08:53 Wells/IV: Voiding Method Toilet Active Medications - Current Medications Current Medications: Generic Name Dose Route Start Last Admin Trade Name Freq PRN Reason Stop Dose Admin Acetaminophen 650 mg 01/06/21 02:49 Acetaminophen 325 Mg Tab PO Q4H PRN Pain MILD(1-3)/Fever >100.5/RODGERS Amlodipine Besylate 10 mg 01/07/21 21:00 01/08/21 13:06 Amlodipine 10 Mg Tab PO 10 mg QDAY CODY Administration Clonidine HCl 0.2 mg 01/08/21 11:00 01/09/21 02:41 Clonidine 0.2 Mg Tab PO 0.2 mg Q8H CODY Administration Dextrose 50 ml 01/06/21 02:49 01/09/21 08:31 Dextrose 50% In Water (25gm) 50 Ml Syringe IV 50 ml Q30MIN PRN Administration Hypoglycemia Protocol Diphenhydramine HCl 25 mg 01/07/21 10:00 01/08/21 17:49 Diphenhydramine 25 Mg Cap PO 25 mg Q8H PRN Administration Itching Hydralazine HCl 10 mg 01/08/21 01:50 01/08/21 02:08 Hydralazine 20 Mg/1 Ml Inj IV 10 mg Q4H PRN Administration hypertention Hydralazine HCl 25 mg 01/08/21 14:00 01/09/21 06:05 Hydralazine 25 Mg Tab PO 25 mg Q8HR CODY Administration Hyoscyamine 0.125 mg 01/07/21 13:30 01/07/21 18:19 Hyoscyamine Subl 0.125 Mg Tab SL 0.125 mg QID PRN Administration Spasms Levetiracetam 250 mg/ Dextrose 52.5 mls @ 200 mls/hr 01/06/21 10:00 01/09/21 09:10 IV 100 mls/hr Q12HR CODY Administration Sodium Chloride 100 mls @ 999 mls/hr 01/07/21 07:30 Nacl 0.9% IV KATE PRN Hypotension Sodium Chloride 1,000 mls @ 50 mls/hr 01/07/21 10:00 Nacl 0.9% 1000 Ml IV DIRECT CODY Insulin Human Isoph/Insulin Regular 20 unit 01/06/21 09:00 01/09/21 08:39 Insulin Nph/Regular 70/30 Inj SUB-Q Not Given BIDDIAB CODY Insulin Human Lispro 0 unit 01/09/21 07:30 01/09/21 08:38 Insulin Lispro 100 Unit/Ml SUB-Q Not Given ACHS [facility] Protocol Morphine Sulfate 2 mg 01/06/21 02:49 01/08/21 17:49 Morphine 2 Mg/1 Ml Inj IV 2 mg Q4H PRN Administration Pain, Moderate (4-6) Morphine Sulfate 4 mg 01/06/21 02:49 01/06/21 16:53 Morphine 4 Mg/1 Ml Inj IV 4 mg Q4H PRN Administration Pain , Severe (7-10) Ondansetron HCl 4 mg 01/07/21 02:43 01/08/21 17:49 Ondansetron 4 Mg/2 Ml Inj IV 4 mg Q6H PRN Administration Nausea And Vomiting Pantoprazole Sodium 40 mg 01/06/21 10:00 01/09/21 09:10 Pantoprazole 40 Mg Inj IV 40 mg BID CODY Administration Sodium Chloride 10 ml 01/06/21 10:00 01/09/21 09:10 Sodium Chloride 0.9% 10 Ml Flush Syringe IV 10 ml BID CODY Administration Sodium Chloride 10 ml 01/06/21 02:49 01/09/21 08:32 Sodium Chloride 0.9% 10 Ml Flush Syringe IV 10 ml PRN PRN Administration LINE FLUSH Nutrition/Malnutrition Assess - Dietary Evaluation Nutrition/Malnutrition Findings: Nutrition Notes Start: 01/06/21 17:09 Freq: Status: Active Protocol: Document 01/06/21 17:09 AMANDA (Rec: 01/06/21 17:10 AMANDA [id number]) Nutrition Notes Need for Assessment generated from: MD Order,Education Initial or Follow up Brief Note Subjective/Other Information RD consulted for diet education. Pt in ED at this time. Nutrition Intervention Follow-Up By: 01/12/21 Additional Comments F/U: diet education needs
[2021-01-09] MEDS: amLODIPine 10 MG TAB PO SCH (12:00)
[2021-01-09 14:40] VITALS: BP 156/97
--- NOTE | 2021-01-09 15:30 | Discharge Summary ---
Providers - Providers Date of Admission: 01/06/21 08:14 Date of discharge: 01/09/21 Attending physician: JJ WASHINGTON 01/06/21 01:48 Consult to Physician [CONS] Urgent Comment: Dr. Arzola spoke with Dr. Amezquita @ 0200 Consulting Provider: SKYLER AMEZQUITA Physician Instructions: Reason For Exam: esrd 01/06/21 01:50 Consult to Physician [CONS] Urgent Comment: Dr. Arzola spoke with Dr. Lee @ 0304 Consulting Provider: ISAK STARR Physician Instructions: Reason For Exam: red emesis 01/06/21 02:49 Consult to Dietitian/Nutrition [CONS] Routine Physician Instructions: Reason For Exam: Reason for Consult: Diet education 01/07/21 10:55 Consult to Wound/ET Nurse [CONS] Routine Reason For Exam: wound eval right foot 5th toe 01/08/21 16:10 Consult to Physician [CONS] Urgent Comment: Consulting Provider: SUNNY WOOD Physician Instructions: Reason For Exam: Right 5th toe wound Primary care physician: [employer] Hospitalization Reason for admission: Upper GI bleeding/nausea vomiting Condition: Good Pertinent studies: Chest and abdominal x-ray Procedures: upper endoscopy FINDINGS: * The entire examined duodenum was normal * Moderate gastritis in the gastric fundus consistent with prior retching * Z-line irregular at 40 cm from incisors * Small amount of bile in the stomach * Remainder of exam unremarkable Hospital course: 35-year-old -[place] male with known history of diabetes mellitus, diabetic gastroparesis, end-stage renal disease on dialysis on Tuesdays, and Saturdays presents to the emergency room complaining of nausea and vomiting generalized malaise and fatigue over the past 24 hours. He has had associated diffuse abdominal pain and has been having coffee-ground emesis. No no relieving or exacerbating factor for his nausea, vomiting and abdominal pain. Patient was admitted evaluated by GI underwent upper endoscopy findings of which are as mentioned below Treated with Protonix, follow-up visit upon discharge Patient also missed dialysis with fluid overload, nephrology evaluated, received hemodialysis per schedule Patient's Covid test is negative, patient's blood pressures blood sugars closely monitored medications optimized Patient has right foot fifth toe mild infection, evaluated by general surgeon Dr. Wood's, further evaluation as outpatient Give a course of clindamycin upon discharge Patient has labile blood sugars, in the lower range, advised the patient to hold insulin for a couple of days And resume if the blood sugars are high Patient strongly advised to comply with medications diet follow-up visits Advised not to drive until cleared by PMD or neurologist as he has history of seizure Patient is hemodynamically and clinically stable at discharge. Discharge diagnosis --Hypoglycemia; Advised to hold insulin for 2 3 days Resume when blood sugars are high -- Upper GI bleeding Resolved Had upper endoscopy FINDINGS: * The entire examined duodenum was normal * Moderate gastritis in the gastric fundus consistent with prior retching * Z-line irregular at 40 cm from incisors * Small amount of bile in the stomach * Remainder of exam unremarkable Follow-up GI upon discharge --End-stage renal disease needing dialysis Hemodialysis per schedule --Diabetic gastroparesis associated with type 1 diabetes mellitus Protonix and antiemetics, better control of blood sugars --Hypertension Cont antihypertensive --History of seizure disorder; seizure precautions, do not drive until cleared by neurologist -- Peripheral neuropathy On gabapentin --DVT prophylaxis On heparin during hospital stay Stable at discharge Disposition: IA-01 TO HOME OR SELFCARE Final Discharge Diagnosis (Prints w/discharge instructions): Upper GI bleeding/resolved. End-stage renal disease. Hemodialysis. Hypertension. History of seizures. Peripheral neuropathy Time spent for discharge: 35 min Core Measure Documentation - Palliative Care Palliative Care/ Comfort Measures: Not Applicable - Core Measures Any of the following diagnoses?: none Exam - Constitutional Vitals: Temp Pulse Resp BP Pulse Ox 99.1 F 72 20 156/97 100 01/09/21 14:17 01/09/21 14:17 01/09/21 14:17 01/09/21 14:17 01/09/21 13:40 General appearance: Present: no acute distress, well-nourished - EENT Eyes: Present: PERRL, EOM intact - Neck Neck: Present: supple, normal ROM - Respiratory Respiratory effort: normal Respiratory: bilateral: diminished, negative: rales, rhonchi, wheezing - Cardiovascular Rhythm: regular Heart Sounds: Present: S1 & S2 - Extremities Extremities: no ischemia, No edema, abnormal (Right fifth toe mild infection) - Abdominal General gastrointestinal: Present: soft, non-tender, non-distended, normal bowel sounds - Integumentary Integumentary: Present: clear, warm - Musculoskeletal Musculoskeletal: strength equal bilaterally - Psychiatric Psychiatric: appropriate mood/affect, cooperative - Neurologic Neurologic: moves all extremities Plan Activity: no restrictions Diet: diabetic, renal Additional Instructions: Your blood pressure sugars are in the lower range today. Advised to hold insulin for 2 to 3 days, and resume as before. Follow renal/HD per schedule. Follow surgeon Dr. Wood in 7 days. If you have worsening symptoms contact MD or go to the emergency room as needed Follow up with: PRIMARY CARE, [Primary Care Provider] - 3-5 Days SUNNY WOOD MD [Staff Physician] - 7 Days JASPREET LEE MD [Staff Physician] - 7 Days TYREL RAMOS, [Staff Physician] - 7 Days Prescriptions: diphenhydrAMINE [Benadryl CAP] 25 mg PO Q8H PRN #20 capsule PRN Reason: Itching Clindamycin [Clindamycin CAP] 300 mg PO Q6H #20 capsule levETIRAcetam [Keppra TAB] 250 mg PO BID #60 tablet oxyCODONE /ACETAMINOPHEN [Percocet 5/325] 1 tab PO BID PRN #8 tablet PRN Reason: Pain , Severe (7-10) Pantoprazole [Protonix TAB] 40 mg PO BIDAC #60 tablet
[2021-01-09] MEDS ORDERED: PANTOPRAZOLE 40 MG TAB PO SCH (16:30)
== END 2021-01-09 17:45 | disposition home or self-care (01) | DRG 377 ==
LOC: ED 08:42 → 3A 01-06 02:49 → OBSVTOIN 01-06 08:14 → 4A 01-06 20:08
PROVIDERS: ADMIT Internal Medicine Geriatric Medicine; ATTEND Internal Medicine
PROC: 0DJ08ZZ Inspection of Upper Intestinal Tract, Via Natural or Artificial Opening Endoscopic (ICD-10-PCS; principal; 2021-01-07)
PROC: 5A1D70Z Performance of Urinary Filtration, Intermittent, Less than 6 Hours Per Day (ICD-10-PCS; 2021-01-07)
PROC: 5A1D70Z Performance of Urinary Filtration, Intermittent, Less than 6 Hours Per Day (ICD-10-PCS; 2021-01-09)
DX: K29.71 Gastritis, unspecified, with bleeding (principal); N18.6 End stage renal disease; I12.0 Hypertensive chronic kidney disease with stage 5 chronic kidney disease or end stage renal disease; J45.909 Unspecified asthma, uncomplicated; K31.84 Gastroparesis; L97.518 Non-pressure chronic ulcer of other part of right foot with other specified severity; E83.42 Hypomagnesemia; G40.909 Epilepsy, unspecified, not intractable, without status epilepticus; Z99.2 Dependence on renal dialysis; Z79.899 Other long term (current) drug therapy; E10.621 Type 1 diabetes mellitus with foot ulcer; E10.43 Type 1 diabetes mellitus with diabetic autonomic (poly)neuropathy; E10.42 Type 1 diabetes mellitus with diabetic polyneuropathy; E10.649 Type 1 diabetes mellitus with hypoglycemia without coma; E10.65 Type 1 diabetes mellitus with hyperglycemia; E10.22 Type 1 diabetes mellitus with diabetic chronic kidney disease
CPT/HCPCS: 36415; 74022; 80048; 80053; 80074; 82805; 82947; 82962; 83690; 83735; 84100; 85025; 85610; 87641; 93005; 96365; 96366; 96368; 96372; 96375; G0378; C9113; J0360; J0885; J1170; J1630; J1815; J1953; J2270; J2405; J2597; J2704; J3010; J3475; Q0162

== ENCOUNTER 2021-01-14 06:00 | Observation (INO) | payer MEDICAID ==
[2021-01-14] MEDS ORDERED: DEXTROSE 50% IN WATER (25GM) 50 ML SYRINGE IV ONE (07:13)
[2021-01-14] MEDS ORDERED: DEXTROSE 50% IN WATER (25GM) 50 ML SYRINGE IV PRN (07:13)
[2021-01-14] MEDS ORDERED: DEXTROSE 50% IN WATER (25GM) 50 ML VIAL IV PRN (07:13)
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
--- NOTE | 2021-01-14 07:52 | XRay Report ---
CHEST 1 VIEW INDICATION: weakness hypoglycemia. COMPARISON: 12/26/2020 FINDINGS: Support devices: None. Heart: Within normal limits. Previous sternotomy is noted, correlate with history. Lungs/Pleura: No acute air space or interstitial disease. Additional findings: None. IMPRESSION: No acute findings. No change since 12/26/2020. Signer Name: Irving Hoskins Jr, MD Signed: 01/14/2021 7:48 AM Workstation Name: [id number]
[2021-01-14] MEDS ORDERED: CLINDAMYCIN 300 MG CAP PO SCH (08:00)
[2021-01-14] MEDS ORDERED: levETIRAcetam 500 MG in DEXTROSE 5% IN WATER 100 ML IV ONE (08:00)
[2021-01-14] MEDS ORDERED: oxyCODONE /ACETAMINOPHEN 5-325MG TAB PO STA (08:03)
[2021-01-14] MEDS ORDERED: PANTOPRAZOLE 40 MG TAB PO STA (08:03)
--- NOTE | 2021-01-14 08:31 | XRay Report ---
LEFT TOES 3 VIEWS INDICATION: left little/5th toe wound. COMPARISON: Left foot 11/14/2017 IMPRESSION: There is mild diffuse soft tissue swelling of the fifth toe. There is suggestion of soft tissue ulceration in the dorsal surface. Bony destruction surrounding the PIP joint of the fifth toe is identified however the chronicity of this is uncertain. The bony structures appear well corticate d suggesting this is a chronic finding. This is however new since 2018 exam. If acute osteomyelitis i s a concern, MRI preferably with contrast would be useful. Signer Name: Irving Hoskins Jr, MD Signed: 01/14/2021 8:26 AM Workstation Name: [id number]
[2021-01-14 08:53] LABS: Basophils % (Auto) 0.8 % (0.0-1.8); Eosinophils # (Auto) 0.1 K/mm3 (0.0-0.4); Eosinophils % (Auto) 2.1 % (0.0-4.3); Hematocrit 31.4 % (35.5-45.6); Hemoglobin 10.5 gm/dl (11.8-15.2); Lymphocytes # (Auto) 0.8 K/mm3 (1.2-5.4); Lymphocytes % (Auto) 14.9 % (13.4-35.0); Mean Corpuscular HGB Conc 33 % (32-34); Mean Corpuscular Volume 92 fl (84-94); Monocytes # (Auto) 0.6 K/mm3 (0.0-0.8); Monocytes % (Auto) 11.3 % (0.0-7.3); Platelet Count 212 K/mm3 (140-440); Red Blood Count 3.43 M/mm3 (3.65-5.03); Red Cell Distribution Width 16.9 % (13.2-15.2)
[2021-01-14 09:03] LABS: Calcium 9.6 mg/dL (8.4-10.2)
[2021-01-14] MEDS ORDERED: LEVETIRACETAM 250 MG PO SCH (10:00)
[2021-01-14] MEDS: levETIRAcetam 500 MG TAB PO SCH (10:20)
--- NOTE | 2021-01-14 12:37 | History and Physical Report ---
History of Present Illness Date of examination: 01/14/21 Date of admission: 01/14/21 09:14 Chief complaint: My blood sugar is low History of present illness: Patient was seen and evaluated in the emergency department. Patient did not give me any history. He gets pain medication and he becomes sleepy. He covered his face and is not voluntary to talk to me. He said he come for low blood sugar. He also said he has gastroparesis and pain in his stomach. I went to the room twice but he was not willing to talk. ER documentation was reviewed and is as stated below; Past medical history: End-stage renal disease on hemodialysis, Monday, , Monday, diabetic gastroparesis, seizure disorder. The patient is a 35-year-old gentleman, with the aforementioned past medical history, who I am familiar with, who is also known labile diabetic, having both issues with hyper and hypoglycemia, who presents to the ER today with EMS with an EMS articulated complaint of hypoglycemia. EMS reports that they received a call for generalized weakness. They found the patient to be hypoglycemic with a blood glucose of 39. Patient given D50 in the field, sugar improved, and then subsequently decreased. He is given additional glucose in the field, EMS reports that Accu-Chek improved, and then decreased. The patient himself states that he took his typical dose of insulin yesterday, and 5:00 PM, and shortly thereafter, had [employer] fried chicken for dinner, at approximately 7:00 PM. He states he did not take insulin thereafter, or this morning. He thinks that around 11:00 yesterday, he may have had a seizure, but he is not sure, "because I found myself on the floor." He does not think that he hit his head, at the moment, he denies headache, neck pain, chest pain. He has abdominal cramping, but no nausea. He denies testicular pain and urinary symptoms, and he denies loss of taste and smell. He is due for hemodialysis today. He also has a chronic right fifth toe wound, for which he was seen by surgery, Dr. Wood, during a recent admission, and is currently on clindamycin. At the moment, the patient is eating food in the emergency room, and endorses that he is feeling back to his baseline. I have also evaluated this patient in the past, and I am familiar with this patient. In the emergency department ID and nephrology consulted. Patient will be admitted to medical floor for further evaluation and management. Past History Past Medical History: diabetes, renal failure, seizures Past Surgical History: Other (Could not obtained because patient was not cooperative.) Social history: other (Could not obtained because patient was not cooperative.) Family history: other (Could not obtained because patient was not cooperative.) Medications and Allergies Allergies Allergy/AdvReac Type Severity Reaction Status Date / Time phenytoin sodium Allergy Hives Verified 11/14/20 07:35 [From Dilantin] phenytoin sodium extended Allergy Hives Verified 11/14/20 07:35 [From Dilantin] Home Medications Medication Instructions Recorded Confirmed Last Taken Type Ferric Citrate (Nf) [Auryxia] 2 tab PO TID 11/14/20 01/07/21 12/29/20 09:00 History Gabapentin 300 mg PO QHS 11/14/20 01/07/21 01/04/21 21:00 History Hydralazine HCl 50 mg PO TID 11/14/20 01/07/21 01/04/21 09:00 History Loratadine [Alavert] 10 mg PO QDAY 11/14/20 01/08/21 01/04/21 21:00 History amLODIPine 10 mg PO DAILY 11/14/20 01/07/21 01/04/21 09:00 History Clindamycin [Clindamycin CAP] 300 mg PO Q6H #20 capsule 01/09/21 Unknown Rx Pantoprazole [Protonix TAB] 40 mg PO BIDAC #60 tablet 01/09/21 Unknown Rx diphenhydrAMINE [Benadryl CAP] 25 mg PO Q8H PRN #20 capsule 01/09/21 Unknown Rx levETIRAcetam [Keppra TAB] 250 mg PO BID #60 tablet 01/09/21 Unknown Rx oxyCODONE /ACETAMINOPHEN [Percocet 1 tab PO BID PRN #8 tablet 01/09/21 Unknown Rx 5/325] Active Meds: Active Medications Dextrose (Dextrose 50% In Water (25gm) 50 Ml Vial) 50 gm IV Q30MIN PRN; Protocol PRN Reason: Hypoglycemia Dextrose (Dextrose 50% In Water (25gm) 50 Ml Syringe) 50 ml IV Q30MIN PRN; Protocol PRN Reason: Hypoglycemia Levetiracetam (Levetiracetam 500 Mg Tab) 250 mg PO BID [facility] Last Admin: 01/14/21 10:20 Dose: 250 mg Documented by: Review of Systems ROS unobtainable: due to mental status (Could not obtained because patient was not cooperative.) Exam - Physical Exam Narrative exam: Physical examination was not done because patient was not cooperative. Chronic fifth toe wound per ER physician. - Constitutional Vitals: Temp Pulse Resp BP Pulse Ox 98.7 F 77 13 143/81 99 01/14/21 07:00 01/14/21 09:15 01/14/21 09:15 01/14/21 09:15 01/14/21 09:15 Results - Labs CBC & Chem 7: 01/14/21 08:33 01/14/21 08:33 Labs: Laboratory Last Values WBC 5.3 K/mm3 (4.5-11.0) 01/14/21 08:33 RBC 3.43 M/mm3 (3.65-5.03) L 01/14/21 08:33 Hgb 10.5 gm/dl (11.8-15.2) L 01/14/21 08:33 Hct 31.4 % (35.5-45.6) L 01/14/21 08:33 MCV 92 fl (84-94) 01/14/21 08:33 MCH 31 pg (28-32) 01/14/21 08:33 MCHC 33 % (32-34) 01/14/21 08:33 RDW 16.9 % (13.2-15.2) H 01/14/21 08:33 Plt Count 212 K/mm3 (140-440) 01/14/21 08:33 Lymph % (Auto) 14.9 % (13.4-35.0) 01/14/21 08:33 [place] % (Auto) 11.3 % (0.0-7.3) H 01/14/21 08:33 Eos % (Auto) 2.1 % (0.0-4.3) 01/14/21 08:33 Baso % (Auto) 0.8 % (0.0-1.8) 01/14/21 08:33 Lymph # (Auto) 0.8 K/mm3 (1.2-5.4) L 01/14/21 08:33 [place] # (Auto) 0.6 K/mm3 (0.0-0.8) 01/14/21 08:33 Eos # (Auto) 0.1 K/mm3 (0.0-0.4) 01/14/21 08:33 Baso # (Auto) 0.0 K/mm3 (0.0-0.1) 01/14/21 08:33 Seg Neutrophils % 70.9 % (40.0-70.0) H 01/14/21 08:33 Seg Neutrophils # 3.8 K/mm3 (1.8-7.7) 01/14/21 08:33 ESR 24 mm/Hr (0-20) 01/14/21 10:09 Sodium 136 mmol/L (137-145) L 01/14/21 08:33 Potassium 4.1 mmol/L (3.6-5.0) 01/14/21 08:33 Chloride 94.2 mmol/L (98-107) L 01/14/21 08:33 Carbon Dioxide 28 mmol/L (22-30) 01/14/21 08:33 Anion Gap 18 mmol/L 01/14/21 08:33 BUN 30 mg/dL (9-20) H 01/14/21 08:33 Creatinine 13.5 mg/dL (0.8-1.3) H 01/14/21 08:33 Estimated GFR 5 ml/min 01/14/21 08:33 BUN/Creatinine Ratio 2 % 01/14/21 08:33 Glucose 165 mg/dL (75-100) H 01/14/21 08:33 POC Glucose 130 mg/dL (70-105) H 01/14/21 07:48 Calcium 9.6 mg/dL (8.4-10.2) 01/14/21 08:33 Magnesium 2.10 mg/dL (1.7-2.3) 01/14/21 08:33 Total Creatine Kinase 125 units/L (55-170) 01/14/21 08:33 C-Reactive Protein 0.20 mg/dL (0.00-1.30) 01/14/21 08:33 Assessment and Plan Assessment and plan: Hypoglycemia -Likely due to insulin. Patient was treated according to hypoglycemia protocol and currently blood sugar is normal. -We will continue monitor. Chronic left fifth toe wound -X-ray of the foot was done and suggestive of osteomyelitis -ID was consulted and recommend to hold antibiotics until MRI is done. MRI ordered. End-stage renal disease on hemodialysis -Nephrology consulted for hemodialysis Disposition; to medical floor for observation. Patient is difficult to take history and examine him. Also sister is from ER physician and physical examination was not done. Advance Directives: Yes VTE prophylaxis?: Chemical Plan of care discussed with patient/family: No
[2021-01-14] MEDS ORDERED: diphenhydrAMINE 25 MG CAP PO PRN (12:44)
--- NOTE | 2021-01-14 13:00 | Magnetic Resonance Report ---
MRI left foot without contrast INDICATION: Bleed TECHNIQUE: Axial coronal and sagittal images FINDINGS: Diffuse subcutaneous edema seen throughout the foot with edema most significant on the plan tar aspect of the foot and diffuse muscle edema between the metatarsals. No bone marrow edema is seen . There is marker placed overlying the fifth phalanx. There is degenerative change within the IP joint and fifth phalanx with surrounding soft tissue density noted. On radiographs there is some bony destr uctive change identified. IMPRESSION: Soft tissue density with some bony destructive change and irregularity within the distal radius. No d efinite bone marrow edema. Findings suggest chronic change however there is some soft tissue edema an d soft tissue density. Postcontrast images could be performed. Diffuse subcutaneous trace edema along the plantar aspect of the foot. Mild intramuscular edema betwe en the metatarsals. Signer Name: Brock Crockett MD Signed: 01/14/2021 12:55 PM Workstation Name: [id number]
[2021-01-14] MEDS ORDERED: NON-FORMULARY EACH (Hydralazine Hcl [Hydralazine Hcl] 50 MG Tablet) PO SCH (14:00)
[2021-01-14] MEDS: hydrALAZINE 25 MG TAB PO SCH (14:31)
[2021-01-14] MEDS: HEPARIN 5,000 UNIT/1 ML VIAL SUB-Q SCH (14:32)
--- NOTE | 2021-01-14 16:15 | Consultation ---
History of Present Illness - Reason for Consult Consult date: 01/14/21 - History of Present Illness 35-year-old male past medical history diabetes, ESRD on HD presented to the hospital with hypoglycemia. The patient is an unwilling historian, as such the history is obtained from the chart. Patient is known to have a chronic right fifth toe ulcer, for which he is known to Dr. Wood. Imaging was concerning for possible osteomyelitis. Afebrile with normal white count. CRP is normal. Not presently on antibiotics. Imaging personally reviewed: Lower extremity MRI: Some soft tissue density with bony destructive change Review of Systems: Bold if positive, otherwise negative General: fevers, chills, rigors HEENT: visual disturbance, diplopia, eye pain Respiratory: cough, sputum, hemoptysis, shortness of breath Cardiovascular: chest pain, syncope Gastrointestinal: nausea, vomiting, diarrhea, abdominal pain Genitourinary: dysuria, hematuria, flank pain Musculoskeletal: neck pain, back pain, joint pain, edema Neurologic: headaches, seizures Hematologic: easy bruising or bleeding Endocrine: night sweats, acute weight loss Skin: rash, jaundice, redness Psychiatric: suicidal, homicidal ideation Past History Past Medical History: diabetes, renal failure, seizures Past Surgical History: Other (Could not obtained because patient was not cooperative.) Social history: other (Could not obtained because patient was not cooperative.) Family history: other (Could not obtained because patient was not cooperative.) Medications and Allergies Allergies Allergy/AdvReac Type Severity Reaction Status Date / Time phenytoin sodium Allergy Hives Verified 11/14/20 07:35 [From Dilantin] phenytoin sodium extended Allergy Hives Verified 11/14/20 07:35 [From Dilantin] Home Medications Medication Instructions Recorded Confirmed Last Taken Type Ferric Citrate (Nf) [Auryxia] 2 tab PO TID 11/14/20 01/07/21 12/29/20 09:00 History Gabapentin 300 mg PO QHS 11/14/20 01/07/21 01/04/21 21:00 History Hydralazine HCl 50 mg PO TID 11/14/20 01/07/21 01/04/21 09:00 History Loratadine [Alavert] 10 mg PO QDAY 11/14/20 01/08/21 01/04/21 21:00 History amLODIPine 10 mg PO DAILY 0601/07/21 01/04/21 09:00 History Clindamycin [Clindamycin CAP] 300 mg PO Q6H #20 capsule 01/09/21 Unknown Rx Pantoprazole [Protonix TAB] 40 mg PO BIDAC #60 tablet 01/09/21 Unknown Rx diphenhydrAMINE [Benadryl CAP] 25 mg PO Q8H PRN #20 capsule 01/09/21 Unknown Rx levETIRAcetam [Keppra TAB] 250 mg PO BID #60 tablet 01/09/21 Unknown Rx oxyCODONE /ACETAMINOPHEN [Percocet 1 tab PO BID PRN #8 tablet 01/09/21 Unknown Rx 5/325] Active Meds: Active Medications Amlodipine Besylate (Amlodipine 10 Mg Tab) 10 mg PO DAILY [facility] Cetirizine HCl (Cetirizine 10 Mg Tab) 10 mg PO DAILY [facility] Dextrose (Dextrose 50% In Water (25gm) 50 Ml Vial) 50 gm IV Q30MIN PRN; Protocol PRN Reason: Hypoglycemia Dextrose (Dextrose 50% In Water (25gm) 50 Ml Syringe) 50 ml IV Q30MIN PRN; Protocol PRN Reason: Hypoglycemia Diphenhydramine HCl (Diphenhydramine 25 Mg Cap) 25 mg PO Q8H PRN PRN Reason: Itching Gabapentin (Gabapentin 300 Mg Cap) 300 mg PO QHS [facility] Heparin Sodium (Porcine) (Heparin 5,000 Unit/1 Ml Vial) 5,000 unit SUB-Q Q8HR [facility] Last Admin: 01/14/21 14:32 Dose: 5,000 unit Documented by: Hydralazine HCl (Hydralazine 25 Mg Tab) 50 mg PO TID [facility] Last Admin: 01/14/21 14:31 Dose: 50 mg Documented by: Levetiracetam (Levetiracetam 500 Mg Tab) 250 mg PO BID [facility] Last Admin: 01/14/21 10:20 Dose: 250 mg Documented by: Metoclopramide HCl (Metoclopramide 10 Mg/2 Ml Inj) 5 mg IV Q6H PRN PRN Reason: Nausea And Vomiting Miscellaneous Medication (Ferric Citrate (Nf)) 2 tab PO TID [facility] Physical Examination - Physical Exam Narrative exam: Physical Exam: Constitutional: Alert, cooperative. No acute distress Head, Ears, Nose: Normocephalic, atraumatic. External ears, nose normal Eyes: Conjunctivae/corneas clear. No icterus. No ptosis. Neck: Supple, no meningeal signs Oral: dentition fair, no thrush Cardiovascular: S1, S2 normal. Respiratory: Good air entry, clear to auscultation bilaterally GI: Soft, non-tender; bowel sounds normal. No peritoneal signs. Musculoskeletal: Right fifth toe ulcer Skin: No rash or abscess Hem/Lymphatic: No palpable cervical or supraclavicular nodes. No lymphangitis Psych: Mood ok. Affect normal Neurological: Awake, alert, oriented. No gross abnormality - Constitutional Vitals: Vital Signs Temp Pulse Resp BP Pulse Ox 98.7 F 71 10 L 190/91 98 01/14/21 07:00 01/14/21 14:45 01/14/21 14:45 01/14/21 14:45 01/14/21 14:54 Temperature -Last 24 Hours Temperature 98.7 F Results - Labs CBC & Chem 7: 01/14/21 08:33 01/14/21 08:33 Labs: Abnormal lab results 01/14/21 01/14/21 01/14/21 Range/Units 06:35 07:48 08:33 RBC 3.43 L (3.65-5.03) M/mm3 Hgb 10.5 L (11.8-15.2) gm/dl Hct 31.4 L (35.5-45.6) % RDW 16.9 H (13.2-15.2) % [place] % (Auto) 11.3 H (0.0-7.3) % Lymph # (Auto) 0.8 L (1.2-5.4) K/mm3 Seg Neutrophils % 70.9 H (40.0-70.0) % Sodium (137-145) mmol/L Chloride (98-107) mmol/L BUN (9-20) mg/dL Creatinine (0.8-1.3) mg/dL Glucose (75-100) mg/dL POC Glucose 39 L 130 H (70-105) mg/dL 01/14/21 Range/Units 08:33 RBC (3.65-5.03) M/mm3 Hgb (11.8-15.2) gm/dl Hct (35.5-45.6) % RDW (13.2-15.2) % [place] % (Auto) (0.0-7.3) % Lymph # (Auto) (1.2-5.4) K/mm3 Seg Neutrophils % (40.0-70.0) % Sodium 136 L (137-145) mmol/L Chloride 94.2 L (98-107) mmol/L BUN 30 H (9-20) mg/dL Creatinine 13.5 H (0.8-1.3) mg/dL Glucose 165 H (75-100) mg/dL POC Glucose (70-105) mg/dL Assessment and Plan Cultures: None A/P: 35-year-old man past medical history diabetes, ESRD on HD admitted with hypoglycemia. Concern for possible osteomyelitis of the right fifth toe. #Chronic right fifth toe wound: MRI with bony destruction, however not with marrow edema. Given he is afebrile with a normal white count in addition to a normal CRP may be more traumatic bony destruction as opposed to osteomyelitis. #Diabetes: tight glycemic control for best outcomes. #ESRD on HD: renally dose medications Recs: -No need for antibiotics at the present time -Consulted Dr. Wood for wound care. -Bony loss is cocnerning, however other clinical indicators not indicative of osteomyelitis of the toe. Thank you for the consult, we will continue to follow. MD Matt [facility] O: [phone] F: [phone]
--- NOTE | 2021-01-14 16:52 | Consultation ---
History of Present Illness - Reason for Consult Consult date: 01/14/21 end stage renal disease Requesting physician: MEGHAN MEJIA - History of Present Illness This is a 35 M with past medical history of Hypertension, T1DM, ESRD, chronic R 5th toe wound, well known to our outpatient HD clinic at [facility], who is [facility] with complaints of generalized weakness, was found to be hypoglycemic with FSG as low as 39. Patient given D50 in the field, sugar imp roved, and then subsequently decreased. He is given additional glucose in the field. Renal consult is requested for management of ESRD/HD. Past History Past Medical History: diabetes, renal failure, seizures Past Surgical History: Other (Could not obtained because patient was not cooperative.) Social history: other (Could not obtained because patient was not cooperative.) Family history: other (Could not obtained because patient was not cooperative.) Medications and Allergies Allergies Allergy/AdvReac Type Severity Reaction Status Date / Time phenytoin sodium Allergy Hives Verified 11/14/20 07:35 [From Dilantin] phenytoin sodium extended Allergy Hives Verified 11/14/20 07:35 [From Dilantin] Home Medications Medication Instructions Recorded Confirmed Last Taken Type RX: Ferric Citrate (Nf) [Auryxia] 2 tab PO TID 11/14/20 01/07/21 12/29/20 09:00 History RX: Gabapentin 300 mg PO QHS 11/14/20 01/07/21 01/04/21 21:00 History RX: Hydralazine HCl 50 mg PO TID 11/14/20 01/07/21 01/04/21 09:00 History RX: Loratadine [Alavert] 10 mg PO QDAY 11/14/20 01/08/21 01/04/21 21:00 History RX: amLODIPine 10 mg PO DAILY 11/14/20 01/07/21 01/04/21 09:00 History RX: Clindamycin [Clindamycin CAP] 300 mg PO Q6H #20 capsule 01/09/21 Unknown Rx RX: Pantoprazole [Protonix TAB] 40 mg PO BIDAC #60 tablet 01/09/21 Unknown Rx RX: diphenhydrAMINE [Benadryl CAP] 25 mg PO Q8H PRN #20 capsule 01/09/21 Unknown Rx levETIRAcetam [Keppra TAB] 250 mg PO BID #60 tablet 01/09/21 Unknown Rx oxyCODONE /ACETAMINOPHEN [Percocet 1 tab PO BID PRN #8 tablet 01/09/21 Unknown Rx 5/325] Active Meds: Active Medications Amlodipine Besylate (Amlodipine 10 Mg Tab) 10 mg PO DAILY [facility] Cetirizine HCl (Cetirizine 10 Mg Tab) 10 mg PO DAILY [facility] Dextrose (Dextrose 50% In Water (25gm) 50 Ml Vial) 50 gm IV Q30MIN PRN; Protocol PRN Reason: Hypoglycemia Dextrose (Dextrose 50% In Water (25gm) 50 Ml Syringe) 50 ml IV Q30MIN PRN; Protocol PRN Reason: Hypoglycemia Diphenhydramine HCl (Diphenhydramine 25 Mg Cap) 25 mg PO Q8H PRN PRN Reason: Itching Gabapentin (Gabapentin 300 Mg Cap) 300 mg PO QHS [facility] Heparin Sodium (Porcine) (Heparin 5,000 Unit/1 Ml Vial) 5,000 unit SUB-Q Q8HR [facility] Last Admin: 01/14/21 14:32 Dose: 5,000 unit Documented by: Hydralazine HCl (Hydralazine 25 Mg Tab) 50 mg PO TID [facility] Last Admin: 01/14/21 14:31 Dose: 50 mg Documented by: Levetiracetam (Levetiracetam 500 Mg Tab) 250 mg PO BID [facility] Last Admin: 01/14/21 10:20 Dose: 250 mg Documented by: Metoclopramide HCl (Metoclopramide 10 Mg/2 Ml Inj) 5 mg IV Q6H PRN PRN Reason: Nausea And Vomiting Miscellaneous Medication (Ferric Citrate (Nf)) 2 tab PO TID [facility] Review of Systems Constitutional: fatigue, weakness, malaise Exam - Vital Signs Vital signs: Vital Signs Temp Pulse Resp BP Pulse Ox 98.7 F 84 12 148/70 98 01/14/21 07:00 01/14/21 07:00 01/14/21 07:00 01/14/21 07:00 01/14/21 07:00 - General Appearance General appearance: well-developed, well-nourished, appears stated age EENT: ATNC, PERRL, mucous membranes moist Neck: Present: neck supple Respiratory: Clear to Ascultation Heart: regular, S1S2 Gastrointestinal: Present: normoactive bowel sounds Integumentary: no rash Neurologic: no focal deficit, alert and oriented x3, strength 5/5, CN 3-12 intact Psychiatric: mood/affect appropriate, cooperative Results - Lab Results 01/14/21 08:33 01/14/21 08:33 Most recent lab results Calcium 9.6 mg/dL (8.4-10.2) 01/14/21 08:33 Magnesium 2.10 mg/dL (1.7-2.3) 01/14/21 08:33 Assessment and Plan - Patient Problems (1) Hypoglycemia Current Visit: Yes Status: Acute Plan to address problem: glucose level improved s/p D50 (2) End stage renal disease Current Visit: Yes Status: Chronic Plan to address problem: No emergent indication for HD at present. HD arranged for AM, will resume TTS outpatient HD schedule thereafter. (3) Hypertensive chronic kidney disease with stage 5 chronic kidney disease or end stage renal disease Current Visit: No Status: Chronic Plan to address problem: monitor BP on current meds (4) IDDM (insulin dependent diabetes mellitus) Current Visit: No Status: Chronic Plan to address problem: diabetes management as per primary attending (5) Wound of left foot Current Visit: Yes Status: Acute Plan to address problem: MRI of the L foot showed soft tissue density with bony destructive change, however no definite bone marrow edema. As per ID unlikely 2/2 osteomyelitis.
[2021-01-14] MEDS: NON-FORMULARY EACH (Ferric Citrate (Nf) 210 MG Tablet) PO SCH (18:18)
[2021-01-14] MEDS: METOCLOPRAMIDE 10 MG/2 ML INJ IV PRN (18:23)
[2021-01-14] MEDS ORDERED: SODIUM CHLORIDE 0.9% 100 ML IV PRN (22:37)
[2021-01-15] MEDS: levETIRAcetam 500 MG TAB PO SCH ×3 (00:28→22:46)
[2021-01-15] MEDS: oxyCODONE /ACETAMINOPHEN 5-325MG TAB PO PRN (00:28)
[2021-01-15] MEDS: GABAPENTIN 300 MG CAP PO SCH ×2 (00:28→22:46)
[2021-01-15] MEDS: hydrALAZINE 25 MG TAB PO SCH ×4 (00:29→22:49)
[2021-01-15] MEDS: HEPARIN 5,000 UNIT/1 ML VIAL SUB-Q SCH ×4 (00:30→22:45)
[2021-01-15] MEDS: NON-FORMULARY EACH (Ferric Citrate (Nf) 210 MG Tablet) PO SCH (00:33)
[2021-01-15] MEDS: METOCLOPRAMIDE 10 MG/2 ML INJ IV PRN ×4 (00:36→21:07)
[2021-01-15] MEDS ORDERED: hydrALAZINE 20 MG/1 ML INJ ONE (02:06)
[2021-01-15] MEDS: hydrALAZINE 20 MG/1 ML INJ IV PRN ×3 (02:25→22:41)
[2021-01-15] MEDS: MORPHINE 2 MG/1 ML INJ IV PRN ×4 (02:42→21:12)
--- NOTE | 2021-01-15 09:17 | Electrocardiograph Report ---
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 : 1985 Requested By: HENRRY SANABRIA Order Number: [id number] Reading MD: Juancho Leos Measurements Intervals [place] Rate: 73 P: 61 AK: 179 QRS: 76 QRSD: 95 T: 87 QT: 424 QTc: 467 Interpretive Statements Sinus rhythm Probable left atrial enlargement Abnormal T, consider ischemia, lateral leads Compared to ECG 01/06/2021 02:20:38 Sinus tachycardia no longer present Right-axis deviation no longer present Prolonged QT interval no longer present Myocardial infarct finding still present T-wave abnormality still present Possible ischemia still present Electronically Signed On 01-15-2021 9:17:20 EDT by Juancho Leos
[2021-01-15] MEDS ORDERED: LORATADINE 10 MG PO SCH (10:00)
--- NOTE | 2021-01-15 11:06 | Progress Note ---
Assessment and Plan - Patient Problems (1) End stage renal disease Current Visit: Yes Status: Chronic Plan to address problem: HD arranged for today, resume TTS HD schedule thereafter. (2) Hypoglycemia Current Visit: Yes Status: Acute Plan to address problem: glucose level improved s/p D50 (3) Hypertensive chronic kidney disease with stage 5 chronic kidney disease or end stage renal disease Current Visit: No Status: Chronic Plan to address problem: monitor BP on current meds (4) IDDM (insulin dependent diabetes mellitus) Current Visit: No Status: Chronic Plan to address problem: diabetes management as per primary attending (5) Wound of left foot Current Visit: Yes Status: Acute Plan to address problem: MRI of the L foot showed soft tissue density with bony destructive change, however no definite bone marrow edema. As per ID unlikely 2/2 osteomyelitis. Subjective Date of service: 01/15/21 Principal diagnosis: ESRD Interval history: Pt awake, alert, oriented x 3, no acute distress Objective - Vital Signs Vital signs: Vital Signs - 12hr 01/14/21 01/14/21 01/14/21 23:11 23:21 23:31 Temperature Pulse Rate Respiratory 24 Rate Blood Pressure 157/52 157/52 175/77 Blood Pressure [Left] O2 Sat by Pulse 97 96 98 Oximetry 01/14/21 01/14/21 01/14/21 23:41 23:43 23:45 Temperature Pulse Rate Respiratory Rate Blood Pressure 187/73 187/73 187/73 Blood Pressure [Left] O2 Sat by Pulse 98 98 98 Oximetry 01/15/21 01/15/21 01/15/21 00:01 00:15 00:29 Temperature Pulse Rate 73 Respiratory Rate Blood Pressure 198/99 202/85 177/71 Blood Pressure [Left] O2 Sat by Pulse 99 98 Oximetry 01/15/21 01/15/21 01/15/21 00:31 00:45 01:01 Temperature Pulse Rate Respiratory 18 Rate Blood Pressure 177/71 198/99 194/78 Blood Pressure [Left] O2 Sat by Pulse 99 99 98 Oximetry 01/15/21 01/15/21 01/15/21 01:10 01:15 01:31 Temperature 97.2 F L Pulse Rate 74 Respiratory 20 Rate Blood Pressure 178/69 177/73 Blood Pressure 178/69 [Left] O2 Sat by Pulse 98 98 96 Oximetry 01/15/21 01/15/21 01/15/21 01:45 02:25 03:09 Temperature 97.9 F Pulse Rate 72 72 Respiratory 18 Rate Blood Pressure 175/69 178/67 165/66 Blood Pressure [Left] O2 Sat by Pulse 97 94 Oximetry 01/15/21 01/15/21 01/15/21 03:15 03:21 03:31 Temperature Pulse Rate Respiratory Rate Blood Pressure 178/67 178/67 178/67 Blood Pressure [Left] O2 Sat by Pulse 93 93 94 Oximetry 01/15/21 01/15/21 01/15/21 03:41 03:47 03:51 Temperature Pulse Rate Respiratory Rate Blood Pressure 178/67 178/67 Blood Pressure [Left] O2 Sat by Pulse 91 98 95 Oximetry 01/15/21 04:01 Temperature Pulse Rate Respiratory Rate Blood Pressure 178/67 Blood Pressure [Left] O2 Sat by Pulse 95 Oximetry - General Appearance General appearance: well-developed, well-nourished, appears stated age EENT: ATNC, PERRL, mucous membranes moist Neck: no JVD Respiratory: Present: Clear to Ascultation Cardiology: regular, S1S2 Gastrointestinal: normoactive bowel sounds Integumentary: no rash Neurologic: no focal deficit, alert and oriented x3, strength 5/5, CN 3-12 intact Psychiatric: mood/affect appropriate, cooperative - Lab 01/14/21 08:33 01/14/21 08:33 Most recent lab results Calcium 9.6 mg/dL (8.4-10.2) 01/14/21 08:33 Magnesium 2.10 mg/dL (1.7-2.3) 01/14/21 08:33 Medications & Allergies - Medications Allergies/Adverse Reactions: Allergies phenytoin sodium [From Dilantin] Allergy (Verified 11/14/20 07:35) Hives phenytoin sodium extended [From Dilantin] Allergy (Verified 11/14/20 07:35) Hives Home Medications: Home Medications Medication Instructions Recorded Confirmed Last Taken Type Ferric Citrate (Nf) [Auryxia] 2 tab PO TID 11/14/20 01/07/21 12/29/20 09:00 History Gabapentin 300 mg PO QHS 11/14/20 01/07/21 01/04/21 21:00 History Hydralazine HCl 50 mg PO TID 11/14/20 01/07/2121 09:00 History Loratadine [Alavert] 10 mg PO QDAY 11/14/20 01/08/21 01/04/21 21:00 History amLODIPine 10 mg PO DAILY 11/14/20 01/07/21 01/04/21 09:00 History Clindamycin [Clindamycin CAP] 300 mg PO Q6H #20 capsule 01/09/21 Unknown Rx Pantoprazole [Protonix TAB] 40 mg PO BIDAC #60 tablet 01/09/21 Unknown Rx diphenhydrAMINE [Benadryl CAP] 25 mg PO Q8H PRN #20 capsule 01/09/21 Unknown Rx levETIRAcetam [Keppra TAB] 250 mg PO BID #60 tablet 01/09/21 Unknown Rx oxyCODONE /ACETAMINOPHEN [Percocet 1 tab PO BID PRN #8 tablet 01/09/21 Unknown Rx 5/325] Active Medications: Generic Name Dose Route Start Last Admin Trade Name Freq PRN Reason Stop Dose Admin Amlodipine Besylate 10 mg 01/15/21 10:00 Amlodipine 10 Mg Tab PO DAILY CODY Cetirizine HCl 10 mg 01/15/21 10:00 Cetirizine 10 Mg Tab PO DAILY CODY Dextrose 50 gm 01/14/21 07:13 Dextrose 50% In Water (25gm) 50 Ml Vial IV Q30MIN PRN Hypoglycemia Protocol Diphenhydramine HCl 25 mg 01/14/21 12:44 Diphenhydramine 25 Mg Cap PO Q8H PRN Itching Gabapentin 300 mg 01/14/21 22:00 01/15/21 00:28 Gabapentin 300 Mg Cap PO 300 mg QHS CODY Administration Heparin Sodium (Porcine) 5,000 unit 01/14/21 14:00 01/15/21 06:18 Heparin 5,000 Unit/1 Ml Vial SUB-Q 5,000 unit Q8HR CODY Administration Hydralazine HCl 50 mg 01/14/21 14:00 01/15/21 00:29 Hydralazine 25 Mg Tab PO 50 mg TID CDOY Administration Hydralazine HCl 10 mg 01/15/21 21:00 01/15/21 02:25 Hydralazine 20 Mg/1 Ml Inj IV 10 mg Q6H PRN Administration Hypertension Sodium Chloride 100 mls @ 999 mls/hr 01/14/21 22:37 Nacl 0.9% IV KATE PRN Hypotension Levetiracetam 250 mg 01/14/21 10:00 01/15/21 00:28 Levetiracetam 500 Mg Tab PO 250 mg BID CODY Administration Metoclopramide HCl 5 mg 01/14/21 14:55 01/15/21 06:00 Metoclopramide 10 Mg/2 Ml Inj IV 5 mg Q6H PRN Administration Nausea And Vomiting Miscellaneous Medication 2 tab 01/14/21 14:00 01/15/21 00:33 Ferric Citrate (Nf) PO Not Given TID [facility] Morphine Sulfate 2 mg 01/15/21 02:23 01/15/21 05:56 Morphine 2 Mg/1 Ml Inj IV 2 mg Q4H PRN Administration Pain, Moderate (4-6) Oxycodone/Acetaminophen 1 tab 01/14/21 18:24 01/15/21 00:28 Oxycodone /Acetaminophen 5-325mg Tab PO 1 tab Q8H PRN Administration Pain, Moderate (4-6)
[2021-01-15] MEDS: CETIRIZINE 10 MG TAB PO SCH (11:25)
--- NOTE | 2021-01-15 13:36 | Discharge Summary ---
Providers - Providers Date of Admission: 01/14/21 09:14 Date of discharge: 01/15/21 Attending physician: HENRRY SANABRIA MD 01/14/21 09:04 Consult to Physician [CONS] Stat Comment: Consulting Provider: SKYLER AMEZQUITA Physician Instructions: Reason For Exam: esrd 01/14/21 09:11 Consult to Physician [CONS] Urgent Comment: Consulting Provider: LOPEZ LUIS Physician Instructions: Reason For Exam: left toe wound ? osteomyelities 01/14/21 16:12 Consult to Physician [CONS] Routine Comment: Consulting Provider: SUNNY WOOD Physician Instructions: Reason For Exam: right 5th toe ulcer 01/15/21 12:22 Consult to Wound/ET Nurse [CONS] Urgent Reason For Exam: wound eval Primary care physician: CAT DOG OR OTHER PET GROOMER Hospitalization Reason for admission: Hypoglycemia, chronic right foot wound Condition: Good Pertinent studies: MRI Hospital course: Patient was admitted to the hospital for the management of hypoglycemia and chronic right fifth toe ulcer. X-ray of the right foot showed bone loss and MRI was done. Patient was evaluated by infectious disease physician Dr. Luis and he said patient does not have any signs of infection and the wound is chronic. Patient need to follow with Dr. Wood for chronic wound. Patient's blood sugar was corrected. Patient was stable. Patient will have dialysis today and can go home today. Blood sugar is corrected. Patient advised to follow-up with his PCP. Patient was alert and oriented, explained the management plan in detail and he was in agreement with the plan of care. Advised him to follow-up with Dr. Wood as an outpatient. Disposition: 01 HOME / SELF CARE / HOMELESS Final Discharge Diagnosis (Prints w/discharge instructions): Hypoglycemia. Chronic right foot wound Time spent for discharge: 25 minutes - Discharge Diagnoses (1) Non-pressure chronic ulcer of other part of right foot with fat layer exposed Status: Acute (2) Seizure disorder Status: Acute (3) Hypertension Status: Chronic Qualifiers: Hypertension type: primary hypertension Qualified Code(s): I10 - Essential (primary) hypertension (4) Seizure disorder Status: Chronic (5) Type 2 diabetes mellitus with diabetic chronic kidney disease Status: Chronic Core Measure Documentation - Palliative Care Palliative Care/ Comfort Measures: Not Applicable - Core Measures Any of the following diagnoses?: none Exam - Physical Exam Narrative exam: Not in cardiopulmonary distress. The patient appeared well nourished and normally developed. Vital signs as documented. Head exam is unremarkable. No scleral icterus . Neck is without jugular venous distension, thyromegaly, or carotid bruits. Lungs are clear to auscultation. Cardiac exam reveals regular rate and Rhythm. Abdominal exam reveals normal bowel sounds, nontender, no organomegaly. 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 No focal weakness. - Constitutional Vitals: Temp Pulse Resp BP Pulse Ox 97.9 F 72 18 178/67 95 01/15/21 03:09 01/15/21 03:09 01/15/21 03:09 01/15/21 04:01 01/15/21 04:01 Plan Activity: no restrictions Weight Bearing Status: Full Weight Bearing Diet: diabetic, renal Follow up with: PRIMARY CAREMD [Primary Care Provider] - 3-5 Days SUNNY WOOD MD [Staff Physician] - 7 Days
--- NOTE | 2021-01-15 15:27 | Progress Note ---
Assessment and Plan Cultures: None A/P: 35-year-old man past medical history diabetes, ESRD on HD admitted with hypoglycemia. Concern for possible osteomyelitis of the right fifth toe. #Chronic right fifth toe wound: MRI with bony destruction, however not with marrow edema. Given he is afebrile with a normal white count in addition to a normal CRP may be more traumatic bony destruction as opposed to osteomyelitis. #Diabetes: tight glycemic control for best outcomes. #ESRD on HD: renally dose medications Recs: -No need for antibiotics at the present time -Consulted Dr. Wood for wound care - not available at the present time -Bony loss is cocnerning, however other clinical indicators not indicative of osteomyelitis of the toe. -Okay for discharge without antibiotics given above, follow-up with Dr. Wood as an outpatient. Thank you for the consult, we will sign off. Please call with questions. Camelia Ramirez MD [facility] O: [phone] F: [phone] Subjective Date of service: 01/15/21 Principal diagnosis: ESRD Interval history: Remains afebrile with a normal white count. No acute change. Objective - Exam Narrative Exam: Physical Exam: Constitutional: Alert, cooperative. No acute distress Head, Ears, Nose: Normocephalic, atraumatic. External ears, nose normal Eyes: Conjunctivae/corneas clear. No icterus. No ptosis. Neck: Supple, no meningeal signs Oral: dentition fair, no thrush Cardiovascular: S1, S2 normal. Respiratory: Good air entry, clear to auscultation bilaterally GI: Soft, non-tender; bowel sounds normal. No peritoneal signs. Musculoskeletal: Right fifth toe ulcer Skin: No rash or abscess Hem/Lymphatic: No palpable cervical or supraclavicular nodes. No lymphangitis Psych: Mood ok. Affect normal Neurological: Awake, alert, oriented. No gross abnormality - Constitutional Vitals: Vital Signs Temp Pulse Resp BP Pulse Ox 97.9 F 72 18 178/67 95 01/15/21 03:09 01/15/21 03:09 01/15/21 03:09 01/15/21 04:01 01/15/21 04:01 Temperature -Last 24 Hours Temperature 97.9 F Temperature 97.2 F - Labs CBC & Chem 7: 01/14/21 08:33 08/12/21 08:33 Labs: Abnormal lab results 01/15/21 01/15/21 Range/Units 08:28 12:32 POC Glucose 258 H 224 H (70-105) mg/dL
[2021-01-15] MEDS: amLODIPine 10 MG TAB PO SCH (22:08)
[2021-01-16] MEDS: HEPARIN 5,000 UNIT/1 ML VIAL SUB-Q SCH ×2 (05:48→15:26)
[2021-01-16] MEDS ORDERED: hydrALAZINE 20 MG/1 ML INJ IV PRN (07:30)
[2021-01-16] MEDS ORDERED: INSULIN LISPRO 100 UNIT/ML SUB-Q SCH (07:30)
[2021-01-16] MEDS: INSULIN LISPRO 100 UNIT/ML SUB-Q SCH ×3 (07:55→15:57)
--- NOTE | 2021-01-16 08:53 | Progress Note ---
Assessment and Plan Assessment and plan: Hypoglycemia -Likely due to insulin. Patient was treated according to hypoglycemia protocol and currently blood sugar is normal. -We will continue monitor. Chronic left fifth toe wound -X-ray of the foot was done and suggestive of osteomyelitis -ID was consulted and recommend to hold antibiotics until MRI is done. MRI ordered. End-stage renal disease on hemodialysis -Nephrology consulted for hemodialysis. Patient is going to have hemodialysis today. Disposition; patient can be discharged home after hemodialysis. - Patient Problems (1) Non-pressure chronic ulcer of other part of right foot with fat layer exposed Current Visit: No Status: Acute (2) Seizure disorder Current Visit: No Status: Acute (3) Hypertension Current Visit: No Status: Chronic Qualifiers: Hypertension type: primary hypertension Qualified Code(s): I10 - Essential (primary) hypertension (4) Seizure disorder Current Visit: No Status: Chronic (5) Type 2 diabetes mellitus with diabetic chronic kidney disease Current Visit: No Status: Chronic History Interval history: Patient was seen and evaluated this morning Patient did not have any complaints. Hospitalist Physical - Physical exam Narrative exam: Not in cardiopulmonary distress. The patient appeared well nourished and normally developed. Vital signs as documented. Head exam is unremarkable. No scleral icterus . Neck is without jugular venous distension, thyromegaly, or carotid bruits. Lungs are clear to auscultation. Cardiac exam reveals regular rate and Rhythm. Abdominal exam reveals normal bowel sounds, nontender, no organomegaly. 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 No focal weakness. - Constitutional Vitals: Temp Pulse Resp BP Pulse Ox 98.0 F 97 H 18 173/86 95 01/16/21 07:20 01/16/21 07:20 01/16/21 07:20 01/16/21 07:20 01/16/21 07:20 Results - Labs CBC & Chem 7: 01/14/21 08:33 01/16/21 05:55 Labs: Laboratory Last Values WBC 5.3 K/mm3 (4.5-11.0) 01/14/21 08:33 RBC 3.43 M/mm3 (3.65-5.03) L 01/14/21 08:33 Hgb 10.5 gm/dl (11.8-15.2) L 01/14/21 08:33 Hct 31.4 % (35.5-45.6) L 01/14/21 08:33 MCV 92 fl (84-94) 01/14/21 08:33 MCH 31 pg (28-32) 01/14/21 08:33 MCHC 33 % (32-34) 01/14/21 08:33 RDW 16.9 % (13.2-15.2) H 01/14/21 08:33 Plt Count 212 K/mm3 (140-440) 01/14/21 08:33 Lymph % (Auto) 14.9 % (13.4-35.0) 01/14/21 08:33 Harris % (Auto) 11.3 % (0.0-7.3) H 01/14/21 08:33 Eos % (Auto) 2.1 % (0.0-4.3) 01/14/21 08:33 Baso % (Auto) 0.8 % (0.0-1.8) 01/14/21 08:33 Lymph # (Auto) 0.8 K/mm3 (1.2-5.4) L 01/14/21 08:33 Harris # (Auto) 0.6 K/mm3 (0.0-0.8) 01/14/21 08:33 Eos # (Auto) 0.1 K/mm3 (0.0-0.4) 01/14/21 08:33 Baso # (Auto) 0.0 K/mm3 (0.0-0.1) 01/14/21 08:33 Seg Neutrophils % 70.9 % (40.0-70.0) H 01/14/21 08:33 Seg Neutrophils # 3.8 K/mm3 (1.8-7.7) 01/14/21 08:33 ESR 24 mm/Hr (0-20) 01/14/21 10:09 Sodium 136 mmol/L (137-145) L 01/14/21 08:33 Potassium 4.1 mmol/L (3.6-5.0) 01/14/21 08:33 Chloride 94.2 mmol/L (98-107) L 01/14/21 08:33 Carbon Dioxide 28 mmol/L (22-30) 01/14/21 08:33 Anion Gap 18 mmol/L 01/14/21 08:33 BUN 30 mg/dL (9-20) H 01/14/21 08:33 Creatinine 13.5 mg/dL (0.8-1.3) H 01/14/21 08:33 Estimated GFR 5 ml/min 01/14/21 08:33 BUN/Creatinine Ratio 2 % 01/14/21 08:33 Glucose 904 mg/dL (75-100) H* 01/16/21 05:55 POC Glucose > 600 mg/dL (70-105) H 01/16/21 07:50 Calcium 9.6 mg/dL (8.4-10.2) 01/14/21 08:33 Magnesium 2.10 mg/dL (1.7-2.3) 01/14/21 08:33 Total Creatine Kinase 125 units/L (55-170) 01/14/21 08:33 C-Reactive Protein 0.20 mg/dL (0.00-1.30) 01/14/21 08:33 Active Medications - Current Medications Current Medications: Generic Name Dose Route Start Last Admin Trade Name Freq PRN Reason Stop Dose Admin Amlodipine Besylate 10 mg 01/15/21 10:00 01/15/21 22:08 Amlodipine 10 Mg Tab PO 10 mg DAILY CODY Administration Cetirizine HCl 10 mg 01/15/21 10:00 01/15/21 11:25 Cetirizine 10 Mg Tab PO 10 mg DAILY CODY Administration Dextrose 50 gm 01/14/21 07:13 Dextrose 50% In Water (25gm) 50 Ml Vial IV Q30MIN PRN Hypoglycemia Protocol Diphenhydramine HCl 25 mg 01/14/21 12:44 Diphenhydramine 25 Mg Cap PO Q8H PRN Itching Gabapentin 300 mg 01/14/21 22:00 01/15/21 22:46 Gabapentin 300 Mg Cap PO 300 mg QHS CODY Administration Heparin Sodium (Porcine) 5,000 unit 01/14/21 14:00 01/16/21 05:48 Heparin 5,000 Unit/1 Ml Vial SUB-Q 5,000 unit Q8HR CODY Administration Hydralazine HCl 50 mg 01/14/21 14:00 01/15/21 22:49 Hydralazine 25 Mg Tab PO 50 mg TID CODY Administration Hydralazine HCl 10 mg 01/16/21 07:30 Hydralazine 20 Mg/1 Ml Inj IV Q4HR PRN Hypertension Sodium Chloride 100 mls @ 999 mls/hr 01/14/21 22:37 Nacl 0.9% IV KATE PRN Hypotension Insulin Human Lispro 0 unit 01/16/21 08:00 01/16/21 07:55 Insulin Lispro 100 Unit/Ml SUB-Q 10 unit ACHS CODY Administration Protocol Levetiracetam 250 mg 01/14/21 10:00 01/15/21 22:46 Levetiracetam 500 Mg Tab PO 250 mg BID CODY Administration Metoclopramide HCl 5 mg 01/14/21 14:55 01/15/21 21:07 Metoclopramide 10 Mg/2 Ml Inj IV 5 mg Q6H PRN Administration Nausea And Vomiting Morphine Sulfate 2 mg 01/15/21 02:23 01/15/21 21:12 Morphine 2 Mg/1 Ml Inj IV 2 mg Q4H PRN Administration Pain, Moderate (4-6) Oxycodone/Acetaminophen 1 tab 01/14/21 18:24 01/15/21 00:28 Oxycodone /Acetaminophen 5-325mg Tab PO 1 tab Q8H PRN Administration Pain, Moderate (4-6)
[2021-01-16] MEDS ORDERED: METOCLOPRAMIDE 10 MG/2 ML INJ IV PRN (10:30)
[2021-01-16] MEDS: hydrALAZINE 25 MG TAB PO SCH ×2 (11:11→15:56)
[2021-01-16] MEDS: levETIRAcetam 500 MG TAB PO SCH (11:11)
[2021-01-16] MEDS: CETIRIZINE 10 MG TAB PO SCH (11:12)
[2021-01-16] MEDS: amLODIPine 10 MG TAB PO SCH (11:12)
--- NOTE | 2021-01-16 11:34 | Progress Note ---
Assessment and Plan - Patient Problems (1) End stage renal disease Current Visit: Yes Status: Chronic Plan to address problem: Continue on TTS inpatient HD schedule. From renal standpoint, if he remains stable post dialysis treatment today then he can be DC and will follow up with him at the dialysis unit. (2) Hypertensive urgency Current Visit: No Status: Acute Plan to address problem: Monitor on current oral antihypertensive regimen. Blood pressures are improved this am. (3) Type 1 diabetes mellitus with diabetic chronic kidney disease Current Visit: No Status: Acute Plan to address problem: Diabetes management per primary attending. (4) Diabetic gastroparesis associated with type 1 diabetes mellitus Current Visit: No Status: Chronic Plan to address problem: Symptoms stable at this time. Tolerating oral diet this am. (5) Intractable nausea and vomiting Current Visit: No Status: Chronic Plan to address problem: No issues this am, and symptoms are being better controlled. (6) Wound of left foot Current Visit: Yes Status: Acute Plan to address problem: MRI of the foot reviewed along with recommendations per ID. Subjective Date of service: 01/16/21 Principal diagnosis: ESRD Interval history: No acute complaints. DC held secondary to hypertension and hyperglycemia last night. Given insulin and given oral antihypertensive this am, with improvement noted in glycemic control as well as hypertension. Plan for HD this am. Objective - Vital Signs Vital signs: Vital Signs - 12hr 01/15/21 01/16/21 01/16/21 23:31 02:32 04:50 Temperature 98.5 F 98.3 F Pulse Rate 98 H 91 H 96 H Respiratory 18 18 Rate Blood Pressure 219/81 235/82 Blood Pressure 192/91 [Left] Blood Pressure [Right] O2 Sat by Pulse 95 94 Oximetry 01/16/21 01/16/21 01/16/21 07:20 09:05 11:07 Temperature 98.0 F Pulse Rate 97 H 88 Respiratory 18 19 Rate Blood Pressure 173/86 Blood Pressure [Left] Blood Pressure [Right] O2 Sat by Pulse 95 98 98 Oximetry 01/16/21 11:24 Temperature 98.4 F Pulse Rate 88 Respiratory Rate Blood Pressure Blood Pressure [Left] Blood Pressure 147/81 [Right] O2 Sat by Pulse 99 Oximetry - General Appearance General appearance: well-developed, appears stated age EENT: ATNC Neck: no JVD Respiratory: Present: Clear to Ascultation Cardiology: regular Gastrointestinal: normal Integumentary: no rash Neurologic: no focal deficit, alert and oriented x3 Musculoskeletal: deferred Psychiatric: cooperative - Lab 01/14/21 08:33 01/16/21 05:55 Most recent lab results Calcium 9.6 mg/dL (8.4-10.2) 01/14/21 08:33 Magnesium 2.10 mg/dL (1.7-2.3) 01/14/21 08:33 - Allied health notes Allied health notes reviewed: nursing Medications & Allergies - Medications Allergies/Adverse Reactions: Allergies phenytoin sodium [From Dilantin] Allergy (Verified 11/14/20 07:35) Hives phenytoin sodium extended [From Dilantin] Allergy (Verified 11/14/20 07:35) Hives Home Medications: Home Medications Medication Instructions Recorded Confirmed Last Taken Type Ferric Citrate (Nf) [Auryxia] 2 tab PO TID 11/14/20 01/07/21 12/29/20 09:00 History Gabapentin 300 mg PO QHS 11/14/20 01/07/21 01/04/21 21:00 History Hydralazine HCl 50 mg PO TID 11/14/20 01/07/21 01/04/21 09:00 History Loratadine [Alavert] 10 mg PO QDAY 11/14/20 01/08/21 01/04/21 21:00 History amLODIPine 10 mg PO DAILY 11/14/20 01/07/21 01/04/21 09:00 History Clindamycin [Clindamycin CAP] 300 mg PO Q6H #20 capsule 01/09/21 Unknown Rx Pantoprazole [Protonix TAB] 40 mg PO BIDAC #60 tablet 01/09/21 Unknown Rx diphenhydrAMINE [Benadryl CAP] 25 mg PO Q8H PRN #20 capsule 01/09/21 Unknown Rx levETIRAcetam [Keppra TAB] 250 mg PO BID #60 tablet 01/09/21 Unknown Rx oxyCODONE /ACETAMINOPHEN [Percocet 1 tab PO BID PRN #8 tablet 01/09/21 Unknown Rx 5/325 mg] Active Medications: Generic Name Dose Route Start Last Admin Trade Name Freq PRN Reason Stop Dose Admin Amlodipine Besylate 10 mg 01/15/21 10:00 01/16/21 11:12 Amlodipine 10 Mg Tab PO 10 mg DAILY CODY Administration Cetirizine HCl 10 mg 01/15/21 10:00 01/16/21 11:12 Cetirizine 10 Mg Tab PO 10 mg DAILY CODY Administration Dextrose 50 gm 01/14/21 07:13 Dextrose 50% In Water (25gm) 50 Ml Vial IV Q30MIN PRN Hypoglycemia Protocol Diphenhydramine HCl 25 mg 01/14/21 12:44 Diphenhydramine 25 Mg Cap PO Q8H PRN Itching Gabapentin 300 mg 01/14/21 22:00 01/15/21 22:46 Gabapentin 300 Mg Cap PO 300 mg QHS CODY Administration Heparin Sodium (Porcine) 5,000 unit 01/14/21 14:00 01/16/21 05:48 Heparin 5,000 Unit/1 Ml Vial SUB-Q 5,000 unit Q8HR CODY Administration Hydralazine HCl 50 mg 01/14/21 14:00 01/16/21 11:11 Hydralazine 25 Mg Tab PO 50 mg TID CODY Administration Hydralazine HCl 10 mg 01/16/21 07:30 Hydralazine 20 Mg/1 Ml Inj IV Q4HR PRN Hypertension Sodium Chloride 100 mls @ 999 mls/hr 01/14/21 22:37 Nacl 0.9% IV KATE PRN Hypotension Insulin Glargine 20 units 01/17/21 10:30 01/16/21 11:13 Insulin Glargine 100 Units/Ml SUB-Q 20 units QAMDIAB CODY Administration Insulin Human Lispro 0 unit 01/16/21 08:00 01/16/21 11:12 Insulin Lispro 100 Unit/Ml SUB-Q 3 unit ACHS CODY Administration Protocol Levetiracetam 250 mg 01/14/21 10:00 01/16/21 11:11 Levetiracetam 500 Mg Tab PO 250 mg BID CODY Administration Metoclopramide HCl 10 mg 01/16/21 10:30 Metoclopramide 10 Mg/2 Ml Inj IV Q6H PRN Nausea And Vomiting Oxycodone/Acetaminophen 1 tab 01/14/21 18:24 01/15/21 00:28 Oxycodone /Acetaminophen 5-325mg Tab PO 1 tab Q8H PRN Administration Pain, Moderate (4-6)
[2021-01-16] MEDS: oxyCODONE /ACETAMINOPHEN 5-325MG TAB PO PRN (11:36)
[2021-01-16 16:23] VITALS: BP 155/78
[2021-01-17] MEDS ORDERED: INSULIN GLARGINE 100 UNITS/ML SUB-Q SCH (10:30)
== END 2021-01-16 16:30 | disposition home or self-care (01) ==
LOC: ED 06:00 → 3A 09:14 → 3B-SURG 20:16
PROVIDERS: ADMIT Internal Medicine; ATTEND Internal Medicine
DX: I16.0 Hypertensive urgency (principal); I12.0 Hypertensive chronic kidney disease with stage 5 chronic kidney disease or end stage renal disease; N18.6 End stage renal disease; S91.302A Unspecified open wound, left foot, initial encounter; E10.22 Type 1 diabetes mellitus with diabetic chronic kidney disease; E10.649 Type 1 diabetes mellitus with hypoglycemia without coma; J45.909 Unspecified asthma, uncomplicated; K31.84 Gastroparesis; R56.9 Unspecified convulsions; R11.2 Nausea with vomiting, unspecified; Z79.899 Other long term (current) drug therapy; Z99.2 Dependence on renal dialysis; Z98.890 Other specified postprocedural states; X58.XXXA Exposure to other specified factors, initial encounter; Y93.89 Activity, other specified; Y92.89 Other specified places as the place of occurrence of the external cause; Y99.8 Other external cause status
CPT/HCPCS: 36415; 71045; 73660; 73718; 80048; 82550; 82947; 82962; 83735; 85025; 85652; 86140; 93005; 96365; 96366; 96372; 96375; 96376; 99285; G0257; G0378; J0360; J1644; J1953; J2270; J2765; J1815

== ENCOUNTER 2021-01-23 22:00 | Emergency (ER) | payer MEDICAID | END 2021-01-23 23:00 | disposition left against medical advice (07) | LOC: ED 22:00 | DX: E16.2 Hypoglycemia, unspecified (principal); Z53.21 Procedure and treatment not carried out due to patient leaving prior to being seen by health care provider ==

== ENCOUNTER 2021-02-18 07:24 | Inpatient (IN) | payer MEDICAID ==
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
--- NOTE | 2021-02-18 09:04 | XRay Report ---
CHEST 1 VIEW INDICATION / CLINICAL INFORMATION: chest pain. COMPARISON: 01/14/2021 FINDINGS: SUPPORT DEVICES: None. HEART / MEDIASTINUM: Sternotomy. Cardiac silhouette is upper limits of normal for size. LUNGS / PLEURA: Mild interstitial prominence suggesting mild interstitial pulmonary edema. No focal m ass or consolidation or pleural effusion noted. No pneumothorax. ADDITIONAL FINDINGS: No significant additional findings. IMPRESSION: 1. Mild bilateral interstitial prominence most likely interstitial pulmonary edema. Clinical correlat ion is recommended. Signer Name: Ivett Shah MD Signed: 02/18/2021 8:59 AM Workstation Name: [id number]
[2021-02-18 09:32] LABS: Basophils # (Auto) 0.1 K/mm3 (0.0-0.1); Basophils % (Auto) 0.8 % (0.0-1.8); Eosinophils # (Auto) 0.1 K/mm3 (0.0-0.4); Eosinophils % (Auto) 1.2 % (0.0-4.3); Hematocrit 33.6 % (35.5-45.6); Hemoglobin 10.4 gm/dl (11.8-15.2); Lymphocytes # (Auto) 0.8 K/mm3 (1.2-5.4); Lymphocytes % (Auto) 7.6 % (13.4-35.0); Mean Corpuscular HGB Conc 31 % (32-34); Mean Corpuscular Volume 95 fl (84-94); Monocytes # (Auto) 0.9 K/mm3 (0.0-0.8); Platelet Count 288 K/mm3 (140-440); Red Blood Count 3.54 M/mm3 (3.65-5.03); Red Cell Distribution Width 16.6 % (13.2-15.2)
[2021-02-18 09:37] LABS: Blood Urea Nitrogen 54 mg/dL (9-20); Calcium 9.5 mg/dL (8.4-10.2); Hemolysis Index 83
[2021-02-18 09:40] LABS: BUN/Creatinine Ratio 5
[2021-02-18] MEDS ORDERED: levETIRAcetam 1,000 MG in SODIUM CHLORIDE 0.9% 100 ML IV ONE (10:03)
[2021-02-18] MEDS ORDERED: SODIUM CHLORIDE 0.9% 1000 ML 1,000 ML IV ONE ×2 (10:03→10:04)
[2021-02-18] MEDS ORDERED: levETIRAcetam 1000 MG/NS 0.75% 1,000 MG/100 ML BAG IV ONE ×2 (10:04→10:30)
[2021-02-18] MEDS ORDERED: SODIUM CHLORIDE 0.9% 1000 ML 1,000 ML ONE (10:05)
[2021-02-18 10:06] LABS: Chol/HDL Ratio 4.28 %
[2021-02-18] MEDS ORDERED: INSULIN REGULAR, HUMAN 100 UNITS in SODIUM CHLORIDE 0.9% 99 ML IV SCH (11:00)
[2021-02-18] MEDS ORDERED: LORazepam 2 MG/ML VIAL IV ONE (11:06)
--- NOTE | 2021-02-18 11:53 | History and Physical Report ---
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 Patient has diminished cognition and is unable to provide detailed history at the time of my evaluation. Patient history provided by EMS staff, ED staff, as well as patient mother who was made available by telephone for interview. As per mother the patient has experienced weakness since his discharge from [facility] 1 week ago and also complained of leg pain. EMS was notified and upon arrival the patient was found to be in distress and subsequently transported to [facility] for further evaluation and care. Patient seen and evaluated in the emergency department. Lab and imaging studies reviewed. Patient found to have DKA, Metabolic Acidosis, Metabolic Encephalopathy, as well as end-stage renal disease in need of dialysis. No further history obtainable. Nephrology team consulted in ED for urgent dialysis. Patient initiated on DKA protocol and admitted to ICU for medical stabilization due to increased risk of decompensation. Prior admission on 01/14/2021 reviewed. All listed medication reconciled at time of exam. Ad vanced care planning conducted in the emergency department. Past History Past Medical History: diabetes, ESRD, hypertension, seizures Past Surgical History: Other (Brain surgery, cardiac surgery) Social history: single, lives with family. denies: smoking, alcohol abuse, prescription drug abuse Family history: diabetes, hypertension Medications and Allergies Allergies Allergy/AdvReac Type Severity Reaction Status Date / Time phenytoin sodium Allergy Hives Verified 11/14/20 07:35 [From Dilantin] phenytoin sodium extended Allergy Hives Verified 11/14/20 07:35 [From Dilantin] Home Medications Medication Instructions Recorded Confirmed Last Taken Type Ferric Citrate (Nf) [Auryxia] 2 tab PO TID 11/14/20 01/07/21 12/29/20 09:00 History Gabapentin 300 mg PO QHS 11/14/20 01/07/21 01/04/21 21:00 History Hydralazine HCl 50 mg PO TID 11/14/20 01/07/21 01/04/21 09:00 History Loratadine [Alavert] 10 mg PO QDAY 11/14/20 01/08/21 01/04/21 21:00 History amLODIPine 10 mg PO DAILY 11/14/20 01/07/21 01/04/21 09:00 History Clindamycin [Clindamycin CAP] 300 mg PO Q6H #20 capsule 01/09/21 Unknown Rx Pantoprazole [Protonix TAB] 40 mg PO BIDAC #60 tablet 01/09/21 Unknown Rx diphenhydrAMINE [Benadryl CAP] 25 mg PO Q8H PRN #20 capsule 01/09/21 Unknown Rx levETIRAcetam [Keppra TAB] 250 mg PO BID #60 tablet 01/09/21 Unknown Rx oxyCODONE /ACETAMINOPHEN [Percocet 1 tab PO BID PRN #8 tablet 01/09/21 Unknown Rx 5/325 mg] Metoclopramide [Reglan] 10 mg PO ACHS #60 tablet 01/16/21 Unknown Rx oxyCODONE /ACETAMINOPHEN [Percocet 1 tab PO Q6HR PRN #12 tablet 01/16/21 Unknown Rx 5/325] Active Meds: Active Medications Insulin Human Regular 100 (units/ Sodium Chloride) 100 mls @ 1 mls/hr IV TITR CODY; Protocol Review of Systems ROS unobtainable: due to mental status Exam - Constitutional Vitals: Temp Pulse Resp BP Pulse Ox 97.5 F L 59 L 10 L 115/60 90 02/18/21 10:03 02/18/21 10:30 02/18/21 10:30 02/18/21 10:30 02/18/21 10:30 General appearance: Present: mild distress - EENT Eyes: Present: PERRL ENT: hearing intact, clear oral mucosa, other (Oral mucosa dry) - Neck Neck: Present: supple, normal ROM - Respiratory Respiratory effort: normal Respiratory: bilateral: CTA - Cardiovascular Rhythm: other (Tachycardia) Heart Sounds: Present: S1 & S2. Absent: rub, click - Extremities Extremities: pulses symmetrical, No edema Peripheral Pulses: within normal limits - Abdominal General gastrointestinal: Present: soft, non-tender, non-distended, normal bowel sounds Male genitourinary: Present: normal - Integumentary Integumentary: Present: clear, warm, dry - Musculoskeletal Musculoskeletal: generalized weakness - Psychiatric Psychiatric: no appropriate mood/affect, no intact judgment & insight, no memory intact, agitated - Neurologic Neurologic: CNII-XII intact, moves all extremities HEART Score - HEART Score Troponin: Troponin T 0.445 ng/mL (0.00-0.029) H* 02/18/21 08:39 Results - Labs CBC & Chem 7: 02/18/21 08:39 02/18/21 18:10 Labs: Abnormal lab results 02/18/21 02/18/21 02/18/21 Range/Units 07:53 08:39 08:39 RBC 3.54 L (3.65-5.03) M/mm3 Hgb 10.4 L (11.8-15.2) gm/dl Hct 33.6 L (35.5-45.6) % MCV 95 H (84-94) fl MCHC 31 L (32-34) % RDW 16.6 H (13.2-15.2) % Lymph % (Auto) 7.6 L (13.4-35.0) % [place] % (Auto) 8.0 H (0.0-7.3) % Lymph # (Auto) 0.8 L (1.2-5.4) K/mm3 [place] # (Auto) 0.9 H (0.0-0.8) K/mm3 Seg Neutrophils % 82.4 H (40.0-70.0) % Seg Neutrophils # 9.0 H (1.8-7.7) K/mm3 VBG pH (7.320-7.420) Sodium 133 L (137-145) mmol/L Potassium 5.8 H (3.6-5.0) mmol/L Chloride 87.6 L (98-107) mmol/L Carbon Dioxide 16 L (22-30) mmol/L BUN 54 H (9-20) mg/dL Creatinine 11.4 H (0.8-1.3) mg/dL Glucose 502 H* (75-100) mg/dL POC Glucose 491 H (70-105) mg/dL Troponin T (0.00-0.029) ng/mL Cholesterol (50-199) mg/dL LDL Cholesterol Direct (50-130) mg/dL 02/18/21 02/18/21 Range/Units 08:39 08:39 RBC (3.65-5.03) M/mm3 Hgb (11.8-15.2) gm/dl Hct (35.5-45.6) % MCV (84-94) fl MCHC (32-34) % RDW (13.2-15.2) % Lymph % (Auto) (13.4-35.0) % [place] % (Auto) (0.0-7.3) % Lymph # (Auto) (1.2-5.4) K/mm3 [place] # (Auto) (0.0-0.8) K/mm3 Seg Neutrophils % (40.0-70.0) % Seg Neutrophils # (1.8-7.7) K/mm3 VBG pH 7.293 L (7.320-7.420) Sodium (137-145) mmol/L Potassium (3.6-5.0) mmol/L Chloride (98-107) mmol/L Carbon Dioxide (22-30) mmol/L BUN (9-20) mg/dL Creatinine (0.8-1.3) mg/dL Glucose (75-100) mg/dL POC Glucose (70-105) mg/dL Troponin T 0.445 H* (0.00-0.029) ng/mL Cholesterol 210 H (50-199) mg/dL LDL Cholesterol Direct 136 H (50-130) mg/dL Assessment and Plan - Patient Problems (1) DKA (diabetic ketoacidoses) Current Visit: Yes Status: Acute Qualifiers: Diabetes mellitus type: type 1 Plan to address problem: DKA protocol: Insulin drip, IV fluid resuscitation therapy, monitor anion gap, serial BMP, potassium repletion as per protocol, The high probability of a clinically significant, sudden or life threatening deterioration of the [cardiac, neuro, renal] system(s) required my full and direct attention, intervention and personal management. The aggregate critical care time was [65] minutes. This time is in addition to time spent performing reported procedures but includes the following: [x] Data Review and interpretation [x] Patient assessment and monitoring of vital signs [x] Documentation [x] Medication orders and management (2) Hypertension Current Visit: Yes Status: Acute Qualifiers: Hypertension type: primary hypertension Qualified Code(s): I10 - Essential (primary) hypertension Plan to address problem: Monitor blood pressure every shift, continue medical management (3) End-stage renal disease needing dialysis Current Visit: Yes Status: Chronic Plan to address problem: Nephrology team consulted in ED for urgent dialysis as per renal team, supportive care, monitor urine output every shift, avoid nephrotoxic agents. (4) Metabolic acidosis Current Visit: Yes Status: Acute Plan to address problem: BMP, IV fluid resuscitation therapy, repeat BMP in a.m. treat DKA (5) Metabolic encephalopathy Current Visit: Yes Status: Acute Plan to address problem: Neuro check, supportive care, seizure precautions, aspiration precautions. (6) Seizure disorder Current Visit: Yes Status: Acute Plan to address problem: Seizure precautions, neuro check, continue current therapy. (7) DVT prophylaxis Current Visit: Yes Status: Acute Plan to address problem: SCD to bilateral lower extremities while in bed (8) Advance care planning Current Visit: Yes Status: Acute Plan to address problem: Disease education conducted, care plan discussed, diagnoses discussed, prognosis discussed, patient mother knowledges understanding and agree with care plan, +30 minutes.
[2021-02-18] MEDS ORDERED: ACETAMINOPHEN 325 MG TAB PO PRN (11:58)
[2021-02-18 12:22] LABS: Calcium 9.6 mg/dL (8.4-10.2)
[2021-02-18] MEDS ORDERED: METOCLOPRAMIDE 10 MG/2 ML INJ ONE (12:46)
[2021-02-18] MEDS: HYDROmorphone 1 MG/1 ML INJ IV PRN ×2 (12:53→22:44)
--- NOTE | 2021-02-18 13:10 | Consultation ---
History of Present Illness Consult date: 02/18/21 Consult reason: elevated troponin History of present illness: The patient is a 35-year-old man with multiple medical problems. He has end- stage renal disease on hemodialysis, seizure disorder and poorly controlled diabetes. He was brought to the emergency room at this time by his mother, for evaluation and management of poorly controlled outpatient blood sugars, and constitutional symptoms with pain in his legs and generalized weakness. In the emergency room, laboratory exam showed blood sugar nearly 600, and elevated troponin levels among multiple laboratory abnormalities. Cardiology consultation was requested for troponin elevation. In addition, patient is reported to have been at [facility] within the past several weeks ostensibly for intractable vomiting. During that admission, it was reported by his mother that he suffered a "cardiac arrest". Details of that admission and any cardiac evaluation are unavailable. Today, patient's ECG is in normal sinus rhythm, normal ECG with no ST or T wave changes. Past History Past Medical History: diabetes, ESRD, hypertension, seizures Medications and Allergies Allergies Allergy/AdvReac Type Severity Reaction Status Date / Time phenytoin sodium Allergy Hives Verified 11/14/20 07:35 [From Dilantin] phenytoin sodium extended Allergy Hives Verified 11/14/20 07:35 [From Dilantin] Home Medications Medication Instructions Recorded Confirmed Last Taken Type Ferric Citrate (Nf) [Auryxia] 2 tab PO TID 11/14/20 01/07/21 12/29/20 09:00 History Gabapentin 300 mg PO QHS 11/14/20 01/07/21 01/04/21 21:00 History Hydralazine HCl 50 mg PO TID 11/14/20 01/07/21 01/04/21 09:00 History Loratadine [Alavert] 10 mg PO QDAY 11/14/20 01/08/21 01/04/21 21:00 History amLODIPine 10 mg PO DAILY 11/14/20 01/07/21 01/04/21 09:00 History Clindamycin [Clindamycin CAP] 300 mg PO Q6H #20 capsule 01/09/21 Unknown Rx Pantoprazole [Protonix TAB] 40 mg PO BIDAC #60 tablet 01/09/21 Unknown Rx diphenhydrAMINE [Benadryl CAP] 25 mg PO Q8H PRN #20 capsule 01/09/21 Unknown Rx levETIRAcetam [Keppra TAB] 250 mg PO BID #60 tablet 01/09/21 Unknown Rx oxyCODONE /ACETAMINOPHEN [Percocet 1 tab PO BID PRN #8 tablet 01/09/21 Unknown Rx 5/325 mg] Metoclopramide [Reglan] 10 mg PO ACHS #60 tablet 01/16/21 Unknown Rx oxyCODONE /ACETAMINOPHEN [Percocet 1 tab PO Q6HR PRN #12 tablet 01/16/21 Unknown Rx 5/325] Active Meds: Active Medications Acetaminophen (Acetaminophen 325 Mg Tab) 650 mg PO Q6H PRN PRN Reason: Pain MILD(1-3)/Fever >100.5/RODGERS Amlodipine Besylate (Amlodipine 10 Mg Tab) 10 mg PO DAILY CODY Gabapentin (Gabapentin 300 Mg Cap) 300 mg PO QHS CODY Hydromorphone HCl (Hydromorphone 1 Mg/1 Ml Inj) 0.5 mg IV Q24H PRN PRN Reason: Pain , Severe (7-10) Last Admin: 02/18/21 12:53 Dose: 0.5 mg Documented by: Insulin Human Regular 100 (units/ Sodium Chloride) 100 mls @ 1 mls/hr IV TITR CODY; Protocol Last Admin: 02/18/21 12:40 Dose: 8 units/hr, 8 mls/hr Documented by: Metoclopramide HCl (Metoclopramide 10 Mg Tab) 10 mg PO ACHS CODY Miscellaneous Medication (Ferric Citrate (Nf)) 2 tab PO TID CODY Miscellaneous Medication (Hydralazine Hcl [Hydralazine Hcl]) 50 mg PO TID CODY Miscellaneous Medication (Levetiracetam [Keppra Tab]) 250 mg PO BID CODY Miscellaneous Medication (Loratadine [Alavert]) 10 mg PO QDAY CODY Oxycodone/Acetaminophen (Oxycodone /Acetaminophen 5-325mg Tab) 1 tab PO Q12H PRN PRN Reason: Pain, Moderate (4-6) Pantoprazole Sodium (Pantoprazole 40 Mg Tab) 40 mg PO BIDAC CODY Sodium Chloride (Sodium Chloride 0.9% 10 Ml Flush Syringe) 10 ml IV BID CODY Sodium Chloride (Sodium Chloride 0.9% 10 Ml Flush Syringe) 10 ml IV PRN PRN PRN Reason: LINE FLUSH Review of Systems Cardiovascular: no chest pain, no orthopnea, no palpitations, no rapid/irregular heart beat, no edema, no syncope, no lightheadedness, no shortness of breath Physical Examination Vital Signs Pulse Ox 96 02/18/21 08:00 General appearance: other (Chronically ill-appearing, lethargic but no acute respiratory distress) HEENT: Positive: PERRL Neck: Positive: neck supple Cardiac: Positive: Reg Rate and Rhythm Lungs: Positive: clear to auscultation Neuro: Positive: Weakness (Generalized lethargy) Abdomen: Positive: Soft Male genitourinary: Positive: deferred Skin: Positive: Clear Extremities: Absent: edema Results 02/18/21 08:39 02/18/21 11:38 Lipids 02/18/21 Range/Units 08:39 Triglycerides 125 (2-149) mg/dL Cholesterol 210 H (50-199) mg/dL HDL Cholesterol 49 (40-59) mg/dL Cholesterol/HDL Ratio 4.28 % CBC 02/18/21 Range/Units 08:39 WBC 10.9 (4.5-11.0) K/mm3 RBC 3.54 L (3.65-5.03) M/mm3 Hgb 10.4 L (11.8-15.2) gm/dl Hct 33.6 L (35.5-45.6) % Plt Count 288 (140-440) K/mm3 Lymph # (Auto) 0.8 L (1.2-5.4) K/mm3 [place] # (Auto) 0.9 H (0.0-0.8) K/mm3 Eos # (Auto) 0.1 (0.0-0.4) K/mm3 Baso # (Auto) 0.1 (0.0-0.1) K/mm3 Comprehensive Metabolic Panel 02/18/21 02/18/21 Range/Units 08:39 11:38 Sodium 133 L 131 L (137-145) mmol/L Potassium 5.8 H 5.9 H (3.6-5.0) mmol/L Chloride 87.6 L 85.8 L (98-107) mmol/L Carbon Dioxide 16 L 11 L (22-30) mmol/L BUN 54 H 57 H (9-20) mg/dL Creatinine 11.4 H 11.6 H (0.8-1.3) mg/dL Glucose 502 H* 592 H* (75-100) mg/dL Calcium 9.5 9.6 (8.4-10.2) mg/dL EKG interpretations - Telemetry EKG Rhythm: Sinus Rhythm Assessment and Plan - Patient Problems (1) Elevated troponin Current Visit: Yes Status: Acute Plan to address problem: Elevated troponin is likely nonspecific finding in this patient with uncontrolled diabetes and end-stage renal disease on hemodialysis. We will request records from [facility] to review any prior recent cardiac work-up, otherwise conservative cardiac management at this time.
[2021-02-18] MEDS ORDERED: NON-FORMULARY EACH (Hydralazine Hcl [Hydralazine Hcl] 50 MG Tablet) PO SCH (14:00)
[2021-02-18] MEDS: NON-FORMULARY EACH (Ferric Citrate (Nf) 210 MG Tablet) PO SCH ×2 (14:25→22:36)
[2021-02-18] MEDS: METOCLOPRAMIDE 10 MG TAB PO SCH ×2 (16:32→22:38)
[2021-02-18] MEDS: PANTOPRAZOLE 40 MG TAB PO SCH (16:32)
[2021-02-18 19:03] LABS: Calcium 8.5 mg/dL (8.4-10.2)
[2021-02-18 20:01] LABS: Hepatitis C Virus Antibody Non-Reactive (NonReactive)
[2021-02-18 20:04] LABS: Hepatitis B Surface Antigen Nonreactive (Negative)
[2021-02-18] MEDS ORDERED: LEVETIRACETAM 250 MG PO SCH (22:00)
[2021-02-18] MEDS: hydrALAZINE 25 MG TAB PO SCH (22:37)
[2021-02-18] MEDS: levETIRAcetam 500 MG TAB PO SCH (22:37)
[2021-02-18] MEDS: GABAPENTIN 300 MG CAP PO SCH (22:37)
[2021-02-19] MEDS: hydrALAZINE 20 MG/1 ML INJ IV PRN (00:14)
[2021-02-19 06:40] LABS: Calcium 8.6 mg/dL (8.4-10.2)
[2021-02-19] MEDS: NON-FORMULARY EACH (Ferric Citrate (Nf) 210 MG Tablet) PO SCH ×3 (07:29→13:46)
[2021-02-19] MEDS: METOCLOPRAMIDE 10 MG TAB PO SCH ×3 (07:29→22:46)
[2021-02-19] MEDS: PANTOPRAZOLE 40 MG TAB PO SCH ×2 (07:29→18:00)
--- NOTE | 2021-02-19 08:33 | Consultation ---
History of Present Illness - Reason for Consult Consult date: 02/19/21 end stage renal disease Requesting physician: ADRIAN MORALES - History of Present Illness 35-year-old male who is well known to me with a history of type 1 diabetes mellitus with numerous complications including neuropathy, retinopathy, gastroparesis and nephropathy now End-stage renal disease. He also has a history of hypertension and poor compliance with medical treatment. Patient has had numerous hospitalizationsWith these medical problems. He was just discharged from [facility] 8 days ago after about it with hospitalization. He initially presented for intractable vomiting and while in the ER went to cardiac arrest. He was intubated was in diabetic ketoacidosis and had a protracted hospital stay. Details of this hospitalization are not available to me to dougie leiva at this time. 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 He has been miserable at home on account of these problems.Presents on account of bilateral leg pain with shaking and muscle spasms in both lower extremities. On presentation blood sugar was high and he was started on DKA protocol and admitted for further management. Labs showed potassium high at 5.9 mmol/L with bicarbonate level low at 11 mmols per liter. I am consulted for dialysis and to manage fluid and electrolyte abnormalities. I was called by the patient yesterday and I gave orders for stat dialysis which was done. It was uneventful. On evaluating patient this morning, he still complains of pain and is extremely frustrated about not been able to see or walk. He states "I need physical therapy". He asked me to call his mother so he could speak to her on the phone but was unable to recall the last 4 digits Of her number. He only remembered [phone] Past History Past Medical History: diabetes (type 1Completed by gastroparesis, neuropathy, retinopathy, nephropathy), ESRD, hypertension, seizures Past Surgical History: Other (Brain surgery, cardiac surgery, AV fistula placement, permacath placement) Social history: single, lives with family. denies: smoking, alcohol abuse, prescription drug abuse Family history: diabetes, hypertension Medications and Allergies Allergies Allergy/AdvReac Type Severity Reaction Status Date / Time phenytoin sodium Allergy Hives Verified 11/14/20 07:35 [From Dilantin] phenytoin sodium extended Allergy Hives Verified 11/14/20 07:35 [From Dilantin] Home Medications Medication Instructions Recorded Confirmed Last Taken Type Ferric Citrate (Nf) [Auryxia] 2 tab PO TID 11/14/20 01/07/21 12/29/20 09:00 History Gabapentin 300 mg PO QHS 11/14/20 01/07/21 01/04/21 21:00 History Hydralazine HCl 50 mg PO TID 11/14/20 01/07/21 01/04/21 09:00 History Loratadine [Alavert] 10 mg PO QDAY 11/14/20 01/08/21 01/04/21 21:00 History amLODIPine 10 mg PO DAILY 11/14/20 01/07/21 01/04/21 09:00 History Clindamycin [Clindamycin CAP] 300 mg PO Q6H #20 capsule 01/09/21 Unknown Rx Pantoprazole [Protonix TAB] 40 mg PO BIDAC #60 tablet 01/09/21 Unknown Rx diphenhydrAMINE [Benadryl CAP] 25 mg PO Q8H PRN #20 capsule 01/09/21 Unknown Rx levETIRAcetam [Keppra TAB] 250 mg PO BID #60 tablet 01/09/21 Unknown Rx oxyCODONE /ACETAMINOPHEN [Percocet 1 tab PO BID PRN #8 tablet 01/09/21 Unknown Rx 5/325 mg] Metoclopramide [Reglan] 10 mg PO ACHS #60 tablet 01/16/21 Unknown Rx oxyCODONE /ACETAMINOPHEN [Percocet 1 tab PO Q6HR PRN #12 tablet 01/16/21 Unknown Rx 5/325] Active Meds: Active Medications Acetaminophen (Acetaminophen 325 Mg Tab) 650 mg PO Q6H PRN PRN Reason: Pain MILD(1-3)/Fever >100.5/[place]ODGERS Amlodipine Besylate (Amlodipine 10 Mg Tab) 10 mg PO DAILY [facility] Cetirizine HCl (Cetirizine 10 Mg Tab) 10 mg PO DAILY [facility] Gabapentin (Gabapentin 300 Mg Cap) 300 mg PO QHS [facility] Last Admin: 02/18/21 22:37 Dose: Not Given Documented by: Hydralazine HCl (Hydralazine 25 Mg Tab) 50 mg PO TID [facility] Last Admin: 02/18/21 22:37 Dose: Not Given Documented by: Hydralazine HCl (Hydralazine 20 Mg/1 Ml Inj) 10 mg IV Q4HR PRN PRN Reason: Systolic BP >150 Last Admin: 02/19/21 00:14 Dose: 10 mg Documented by: Hydromorphone HCl (Hydromorphone 1 Mg/1 Ml Inj) 0.5 mg IV Q24H PRN PRN Reason: Pain , Severe (7-10) Last Admin: 02/18/21 12:53 Dose: 0.5 mg Documented by: Insulin Human Regular 100 (units/ Sodium Chloride) 100 mls @ 1 mls/hr IV TITR [facility]; Protocol Last Titration: 02/19/21 07:42 Dose: 2 units/hr, 2 mls/hr Documented by: Levetiracetam (Levetiracetam 500 Mg Tab) 250 mg PO BID [facility] Last Admin: 02/18/21 22:37 Dose: Not Given Documented by: Metoclopramide HCl (Metoclopramide 10 Mg Tab) 10 mg PO ACHS [facility] Last Admin: 02/19/21 07:29 Dose: Not Given Documented by: Miscellaneous Medication (Ferric Citrate (Nf)) 2 tab PO TID [facility] Last Admin: 02/19/21 07:29 Dose: Not Given Documented by: Oxycodone/Acetaminophen (Oxycodone /Acetaminophen 5-325mg Tab) 1 tab PO Q12H PRN PRN Reason: Pain, Moderate (4-6) Pantoprazole Sodium (Pantoprazole 40 Mg Tab) 40 mg PO BIDAC [facility] Last Admin: 02/19/21 07:29 Dose: Not Given Documented by: Sodium Chloride (Sodium Chloride 0.9% 10 Ml Flush Syringe) 10 ml IV BID [facility] Last Admin: 02/18/21 22:38 Dose: 10 ml Documented by: Sodium Chloride (Sodium Chloride 0.9% 10 Ml Flush Syringe) 10 ml IV PRN PRN PRN Reason: LINE FLUSH Review of Systems All systems: negative (Constitutional: No fever or chills. No anorexia or weight loss) Eyes: bilateral: loss of vision Ears, nose, mouth and throat: no ear discharge, no nasal congestion, no nasal discharge, no epistaxis Respiratory: no cough, no cough with sputum, no hemoptysis, no shortness of breath Gastrointestinal: no abdominal pain, no nausea, no vomiting, no diarrhea, no constipation Genitourinary Male: no dysuria, no hematuria (Makes very little urine) Musculoskeletal: other (Pain both legs) Integumentary: pruritis, no rash Neurological: weakness, headaches Psychiatric: no anxiety, no depression Endocrine: high blood sugars, low blood sugars Hematologic/Lymphatic: no easy bruising Exam - Vital Signs Vital signs: Vital Signs Pulse Ox 96 02/18/21 08:00 - Physical Exam Narrative exam: Young -Burmese male lying in bed in no acute distress HEENT: Normocephalic atraumatic, pupils equal round reactive to light Neck: Supple, no venous distention, no goiter CVS: S1S2 RRR No murmur, No rub or gallop Lungs: Clear to auscultation, no use of accessory muscles of respiration Abdomen: Full, soft, nontender, no organomegaly no bruit, bowel sounds are present Extremities: No edema, no cyanosis or clubbing. Dressings in both shins Urinary: Deferred Musculo-skeletal: No joint deformities or swelling Neuro: Awake, alert, no focal deficits. Visual impairment bilaterally Results - Lab Results 02/18/21 08:39 02/19/21 14:08 Most recent lab results Calcium 8.6 mg/dL (8.4-10.2) 02/19/21 05:42 Phosphorus 6.60 mg/dL (2.5-4.5) H 02/18/21 11:38 Magnesium 2.70 mg/dL (1.7-2.3) H 02/18/21 11:38 Assessment and Plan - Patient Problems (1) Hyperkalemia Current Visit: Yes Status: Acute Plan to address problem: Secondary to missed dialysisAnd transcellular shift with diabetic ketoacidosis. Hemodialysis and a follow-up potassium (2) Metabolic acidosis Current Visit: Yes Status: Acute Plan to address problem: Secondary to missed dialysis. Hemodialysis and then follow-up bicarbonate level (3) Hyponatremia Current Visit: Yes Status: Acute Plan to address problem: Hypervolemic. Fluid removal on dialysis and then follow-up sodium (4) Diabetic ketoacidosis Current Visit: Yes Status: Acute Plan to address problem: Continue insulin and other management by primary attending (5) Hypertensive chronic kidney disease with stage 5 chronic kidney disease or end stage renal disease Current Visit: No Status: Chronic Plan to address problem: Follow-up blood pressure on current medications (6) Type 1 diabetes mellitus with diabetic chronic kidney disease Current Visit: No Status: Acute Plan to address problem: Continue treatment per primary attending (7) End stage renal disease Current Visit: Yes Status: Acute Plan to address problem: Hemodialysis on a Monday, and Monday schedule.
[2021-02-19] MEDS: hydrALAZINE 25 MG TAB PO SCH ×3 (08:44→22:36)
[2021-02-19] MEDS ORDERED: INSULIN GLARGINE 100 UNITS/ML SUB-Q NR (09:30)
[2021-02-19] MEDS: levETIRAcetam 500 MG TAB PO SCH ×2 (09:52→22:37)
[2021-02-19] MEDS: CETIRIZINE 10 MG TAB PO SCH (09:52)
[2021-02-19] MEDS ORDERED: amLODIPine 10 MG TAB PO SCH (10:00)
[2021-02-19] MEDS ORDERED: LORATADINE 10 MG PO SCH (10:00)
--- NOTE | 2021-02-19 10:17 | Consultation ---
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 Patient has diminished cognition and is unable to provide detailed history at the time of my evaluation. Patient history provided by EMS staff, ED staff, as well as patient mother who was made available by telephone for interview. As per mother the patient has experienced weakness since his discharge from [facility] 1 week ago and also complained of leg pain. EMS was notified and upon arrival the patient was found to be in distress and subsequently transported to [facility] for further evaluation and care. Patient seen and evaluated in the emergency department. Lab and imaging studies reviewed. Patient found to have DKA, Metabolic Acidosis, Metabolic Encephalopathy, as well as end-stage renal disease in need of di alysis. No further history obtainable. Nephrology team consulted in ED for urgent dialysis. Patient initiated on DKA protocol and admitted to ICU for medical stabilization due to increased risk of decompensation. A critical care consult was placed to facilitate admission to the ICU. Past History Past Medical History: diabetes, ESRD, hypertension, seizures Past Surgical History: Other (Brain surgery, cardiac surgery) Social history: single, lives with family. denies: smoking, alcohol abuse, prescription drug abuse Family history: diabetes, hypertension Medications and Allergies Allergies Allergy/AdvReac Type Severity Reaction Status Date / Time phenytoin sodium Allergy Hives Verified 11/14/20 07:35 [From Dilantin] phenytoin sodium extended Allergy Hives Verified 11/14/20 07:35 [From Dilantin] Home Medications Medication Instructions Recorded Confirmed Last Taken Type Ferric Citrate (Nf) [Auryxia] 2 tab PO TID 11/14/20 02/20/21 12/29/20 09:00 History Gabapentin 300 mg PO QHS 11/14/20 02/20/21 01/04/21 21:00 History Hydralazine HCl 100 mg PO TID 11/14/20 02/20/21 01/04/21 09:00 History amLODIPine 10 mg PO DAILY 11/14/20 02/19/21 01/04/21 09:00 History oxyCODONE /ACETAMINOPHEN [Percocet 1 tab PO BID PRN #8 tablet 01/09/21 02/19/21 Unknown Rx 5/325 mg] Metoclopramide [Reglan] 10 mg PO ACHS #60 tablet 01/16/21 02/19/21 Unknown Rx Metoprolol [Lopressor] 100 mg PO BID 02/20/21 02/20/21 Unknown History cloNIDine [Catapres] 0.3 mg PO BID 02/20/21 02/20/21 Unknown History levETIRAcetam 500 mg PO BID 02/20/21 02/20/21 Unknown History lisinopriL [Lisinopril] 40 mg PO DAILY 02/20/21 02/20/21 Unknown History Active Meds: Active Medications Acetaminophen (Acetaminophen 325 Mg Tab) 650 mg PO Q6H PRN PRN Reason: Pain MILD(1-3)/Fever >100.5/[place] Amlodipine Besylate (Amlodipine 10 Mg Tab) 10 mg PO DAILY [facility] Last Admin: 02/19/21 09:57 Dose: 10 mg Documented by: Cetirizine HCl (Cetirizine 10 Mg Tab) 10 mg PO DAILY [facility] Last Admin: 02/19/21 09:52 Dose: 10 mg Documented by: Gabapentin (Gabapentin 300 Mg Cap) 300 mg PO QHS [facility] Last Admin: 02/18/21 22:37 Dose: Not Given Documented by: Hydralazine HCl (Hydralazine 25 Mg Tab) 50 mg PO TID [facility] Last Admin: 02/19/21 08:44 Dose: 50 mg Documented by: Hydralazine HCl (Hydralazine 20 Mg/1 Ml Inj) 10 mg IV Q4HR PRN PRN Reason: Systolic BP >150 Last Admin: 02/19/21 00:14 Dose: 10 mg Documented by: Hydromorphone HCl (Hydromorphone 1 Mg/1 Ml Inj) 0.5 mg IV Q24H PRN PRN Reason: Pain , Severe (7-10) Last Admin: 02/18/21 12:53 Dose: 0.5 mg Documented by: Insulin Human Regular 100 (units/ Sodium Chloride) 100 mls @ 1 mls/hr IV TITR [facility]; Protocol Last Titration: 02/19/21 09:00 Dose: 1.5 units/hr, 1.5 mls/hr Documented by: Insulin Glargine (Insulin Glargine 100 Units/Ml) 20 units SUB-Q ONCE@929 NR Stop: 02/19/21 11:00 Last Admin: 02/19/21 09:19 Dose: 20 units Documented by: Levetiracetam (Levetiracetam 500 Mg Tab) 250 mg PO BID [facility] Last Admin: 02/19/21 09:52 Dose: 250 mg Documented by: Metoclopramide HCl (Metoclopramide 10 Mg Tab) 10 mg PO ACHS [facility] Last Admin: 02/19/21 07:29 Dose: Not Given Documented by: Miscellaneous Medication (Ferric Citrate (Nf)) 2 tab PO TID [facility] Last Admin: 02/19/21 08:41 Dose: Not Given Documented by: Oxycodone/Acetaminophen (Oxycodone /Acetaminophen 5-325mg Tab) 1 tab PO Q12H PRN PRN Reason: Pain, Moderate (4-6) Pantoprazole Sodium (Pantoprazole 40 Mg Tab) 40 mg PO BIDAC [facility] Last Admin: 02/19/21 07:29 Dose: Not Given Documented by: Sodium Chloride (Sodium Chloride 0.9% 10 Ml Flush Syringe) 10 ml IV BID [facility] Last Admin: 02/19/21 09:39 Dose: 10 ml Documented by: Sodium Chloride (Sodium Chloride 0.9% 10 Ml Flush Syringe) 10 ml IV PRN PRN PRN Reason: LINE FLUSH Review of Systems All systems: negative Respiratory: no cough, no hemoptysis, no shortness of breath, no congestion, no wheezing Psychiatric: insomnia, no anxiety, no change in sleep habits Physical Examination Vital signs: Vital Signs Pulse Ox 96 02/18/21 08:00 General appearance: Present: mild distress - EENT Eyes: Present: PERRL ENT: hearing intact, clear oral mucosa, other (Oral mucosa dry) - Neck Neck: Present: supple, normal ROM - Respiratory Respiratory effort: normal Respiratory: bilateral: CTA - Cardiovascular Rhythm: other (Tachycardia) Heart Sounds: Present: S1 & S2. Absent: rub, click - Extremities Extremities: pulses symmetrical, No edema Peripheral Pulses: within normal limits - Abdominal General gastrointestinal: Present: soft, non-tender, non-distended, normal bowel sounds Male genitourinary: Present: normal - Integumentary Integumentary: Present: clear, warm, dry - Musculoskeletal Musculoskeletal: generalized weakness - Psychiatric Psychiatric: no appropriate mood/affect, no intact judgment & insight, no memory intact, agitated - Neurologic Neurologic: CNII-XII intact, moves all extremities Results - Laboratory Findings CBC and BMP: 02/18/21 08:39 02/19/21 14:08 Abnormal lab findings: Abnormal Labs 02/18/21 02/18/21 02/18/21 07:53 08:39 08:39 RBC 3.54 L Hgb 10.4 L Hct 33.6 L MCV 95 H MCHC 31 L RDW 16.6 H Lymph % (Auto) 7.6 L [place] % (Auto) 8.0 H Lymph # (Auto) 0.8 L [place] # (Auto) 0.9 H Seg Neutrophils % 82.4 H Seg Neutrophils # 9.0 H VBG pH Sodium 133 L Potassium 5.8 H Chloride 87.6 L Carbon Dioxide 16 L BUN 54 H Creatinine 11.4 H Glucose 502 H* POC Glucose 491 H Phosphorus Magnesium Troponin T Cholesterol LDL Cholesterol Direct 02/18/21 02/18/21 02/18/21 08:39 08:39 11:38 RBC Hgb Hct MCV MCHC RDW Lymph % (Auto) [place] % (Auto) Lymph # (Auto) [place] # (Auto) Seg Neutrophils % Seg Neutrophils # VBG pH 7.293 L Sodium Potassium Chloride Carbon Dioxide BUN Creatinine Glucose POC Glucose Phosphorus 6.60 H Magnesium 2.70 H Troponin T 0.445 H* Cholesterol 210 H LDL Cholesterol Direct 136 H 02/18/21 02/18/21 02/18/21 11:38 14:36 16:26 RBC Hgb Hct MCV MCHC RDW Lymph % (Auto) [place] % (Auto) Lymph # (Auto) [place] # (Auto) Seg Neutrophils % Seg Neutrophils # VBG pH Sodium 131 L Potassium 5.9 H Chloride 85.8 L Carbon Dioxide 11 L BUN 57 H Creatinine 11.6 H Glucose 592 H* POC Glucose 554 H 476 H Phosphorus Magnesium Troponin T Cholesterol LDL Cholesterol Direct 02/18/21 02/18/21 02/18/21 17:39 18:10 18:41 RBC Hgb Hct MCV MCHC RDW Lymph % (Auto) [place] % (Auto) Lymph # (Auto) [place] # (Auto) Seg Neutrophils % Seg Neutrophils # VBG pH Sodium 134 L Potassium Chloride 91.9 L Carbon Dioxide 21 L D BUN 53 H Creatinine 10.9 H Glucose 408 H POC Glucose 380 H 331 H Phosphorus Magnesium Troponin T Cholesterol LDL Cholesterol Direct 02/18/21 02/19/21 02/19/21 22:34 02:27 05:42 RBC Hgb Hct MCV MCHC RDW Lymph % (Auto) [place] % (Auto) Lymph # (Auto) [place] # (Auto) Seg Neutrophils % Seg Neutrophils # VBG pH Sodium Potassium Chloride 96.0 L Carbon Dioxide BUN 30 H Creatinine 7.8 H Glucose 156 H POC Glucose 170 H 111 H Phosphorus Magnesium Troponin T Cholesterol LDL Cholesterol Direct 02/19/21 02/19/21 02/19/21 05:47 07:41 08:57 RBC Hgb Hct MCV MCHC RDW Lymph % (Auto) [place] % (Auto) Lymph # (Auto) [place] # (Auto) Seg Neutrophils % Seg Neutrophils # VBG pH Sodium Potassium Chloride Carbon Dioxide BUN Creatinine Glucose POC Glucose 154 H 180 H 168 H Phosphorus Magnesium Troponin T Cholesterol LDL Cholesterol Direct - Diagnostic Findings Chest x-ray: image reviewed (Sternotomy wires, developing RLL infiltrate with band atelectasis) Assessment and Plan DKA (diabetic ketoacidoses) Hypertension-suboptimal control End-stage renal disease needing dialysis Metabolic acidosis Metabolic encephalopathy h/o Seizure disorder Elevated troponin is likely nonspecific Insulin drip, IV fluid resuscitation therapy, monitor anion gap, serial BMP, potassium repletion as per protocol Blood pressure control Supportive HD Chronic home medications as clinically indicated Seizure prophylaxis VTE prophylaxis Can downgrade to telemetry once he is off the insulin infusion and weight based insulin therapy initiated. Thank you for the consult. Will follow
[2021-02-19] MEDS ORDERED: DEXTROSE 50% IN WATER (25GM) 50 ML SYRINGE IV PRN (11:11)
--- NOTE | 2021-02-19 12:13 | Progress Note ---
Assessment and Plan Elevated troponin is likely nonspecific pt denies chest pain Uncontrolled diabetes End-stage renal disease on hemodialysis Seizure disorder Obtain records from [facility] to review any prior recent cardiac work-up. Otherwise conservative cardiac management at this time. Subjective Date of service: 02/19/21 Interval history: No cardiac complaints. Patient denies shortness of breath and chest pain. Objective Vital Signs Temp Pulse Resp BP BP Pulse Ox Pulse Ox 02/19/21 09:11 87 18 170/91 99 02/19/21 08:44 88 170/89 02/19/21 07:47 19 99 02/19/21 07:46 98.9 F 79 19 168/88 99 02/19/21 03:00 150/58 98 02/19/21 02:00 65 15 142/76 98 02/19/21 01:00 158/80 81 L 02/19/21 00:14 64 163/79 02/19/21 00:00 64 8 L 163/79 94 02/18/21 23:44 64 12 145/76 89 02/18/21 23:00 63 12 165/83 02/18/21 22:37 63 159/78 02/18/21 22:13 98.9 F 63 18 172/79 97 02/18/21 22:00 63 16 161/76 97 02/18/21 21:00 62 9 L 176/81 100 02/18/21 20:45 62 145/76 02/18/21 20:30 63 158/84 02/18/21 20:15 62 159/81 02/18/21 20:00 63 9 L 163/81 98 02/18/21 19:45 63 154/80 02/18/21 19:30 63 9 L 154/79 100 02/18/21 19:15 62 144/75 02/18/21 19:00 63 11 L 143/76 96 02/18/21 18:45 62 144/78 02/18/21 18:30 62 11 L 140/79 67 L 02/18/21 18:15 62 145/79 02/18/21 18:00 61 10 L 146/79 97 02/18/21 17:45 62 142/77 02/18/21 17:30 98.9 F 57 L 18 128/66 99 97 02/18/21 17:00 59 L 9 L 128/66 97 02/18/21 16:30 59 L 10 L 128/66 97 02/18/21 16:00 57 L 8 L 128/66 100 02/18/21 15:30 56 L 9 L 115/60 98 02/18/21 15:00 56 L 20 115/60 100 02/18/21 14:30 57 L 10 L 115/60 100 02/18/21 14:00 58 L 10 L 115/60 100 02/18/21 13:30 60 9 L 115/60 02/18/21 13:00 55 L 11 L 115/60 92 02/18/21 12:30 59 L 11 L 115/60 100 - Physical Examination General: No Apparent Distress HEENT: Positive: PERRL Neck: Positive: trachea midline Cardiac: Positive: Reg Rate and Rhythm Lungs: Positive: Decreased Breath Sounds Neuro: Positive: Weakness (Generalized lethargy) Extremities: Absent: edema - Labs and Meds Comprehensive Metabolic Panel 02/18/21 02/18/21 02/19/21 Range/Units 11:38 18:10 05:42 Sodium 131 L 134 L 139 (137-145) mmol/L Potassium 5.9 H 4.2 D 4.0 (3.6-5.0) mmol/L Chloride 85.8 L 91.9 L 96.0 L (98-107) mmol/L Carbon Dioxide 11 L 21 L D 25 (22-30) mmol/L BUN 57 H 53 H 30 H (9-20) mg/dL Creatinine 11.6 H 10.9 H 7.8 H (0.8-1.3) mg/dL Glucose 592 H* 408 H 156 H (75-100) mg/dL Calcium 9.6 8.5 8.6 (8.4-10.2) mg/dL
[2021-02-19] MEDS: INSULIN LISPRO 100 UNIT/ML SUB-Q SCH ×3 (12:40→23:44)
--- NOTE | 2021-02-19 13:29 | Electrocardiograph Report ---
[facility] Test Date: 2021-02-18 Test Time: 08:23:50 Pat Name: JAYLEN HERNANDEZ Department: Room: [facility] Gender: M [employer] Department: ED NURSE : 1985 Requested By: HALLEY SHIN Order Number: [id number] Reading MD: Carmen Coto Measurements Intervals [place] Rate: 59 P: 42 LA: 194 QRS: -12 QRSD: 99 T: 87 QT: 512 QTc: 506 Interpretive Statements Sinus bradycardia Probable left atrial enlargement Anteroseptal infarct, age indeterminate Prolonged QT interval Compared to ECG 01/14/2021 09:01:21 There is pseudonormalization of lateral T wave inversions Electronically Signed On 02-19-2021 13:28:59 EDT by Carmen Coto
[2021-02-19 14:35] LABS: Calcium 9.5 mg/dL (8.4-10.2)
[2021-02-19] MEDS: NIFEdipine XL 60 MG TAB PO SCH (14:35)
--- NOTE | 2021-02-19 16:27 | Progress Note ---
Assessment and Plan Assessment and plan: 35-year-old male history of uncontrolled insulin-dependent diabetes, gastroparesis, uncontrolled hypertension and ESRD on HD / who presented in DKA with altered mental status. Currently stable no longer in DKA. #Diabetic ketoacidosis -Resolved -Started Lantus 20 units nightly and sliding scale insulin -Reports taking basal bolus insulin at home unsure of dosage -Goal blood sugar 140-1 80s while inpatient #Hypertension -elevated blood pressures, take amlodipine at home -Procardia started by cardiology, will continue #End-stage renal disease -HD on / -Nephrology following, assistance appreciated #Elevated troponin -0.445 -Cardiology consulted #Seizure disorder -Stable -Continue Dilantin at home dose Total Time Spent with Patient (Minutes): 30 minutes History Interval history: No acute events overnight. Patient lucid and is reporting trouble with his eyesight. Denies chest pain, shortness of breath, increased thirst. Hospitalist Physical - Physical exam Narrative exam: GENERAL: Thin male. Lying in bed in no acute distress. HEENT: Normocephalic. Atraumatic. CHEST/LUNGS: CTAB on room air HEART/CARDIOVASCULAR: RRR. No murmur, rubs or gallops appreciated. ABDOMEN: +BS. NT/ND. SKIN: No rashes noted. NEURO: No focal motor deficit. Follows all commands. EXTREMITIES: Left upper extremity AV fistula. No cyanosis, cubbing or edema. PSYCH: Cooperative. - Constitutional Vitals: Temp Pulse Resp BP Pulse Ox 98.9 F 88 18 157/87 99 02/19/21 07:46 02/19/21 14:35 02/19/21 09:11 02/19/21 14:35 02/19/21 09:11 General appearance: Present: mild distress - Allied Health Allied health notes reviewed: nursing HEART Score - HEART Score Troponin: Troponin T 0.445 ng/mL (0.00-0.029) H* 02/18/21 08:39 Results - Labs CBC & Chem 7: 02/18/21 08:39 02/19/21 14:08 Labs: Laboratory Last Values WBC 10.9 K/mm3 (4.5-11.0) 02/18/21 08:39 RBC 3.54 M/mm3 (3.65-5.03) L 02/18/21 08:39 Hgb 10.4 gm/dl (11.8-15.2) L 02/18/21 08:39 Hct 33.6 % (35.5-45.6) L 02/18/21 08:39 MCV 95 fl (84-94) H 02/18/21 08:39 MCH 30 pg (28-32) 02/18/21 08:39 MCHC 31 % (32-34) L 02/18/21 08:39 RDW 16.6 % (13.2-15.2) H 02/18/21 08:39 Plt Count 288 K/mm3 (140-440) 02/18/21 08:39 Lymph % (Auto) 7.6 % (13.4-35.0) L 02/18/21 08:39 [place] % (Auto) 8.0 % (0.0-7.3) H 02/18/21 08:39 Eos % (Auto) 1.2 % (0.0-4.3) 02/18/21 08:39 Baso % (Auto) 0.8 % (0.0-1.8) 02/18/21 08:39 Lymph # (Auto) 0.8 K/mm3 (1.2-5.4) L 02/18/21 08:39 [place] # (Auto) 0.9 K/mm3 (0.0-0.8) H 02/18/21 08:39 Eos # (Auto) 0.1 K/mm3 (0.0-0.4) 02/18/21 08:39 Baso # (Auto) 0.1 K/mm3 (0.0-0.1) 02/18/21 08:39 Seg Neutrophils % 82.4 % (40.0-70.0) H 02/18/21 08:39 Seg Neutrophils # 9.0 K/mm3 (1.8-7.7) H 02/18/21 08:39 VBG pH 7.293 (7.320-7.420) L 02/18/21 08:39 Sodium 137 mmol/L (137-145) 02/19/21 14:08 Potassium 4.5 mmol/L (3.6-5.0) 02/19/21 14:08 Chloride 96.2 mmol/L (98-107) L 02/19/21 14:08 Carbon Dioxide 20 mmol/L (22-30) L 02/19/21 14:08 Anion Gap 25 mmol/L 02/19/21 14:08 BUN 35 mg/dL (9-20) H 02/19/21 14:08 Creatinine 8.5 mg/dL (0.8-1.3) H 02/19/21 14:08 Estimated GFR 9 ml/min 02/19/21 14:08 BUN/Creatinine Ratio 4 % 02/19/21 14:08 Glucose 174 mg/dL (75-100) H 02/19/21 14:08 POC Glucose 184 mg/dL (70-105) H 02/19/21 12:37 Ketones Quantitative Small (Negative) 02/18/21 08:39 Calcium 9.5 mg/dL (8.4-10.2) 02/19/21 14:08 Phosphorus 6.60 mg/dL (2.5-4.5) H 02/18/21 11:38 Magnesium 2.70 mg/dL (1.7-2.3) H 02/18/21 11:38 Troponin T 0.445 ng/mL (0.00-0.029) H* 02/18/21 08:39 Triglycerides 125 mg/dL (2-149) 02/18/21 08:39 Cholesterol 210 mg/dL (50-199) H 02/18/21 08:39 LDL Cholesterol Direct 136 mg/dL (50-130) H 02/18/21 08:39 HDL Cholesterol 49 mg/dL (40-59) 02/18/21 08:39 Cholesterol/HDL Ratio 4.28 % 02/18/21 08:39 Hepatitis A IgM Ab Non-reactive (NonReactive) 02/18/21 18:10 Hep Bs Antigen Nonreactive (Negative) 02/18/21 18:10 Hep B Core IgM Ab Non-reactive (NonReactive) 02/18/21 18:10 Hepatitis C Antibody Non-reactive (NonReactive) 02/18/21 18:10 Active Medications - Current Medications Current Medications: Generic Name Dose Route Start Last Admin Trade Name Freq PRN Reason Stop Dose Admin Acetaminophen 650 mg 02/18/21 11:58 Acetaminophen 325 Mg Tab PO Q6H PRN Pain MILD(1-3)/Fever >100.5/RODGERS Cetirizine HCl 10 mg 02/19/21 10:00 02/19/21 09:52 Cetirizine 10 Mg Tab PO 10 mg DAILY CODY Administration Dextrose 50 ml 02/19/21 11:11 Dextrose 50% In Water (25gm) 50 Ml Syringe IV Q30MIN PRN Hypoglycemia Protocol Gabapentin 300 mg 02/18/21 22:00 02/18/21 22:37 Gabapentin 300 Mg Cap PO Not Given QHS CODY Hydralazine HCl 50 mg 02/18/21 20:00 02/19/21 14:35 Hydralazine 25 Mg Tab PO 50 mg TID CODY Administration Hydralazine HCl 10 mg 02/18/21 22:53 02/19/21 00:14 Hydralazine 20 Mg/1 Ml Inj IV 10 mg Q4HR PRN Administration Systolic BP >150 Hydromorphone HCl 0.5 mg 02/18/21 11:58 02/18/21 12:53 Hydromorphone 1 Mg/1 Ml Inj IV 0.5 mg Q24H PRN Administration Pain , Severe (7-10) Insulin Human Lispro 0 unit 02/19/21 12:00 02/19/21 12:40 Insulin Lispro 100 Unit/Ml SUB-Q 2 unit Q6HR CODY Administration Protocol Levetiracetam 250 mg 02/18/21 22:00 02/19/21 09:52 Levetiracetam 500 Mg Tab PO 250 mg BID CODY Administration Metoclopramide HCl 5 mg 02/19/21 16:30 Metoclopramide 10 Mg Tab PO A[facility]S [facility] Miscellaneous Medication 2 tab 02/18/21 14:00 02/19/21 13:46 Ferric Citrate (Nf) PO Not Given TID CODY Nifedipine 60 mg 02/19/21 13:00 02/19/21 14:35 Nifedipine Xl 60 Mg Tab PO 60 mg QDAY CODY Administration Oxycodone/Acetaminophen 1 tab 02/18/21 11:58 Oxycodone /Acetaminophen 5-325mg Tab PO Q12H PRN Pain, Moderate (4-6) Pantoprazole Sodium 40 mg 02/18/21 16:30 02/19/21 07:29 Pantoprazole 40 Mg Tab PO Not Given BIDAC CODY Sodium Chloride 10 ml 02/18/21 22:00 02/19/21 09:39 Sodium Chloride 0.9% 10 Ml Flush Syringe IV 10 ml BID CODY Administration Sodium Chloride 10 ml 02/18/21 11:58 Sodium Chloride 0.9% 10 Ml Flush Syringe IV PRN PRN LINE FLUSH
[2021-02-19] MEDS ORDERED: SODIUM CHLORIDE 0.9% 100 ML IV PRN (18:51)
[2021-02-19] MEDS: GABAPENTIN 300 MG CAP PO SCH (22:38)
[2021-02-19] MEDS: HYDROmorphone 1 MG/1 ML INJ IV PRN (23:43)
[2021-02-20] MEDS: INSULIN LISPRO 100 UNIT/ML SUB-Q SCH ×4 (06:09→22:00)
[2021-02-20 06:34] LABS: Hematocrit 30.5 % (35.5-45.6); Mean Corpuscular HGB Conc 33 % (32-34); Mean Corpuscular Volume 92 fl (84-94); Platelet Count 183 K/mm3 (140-440); Red Cell Distribution Width 16.1 % (13.2-15.2)
[2021-02-20 06:50] LABS: Calcium 8.7 mg/dL (8.4-10.2)
[2021-02-20] MEDS: METOCLOPRAMIDE 10 MG TAB PO SCH ×4 (07:16→21:28)
[2021-02-20] MEDS: PANTOPRAZOLE 40 MG TAB PO SCH ×2 (07:17→17:06)
[2021-02-20] MEDS: hydrALAZINE 25 MG TAB PO SCH ×3 (08:11→21:34)
[2021-02-20] MEDS: levETIRAcetam 500 MG TAB PO SCH ×2 (09:12→21:27)
--- NOTE | 2021-02-20 09:51 | Progress Note ---
Assessment and Plan DKA (diabetic ketoacidoses) Hypertension-suboptimal control End-stage renal disease needing dialysis Metabolic acidosis Metabolic encephalopathy h/o Seizure disorder Elevated troponin is likely nonspecific Continue with accuchecks, target blood glucose 140-180mg/dL, avoid hypoglycemia Blood pressure control Supportive HD Chronic home medications as clinically indicated Seizure prophylaxis VTE prophylaxis Continue all other care per primary attending and consulting physicians Subjective Date of service: 02/20/21 Interval history: 35-year-old male history of uncontrolled insulin-dependent diabetes, gastroparesis, uncontrolled hypertension and ESRD on HD T// who presented in DKA with altered mental status. Currently stable no longer in DKA. No new overnight events, blood pressure better controlled. Scheduled for HD this morning Objective Vital Signs - 12hr 02/19/21 02/19/21 02/20/21 22:00 22:30 05:10 Temperature 98.8 F 99.3 F Pulse Rate 77 74 72 Respiratory 18 18 Rate Blood Pressure 153/63 170/80 O2 Sat by Pulse 95 92 Oximetry Constitutional: no acute distress Eyes: non-icteric ENT: oropharynx moist Neck: supple, no lymphadenopathy, other Effort: no acute distress Ascultation: Bilateral: clear, diminished breath sounds Cardiovascular: regular rate and rhythm Gastrointestinal: normoactive bowel sounds, soft, non-tender, non-distended Integumentary: normal Extremities: no cyanosis, no edema Neurologic: normal mental status, non-focal exam Psychiatric: mood appropriate, affect normal CBC and BMP: 02/20/21 05:32 02/21/21 09:04 Abnormal lab findings: Abnormal Labs 02/18/21 02/18/21 02/18/21 07:53 08:39 08:39 RBC 3.54 L Hgb 10.4 L Hct 33.6 L MCV 95 H MCHC 31 L RDW 16.6 H Lymph % (Auto) 7.6 L [place] % (Auto) 8.0 H Lymph # (Auto) 0.8 L [place] # (Auto) 0.9 H Seg Neutrophils % 82.4 H Seg Neutrophils # 9.0 H VBG pH Sodium 133 L Potassium 5.8 H Chloride 87.6 L Carbon Dioxide 16 L BUN 54 H Creatinine 11.4 H Glucose 502 H* POC Glucose 491 H Phosphorus Magnesium Troponin T Cholesterol LDL Cholesterol Direct 02/18/21 02/18/21 02/18/21 08:39 08:39 11:38 RBC Hgb Hct MCV MCHC RDW Lymph % (Auto) [place] % (Auto) Lymph # (Auto) [place] # (Auto) Seg Neutrophils % Seg Neutrophils # VBG pH 7.293 L Sodium Potassium Chloride Carbon Dioxide BUN Creatinine Glucose POC Glucose Phosphorus 6.60 H Magnesium 2.70 H Troponin T 0.445 H* Cholesterol 210 H LDL Cholesterol Direct 136 H 02/18/21 02/18/21 02/18/21 11:38 14:36 16:26 RBC Hgb Hct MCV MCHC RDW Lymph % (Auto) [place] % (Auto) Lymph # (Auto) [place] # (Auto) Seg Neutrophils % Seg Neutrophils # VBG pH Sodium 131 L Potassium 5.9 H Chloride 85.8 L Carbon Dioxide 11 L BUN 57 H Creatinine 11.6 H Glucose 592 H* POC Glucose 554 H 476 H Phosphorus Magnesium Troponin T Cholesterol LDL Cholesterol Direct 02/18/21 02/18/21 02/18/21 17:39 18:10 18:41 RBC Hgb Hct MCV MCHC RDW Lymph % (Auto) [place] % (Auto) Lymph # (Auto) [place] # (Auto) Seg Neutrophils % Seg Neutrophils # VBG pH Sodium 134 L Potassium Chloride 91.9 L Carbon Dioxide 21 L D BUN 53 H Creatinine 10.9 H Glucose 408 H POC Glucose 380 H 331 H Phosphorus Magnesium Troponin T Cholesterol LDL Cholesterol Direct 02/18/21 02/19/21 02/19/21 22:34 02:27 05:42 RBC Hgb Hct MCV MCHC RDW Lymph % (Auto) [place] % (Auto) Lymph # (Auto) [place] # (Auto) Seg Neutrophils % Seg Neutrophils # VBG pH Sodium Potassium Chloride 96.0 L Carbon Dioxide BUN 30 H Creatinine 7.8 H Glucose 156 H POC Glucose 170 H 111 H Phosphorus Magnesium Troponin T Cholesterol LDL Cholesterol Direct 02/19/21 02/19/21 02/19/21 05:47 07:41 08:57 RBC Hgb Hct MCV MCHC RDW Lymph % (Auto) [place] % (Auto) Lymph # (Auto) [place] # (Auto) Seg Neutrophils % Seg Neutrophils # VBG pH Sodium Potassium Chloride Carbon Dioxide BUN Creatinine Glucose POC Glucose 154 H 180 H 168 H Phosphorus Magnesium Troponin T Cholesterol LDL Cholesterol Direct 02/19/21 02/19/21 02/19/21 10:21 12:37 14:08 RBC Hgb Hct MCV MCHC RDW Lymph % (Auto) [place] % (Auto) Lymph # (Auto) [place] # (Auto) Seg Neutrophils % Seg Neutrophils # VBG pH Sodium Potassium Chloride 96.2 L Carbon Dioxide 20 L BUN 35 H Creatinine 8.5 H Glucose 174 H POC Glucose 125 H 184 H Phosphorus Magnesium Troponin T Cholesterol LDL Cholesterol Direct 02/19/21 02/20/21 02/20/21 22:27 05:32 05:32 RBC 3.30 L Hgb 10.0 L Hct 30.5 L MCV MCHC RDW 16.1 H Lymph % (Auto) [place] % (Auto) Lymph # (Auto) [place] # (Auto) Seg Neutrophils % Seg Neutrophils # VBG pH Sodium Potassium Chloride 97.3 L Carbon Dioxide BUN 37 H Creatinine 10.3 H Glucose 150 H POC Glucose 176 H Phosphorus Magnesium Troponin T Cholesterol LDL Cholesterol Direct 02/20/21 05:56 RBC Hgb Hct MCV MCHC RDW Lymph % (Auto) [place] % (Auto) Lymph # (Auto) [place] # (Auto) Seg Neutrophils % Seg Neutrophils # VBG pH Sodium Potassium Chloride Carbon Dioxide BUN Creatinine Glucose POC Glucose 151 H Phosphorus Magnesium Troponin T Cholesterol LDL Cholesterol Direct Allied health notes reviewed: nursing
[2021-02-20] MEDS: hydrALAZINE 20 MG/1 ML INJ IV PRN (11:15)
--- NOTE | 2021-02-20 11:18 | Progress Note ---
Assessment and Plan - Patient Problems (1) Hyperkalemia Current Visit: Yes Status: Acute Plan to address problem: Secondary to missed dialysis, transcellular shift with diabetic ketoacidosis. improved with HD (2) Metabolic acidosis Current Visit: Yes Status: Acute Plan to address problem: Secondary to missed dialysis. Hemodialysis and then follow-up bicarbonate level (3) End stage renal disease Current Visit: Yes Status: Acute Plan to address problem: Hemodialysis on a Monday, and Monday schedule. (4) Hyponatremia Current Visit: Yes Status: Acute Plan to address problem: Hypervolemic. Fluid removal on dialysis and then follow-up sodium (5) IDDM (insulin dependent diabetes mellitus) Current Visit: No Status: Chronic Plan to address problem: Continue treatment per primary attending (6) Diabetic ketoacidosis Current Visit: Yes Status: Acute Plan to address problem: Continue insulin and other management by primary attending Subjective Date of service: 02/20/21 Principal diagnosis: ESRD Interval history: Pt seen and examined during HD, no acute distress. reports poor vision Objective - Vital Signs Vital signs: Vital Signs - 12hr 02/20/21 05:10 Temperature 99.3 F Pulse Rate 72 Respiratory 18 Rate Blood Pressure 170/80 O2 Sat by Pulse 92 Oximetry - General Appearance General appearance: well-developed, well-nourished, appears stated age EENT: ATNC, mucous membranes moist Neck: no JVD Respiratory: Present: Clear to Ascultation Cardiology: regular, S1S2 Gastrointestinal: normoactive bowel sounds Integumentary: no rash, other (no edema ) Neurologic: no focal deficit - Lab 02/20/21 05:32 02/20/21 05:32 Most recent lab results Calcium 8.7 mg/dL (8.4-10.2) 02/20/21 05:32 Phosphorus 6.60 mg/dL (2.5-4.5) H 02/18/21 11:38 Magnesium 2.70 mg/dL (1.7-2.3) H 02/18/21 11:38 Medications & Allergies - Medications Allergies/Adverse Reactions: Allergies phenytoin sodium [From Dilantin] Allergy (Verified 11/14/20 07:35) Hives phenytoin sodium extended [From Dilantin] Allergy (Verified 11/14/20 07:35) Hives Home Medications: Home Medications Medication Instructions Recorded Confirmed Last Taken Type Ferric Citrate (Nf) [Auryxia] 2 tab PO TID 11/14/20 02/20/21 12/29/20 09:00 History Gabapentin 300 mg PO QHS 11/14/20 02/20/21 01/04/21 21:00 History Hydralazine HCl 100 mg PO TID 11/14/20 02/20/21 01/04/21 09:00 History amLODIPine 10 mg PO DAILY 11/14/20 02/19/21 01/04/21 09:00 History oxyCODONE /ACETAMINOPHEN [Percocet 1 tab PO BID PRN #8 tablet 01/09/21 02/19/21 Unknown Rx 5/325 mg] Metoclopramide [Reglan] 10 mg PO ACHS #60 tablet 01/16/21 02/19/21 Unknown Rx Metoprolol [Lopressor] 100 mg PO BID 02/20/21 02/20/21 Unknown History cloNIDine [Catapres] 0.3 mg PO BID 02/20/21 02/20/21 Unknown History levETIRAcetam 500 mg PO BID 02/20/21 02/20/21 Unknown History lisinopriL [Lisinopril] 40 mg PO DAILY 02/20/21 02/20/21 Unknown History Active Medications: Generic Name Dose Route Start Last Admin Trade Name Willy PRN Reason Stop Dose Admin Acetaminophen 650 mg 02/18/21 11:58 Acetaminophen 325 Mg Tab PO Q6H PRN Pain MILD(1-3)/Fever >100.5/[place] Cetirizine HCl 10 mg 02/19/21 10:00 02/19/21 09:52 Cetirizine 10 Mg Tab PO 10 mg DAILY CODY Administration Dextrose 50 ml 02/19/21 11:11 Dextrose 50% In Water (25gm) 50 Ml Syringe IV Q30MIN PRN Hypoglycemia Protocol Gabapentin 300 mg 02/18/21 22:00 02/19/21 22:38 Gabapentin 300 Mg Cap PO 300 mg QHS CODY Administration Hydralazine HCl 50 mg 02/18/21 20:00 02/19/21 22:36 Hydralazine 25 Mg Tab PO 50 mg TID CODY Administration Hydralazine HCl 10 mg 02/18/21 22:53 02/19/21 00:14 Hydralazine 20 Mg/1 Ml Inj IV 10 mg Q4HR PRN Administration Systolic BP >150 Hydromorphone HCl 0.5 mg 02/18/21 11:58 02/19/21 23:43 Hydromorphone 1 Mg/1 Ml Inj IV 0.5 mg Q24H PRN Administration Pain , Severe (7-10) Sodium Chloride 100 mls @ 999 mls/hr 02/19/21 18:51 Nacl 0.9% IV KATE PRN Hypotension Insulin Glargine 20 units 02/20/21 08:00 Insulin Glargine 100 Units/Ml SUB-Q QAMDIAB CODY Insulin Human Lispro 0 unit 02/19/21 12:00 02/20/21 06:09 Insulin Lispro 100 Unit/Ml SUB-Q 2 unit Q6HR CODY Administration Protocol Levetiracetam 250 mg 02/18/21 22:00 02/19/21 22:37 Levetiracetam 500 Mg Tab PO 250 mg BID CODY Administration Metoclopramide HCl 5 mg 02/19/21 16:30 02/19/21 22:46 Metoclopramide 10 Mg Tab PO 5 mg ACHS CODY Administration Miscellaneous Medication 2 tab 02/18/21 14:00 02/19/21 13:46 Ferric Citrate (Nf) PO Not Given TID CODY Nifedipine 60 mg 02/19/21 13:00 02/19/21 14:35 Nifedipine Xl 60 Mg Tab PO 60 mg QDAY CODY Administration Oxycodone/Acetaminophen 1 tab 02/18/21 11:58 Oxycodone /Acetaminophen 5-325mg Tab PO Q12H PRN Pain, Moderate (4-6) Pantoprazole Sodium 40 mg 02/18/21 16:30 02/19/21 18:00 Pantoprazole 40 Mg Tab PO 40 mg BIDAC CODY Administration Sodium Chloride 10 ml 02/18/21 22:00 02/19/21 22:39 Sodium Chloride 0.9% 10 Ml Flush Syringe IV 10 ml BID CODY Administration Sodium Chloride 10 ml 02/18/21 11:58 Sodium Chloride 0.9% 10 Ml Flush Syringe IV PRN PRN LINE FLUSH
--- NOTE | 2021-02-20 13:37 | Progress Note ---
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 Latoya Whitten records reviewed. He was hospitalized at [facility] earlier this month with DKA and hypertensive urgency. He had PEA arrest while in hospital. Of note, he also has prior h/o infected RA mass/thrombus and underwent surgical resection at [facility] in 03/2020 Objective Vital Signs Temp Pulse Pulse Resp BP BP Pulse Ox 02/20/21 12:45 78 174/89 02/20/21 12:30 78 184/90 02/20/21 12:15 77 181/89 02/20/21 12:00 76 175/90 02/20/21 11:45 76 180/89 02/20/21 11:30 73 182/88 02/20/21 11:15 73 187/97 02/20/21 11:00 77 202/102 02/20/21 10:45 78 203/101 02/20/21 10:30 73 186/97 02/20/21 10:15 76 190/96 02/20/21 10:00 76 190/96 02/20/21 09:45 75 190/98 02/20/21 09:30 99.3 F 77 18 193/96 02/20/21 05:10 99.3 F 72 18 170/80 92 02/19/21 22:30 98.8 F 74 18 153/63 95 02/19/21 22:00 77 02/19/21 20:24 74 18 95 02/19/21 17:14 97.9 F 74 18 157/95 98 02/19/21 17:10 98.5 F 75 20 157/95 98 02/19/21 16:48 98.5 F 88 19 132/88 99 02/19/21 16:21 75 11 L 140/71 97 02/19/21 16:11 77 11 L 140/71 98 02/19/21 16:01 74 25 H 130/68 98 02/19/21 15:50 67 30 H 140/71 97 02/19/21 15:40 74 14 140/71 98 02/19/21 15:30 75 12 140/71 98 02/19/21 15:20 76 12 140/71 95 02/19/21 15:10 77 14 140/71 98 02/19/21 15:00 18 140/71 98 02/19/21 14:50 15 138/59 94 02/19/21 14:40 15 138/59 97 02/19/21 14:35 88 157/87 02/19/21 14:30 14 138/59 97 02/19/21 14:20 17 138/59 98 02/19/21 14:10 138/59 99 02/19/21 14:00 138/59 98 02/19/21 13:50 134/61 98 02/19/21 13:40 134/61 98 Pulse Ox 02/20/21 12:45 02/20/21 12:30 02/20/21 12:15 02/20/21 12:00 02/20/21 11:45 02/20/21 11:30 02/20/21 11:15 02/20/21 11:00 02/20/21 10:45 02/20/21 10:30 02/20/21 10:15 02/20/21 10:00 02/20/21 09:45 02/20/21 09:30 97 02/20/21 05:10 02/19/21 22:30 02/19/21 22:00 02/19/21 20:24 02/19/21 17:14 02/19/21 17:10 02/19/21 16:48 02/19/21 16:21 02/19/21 16:11 02/19/21 16:01 02/19/21 15:50 02/19/21 15:40 02/19/21 15:30 02/19/21 15:20 02/19/21 15:10 02/19/21 15:00 02/19/21 14:50 02/19/21 14:40 02/19/21 14:35 02/19/21 14:30 02/19/21 14:20 02/19/21 14:10 02/19/21 14:00 02/19/21 13:50 02/19/21 13:40 - Physical Examination General: No Apparent Distress HEENT: Positive: PERRL Neck: Positive: trachea midline Cardiac: Positive: Reg Rate and Rhythm Lungs: Positive: clear to auscultation Neuro: Positive: Weakness (Generalized lethargy) Abdomen: Positive: Soft Skin: Positive: Clear Extremities: Absent: edema - Labs and Meds CBC 02/20/21 Range/Units 05:32 WBC 7.2 (4.5-11.0) K/mm3 RBC 3.30 L (3.65-5.03) M/mm3 Hgb 10.0 L (11.8-15.2) gm/dl Hct 30.5 L (35.5-45.6) % Plt Count 183 (140-440) K/mm3 Comprehensive Metabolic Panel 02/19/21 02/20/21 Range/Units 14:08 05:32 Sodium 137 139 (137-145) mmol/L Potassium 4.5 3.6 (3.6-5.0) mmol/L Chloride 96.2 L 97.3 L (98-107) mmol/L Carbon Dioxide 20 L 28 D (22-30) mmol/L BUN 35 H 37 H (9-20) mg/dL Creatinine 8.5 H 10.3 H (0.8-1.3) mg/dL Glucose 174 H 150 H (75-100) mg/dL Calcium 9.5 8.7 (8.4-10.2) mg/dL
--- NOTE | 2021-02-20 14:05 | Progress Note ---
Assessment and Plan Assessment and plan: 35-year-old male history of uncontrolled insulin-dependent diabetes, gastroparesis, uncontrolled hypertension and ESRD on HD who presented in DKA with altered mental status. Currently stable no longer in DKA. #Diabetic ketoacidosis -Resolved -continue Lantus 20 units nightly and sliding scale insulin -likely non-complaint with insulin regimen at home -Goal blood sugar 140-1 80s while inpatient #Hypertension -elevated blood pressures, take amlodipine at home -Procardia started by cardiology, will continue #End-stage renal disease -HD on -HD today -Nephrology following, assistance appreciated #Elevated troponin -0.445 -Cardiology consulted, no intervention at this time #Seizure disorder -Stable -Continue Dilantin at home dose Disposition Plan: Home Total Time Spent with Patient (Minutes): 30 minutes History Interval history: No acute events overnight. Patient reports no issues. Eating breakfast with assistance. Hospitalist Physical - Physical exam Narrative exam: GENERAL: Thin male. Lying in bed in no acute distress. CHEST/LUNGS: CTAB on room air HEART/CARDIOVASCULAR: RRR. No murmur, rubs or gallops appreciated. ABDOMEN: +BS. NT/ND. SKIN: No rashes noted. NEURO: No focal motor deficit. Follows all commands. EXTREMITIES: Left upper extremity AV fistula. No cyanosis, cubbing or edema. PSYCH: Cooperative. - Constitutional Vitals: Temp Pulse Resp BP Pulse Ox 98.8 F 80 18 193/93 97 02/20/21 13:30 02/20/21 13:30 02/20/21 13:30 02/20/21 13:30 02/20/21 13:30 General appearance: Present: mild distress - Allied Health Allied health notes reviewed: nursing HEART Score - HEART Score Troponin: Troponin T 0.445 ng/mL (0.00-0.029) H* 02/18/21 08:39 Results - Labs CBC & Chem 7: 02/20/21 05:32 02/20/21 05:32 Labs: Laboratory Last Values WBC 7.2 K/mm3 (4.5-11.0) 02/20/21 05:32 RBC 3.30 M/mm3 (3.65-5.03) L 02/20/21 05:32 Hgb 10.0 gm/dl (11.8-15.2) L 02/20/21 05:32 Hct 30.5 % (35.5-45.6) L 02/20/21 05:32 MCV 92 fl (84-94) 02/20/21 05:32 MCH 30 pg (28-32) 02/20/21 05:32 MCHC 33 % (32-34) 02/20/21 05:32 RDW 16.1 % (13.2-15.2) H 02/20/21 05:32 Plt Count 183 K/mm3 (140-440) 02/20/21 05:32 Lymph % (Auto) 7.6 % (13.4-35.0) L 02/18/21 08:39 Cecil % (Auto) 8.0 % (0.0-7.3) H 02/18/21 08:39 Eos % (Auto) 1.2 % (0.0-4.3) 02/18/21 08:39 Baso % (Auto) 0.8 % (0.0-1.8) 02/18/21 08:39 Lymph # (Auto) 0.8 K/mm3 (1.2-5.4) L 02/18/21 08:39 Cecil # (Auto) 0.9 K/mm3 (0.0-0.8) H 02/18/21 08:39 Eos # (Auto) 0.1 K/mm3 (0.0-0.4) 02/18/21 08:39 Baso # (Auto) 0.1 K/mm3 (0.0-0.1) 02/18/21 08:39 Seg Neutrophils % 82.4 % (40.0-70.0) H 02/18/21 08:39 Seg Neutrophils # 9.0 K/mm3 (1.8-7.7) H 02/18/21 08:39 VBG pH 7.293 (7.320-7.420) L 02/18/21 08:39 Sodium 139 mmol/L (137-145) 02/20/21 05:32 Potassium 3.6 mmol/L (3.6-5.0) 02/20/21 05:32 Chloride 97.3 mmol/L (98-107) L 02/20/21 05:32 Carbon Dioxide 28 mmol/L (22-30) D 02/20/21 05:32 Anion Gap 17 mmol/L 02/20/21 05:32 BUN 37 mg/dL (9-20) H 02/20/21 05:32 Creatinine 10.3 mg/dL (0.8-1.3) H 02/20/21 05:32 Estimated GFR 7 ml/min 02/20/21 05:32 BUN/Creatinine Ratio 4 % 02/20/21 05:32 Glucose 150 mg/dL (75-100) H 02/20/21 05:32 POC Glucose 151 mg/dL (70-105) H 02/20/21 05:56 Ketones Quantitative Small (Negative) 02/18/21 08:39 Calcium 8.7 mg/dL (8.4-10.2) 02/20/21 05:32 Phosphorus 6.60 mg/dL (2.5-4.5) H 02/18/21 11:38 Magnesium 2.70 mg/dL (1.7-2.3) H 02/18/21 11:38 Troponin T 0.445 ng/mL (0.00-0.029) H* 02/18/21 08:39 Triglycerides 125 mg/dL (2-149) 02/18/21 08:39 Cholesterol 210 mg/dL (50-199) H 02/18/21 08:39 LDL Cholesterol Direct 136 mg/dL (50-130) H 02/18/21 08:39 HDL Cholesterol 49 mg/dL (40-59) 02/18/21 08:39 Cholesterol/HDL Ratio 4.28 % 02/18/21 08:39 Hepatitis A IgM Ab Non-reactive (NonReactive) 02/18/21 18:10 Hep Bs Antigen Nonreactive (Negative) 02/18/21 18:10 Hep B Core IgM Ab Non-reactive (NonReactive) 02/18/21 18:10 Hepatitis C Antibody Non-reactive (NonReactive) 02/18/21 18:10 Active Medications - Current Medications Current Medications: Generic Name Dose Route Start Last Admin Trade Name Freq PRN Reason Stop Dose Admin Acetaminophen 650 mg 02/18/21 11:58 Acetaminophen 325 Mg Tab PO Q6H PRN Pain MILD(1-3)/Fever >100.5/RODGERS Cetirizine HCl 10 mg 02/19/21 10:00 02/19/21 09:52 Cetirizine 10 Mg Tab PO 10 mg DAILY CODY Administration Dextrose 50 ml 02/19/21 11:11 Dextrose 50% In Water (25gm) 50 Ml Syringe IV Q30MIN PRN Hypoglycemia Protocol Gabapentin 300 mg 02/18/21 22:00 02/19/21 22:38 Gabapentin 300 Mg Cap PO 300 mg QHS CODY Administration Hydralazine HCl 50 mg 02/18/21 20:00 02/19/21 22:36 Hydralazine 25 Mg Tab PO 50 mg TID CODY Administration Hydralazine HCl 10 mg 02/18/21 22:53 02/20/21 11:15 Hydralazine 20 Mg/1 Ml Inj IV 10 mg Q4HR PRN Administration Systolic BP >150 Hydromorphone HCl 0.5 mg 02/18/21 11:58 02/19/21 23:43 Hydromorphone 1 Mg/1 Ml Inj IV 0.5 mg Q24H PRN Administration Pain , Severe (7-10) Sodium Chloride 100 mls @ 999 mls/hr 02/19/21 18:51 Nacl 0.9% IV KATE PRN Hypotension Insulin Glargine 20 units 02/20/21 08:00 Insulin Glargine 100 Units/Ml SUB-Q QAMDIAB [facility] Insulin Human Lispro 0 unit 02/19/21 12:00 02/20/21 06:09 Insulin Lispro 100 Unit/Ml SUB-Q 2 unit Q6HR CODY Administration Protocol Levetiracetam 250 mg 02/18/21 22:00 02/19/21 22:37 Levetiracetam 500 Mg Tab PO 250 mg BID CODY Administration Metoclopramide HCl 5 mg 02/19/21 16:30 02/19/21 22:46 Metoclopramide 10 Mg Tab PO 5 mg ACHS CODY Administration Miscellaneous Medication 2 tab 02/18/21 14:00 02/19/21 13:46 Ferric Citrate (Nf) PO Not Given TID CODY Nifedipine 60 mg 02/19/21 13:00 02/19/21 14:35 Nifedipine Xl 60 Mg Tab PO 60 mg QDAY CODY Administration Oxycodone/Acetaminophen 1 tab 02/18/21 11:58 Oxycodone /Acetaminophen 5-325mg Tab PO Q12H PRN Pain, Moderate (4-6) Pantoprazole Sodium 40 mg 02/18/21 16:30 02/19/21 18:00 Pantoprazole 40 Mg Tab PO 40 mg BIDAC CODY Administration Sodium Chloride 10 ml 02/18/21 22:00 02/19/21 22:39 Sodium Chloride 0.9% 10 Ml Flush Syringe IV 10 ml BID CODY Administration Sodium Chloride 10 ml 02/18/21 11:58 Sodium Chloride 0.9% 10 Ml Flush Syringe IV PRN PRN LINE FLUSH Nutrition/Malnutrition Assess - Dietary Evaluation Nutrition/Malnutrition Findings: Nutrition Notes Start: 02/20/21 06:17 Freq: Status: Active Protocol: Document 02/20/21 06:18 SG (Rec: 02/20/21 06:42 SG [id number]) Nutrition Notes Need for Assessment generated from: MD Order Initial or Follow up Assessment Current Diagnosis CKD (stage V CKD),Diabetes, Hypertension Other Pertinent Diagnosis seizure, gastroparesis, DKA Current Diet Carb consistent Labs/Tests 02/19 BUN 35 Creatinine 8.5 BG 175 Pertinent Medications Insulin Height 6 ft 2 in Weight 83.9 kg [place] Body Weight (kg) 86.36 BMI 23.7 Weight Status Appropriate Subjective/Other Information RD consulted for malnutrition risk. Pt skin risk yuriy score is 16. Pt also has wonds on both legs. Pt NPO prior to 02-20-2021 breakfast. Minimum of two criteria No Reduced [place] Strength Measurably Reduced (severe) #1 Nutrition Diagnosis Predicted suboptimal energy intake,Altered nutrition- related laboratory values Etiology DKA, ESRD As Evidenced by Signs and Symptoms Yuriy skin assessment <18 Is patient on ventilator? No Is Patient Ambulatory and/or Out of Bed No REE-([facility]-confined to bed) 0162.272 Calculation Used for Recommendations [facility] Additional Notes Protein 1-1.2 kcal/kg :84-101 g/day Fluid 0993-9275 ml/day Nutrition Intervention Change Diet Order: Renal Carb control diet Add Supplement/Snack (indicate name/kcal Nepro w/Carbsteady bid /protein ) Provides kCal: 850 Provides Protein (gm) 38 Goal #1 Pt meet at least 75% of protein and energy needs by oral intake of renal diet and ONS Follow-Up By: 02/22/21 Additional Comments f/u for intakes
[2021-02-20] MEDS: NIFEdipine XL 60 MG TAB PO SCH (17:00)
[2021-02-20] MEDS: CETIRIZINE 10 MG TAB PO SCH (17:01)
[2021-02-20] MEDS: oxyCODONE /ACETAMINOPHEN 5-325MG TAB PO PRN (17:01)
[2021-02-20] MEDS: GABAPENTIN 300 MG CAP PO SCH (21:26)
[2021-02-20] MEDS: HYDROmorphone 1 MG/1 ML INJ IV PRN (21:29)
[2021-02-21] MEDS ORDERED: INSULIN LISPRO 100 UNIT/ML SUB-Q ONE (02:40)
[2021-02-21 05:49] VITALS: BP 184/87
[2021-02-21] MEDS: INSULIN GLARGINE 100 UNITS/ML SUB-Q SCH ×2 (07:19→10:36)
[2021-02-21] MEDS: INSULIN LISPRO 100 UNIT/ML SUB-Q SCH ×4 (08:00→12:25)
[2021-02-21] MEDS: METOCLOPRAMIDE 10 MG TAB PO SCH ×2 (08:05→10:34)
[2021-02-21] MEDS: NIFEdipine XL 60 MG TAB PO SCH (10:33)
[2021-02-21] MEDS: levETIRAcetam 500 MG TAB PO SCH (10:34)
[2021-02-21] MEDS: PANTOPRAZOLE 40 MG TAB PO SCH (10:34)
[2021-02-21] MEDS: hydrALAZINE 25 MG TAB PO SCH ×2 (10:34→14:12)
[2021-02-21] MEDS: CETIRIZINE 10 MG TAB PO SCH (10:36)
[2021-02-21 11:05] LABS: Calcium 9.3 mg/dL (8.4-10.2)
--- NOTE | 2021-02-21 11:15 | Progress Note ---
Assessment and Plan - Patient Problems (1) Hyperkalemia Current Visit: Yes Status: Acute Plan to address problem: Secondary to missed dialysis, transcellular shift with diabetic ketoacidosis. improved with HD (2) Metabolic acidosis Current Visit: Yes Status: Acute Plan to address problem: Secondary to missed dialysis. Hemodialysis and then follow-up bicarbonate level (3) End stage renal disease Current Visit: Yes Status: Acute Plan to address problem: Hemodialysis on a Monday, and Monday schedule. (4) Hyponatremia Current Visit: Yes Status: Acute Plan to address problem: Hypervolemic. Fluid removal on dialysis and then follow-up sodium (5) IDDM (insulin dependent diabetes mellitus) Current Visit: No Status: Chronic Plan to address problem: Continue treatment per primary attending (6) Diabetic ketoacidosis Current Visit: Yes Status: Acute Plan to address problem: Continue insulin and other management by primary attending Subjective Date of service: 02/21/21 Principal diagnosis: ESRD Interval history: Pt seen and examined during HD, no acute distress. reports poor vision Objective - Vital Signs Vital signs: Vital Signs - 12hr 02/21/21 05:48 Temperature 98.4 F Pulse Rate 81 Respiratory 20 Rate Blood Pressure 184/87 O2 Sat by Pulse 95 Oximetry - General Appearance General appearance: well-developed, well-nourished, appears stated age EENT: ATNC, PERRL, mucous membranes moist Neck: no JVD Respiratory: Present: Clear to Ascultation Cardiology: regular, S1S2 Gastrointestinal: normoactive bowel sounds Integumentary: no rash Neurologic: no focal deficit, alert and oriented x3, strength 5/5, CN 3-12 intact Psychiatric: mood/affect appropriate, cooperative - Lab 02/20/21 05:32 02/21/21 09:04 Most recent lab results Calcium 9.3 mg/dL (8.4-10.2) 02/21/21 09:04 Phosphorus 6.60 mg/dL (2.5-4.5) H 02/18/21 11:38 Magnesium 2.70 mg/dL (1.7-2.3) H 02/18/21 11:38 Medications & Allergies - Medications Allergies/Adverse Reactions: Allergies phenytoin sodium [From Dilantin] Allergy (Verified 11/14/20 07:35) Hives phenytoin sodium extended [From Dilantin] Allergy (Verified 11/14/20 07:35) Hives Home Medications: Home Medications Medication Instructions Recorded Confirmed Last Taken Type Ferric Citrate (Nf) [Auryxia] 2 tab PO TID 11/14/20 02/20/21 12/29/20 09:00 History Gabapentin 300 mg PO QHS 11/14/20 02/20/21 01/04/21 21:00 History Hydralazine HCl 100 mg PO TID 11/14/20 02/20/21 01/04/21 09:00 History amLODIPine 10 mg PO DAILY 11/14/20 02/19/21 01/04/21 09:00 History oxyCODONE /ACETAMINOPHEN [Percocet 1 tab PO BID PRN #8 tablet 01/09/21 02/19/21 Unknown Rx 5/325 mg] Metoclopramide [Reglan] 10 mg PO ACHS #60 tablet 01/16/21 02/19/21 Unknown Rx Metoprolol [Lopressor] 100 mg PO BID 02/20/21 02/20/21 Unknown History cloNIDine [Catapres] 0.3 mg PO BID 02/20/21 02/20/21 Unknown History levETIRAcetam 500 mg PO BID 02/20/21 02/20/21 Unknown History lisinopriL [Lisinopril] 40 mg PO DAILY 02/20/21 02/20/21 Unknown History Active Medications: Generic Name Dose Route Start Last Admin Trade Name Freq PRN Reason Stop Dose Admin Acetaminophen 650 mg 02/18/21 11:58 Acetaminophen 325 Mg Tab PO Q6H PRN Pain MILD(1-3)/Fever >100.5/RODGERS Cetirizine HCl 10 mg 02/19/21 10:00 02/21/21 10:36 Cetirizine 10 Mg Tab PO 10 mg DAILY CODY Administration Dextrose 50 ml 02/19/21 11:11 Dextrose 50% In Water (25gm) 50 Ml Syringe IV Q30MIN PRN Hypoglycemia Protocol Gabapentin 300 mg 02/18/21 22:00 02/20/21 21:26 Gabapentin 300 Mg Cap PO 300 mg QHS CODY Administration Hydralazine HCl 50 mg 02/18/21 20:00 02/21/21 10:34 Hydralazine 25 Mg Tab PO 50 mg TID CODY Administration Hydralazine HCl 10 mg 02/18/21 22:53 02/20/21 11:15 Hydralazine 20 Mg/1 Ml Inj IV 10 mg Q4HR PRN Administration Systolic BP >150 Hydromorphone HCl 0.5 mg 02/18/21 11:58 02/20/21 21:29 Hydromorphone 1 Mg/1 Ml Inj IV 0.5 mg Q24H PRN Administration Pain , Severe (7-10) Sodium Chloride 100 mls @ 999 mls/hr 02/19/21 18:51 Nacl 0.9% IV KATE PRN Hypotension Insulin Glargine 20 units 02/20/21 08:00 02/21/21 10:36 Insulin Glargine 100 Units/Ml SUB-Q 20 units QAMDIAB CODY Administration Insulin Human Lispro 0 unit 02/19/21 12:00 02/21/21 08:00 Insulin Lispro 100 Unit/Ml SUB-Q 6 unit Q6HR CODY Administration Protocol Insulin Human Lispro 6 unit 02/21/21 08:00 02/21/21 08:46 Insulin Lispro 100 Unit/Ml SUB-Q Not Given AC CODY Levetiracetam 250 mg 02/18/21 22:00 02/21/21 10:34 Levetiracetam 500 Mg Tab PO 250 mg BID CODY Administration Metoclopramide HCl 5 mg 02/19/21 16:30 02/21/21 10:34 Metoclopramide 10 Mg Tab PO 5 mg ACHS CODY Administration Miscellaneous Medication 2 tab 02/18/21 14:00 02/19/21 13:46 Ferric Citrate (Nf) PO Not Given TID CODY Nifedipine 60 mg 02/19/21 13:00 02/21/21 10:33 Nifedipine Xl 60 Mg Tab PO 60 mg QDAY CODY Administration Oxycodone/Acetaminophen 1 tab 02/18/21 11:58 02/20/21 17:01 Oxycodone /Acetaminophen 5-325mg Tab PO 1 tab Q12H PRN Administration Pain, Moderate (4-6) Pantoprazole Sodium 40 mg 02/18/21 16:30 02/21/21 10:34 Pantoprazole 40 Mg Tab PO 40 mg BIDAC CODY Administration Sodium Chloride 10 ml 02/18/21 22:00 02/21/21 10:36 Sodium Chloride 0.9% 10 Ml Flush Syringe IV 10 ml BID CODY Administration Sodium Chloride 10 ml 02/18/21 11:58 Sodium Chloride 0.9% 10 Ml Flush Syringe IV PRN PRN LINE FLUSH
--- NOTE | 2021-02-21 13:45 | Progress Note ---
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 Latoya Whitten records reviewed. He was hospitalized at [facility] earlier this month with DKA and hypertensive urgency. He had PEA arrest while in hospital. Of note, he also has prior h/o infected RA mass/thrombus and underwent surgical resection at [facility] in 03/2020 Objective Vital Signs Temp Pulse Resp BP Pulse Ox 02/21/21 11:00 97 02/21/21 10:00 82 02/21/21 05:48 98.4 F 81 20 184/87 95 02/20/21 22:00 95 02/20/21 21:34 88 162/76 02/20/21 16:40 98.2 F 18 155/91 - Physical Examination General: No Apparent Distress HEENT: Positive: PERRL Neck: Positive: trachea midline Cardiac: Positive: Reg Rate and Rhythm Lungs: Positive: Decreased Breath Sounds Abdomen: Positive: Soft Skin: Positive: Clear Extremities: Absent: edema - Labs and Meds Comprehensive Metabolic Panel 02/21/21 Range/Units 09:04 Sodium 137 (137-145) mmol/L Potassium 3.5 L (3.6-5.0) mmol/L Chloride 95.2 L (98-107) mmol/L Carbon Dioxide 31 H (22-30) mmol/L BUN 29 H (9-20) mg/dL Creatinine 8.8 H (0.8-1.3) mg/dL Glucose 357 H (75-100) mg/dL Calcium 9.3 (8.4-10.2) mg/dL - Allied health notes Allied health notes reviewed: nursing
[2021-02-21] MEDS: oxyCODONE /ACETAMINOPHEN 5-325MG TAB PO PRN (14:12)
--- NOTE | 2021-02-21 14:57 | Discharge Summary ---
Providers - Providers Date of Admission: 02/18/21 11:58 Date of discharge: 02/21/21 Attending physician: ADRIAN MORALES MD 02/18/21 10:53 Consult to Physician [CONS] Stat Comment: Consulting Provider: MALISSA BARRETT Physician Instructions: Reason For Exam: elevated troponin 02/18/21 11:57 Consult to Physician [CONS] Stat Comment: Consulting Provider: CARMELA TOVAR Physician Instructions: Reason For Exam: ESRD 02/18/21 18:49 Consult to Physician [CONS] Routine Comment: Consulting Provider: CAROL ANN HORAN Physician Instructions: Reason For Exam: DKA 02/20/21 07:51 Physical Therapy Evaluation and Treat [CONS] Routine Comment: Reason For Exam: Assess mobility 02/21/21 14:19 Consult to Case Management [CONS] Routine Services Needed at Discharge: Physical Therapy Additional Physician Instructions: Physical therapy services outpatient Primary care physician: P[employer]HOU[employer] O[employer]ER Hospitalization Reason for admission: Diabetic ketoacidosis Hospital course: Patient admitted on 02/18 with acute metabolic's encephalopathy. Was found to be in diabetic ketoacidosis. Was admitted to ICU for further care. Insulin drip was initiated and blood glucoses improved to 100s. Basal bolus insulin was started. Patient mental status also improved. Nephrology followed for inpatient dialysis. Physical therapy evaluated the patient prior to discharge. Patient discharged to care of mother. Both patient and mother was counseled on importance of glycemic control. Mother reported appointments for PCP and ophthalmology in a week. Disposition: 01 HOME / SELF CARE / HOMELESS Final Discharge Diagnosis (Prints w/discharge instructions): Diabetic Ketoacidosis. Acute metabolic encephalopathy. ESRD on HD Time spent for discharge: 30 minutes Core Measure Documentation - Palliative Care Palliative Care/ Comfort Measures: Not Applicable - Core Measures Any of the following diagnoses?: none - VTE Discharge Requirements Deep Vein Thrombosis/Pulmonary Embolism Present on Admission: No Has pt received <5 days of overlap therapy or INR<2.0: No Anticoagulant overlap therapy prescribed at discharge: No Contraindication No Overlap Therapy order at DC: Not Indicated - Acute MD Discharge Requirements Aspirin at discharge: No Reason for no aspirin on DC: Patient refusal (not indicated) YAMILEX/ARB for LVSD if EF <40%: Not Applicable Reason for no YAMILEX/ARB: Patient refusal (not indicated) Beta kodak at discharge: No Reason for no beta kodak on DC: Patient refusal (not indicated) Statin for LDL = or >100 mg/dl on DC: Not Applicable (Not required) Reason for no statin on DC: Statins contraindicated (not needed) Acute myocardial infarction comments: None of the above indicated for this patient. - Heart Failure Discharge Requirements YAMILEX/ARB for LVSD if EF <40%: Not Applicable Beta kodak at discharge: No Reason for no beta kodak on DC: Patient refusal (not indicated) - Stroke Discharge Requirements Statin for LDL = or >70 mg/dl on DC: Not Applicable Reason for no statin on DC: Not Indicated Anticoag for atrial fib/atrial flutter: Not Applicable Reason for no anticoag for AF/F on DC: Not Indicated Antithrombotic for ischemic stroke: No Reason for no antithrombotic on DC: Not Indicated Exam - Constitutional Vitals: Temp Pulse Resp BP Pulse Ox 98.4 F 82 20 184/87 97 02/21/21 05:48 02/21/21 10:00 02/21/21 05:48 02/21/21 05:48 02/21/21 11:00 Plan Care Plan Goals: Follow up with PCP. Be evaluated by Opthalmology for visual decline. Diabetes education for patient and Mother via PCP. Resume HD. Assessment: DKA resolved. Patient glucose controlled, but had hyperglycemia due to missed long acting insulin. Discussed at length importance of glycemic control with both the patient and the Mother. Will send prescriptions for insulin. Patient has PCP follow up on 02/25. Follow up with: PRIMARY CAREMD [Primary Care Provider] - 3-5 Days Forms: Discharge Signature Page Prescriptions: Lispro Insulin [HumaLOG] 6 unit SUB-Q AC 30 Days #540 units Insulin Glargine [Lantus VIAL] 20 units SUB-Q QAMDIAB #600 units NIFEdipine XL [Procardia Xl] 60 mg PO Q12HR 30 Days #30 tablet Metoclopramide [Reglan TAB] 10 mg PO ACHS 30 Days #60 tablet
[2021-02-21] MEDS ORDERED: NIFEdipine XL 60 MG TAB PO SCH (22:00)
== END 2021-02-21 16:30 | disposition home health service (06) | DRG 637 ==
LOC: ED 07:24 → CC1 11:58 → 3A 02-19 10:55
PROVIDERS: ADMIT Internal Medicine; ATTEND Student in an Organized Health Care Education/Training Program
PROC: 5A1D70Z Performance of Urinary Filtration, Intermittent, Less than 6 Hours Per Day (ICD-10-PCS; principal; 2021-02-18)
PROC: 5A1D70Z Performance of Urinary Filtration, Intermittent, Less than 6 Hours Per Day (ICD-10-PCS; 2021-02-20)
DX: E10.10 Type 1 diabetes mellitus with ketoacidosis without coma (principal); G93.41 Metabolic encephalopathy; N18.6 End stage renal disease; I12.0 Hypertensive chronic kidney disease with stage 5 chronic kidney disease or end stage renal disease; E87.5 Hyperkalemia; J45.909 Unspecified asthma, uncomplicated; G40.909 Epilepsy, unspecified, not intractable, without status epilepticus; E10.22 Type 1 diabetes mellitus with diabetic chronic kidney disease; E10.40 Type 1 diabetes mellitus with diabetic neuropathy, unspecified; E10.43 Type 1 diabetes mellitus with diabetic autonomic (poly)neuropathy; K31.84 Gastroparesis; E10.319 Type 1 diabetes mellitus with unspecified diabetic retinopathy without macular edema; E87.1 Hypo-osmolality and hyponatremia; Z91.14 Patient's other noncompliance with medication regimen; Z88.8 Allergy status to other drugs, medicaments and biological substances
CPT/HCPCS: 36415; 71045; 80048; 80061; 80074; 82010; 82805; 82962; 83735; 84100; 84484; 85025; 85027; 87116; 87641; 93005; G0378; J0360; J1170; J1815; J1953; J2060; J2765; J7030

== ENCOUNTER 2021-03-12 15:43 | Emergency (ER) | payer MEDICAID ==
[2021-03-12] MEDS ORDERED: hydrALAZINE 20 MG/1 ML INJ IV ONE (16:19)
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
[2021-03-12 17:39] LABS: Basophils % (Auto) 0.6 % (0.0-1.8); Eosinophils # (Auto) 0.2 K/mm3 (0.0-0.4); Hematocrit 29.8 % (35.5-45.6); Hemoglobin 9.6 gm/dl (11.8-15.2); Lymphocytes # (Auto) 0.9 K/mm3 (1.2-5.4); Lymphocytes % (Auto) 15.2 % (13.4-35.0); Mean Corpuscular HGB Conc 32 % (32-34); Mean Corpuscular Volume 91 fl (84-94); Monocytes # (Auto) 0.8 K/mm3 (0.0-0.8); Platelet Count 259 K/mm3 (140-440); Red Blood Count 3.27 M/mm3 (3.65-5.03); Red Cell Distribution Width 17.5 % (13.2-15.2)
[2021-03-12 17:42] LABS: Calcium 9.3 mg/dL (8.4-10.2)
[2021-03-12 18:42] VITALS: BP 182/88
== END 2021-03-12 19:57 | disposition home or self-care (01) ==
LOC: ED 15:43
DX: I16.0 Hypertensive urgency (principal); I12.9 Hypertensive chronic kidney disease with stage 1 through stage 4 chronic kidney disease, or unspecified chronic kidney disease; E11.22 Type 2 diabetes mellitus with diabetic chronic kidney disease; N18.9 Chronic kidney disease, unspecified; R56.9 Unspecified convulsions; Z98.890 Other specified postprocedural states; Z87.891 Personal history of nicotine dependence; Z88.8 Allergy status to other drugs, medicaments and biological substances
CPT/HCPCS: 36415; 80048; 82962; 85025; J0360

== ENCOUNTER 2021-03-13 16:34 | Inpatient (IN) | payer MEDICAID ==
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
[2021-03-13] MEDS ORDERED: NIFEdipine XL 60 MG TAB PO STA (17:43)
[2021-03-13] MEDS ORDERED: cloNIDine 0.2 MG TAB PO STA (17:43)
[2021-03-13] MEDS ORDERED: NON-FORMULARY EACH (Hydralazine Hcl [Hydralazine Hcl] 50 MG Tablet) PO STA (17:43)
[2021-03-13] MEDS ORDERED: NON-FORMULARY EACH (Levetiracetam 500 MG) PO STA (17:43)
[2021-03-13] MEDS ORDERED: METOPROLOL TARTRATE 100 MG TAB PO STA (17:43)
[2021-03-13] MEDS ORDERED: levETIRAcetam 500 MG TAB PO STA (18:04)
[2021-03-13] MEDS ORDERED: hydrALAZINE 100 MG TAB PO STA (18:04)
--- NOTE | 2021-03-13 18:18 | XRay Report ---
CHEST 1 VIEW INDICATION / CLINICAL INFORMATION: htn esrd chf. COMPARISON: 02/18/2021 FINDINGS: SUPPORT DEVICES: None. HEART / MEDIASTINUM: Non any. Enlarged cardiac silhouette is stable. LUNGS / PLEURA: Mild pulmonary vascular congestion but no overt interstitial pulmonary edema. Very sm all right pleural effusion is present. The lungs are otherwise grossly clear. No pneumothorax. ADDITIONAL FINDINGS: No significant additional findings. IMPRESSION: 1. Tiny right pleural effusion. Mild pulmonary vascular congestion but no overt interstitial pulmonar y edema is present. 2. Stable cardiomegaly. Signer Name: Ivett Shah MD Signed: 03/13/2021 6:13 PM Workstation Name: [id number]
[2021-03-13 18:31] LABS: Basophils # (Auto) 0.1 K/mm3 (0.0-0.1); Eosinophils # (Auto) 0.3 K/mm3 (0.0-0.4); Hematocrit 30.8 % (35.5-45.6); Lymphocytes % (Auto) 17.3 % (13.4-35.0); Mean Corpuscular HGB Conc 33 % (32-34); Mean Corpuscular Volume 92 fl (84-94); Monocytes # (Auto) 0.7 K/mm3 (0.0-0.8); Monocytes % (Auto) 11.7 % (0.0-7.3); Platelet Count 263 K/mm3 (140-440); Red Blood Count 3.36 M/mm3 (3.65-5.03); Red Cell Distribution Width 17.7 % (13.2-15.2)
[2021-03-13] MEDS ORDERED: cloNIDine 0.1 MG TAB ONE (19:50)
[2021-03-13] MEDS ORDERED: ALPRAZolam 0.5 MG TAB PO ONE (21:00)
[2021-03-13] MEDS ORDERED: ONDANSETRON 4 MG/2 ML INJ IV PRN (21:34)
[2021-03-13] MEDS ORDERED: oxyCODONE /ACETAMINOPHEN 5-325MG TAB PO PRN (21:34)
[2021-03-13] MEDS ORDERED: ACETAMINOPHEN 325 MG TAB PO PRN (21:34)
[2021-03-13] MEDS ORDERED: HYDROmorphone 1 MG/1 ML INJ IV PRN (21:34)
[2021-03-13] MEDS ORDERED: DEXTROSE 50% IN WATER (25GM) 50 ML SYRINGE IV PRN (21:34)
[2021-03-13] MEDS ORDERED: ALBUTEROL 2.5 MG/3 ML NEBU IH PRN (21:34)
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
[2021-03-13] MEDS ORDERED: METOCLOPRAMIDE 10 MG TAB PO SCH (22:00)
[2021-03-13] MEDS ORDERED: FAMOTIDINE 20 MG TAB PO SCH (22:00)
[2021-03-14] MEDS: METOCLOPRAMIDE 10 MG TAB PO SCH ×5 (01:53→21:28)
[2021-03-14] MEDS: FAMOTIDINE 10 MG TAB PO SCH ×3 (01:53→21:28)
[2021-03-14] MEDS: GABAPENTIN 300 MG CAP PO SCH ×2 (01:53→21:28)
[2021-03-14] MEDS: INSULIN LISPRO 100 UNIT/ML SUB-Q SCH ×5 (02:09→23:03)
[2021-03-14] MEDS: hydrALAZINE 20 MG/1 ML INJ IV PRN ×3 (06:17→18:16)
[2021-03-14] MEDS ORDERED: cloNIDine 0.1 MG TAB PO ONE (07:00)
[2021-03-14] MEDS ORDERED: NON-FORMULARY EACH (Ferric Citrate (Nf) 210 MG Tablet) PO SCH (08:00)
[2021-03-14 08:29] LABS: Basophils # (Auto) 0.1 K/mm3 (0.0-0.1); Basophils % (Auto) 1.1 % (0.0-1.8); Eosinophils # (Auto) 0.2 K/mm3 (0.0-0.4); Eosinophils % (Auto) 4.1 % (0.0-4.3); Hematocrit 28.3 % (35.5-45.6); Hemoglobin 9.1 gm/dl (11.8-15.2); Lymphocytes # (Auto) 0.8 K/mm3 (1.2-5.4); Lymphocytes % (Auto) 15.1 % (13.4-35.0); Mean Corpuscular HGB Conc 32 % (32-34); Mean Corpuscular Volume 90 fl (84-94); Monocytes # (Auto) 0.6 K/mm3 (0.0-0.8); Monocytes % (Auto) 12.1 % (0.0-7.3); Platelet Count 263 K/mm3 (140-440); Red Blood Count 3.14 M/mm3 (3.65-5.03); Red Cell Distribution Width 17.5 % (13.2-15.2)
[2021-03-14 08:50] LABS: Calcium 8.7 mg/dL (8.4-10.2)
[2021-03-14] MEDS: LISINOPRIL 40 MG TAB PO SCH (09:28)
[2021-03-14] MEDS: levETIRAcetam 500 MG/5 ML ORAL LIQD PO SCH ×2 (09:30→21:28)
[2021-03-14] MEDS: INSULIN GLARGINE 100 UNITS/ML SUB-Q SCH (10:33)
--- NOTE | 2021-03-14 11:24 | Progress Note ---
Assessment and Plan - Patient Problems (1) Hypertensive urgency, malignant Current Visit: Yes Status: Acute Plan to address problem: Resume prehospital antihypertensive therapy, IV hydralazine every 6 hours as needed for systolic blood pressure greater than or equal to 155 mmHg. (2) End-stage renal disease needing dialysis Current Visit: Yes Status: Chronic Plan to address problem: Nephrology team consulted, dialysis as per renal team. Avoid nephrotoxic agents. (3) Metabolic encephalopathy Current Visit: Yes Status: Acute Plan to address problem: Supportive care, neuro check, seizure precaution, aspiration precautions, fall precautions. (4) DVT prophylaxis Current Visit: No Status: Acute Plan to address problem: SCD to bilateral lower extremities while in bed History Interval history: 35 YO Male HD #2 with accelerated hypertension, end-stage renal disease. Patient pending IV line placement so that he may receive IV antihypertensive therapy. Patient pending dialysis as per renal team. Patient resting com fortably. No reported nursing events. No acute changes in patient status. Hospitalist Physical - Constitutional Vitals: Temp Pulse Resp BP Pulse Ox 98.8 F 97 H 18 207/97 93 03/14/21 07:25 03/14/21 09:28 03/14/21 07:25 03/14/21 07:29 03/14/21 07:25 General appearance: Present: mild distress, well-nourished - EENT Eyes: Present: PERRL - Neck Neck: Present: supple - Respiratory Respiratory effort: normal Respiratory: bilateral: CTA - Cardiovascular Rhythm: regular Heart Sounds: Present: S1 & S2 - Extremities Extremities: no ischemia Peripheral Pulses: within normal limits - Abdominal General gastrointestinal: soft, non-tender, non-distended - Integumentary Integumentary: Present: clear, dry - Psychiatric Psychiatric: cooperative - Neurologic Neurologic: CNII-XII intact Results - Labs CBC & Chem 7: 03/14/21 08:10 03/14/21 08:10 Labs: Laboratory Last Values WBC 5.2 K/mm3 (4.5-11.0) 03/14/21 08:10 RBC 3.14 M/mm3 (3.65-5.03) L 03/14/21 08:10 Hgb 9.1 gm/dl (11.8-15.2) L 03/14/21 08:10 Hct 28.3 % (35.5-45.6) L 03/14/21 08:10 MCV 90 fl (84-94) 03/14/21 08:10 MCH 29 pg (28-32) 03/14/21 08:10 MCHC 32 % (32-34) 03/14/21 08:10 RDW 17.5 % (13.2-15.2) H 03/14/21 08:10 Plt Count 263 K/mm3 (140-440) 03/14/21 08:10 Lymph % (Auto) 15.1 % (13.4-35.0) 03/14/21 08:10 [place] % (Auto) 12.1 % (0.0-7.3) H 03/14/21 08:10 Eos % (Auto) 4.1 % (0.0-4.3) 03/14/21 08:10 Baso % (Auto) 1.1 % (0.0-1.8) 03/14/21 08:10 Lymph # (Auto) 0.8 K/mm3 (1.2-5.4) L 03/14/21 08:10 [place] # (Auto) 0.6 K/mm3 (0.0-0.8) 03/14/21 08:10 Eos # (Auto) 0.2 K/mm3 (0.0-0.4) 03/14/21 08:10 Baso # (Auto) 0.1 K/mm3 (0.0-0.1) 03/14/21 08:10 Seg Neutrophils % 67.6 % (40.0-70.0) 03/14/21 08:10 Seg Neutrophils # 3.5 K/mm3 (1.8-7.7) 03/14/21 08:10 VBG pH 7.445 (7.320-7.420) H 03/13/21 18:01 Sodium 134 mmol/L (137-145) L 03/14/21 08:10 Potassium 4.6 mmol/L (3.6-5.0) 03/14/21 08:10 Chloride 95.7 mmol/L (98-107) L 03/14/21 08:10 Carbon Dioxide 24 mmol/L (22-30) 03/14/21 08:10 Anion Gap 19 mmol/L 03/14/21 08:10 BUN 29 mg/dL (9-20) H 03/14/21 08:10 Creatinine 6.3 mg/dL (0.8-1.3) H 03/14/21 08:10 Estimated GFR 12 ml/min 03/14/21 08:10 BUN/Creatinine Ratio 5 % 03/14/21 08:10 Glucose 326 mg/dL (75-100) H 03/14/21 08:10 POC Glucose 348 mg/dL (70-105) H 03/14/21 07:29 Calcium 8.7 mg/dL (8.4-10.2) 03/14/21 08:10 Magnesium 2.00 mg/dL (1.7-2.3) 03/13/21 18:01 Wells/IV: Voiding Method Condom Catheter Active Medications - Current Medications Current Medications: Generic Name Dose Route Start Last Admin Trade Name Freq PRN Reason Stop Dose Admin Acetaminophen 650 mg 03/13/21 21:34 Acetaminophen 325 Mg Tab PO Q4H PRN Pain MILD(1-3)/Fever >100.5/RODGERS Albuterol 2.5 mg 03/13/21 21:34 Albuterol 2.5 Mg/3 Ml Nebu IH Q3HRT PRN Shortness Of Breath Albuterol/Ipratropium 1 ampul 03/14/21 02:00 Ipratropium/Albuterol Sulfate 3 Ml Ampul.Neb IH Q6HRT CODY Dextrose 50 ml 03/13/21 21:34 Dextrose 50% In Water (25gm) 50 Ml Syringe IV Q30MIN PRN Hypoglycemia Protocol Famotidine 10 mg 03/13/21 22:00 03/14/21 09:09 Famotidine 10 Mg Tab PO 10 mg BID CODY Administration Gabapentin 300 mg 03/13/21 22:00 03/14/21 01:53 Gabapentin 300 Mg Cap PO 300 mg QHS CODY Administration Hydralazine HCl 20 mg 03/14/21 09:36 Hydralazine 20 Mg/1 Ml Inj IV Q6H PRN Blood Pressure Hydromorphone HCl 0.5 mg 03/13/21 21:34 Hydromorphone 1 Mg/1 Ml Inj IV Q3H PRN Pain , Severe (7-10) Insulin Glargine 20 units 03/14/21 08:00 03/14/21 10:33 Insulin Glargine 100 Units/Ml SUB-Q 20 units QAMDIAB CODY Administration Insulin Human Lispro 0 unit 03/13/21 22:00 03/14/21 09:10 Insulin Lispro 100 Unit/Ml SUB-Q 6 unit ACHS CODY Administration Protocol Levetiracetam 250 mg 03/14/21 10:00 03/14/21 09:30 Levetiracetam 500 Mg/5 Ml Oral Liqd PO 250 mg BID CODY Administration Lisinopril 40 mg 03/14/21 10:00 03/14/21 09:28 Lisinopril 40 Mg Tab PO 40 mg DAILY CODY Administration Metoclopramide HCl 5 mg 03/13/21 22:00 03/14/21 09:09 Metoclopramide 10 Mg Tab PO 5 mg ACHS CODY Administration Miscellaneous Medication 2 tab 03/14/21 08:00 Ferric Citrate (Nf) PO TID CODY Ondansetron HCl 4 mg 03/13/21 21:34 Ondansetron 4 Mg/2 Ml Inj IV Q8H PRN Nausea And Vomiting Oxycodone/Acetaminophen 1 tab 03/13/21 21:34 Oxycodone /Acetaminophen 5-325mg Tab PO Q6H PRN Pain, Moderate (4-6) Sodium Chloride 10 ml 03/13/21 22:00 03/14/21 10:33 Sodium Chloride 0.9% 10 Ml Flush Syringe IV 10 ml BID CODY Administration Sodium Chloride 10 ml 03/13/21 21:34 Sodium Chloride 0.9% 10 Ml Flush Syringe IV PRN PRN LINE FLUSH Nutrition/Malnutrition Assess - Dietary Evaluation Nutrition/Malnutrition Findings: Nutrition Notes Start: 03/14/21 10:24 Freq: Status: Active Protocol: Document 03/14/21 10:24 (Rec: 03/14/21 10:26 [id number]) Nutrition Notes Need for Assessment generated from: MD Order Initial or Follow up Brief Note Current Diagnosis CKD (stage V CKD),Diabetes, Hypertension Other Pertinent Diagnosis on HD, hypertensive emergency Current Diet Renal Subjective/Other Information MD consult for diet education. Unable to contact pt and unable to see pt due RD working remotely. Nutrition Intervention Follow-Up By: 03/16/21 Additional Comments F/u: diet education
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
[2021-03-14] MEDS: cloNIDine 0.1 MG TAB PO SCH ×2 (12:37→21:29)
[2021-03-14] MEDS ORDERED: SODIUM CHLORIDE 0.9% 100 ML IV PRN (15:21)
[2021-03-14] MEDS: hydrALAZINE 100 MG TAB PO SCH (18:07)
[2021-03-14] MEDS: amLODIPine 10 MG TAB PO SCH (18:08)
[2021-03-14] MEDS: IPRATROPIUM/ALBUTEROL SULFATE 3 ML AMPUL.NEB IH SCH ×3 (22:26→22:28)
[2021-03-15] MEDS: hydrALAZINE 100 MG TAB PO SCH ×4 (00:31→22:52)
[2021-03-15] MEDS: hydrALAZINE 20 MG/1 ML INJ IV PRN ×4 (00:31→17:07)
[2021-03-15] MEDS: IPRATROPIUM/ALBUTEROL SULFATE 3 ML AMPUL.NEB IH SCH ×4 (03:18→21:59)
[2021-03-15] MEDS: INSULIN LISPRO 100 UNIT/ML SUB-Q SCH ×4 (08:00→22:46)
[2021-03-15] MEDS: LISINOPRIL 40 MG TAB PO SCH (09:59)
[2021-03-15] MEDS: METOCLOPRAMIDE 10 MG TAB PO SCH ×4 (10:00→22:45)
[2021-03-15] MEDS: FAMOTIDINE 10 MG TAB PO SCH ×2 (10:00→22:45)
--- NOTE | 2021-03-15 11:02 | Electrocardiograph Report ---
[facility] Test Date: 2021-03-13 Test Time: 18:37:11 Pat Name: JAYLEN HERNANDEZ Department: Room: A480 1 Gender: M Color Matcher: ADRIAN : 1985 Requested By: MEGHAN MEJIA Order Number: [id number] Reading MD: Juancho Leos Measurements Intervals [place] Rate: 73 P: 64 FL: 217 QRS: 116 QRSD: 94 T: 119 QT: 458 QTc: 505 Interpretive Statements Sinus rhythm Prolonged [place] interval Probable left atrial enlargement Nonspecific T abnrm, anterolateral leads Compared to ECG 02/18/2021 08:23:50 First degree AV block now present Electronically Signed On 03-15-2021 11:02:15 EDT by Juancho Leos
[2021-03-15] MEDS: diphenhydrAMINE 50 MG/ML VIAL IV PRN (12:30)
[2021-03-15] MEDS ORDERED: SODIUM CHLORIDE 0.9% 100 ML IV PRN ×2 (13:00→15:00)
--- NOTE | 2021-03-15 14:29 | Progress Note ---
Assessment and Plan - Patient Problems (1) Hypertensive urgency, malignant Current Visit: Yes Status: Acute Plan to address problem: We will continue to challenge dry weight with hemodialysis treatments and aggressive ultrafiltration. Continue current medical management. (2) Metabolic encephalopathy Current Visit: Yes Status: Acute Plan to address problem: Stable mentation at this time. We will continue to monitor closely. (3) End-stage renal disease needing dialysis Current Visit: Yes Status: Chronic Plan to address problem: Have placed on inpatient Monday//Monday hemodialysis schedule. Will assess daily for needs of sequential ultrafiltration treatments in order to further optimize volume status (4) Type 2 diabetes mellitus with diabetic chronic kidney disease Current Visit: Yes Status: Chronic Plan to address problem: Diabetes managed per primary attending. (5) Secondary hyperparathyroidism of renal origin Current Visit: Yes Status: Chronic Plan to address problem: Continue on current home phosphorus binder regimen. Subjective Date of service: 03/15/21 Interval history: Patient seen at the end of his dialysis treatment. Tolerated treatment well with 3.5 L ultrafiltration per nursing staff. Will assess daily for needs of extra sequential ultrafiltration treatment. Objective - Vital Signs Vital signs: Vital Signs - 12hr 03/15/21 03/15/21 03/15/21 04:18 04:41 06:03 Temperature 97.5 F L Pulse Rate 70 70 70 Respiratory 16 17 Rate Blood Pressure 225/111 186/87 Blood Pressure 186/87 [Right] O2 Sat by Pulse 96 96 Oximetry 03/15/21 03/15/21 03/15/21 08:18 09:59 13:12 Temperature 98.1 F Pulse Rate 68 90 78 Respiratory 18 Rate Blood Pressure 144/79 210/107 Blood Pressure [Right] O2 Sat by Pulse 94 Oximetry - General Appearance General appearance: appears stated age, chronically ill EENT: ATNC Neck: no JVD Respiratory: Present: Clear to Ascultation Cardiology: regular Gastrointestinal: normal Integumentary: warm and dry Neurologic: no focal deficit Musculoskeletal: deferred Psychiatric: cooperative - Lab 03/14/21 08:10 03/14/21 08:10 Most recent lab results Calcium 8.7 mg/dL (8.4-10.2) 03/14/21 08:10 Magnesium 2.00 mg/dL (1.7-2.3) 03/13/21 18:01 - Allied health notes Allied health notes reviewed: nursing Medications & Allergies - Medications Allergies/Adverse Reactions: Allergies phenytoin sodium [From Dilantin] Allergy (Verified 03/12/21 16:00) Hives phenytoin sodium extended [From Dilantin] Allergy (Verified 03/12/21 16:00) Hives Home Medications: Home Medications Medication Instructions Recorded Confirmed Last Taken Type Ferric Citrate (Nf) [Auryxia] 2 tab PO TID 11/14/20 02/20/21 12/29/20 09:00 History Gabapentin 300 mg PO QHS 11/14/20 02/20/21 01/04/21 21:00 History Hydralazine HCl 100 mg PO TID 11/14/20 02/20/21 01/04/21 09:00 History Metoclopramide [Reglan TAB] 10 mg PO ACHS #60 tablet 01/16/21 02/19/21 Unknown Rx Metoprolol [Lopressor TAB] 100 mg PO BID 02/20/21 02/20/21 Unknown History cloNIDine [Catapres] 0.3 mg PO BID 02/20/21 02/20/21 Unknown History levETIRAcetam 500 mg PO BID 02/20/21 02/20/21 Unknown History lisinopriL [Lisinopril] 40 mg PO DAILY 02/20/21 02/20/21 Unknown History Insulin Glargine [Lantus VIAL] 20 units SUB-Q QAMDIAB #600 units 02/21/21 Unknown Rx Lispro Insulin [HumaLOG] 6 unit SUB-Q AC 30 Days #540 units 02/21/21 Unknown Rx Metoclopramide [Reglan TAB] 10 mg PO ACHS 30 Days #60 tablet 02/21/21 Unknown Rx NIFEdipine XL [Procardia Xl] 60 mg PO Q12HR 30 Days #30 tablet 02/21/21 Unknown Rx levETIRAcetam [Keppra TAB] 250 mg PO BID tablet 02/21/21 Unknown Rx Active Medications: Generic Name Dose Route Start Last Admin Trade Name Freq PRN Reason Stop Dose Admin Acetaminophen 650 mg 03/13/21 21:34 Acetaminophen 325 Mg Tab PO Q4H PRN Pain MILD(1-3)/Fever >100.5/RODGERS Albuterol 2.5 mg 03/13/21 21:34 Albuterol 2.5 Mg/3 Ml Nebu IH Q3HRT PRN Shortness Of Breath Albuterol/Ipratropium 1 ampul 03/14/21 02:00 03/15/21 11:46 Ipratropium/Albuterol Sulfate 3 Ml Ampul.Neb IH Not Given Q6HRT CODY Amlodipine Besylate 10 mg 03/14/21 16:00 03/14/21 18:08 Amlodipine 10 Mg Tab PO 10 mg QDAY CODY Administration Clonidine HCl 0.3 mg 03/14/21 12:00 03/14/21 21:29 Clonidine 0.1 Mg Tab PO 0.3 mg Q12HR CODY Administration Dextrose 50 ml 03/13/21 21:34 Dextrose 50% In Water (25gm) 50 Ml Syringe IV Q30MIN PRN Hypoglycemia Protocol Diphenhydramine HCl 25 mg 03/15/21 12:07 Diphenhydramine 50 Mg/Ml Vial IV KATE PRN Itching Famotidine 10 mg 03/13/21 22:00 03/15/21 10:00 Famotidine 10 Mg Tab PO Not Given BID CODY Gabapentin 300 mg 03/13/21 22:00 03/14/21 21:28 Gabapentin 300 Mg Cap PO 300 mg QHS CODY Administration Hydralazine HCl 20 mg 03/14/21 09:36 03/15/21 13:12 Hydralazine 20 Mg/1 Ml Inj IV 20 mg Q6H PRN Administration Blood Pressure Hydralazine HCl 100 mg 03/14/21 14:00 03/15/21 09:58 Hydralazine 100 Mg Tab PO Not Given TID CODY Hydromorphone HCl 0.5 mg 03/13/21 21:34 Hydromorphone 1 Mg/1 Ml Inj IV Q3H PRN Pain , Severe (7-10) Sodium Chloride 100 mls @ 999 mls/hr 03/14/21 15:21 Nacl 0.9% IV KATE PRN Hypotension Sodium Chloride 100 mls @ 999 mls/hr 03/15/21 12:07 Nacl 0.9% IV KATE PRN Hypotension Insulin Glargine 20 units 03/14/21 08:00 03/14/21 10:33 Insulin Glargine 100 Units/Ml SUB-Q 20 units QAMDIAB CODY Administration Insulin Human Lispro 0 unit 03/13/21 22:00 03/15/21 08:00 Insulin Lispro 100 Unit/Ml SUB-Q Not Given ACHS [facility] Protocol Labetalol HCl 300 mg 03/15/21 14:00 Labetalol 100 Mg Tab PO Q8HR [facility] Levetiracetam 250 mg 03/14/21 10:00 03/14/21 21:28 Levetiracetam 500 Mg/5 Ml Oral Liqd PO 250 mg BID [facility] Administration Lisinopril 40 mg 03/14/21 10:00 03/15/21 09:59 Lisinopril 40 Mg Tab PO Not Given DAILY [facility] Metoclopramide HCl 5 mg 03/13/21 22:00 03/15/21 10:00 Metoclopramide 10 Mg Tab PO Not Given ACHS [facility] Miscellaneous Medication 2 tab 03/14/21 08:00 Ferric Citrate (Nf) PO TID [facility] Ondansetron HCl 4 mg 03/13/21 21:34 Ondansetron 4 Mg/2 Ml Inj IV Q8H PRN Nausea And Vomiting Oxycodone/Acetaminophen 1 tab 03/13/21 21:34 Oxycodone /Acetaminophen 5-325mg Tab PO Q6H PRN Pain, Moderate (4-6) Sodium Chloride 10 ml 03/13/21 22:00 03/15/21 09:59 Sodium Chloride 0.9% 10 Ml Flush Syringe IV Not Given BID [facility] Sodium Chloride 10 ml 03/13/21 21:34 Sodium Chloride 0.9% 10 Ml Flush Syringe IV PRN PRN LINE FLUSH
[2021-03-15] MEDS: cloNIDine 0.1 MG TAB PO SCH ×2 (17:07→22:44)
[2021-03-15] MEDS: levETIRAcetam 500 MG/5 ML ORAL LIQD PO SCH ×2 (17:21→22:45)
[2021-03-15] MEDS: amLODIPine 10 MG TAB PO SCH (17:22)
[2021-03-15] MEDS: INSULIN GLARGINE 100 UNITS/ML SUB-Q SCH (17:23)
--- NOTE | 2021-03-15 19:27 | Progress Note ---
Assessment and Plan Assessment and plan: Assessment and Plan - Patient Problems (1) Hypertensive urgency, malignant Current Visit: Yes Status: Acute Plan to address problem: Resume prehospital antihypertensive therapy and to further optimize medical regimen to optimize BP control. BP is better but still significantly elevated and the discharge was deferred, patient is otherwise asymptomatic. (2) End-stage renal disease needing dialysis Current Visit: Yes Status: Chronic Plan to address problem: Nephrology team consulted, dialysis as per renal team. Avoid nephrotoxic agents. Currently no evidence of volume overload. Received dialysis earlier today. (3) Metabolic encephalopathy, resolved Current Visit: Yes Status: Acute Plan to address problem: Supportive care, neuro check, seizure precaution, aspiration precautions, fall precautions. (4) DVT prophylaxis Current Visit: No Status: Acute Plan to address problem: SCD to bilateral lower extremities while in bed Disposition: Patient received hemodialysis today.. No evidence of volume overload clinically. Asymptomatic. His discharge deferred due to persistent and severe elevation of BP in the late afternoon. Medical management is being optimized. Patient could be discharged in the morning if BP better controlled. History Interval history: Patient received hemodialysis earlier today. Legally blind but alert and oriented without distress. There is no complaints. Denies headaches, chest pain, palpitations or dyspnea. His blood pressure is still significantly elevated and discharge deferred. Hospitalist Physical - Constitutional Vitals: Temp Pulse Resp BP Pulse Ox 98.5 F 100 H 18 190/91 93 03/15/21 16:34 03/15/21 17:22 03/15/21 16:34 03/15/21 17:07 03/15/21 16:34 General appearance: Present: no acute distress, well-nourished, other (Legally blind, fully alert and oriented. Answers appropriately.) - EENT ENT: hearing intact - Neck Neck: Present: supple - Respiratory Respiratory effort: normal Respiratory: bilateral: CTA - Cardiovascular Rhythm: regular - Extremities Extremities: No edema - Abdominal General gastrointestinal: soft, non-tender, normal bowel sounds - Integumentary Integumentary: Absent: rash - Psychiatric Psychiatric: appropriate mood/affect - Neurologic Neurologic: no focal deficits Results - Labs CBC & Chem 7: 03/14/21 08:10 03/16/21 05:52 Labs: Laboratory Last Values WBC 5.2 K/mm3 (4.5-11.0) 03/14/21 08:10 RBC 3.14 M/mm3 (3.65-5.03) L 03/14/21 08:10 Hgb 9.1 gm/dl (11.8-15.2) L 03/14/21 08:10 Hct 28.3 % (35.5-45.6) L 03/14/21 08:10 MCV 90 fl (84-94) 03/14/21 08:10 MCH 29 pg (28-32) 03/14/21 08:10 MCHC 32 % (32-34) 03/14/21 08:10 RDW 17.5 % (13.2-15.2) H 03/14/21 08:10 Plt Count 263 K/mm3 (140-440) 03/14/21 08:10 Lymph % (Auto) 15.1 % (13.4-35.0) 03/14/21 08:10 [place] % (Auto) 12.1 % (0.0-7.3) H 03/14/21 08:10 Eos % (Auto) 4.1 % (0.0-4.3) 03/14/21 08:10 Baso % (Auto) 1.1 % (0.0-1.8) 03/14/21 08:10 Lymph # (Auto) 0.8 K/mm3 (1.2-5.4) L 03/14/21 08:10 [place] # (Auto) 0.6 K/mm3 (0.0-0.8) 03/14/21 08:10 Eos # (Auto) 0.2 K/mm3 (0.0-0.4) 03/14/21 08:10 Baso # (Auto) 0.1 K/mm3 (0.0-0.1) 03/14/21 08:10 Seg Neutrophils % 67.6 % (40.0-70.0) 03/14/21 08:10 Seg Neutrophils # 3.5 K/mm3 (1.8-7.7) 03/14/21 08:10 VBG pH 7.445 (7.320-7.420) H 03/13/21 18:01 Sodium 134 mmol/L (137-145) L 03/14/21 08:10 Potassium 4.6 mmol/L (3.6-5.0) 03/14/21 08:10 Chloride 95.7 mmol/L (98-107) L 03/14/21 08:10 Carbon Dioxide 24 mmol/L (22-30) 03/14/21 08:10 Anion Gap 19 mmol/L 03/14/21 08:10 BUN 29 mg/dL (9-20) H 03/14/21 08:10 Creatinine 6.3 mg/dL (0.8-1.3) H 03/14/21 08:10 Estimated GFR 12 ml/min 03/14/21 08:10 BUN/Creatinine Ratio 5 % 03/14/21 08:10 Glucose 326 mg/dL (75-100) H 03/14/21 08:10 POC Glucose 451 mg/dL (70-105) H 03/15/21 17:13 Calcium 8.7 mg/dL (8.4-10.2) 03/14/21 08:10 Magnesium 2.00 mg/dL (1.7-2.3) 03/13/21 18:01 Wells/IV: Voiding Method Condom Catheter Active Medications - Current Medications Current Medications: Generic Name Dose Route Start Last Admin Trade Name Freq PRN Reason Stop Dose Admin Acetaminophen 650 mg 03/13/21 21:34 Acetaminophen 325 Mg Tab PO Q4H PRN Pain MILD(1-3)/Fever >100.5/RODGERS Albuterol 2.5 mg 03/13/21 21:34 Albuterol 2.5 Mg/3 Ml Nebu IH Q3HRT PRN Shortness Of Breath Albuterol/Ipratropium 1 ampul 03/14/21 02:00 03/15/21 15:12 Ipratropium/Albuterol Sulfate 3 Ml Ampul.Neb IH 1 ampul Q6HRT CODY Administration Amlodipine Besylate 10 mg 03/14/21 16:00 03/15/21 17:22 Amlodipine 10 Mg Tab PO 10 mg QDAY [facility]ODY Administration Clonidine HCl 0.3 mg 03/14/21 12:00 03/15/21 17:07 Clonidine 0.1 Mg Tab PO 0.3 mg Q12HR [facility]ODY Administration Dextrose 50 ml 03/13/21 21:34 Dextrose 50% In Water (25gm) 50 Ml Syringe IV Q30MIN PRN Hypoglycemia Protocol Diphenhydramine HCl 25 mg 03/15/21 13:00 03/15/21 12:30 Diphenhydramine 50 Mg/Ml Vial IV 25 mg KATE PRN Administration Itching Famotidine 10 mg 03/13/21 22:00 03/15/21 10:00 Famotidine 10 Mg Tab PO Not Given BID CODY Gabapentin 300 mg 03/13/21 22:00 03/14/21 21:28 Gabapentin 300 Mg Cap PO 300 mg QHS CODY Administration Hydralazine HCl 20 mg 03/14/21 09:36 03/15/21 17:07 Hydralazine 20 Mg/1 Ml Inj IV 20 mg Q6H PRN Administration Blood Pressure Hydralazine HCl 100 mg 03/14/21 14:00 03/15/21 14:00 Hydralazine 100 Mg Tab PO Not Given TID CODY Hydromorphone HCl 0.5 mg 03/13/21 21:34 Hydromorphone 1 Mg/1 Ml Inj IV Q3H PRN Pain , Severe (7-10) Sodium Chloride 100 mls @ 999 mls/hr 03/15/21 13:00 Nacl 0.9% IV KATE PRN Hypotension Sodium Chloride 100 mls @ 999 mls/hr 03/15/21 15:00 Nacl 0.9% IV KATE PRN Hypotension Insulin Glargine 20 units 03/14/21 08:00 03/15/21 17:23 Insulin Glargine 100 Units/Ml SUB-Q 20 units QAMDIAB [facility] Administration Insulin Human Lispro 0 unit 03/13/21 22:00 03/15/21 17:26 Insulin Lispro 100 Unit/Ml SUB-Q 10 unit ACHS [facility] Administration Protocol Labetalol HCl 300 mg 03/15/21 14:00 03/15/21 17:14 Labetalol 100 Mg Tab PO Not Given Q8HR [facility]ODY Levetiracetam 250 mg 03/14/21 10:00 03/15/21 17:21 Levetiracetam 500 Mg/5 Ml Oral Liqd PO 250 mg BID [facility] Administration Lisinopril 40 mg 03/14/21 10:00 03/15/21 09:59 Lisinopril 40 Mg Tab PO Not Given DAILY [facility] Metoclopramide HCl 5 mg 03/13/21 22:00 03/15/21 17:38 Metoclopramide 10 Mg Tab PO 5 mg ACHS [facility] Administration Miscellaneous Medication 2 tab 03/14/21 08:00 Ferric Citrate (Nf) PO TID CODY Ondansetron HCl 4 mg 03/13/21 21:34 Ondansetron 4 Mg/2 Ml Inj IV Q8H PRN Nausea And Vomiting Oxycodone/Acetaminophen 1 tab 03/13/21 21:34 Oxycodone /Acetaminophen 5-325mg Tab PO Q6H PRN Pain, Moderate (4-6) Sodium Chloride 10 ml 03/13/21 22:00 03/15/21 09:59 Sodium Chloride 0.9% 10 Ml Flush Syringe IV Not Given BID CODY Sodium Chloride 10 ml 03/13/21 21:34 Sodium Chloride 0.9% 10 Ml Flush Syringe IV PRN PRN LINE FLUSH Nutrition/Malnutrition Assess - Dietary Evaluation Nutrition/Malnutrition Findings: Nutrition Notes Start: 03/14/21 10:24 Freq: Status: Active Protocol: Document 03/14/21 10:24 (Rec: 03/14/21 10:26 [id number]) Nutrition Notes Need for Assessment generated from: MD Order Initial or Follow up Brief Note Current Diagnosis CKD (stage V CKD),Diabetes, Hypertension Other Pertinent Diagnosis on HD, hypertensive emergency Current Diet Renal Subjective/Other Information MD consult for diet education. Unable to contact pt and unable to see pt due RD working remotely. Nutrition Intervention Follow-Up By: 03/16/21 Additional Comments F/u: diet education
[2021-03-15] MEDS: GABAPENTIN 300 MG CAP PO SCH (22:45)
[2021-03-16] MEDS: IPRATROPIUM/ALBUTEROL SULFATE 3 ML AMPUL.NEB IH SCH ×3 (02:49→15:20)
[2021-03-16] MEDS: hydrALAZINE 20 MG/1 ML INJ IV PRN (03:21)
[2021-03-16 06:38] LABS: Calcium 9.2 mg/dL (8.4-10.2)
[2021-03-16] MEDS: INSULIN LISPRO 100 UNIT/ML SUB-Q SCH ×2 (08:19→11:33)
[2021-03-16] MEDS: INSULIN GLARGINE 100 UNITS/ML SUB-Q SCH (09:29)
[2021-03-16] MEDS: METOCLOPRAMIDE 10 MG TAB PO SCH ×2 (09:29→11:33)
[2021-03-16] MEDS: FAMOTIDINE 10 MG TAB PO SCH (09:30)
[2021-03-16] MEDS: LISINOPRIL 40 MG TAB PO SCH (09:31)
[2021-03-16] MEDS: cloNIDine 0.1 MG TAB PO SCH (09:31)
[2021-03-16] MEDS: amLODIPine 10 MG TAB PO SCH (09:31)
[2021-03-16] MEDS: levETIRAcetam 500 MG/5 ML ORAL LIQD PO SCH ×2 (09:31→09:41)
[2021-03-16] MEDS: hydrALAZINE 100 MG TAB PO SCH ×2 (09:31→15:39)
--- NOTE | 2021-03-16 09:52 | Discharge Summary ---
Providers - Providers Date of Admission: 03/14/21 01:06 Attending physician: LEATHA ROSEN MD 03/13/21 17:43 Consult to Physician [CONS] Urgent Comment: Consulting Provider: TYERL RAMOS Physician Instructions: Reason For Exam: esrd htn 03/13/21 21:34 Consult to Dietitian/Nutrition [CONS] Routine Physician Instructions: Reason For Exam: Reason for Consult: Diet education 03/15/21 16:31 Physical Therapy Evaluation and Treat [CONS] Routine Comment: Reason For Exam: Eval and Treat Hospitalization Reason for admission: Hypertensive urgency Condition: Good Hospital course: Is a 35 years old male with history of end-stage renal disease on hemodialysis, diabetes type 1, neuropathy retinopathy gastroparesis nephropathy was brought to the hospital because of high blood pressure. Patient has end-stage renal disease on hemodialysis Monday and Monday. Today patient is referred to the emergency room by his supervisor reclamation because of high blood pressure. patient was found to have blood pressure of 220/130. Nephrology did not dialyze the patient send the patient to ER for further evaluation. Patient denied any physical pain. No chest pain no shortness of breath In the emergency room patient is found to have BUN of 16 creatinine is 4.7, potassium is 4.2 and blood pressure of 251/131 (1) Hypertensive urgency, malignant Current Visit: Yes Status: Acute Plan to address problem: Resume prehospital antihypertensive therapy and to further optimize medical regimen to optimize BP control. BP is better but still significantly elevated and the discharge was deferred, patient is otherwise asymptomatic. (2) End-stage renal disease needing dialysis Current Visit: Yes Status: Chronic Plan to address problem: Nephrology team consulted, dialysis as per renal team. Avoid nephrotoxic agents. Currently no evidence of volume overload. Received dialysis earlier today. (3) Metabolic encephalopathy, resolved Current Visit: Yes Status: Acute Plan to address problem: Supportive care, neuro check, seizure precaution, aspiration precautions, fall precautions. Disposition: Patient received hemodialysis today. Patient clinically stable blood pressure better controlled Home medication reconciled appropriate and renewed plan for discharge today. Disposition: HOME / SELF CARE / HOMELESS Final Discharge Diagnosis (Prints w/discharge instructions): Malignant hypertension Time spent for discharge: 35-minute Core Measure Documentation - Palliative Care Palliative Care/ Comfort Measures: Not Applicable - Core Measures Any of the following diagnoses?: none Exam - Physical Exam Narrative exam: General appearance: Present: no acute distress, well-nourished, other (Legally blind, fully alert and oriented. Answers appropriately. Today evaluated while having dialysis) - EENT ENT: hearing intact - Neck Neck: Present: supple - Respiratory Respiratory effort: normal Respiratory: bilateral: CTA - Cardiovascular Rhythm: regular - Extremities Extremities: No edema - Abdominal General gastrointestinal: soft, non-tender, normal bowel sounds - Integumentary Integumentary: Absent: rash - Psychiatric Psychiatric: appropriate mood/affect - Neurologic Neurologic: no focal deficits - Constitutional Vitals: Temp Pulse Resp BP Pulse Ox 98.7 F 92 H 16 144/77 94 03/16/21 03:25 03/16/21 03:25 03/16/21 09:30 03/16/21 04:42 03/16/21 03:25 Plan Activity: advance as tolerated, fall precautions Diet: renal Special Instructions: restrict fluid intake to (1000cc/day), record daily weights, record daily BP diary Follow up with: MARLA GAINES [Other] - 3-5 Days SKYLER AMEZQUITA MD [Staff Physician] - 7 Days Prescriptions: amLODIPine 10 mg PO QDAY #30 tablet hydrALAZINE [Apresoline TAB] 100 mg PO TID #90 tab cloNIDine [Catapres] 0.3 mg PO TID #180 tablet labetaloL [Labetalol 100mg TAB] 300 mg PO Q8HR #180 tablet lisinopriL [Lisinopril] 40 mg PO DAILY #60 tab NIFEdipine XL [Procardia Xl] 60 mg PO Q12HR 30 Days #30 tablet
[2021-03-16] MEDS: diphenhydrAMINE 50 MG/ML VIAL IV PRN (11:03)
--- NOTE | 2021-03-16 12:49 | Progress Note ---
Assessment and Plan - Patient Problems (1) Hypertensive urgency, malignant Current Visit: Yes Status: Acute Plan to address problem: We will continue to challenge dry weight with hemodialysis treatments and aggressive ultrafiltration. Continue current medical management. (2) Metabolic encephalopathy Current Visit: Yes Status: Acute Plan to address problem: Stable mentation at this time. We will continue to monitor closely. (3) End-stage renal disease needing dialysis Current Visit: Yes Status: Chronic Plan to address problem: Have placed on inpatient Monday//Monday hemodialysis schedule. Will assess daily for needs of sequential ultrafiltration treatments in order to further optimize volume status (4) Type 2 diabetes mellitus with diabetic chronic kidney disease Current Visit: Yes Status: Chronic Plan to address problem: Diabetes managed per primary attending. (5) Secondary hyperparathyroidism of renal origin Current Visit: Yes Status: Chronic Plan to address problem: Continue on current home phosphorus binder regimen. Subjective Date of service: 03/16/21 Interval history: no acute issues this morning. Plan for hemodialysis today to place back on his Monday//Monday schedule. Objective - Vital Signs Vital signs: Vital Signs - 12hr 03/16/21 03/16/21 03/16/21 03:17 03:21 03:25 Temperature 98.9 F 98.7 F Pulse Rate 78 78 92 H Pulse Rate [ Anterior Bilateral Throughout] Respiratory 19 20 Rate Respiratory Rate [Anterior Bilateral Throughout] Blood Pressure 172/90 172/90 126/51 O2 Sat by Pulse 95 94 Oximetry O2 Sat by Pulse Oximetry [ Anterior Bilateral Throughout] 03/16/21 03/16/21 03/16/21 04:42 08:30 09:30 Temperature 97.6 F Pulse Rate 85 Pulse Rate [ Anterior Bilateral Throughout] Respiratory 14 16 Rate Respiratory Rate [Anterior Bilateral Throughout] Blood Pressure 144/77 149/72 O2 Sat by Pulse 96 Oximetry O2 Sat by Pulse Oximetry [ Anterior Bilateral Throughout] 03/16/21 03/16/21 03/16/21 09:54 09:56 10:10 Temperature 98.3 F Pulse Rate 82 Pulse Rate [ 84 Anterior Bilateral Throughout] Respiratory 18 Rate Respiratory 16 Rate [Anterior Bilateral Throughout] Blood Pressure 144/77 O2 Sat by Pulse 95 Oximetry O2 Sat by Pulse 97 Oximetry [ Anterior Bilateral Throughout] 03/16/21 03/16/21 03/16/21 10:18 10:30 10:45 Temperature Pulse Rate 81 81 82 Pulse Rate [ Anterior Bilateral Throughout] Respiratory 14 Rate Respiratory Rate [Anterior Bilateral Throughout] Blood Pressure 138/72 140/69 141/76 O2 Sat by Pulse Oximetry O2 Sat by Pulse Oximetry [ Anterior Bilateral Throughout] 03/16/21 03/16/21 03/16/21 11:00 11:15 11:30 Temperature Pulse Rate 82 82 81 Pulse Rate [ Anterior Bilateral Throughout] Respiratory Rate Respiratory Rate [Anterior Bilateral Throughout] Blood Pressure 129/61 145/74 139/74 O2 Sat by Pulse Oximetry O2 Sat by Pulse Oximetry [ Anterior Bilateral Throughout] 03/16/21 03/16/21 03/16/21 11:45 12:00 12:15 Temperature Pulse Rate 81 82 73 Pulse Rate [ Anterior Bilateral Throughout] Respiratory Rate Respiratory Rate [Anterior Bilateral Throughout] Blood Pressure 143/72 143/77 114/59 O2 Sat by Pulse Oximetry O2 Sat by Pulse Oximetry [ Anterior Bilateral Throughout] 03/16/21 12:30 Temperature Pulse Rate 82 Pulse Rate [ Anterior Bilateral Throughout] Respiratory Rate Respiratory Rate [Anterior Bilateral Throughout] Blood Pressure 136/70 O2 Sat by Pulse Oximetry O2 Sat by Pulse Oximetry [ Anterior Bilateral Throughout] - General Appearance General appearance: appears stated age, chronically ill EENT: ATNC Neck: no JVD Cardiology: regular, S1S2 Gastrointestinal: normal Integumentary: warm and dry Neurologic: no focal deficit Musculoskeletal: deferred Psychiatric: cooperative - Lab 03/14/21 08:10 03/16/21 05:52 Most recent lab results Calcium 9.2 mg/dL (8.4-10.2) 03/16/21 05:52 Magnesium 2.00 mg/dL (1.7-2.3) 03/13/21 18:01 - Allied health notes Allied health notes reviewed: nursing Medications & Allergies - Medications Allergies/Adverse Reactions: Allergies phenytoin sodium [From Dilantin] Allergy (Verified 03/12/21 16:00) Hives phenytoin sodium extended [From Dilantin] Allergy (Verified 03/12/21 16:00) Hives Home Medications: Home Medications Medication Instructions Recorded Confirmed Last Taken Type Ferric Citrate (Nf) [Auryxia] 2 tab PO TID 11/14/20 03/15/21 12/29/20 09:00 History Gabapentin 300 mg PO QHS 11/14/20 03/15/21 01/04/21 21:00 History Metoclopramide [Reglan TAB] 10 mg PO ACHS #60 tablet 01/16/21 03/15/21 Unknown Rx levETIRAcetam 500 mg PO BID 02/20/21 03/15/21 Unknown History Insulin Glargine [Lantus VIAL] 20 units SUB-Q QAMDIAB #600 units 02/21/21 03/15/21 Unknown Rx Lispro Insulin [HumaLOG] 6 unit SUB-Q AC 30 Days #540 units 02/21/21 03/15/21 Unknown Rx Cholecalciferol (Vitamin D3) 50,000 unit PO QWEEK 03/15/21 03/15/21 03/03/21 History [Vitamin D3 50,000UNIT CAP] Pantoprazole Sodium 40 mg PO QDAY 03/15/21 03/15/21 Unknown History Sucroferric Oxyhydroxide(Nf) 750 - 1,000 mg PO PRN PRN 03/15/21 03/15/21 Unknown History [Velphoro (Nf)] Sucroferric Oxyhydroxide(Nf) 750 - 1,000 mg PO TIDAC 03/15/21 03/15/21 Unknown History [Velphoro (Nf)] NIFEdipine XL [Procardia Xl] 60 mg PO Q12HR 30 Days #30 tablet 03/16/21 Unknown Rx amLODIPine 10 mg PO QDAY #30 tablet 03/16/21 Unknown Rx cloNIDine [Catapres] 0.3 mg PO TID #180 tablet 03/16/21 Unknown Rx hydrALAZINE [Apresoline TAB] 100 mg PO TID #90 tab 03/16/21 Unknown Rx labetaloL [Labetalol 100mg TAB] 300 mg PO Q8HR #180 tablet 03/16/21 Unknown Rx lisinopriL [Lisinopril] 40 mg PO DAILY #60 tab 03/16/21 Unknown Rx Active Medications: Generic Name Dose Route Start Last Admin Trade Name Freq PRN Reason Stop Dose Admin Acetaminophen 650 mg 03/13/21 21:34 Acetaminophen 325 Mg Tab PO Q4H PRN Pain MILD(1-3)/Fever >100.5/RODGERS Albuterol 2.5 mg 03/13/21 21:34 Albuterol 2.5 Mg/3 Ml Nebu IH Q3HRT PRN Shortness Of Breath Albuterol/Ipratropium 1 ampul 03/14/21 02:00 03/16/21 09:54 Ipratropium/Albuterol Sulfate 3 Ml Ampul.Neb IH 1 ampul Q6HRT CODY Administration Amlodipine Besylate 10 mg 03/14/21 16:00 03/16/21 09:31 Amlodipine 10 Mg Tab PO Not Given QDAY CODY Clonidine HCl 0.3 mg 03/14/21 12:00 03/16/21 09:31 Clonidine 0.1 Mg Tab PO Not Given Q12HR CODY Dextrose 50 ml 03/13/21 21:34 Dextrose 50% In Water (25gm) 50 Ml Syringe IV Q30MIN PRN Hypoglycemia Protocol Diphenhydramine HCl 25 mg 03/15/21 13:00 03/16/21 11:03 Diphenhydramine 50 Mg/Ml Vial IV 25 mg KATE PRN Administration Itching Famotidine 10 mg 03/13/21 22:00 03/16/21 09:30 Famotidine 10 Mg Tab PO 10 mg BID CODY Administration Gabapentin 300 mg 03/13/21 22:00 03/15/21 22:45 Gabapentin 300 Mg Cap PO 300 mg QHS CODY Administration Hydralazine HCl 20 mg 03/14/21 09:36 03/16/21 03:21 Hydralazine 20 Mg/1 Ml Inj IV 20 mg Q6H PRN Administration Blood Pressure Hydralazine HCl 100 mg 03/14/21 14:00 03/16/21 09:31 Hydralazine 100 Mg Tab PO Not Given TID CODY Hydromorphone HCl 0.5 mg 03/13/21 21:34 Hydromorphone 1 Mg/1 Ml Inj IV Q3H PRN Pain , Severe (7-10) Sodium Chloride 100 mls @ 999 mls/hr 03/15/21 15:00 Nacl 0.9% IV KATE PRN Hypotension Insulin Glargine 20 units 03/14/21 08:00 03/16/21 09:29 Insulin Glargine 100 Units/Ml SUB-Q 20 units QAMDIAB CODY Administration Insulin Human Lispro 0 unit 03/13/21 22:00 03/16/21 11:33 Insulin Lispro 100 Unit/Ml SUB-Q Not Given ACHS [facility] Protocol Labetalol HCl 300 mg 03/15/21 14:00 03/16/21 05:37 Labetalol 100 Mg Tab PO 300 mg Q8HR CODY Administration Levetiracetam 250 mg 03/14/21 10:00 03/16/21 09:41 Levetiracetam 500 Mg/5 Ml Oral Liqd PO 250 mg BID CODY Administration Lisinopril 40 mg 03/14/21 10:00 03/16/21 09:31 Lisinopril 40 Mg Tab PO Not Given DAILY CODY Metoclopramide HCl 5 mg 03/13/21 22:00 03/16/21 11:33 Metoclopramide 10 Mg Tab PO Not Given ACHS CODY Miscellaneous Medication 2 tab 03/14/21 08:00 Ferric Citrate (Nf) PO TID CODY Ondansetron HCl 4 mg 03/13/21 21:34 Ondansetron 4 Mg/2 Ml Inj IV Q8H PRN Nausea And Vomiting Oxycodone/Acetaminophen 1 tab 03/13/21 21:34 03/16/21 09:30 Oxycodone /Acetaminophen 5-325mg Tab PO 1 tab Q6H PRN Administration Pain, Moderate (4-6) Sodium Chloride 10 ml 03/13/21 22:00 03/16/21 09:31 Sodium Chloride 0.9% 10 Ml Flush Syringe IV 10 ml BID CODY Administration Sodium Chloride 10 ml 03/13/21 21:34 Sodium Chloride 0.9% 10 Ml Flush Syringe IV PRN PRN LINE FLUSH
[2021-03-16 14:02] VITALS: BP 146/84
== END 2021-03-16 16:20 | disposition home or self-care (01) | DRG 304 ==
LOC: ED 16:34 → 4A 03-14 01:06
PROVIDERS: ADMIT Hospitalist; ATTEND Internal Medicine
PROC: 5A1D70Z Performance of Urinary Filtration, Intermittent, Less than 6 Hours Per Day (ICD-10-PCS; principal; 2021-03-15)
PROC: 5A1D70Z Performance of Urinary Filtration, Intermittent, Less than 6 Hours Per Day (ICD-10-PCS; 2021-03-16)
DX: I16.0 Hypertensive urgency (principal); N18.6 End stage renal disease; G93.41 Metabolic encephalopathy; E10.22 Type 1 diabetes mellitus with diabetic chronic kidney disease; Z99.2 Dependence on renal dialysis; G40.909 Epilepsy, unspecified, not intractable, without status epilepticus; N25.81 Secondary hyperparathyroidism of renal origin; Z20.822 Contact with and (suspected) exposure to COVID-19; I12.0 Hypertensive chronic kidney disease with stage 5 chronic kidney disease or end stage renal disease; E10.51 Type 1 diabetes mellitus with diabetic peripheral angiopathy without gangrene
CPT/HCPCS: 36415; 71045; 80048; 82805; 82962; 83735; 85025; 93005; 94640; G0378; J0360; J1200; J1815

== ENCOUNTER 2021-03-30 17:03 | Inpatient (IN) | payer MEDICAID ==
[2021-03-30] MEDS ORDERED: GLUCAGON (HUMAN RECOMBINANT) 1 MG/ML INJ IV ONE ×2 (17:07→18:00)
[2021-03-30] MEDS ORDERED: DEXTROSE 50% IN WATER (25GM) 50 ML SYRINGE IV ONE ×2 (17:07→17:08)
[2021-03-30 18:00] LABS: Basophils # (Auto) 0.1 K/mm3 (0.0-0.1); Basophils % (Auto) 0.9 % (0.0-1.8); Eosinophils # (Auto) 0.2 K/mm3 (0.0-0.4); Eosinophils % (Auto) 3.8 % (0.0-4.3); Hematocrit 30.2 % (35.5-45.6); Hemoglobin 9.4 gm/dl (11.8-15.2); Lymphocytes # (Auto) 0.5 K/mm3 (1.2-5.4); Lymphocytes % (Auto) 7.3 % (13.4-35.0); Mean Corpuscular HGB Conc 31 % (32-34); Mean Corpuscular Volume 89 fl (84-94); Monocytes % (Auto) 14.8 % (0.0-7.3); Platelet Count 192 K/mm3 (140-440); Red Blood Count 3.38 M/mm3 (3.65-5.03); Red Cell Distribution Width 17.4 % (13.2-15.2)
[2021-03-30 18:02] LABS: INR 0.95 (0.87-1.13); Partial Thromboplastin Time 30.7 Sec. (24.2-36.6)
[2021-03-30 18:08] LABS: Albumin 4.1 g/dL (3.9-5); Calcium 9.5 mg/dL (8.4-10.2)
--- NOTE | 2021-03-30 18:11 | Cat Scan Report ---
CT HEAD WITHOUT CONTRAST INDICATION / CLINICAL INFORMATION: Altered mental status. TECHNIQUE: Axial imaging performed from the skull apex through the skull base without the use of cont rast. Sagittal and coronal reformatted images. All CT scans at this location are performed using CT dose reduction for ALARA by means of automated exposure control. COMPARISON: 07/05/2020 FINDINGS: CEREBRAL PARENCHYMA: No significant abnormality. No acute territorial infarct. HEMORRHAGE: None. EXTRA-AXIAL SPACES: Normal in size and morphology for the patient's age. VENTRICULAR SYSTEM: Normal in size and morphology for the patient's age. MIDLINE SHIFT OR HERNIATION: None. CEREBELLUM / BRAINSTEM: No significant abnormality. CALVARIUM: No significant abnormality. ORBITS: Normal as visualized. PARANASAL SINUSES / MASTOID AIR CELLS: Normal as visualized. SOFT TISSUES of HEAD: There is mild posterior soft tissue swelling. ADDITIONAL FINDINGS: None. IMPRESSION: No acute intracranial abnormality. Mild posterior soft tissue swelling. Signer Name: Irving Hoskins Jr, MD Signed: 03/30/2021 6:06 PM Workstation Name: [id number]
--- NOTE | 2021-03-30 19:43 | History and Physical Report ---
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 Pt is confused, and lethargic upon exam and is unable to provide history at the time of my evaluation. Patient history provided by EMS staff, ED staff, as well as patient family. As per family report "he got confused after dialysis". Patient was in his usual state of health and presented to his outpatient dialysis center for his routine scheduled dialysis. Patient underwent dialysis and following dialysis the patient became confused and lethargic. EMS was notified and upon arrival the patient was found to be in distress and subsequently transported to [facility] for further evaluation and care. Patient seen and evaluated in the emergency department. Lab and imaging studies reviewed. Patient found to have dialysis disequilibrium syndrome, end-stage renal disease, metabolic encephalopathy, hypoglycemia. No further history obtainable. Nephrology team consulted in ED for urgent dialysis. Patient has diminished cognition at the time my evaluation but has a positive gag reflex and is able to protect his airway without d ifficulty. Prior admission on 03/14/2021 reviewed. All listed medication reconciled at time of exam. Advanced care planning conducted in the emergency department. Past History Past Medical History: diabetes, ESRD, hypertension, seizures Past Surgical History: Other (Brain surgery, dialysis access) Social history: single. denies: smoking, alcohol abuse, prescription drug abuse Family history: diabetes, hypertension Medications and Allergies Allergies Allergy/AdvReac Type Severity Reaction Status Date / Time phenytoin sodium Allergy Hives Verified 03/12/21 16:00 [From Dilantin] phenytoin sodium extended Allergy Hives Verified 03/12/21 16:00 [From Dilantin] Home Medications Medication Instructions Recorded Confirmed Last Taken Type Ferric Citrate (Nf) [Auryxia] 2 tab PO TID 11/14/20 03/15/21 12/29/20 09:00 History Gabapentin 300 mg PO QHS 11/14/20 03/15/21 01/04/21 21:00 History Metoclopramide [Reglan TAB] 10 mg PO ACHS #60 tablet 01/16/21 03/15/21 Unknown Rx levETIRAcetam 500 mg PO BID 02/20/21 03/15/21 Unknown History Insulin Glargine [Lantus VIAL] 20 units SUB-Q QAMDIAB #600 units 02/21/21 03/15/21 Unknown Rx Lispro Insulin [HumaLOG] 6 unit SUB-Q AC 30 Days #540 units 02/21/21 03/15/21 Unknown Rx Cholecalciferol (Vitamin D3) 50,000 unit PO QWEEK 03/15/21 03/15/21 03/03/21 History [Vitamin D3 50,000UNIT CAP] Pantoprazole Sodium 40 mg PO QDAY 03/15/21 03/15/21 Unknown History Sucroferric Oxyhydroxide(Nf) 750 - 1,000 mg PO PRN PRN 03/15/21 03/15/21 Unknown History [Velphoro (Nf)] Sucroferric Oxyhydroxide(Nf) 750 - 1,000 mg PO TIDAC 03/15/21 03/15/21 Unknown History [Velphoro (Nf)] NIFEdipine XL [Procardia Xl] 60 mg PO Q12HR 30 Days #30 tablet 03/16/21 Unknown Rx amLODIPine 10 mg PO QDAY #30 tablet 03/16/21 Unknown Rx cloNIDine [Catapres] 0.3 mg PO TID #180 tablet 03/16/21 Unknown Rx hydrALAZINE [Apresoline TAB] 100 mg PO TID #90 tab 03/16/21 Unknown Rx labetaloL [Labetalol 100mg TAB] 300 mg PO Q8HR #180 tablet 03/16/21 Unknown Rx lisinopriL [Lisinopril] 40 mg PO DAILY #60 tab 03/16/21 Unknown Rx Review of Systems ROS unobtainable: due to mental status Exam - Constitutional Vitals: Temp Pulse Resp BP Pulse Ox 55 L 9 L 175/95 100 03/30/21 17:57 03/30/21 17:57 03/30/21 17:57 03/30/21 17:57 General appearance: Present: mild distress - EENT Eyes: Present: PERRL ENT: hearing decreased - Neck Neck: Present: supple, normal ROM - Respiratory Respiratory effort: normal Respiratory: bilateral: CTA - Cardiovascular Heart Sounds: Present: S1 & S2. Absent: rub, click - Extremities Extremities: pulses symmetrical, No edema Peripheral Pulses: within normal limits - Abdominal General gastrointestinal: Present: soft, non-tender, non-distended, normal bowel sounds Male genitourinary: Present: normal - Integumentary Integumentary: Present: clear, warm, dry - Musculoskeletal Musculoskeletal: generalized weakness - Psychiatric Psychiatric: no appropriate mood/affect, no intact judgment & insight, no memory intact - Neurologic Neurologic: CNII-XII intact, no focal deficits, moves all extremities, no gait normal Results - Labs CBC & Chem 7: 03/30/21 17:25 03/30/21 17:25 Labs: Abnormal lab results 03/30/21 03/30/21 03/30/21 Range/Units 17:06 17:07 17:25 RBC 3.38 L (3.65-5.03) M/mm3 Hgb 9.4 L (11.8-15.2) gm/dl Hct 30.2 L (35.5-45.6) % MCHC 31 L (32-34) % RDW 17.4 H (13.2-15.2) % Lymph % (Auto) 7.3 L (13.4-35.0) % Giles % (Auto) 14.8 H (0.0-7.3) % Lymph # (Auto) 0.5 L (1.2-5.4) K/mm3 Giles # (Auto) 1.0 H (0.0-0.8) K/mm3 Seg Neutrophils % 73.2 H (40.0-70.0) % Sodium (137-145) mmol/L Chloride (98-107) mmol/L BUN (9-20) mg/dL Creatinine (0.8-1.3) mg/dL Glucose (75-100) mg/dL POC Glucose 19 L 16 L (70-105) mg/dL AST (5-40) units/L ALT (7-56) units/L Alkaline Phosphatase (35-129) units/L 03/30/21 03/30/21 Range/Units 17:25 17:39 RBC (3.65-5.03) M/mm3 Hgb (11.8-15.2) gm/dl Hct (35.5-45.6) % MCHC (32-34) % RDW (13.2-15.2) % Lymph % (Auto) (13.4-35.0) % Giles % (Auto) (0.0-7.3) % Lymph # (Auto) (1.2-5.4) K/mm3 Giles # (Auto) (0.0-0.8) K/mm3 Seg Neutrophils % (40.0-70.0) % Sodium 136 L (137-145) mmol/L Chloride 95.8 L (98-107) mmol/L BUN 32 H (9-20) mg/dL Creatinine 5.8 H (0.8-1.3) mg/dL Glucose 231 H (75-100) mg/dL POC Glucose 196 H (70-105) mg/dL AST 50 H (5-40) units/L ALT 68 H (7-56) units/L Alkaline Phosphatase 334 H (35-129) units/L Assessment and Plan - Patient Problems (1) Dialysis disequilibrium syndrome Current Visit: No Status: Acute Plan to address problem: Supportive care, neuro check, seizure precautions, aspiration precautions, fall precautions, (2) Metabolic encephalopathy Current Visit: No Status: Acute Plan to address problem: CTA, neuro check, supportive care. (3) Hypoglycemia Current Visit: Yes Status: Acute Plan to address problem: IV dextrose, Accu-Chek, supportive care. (4) End stage renal disease Current Visit: No Status: Chronic Plan to address problem: Nephrology team consulted in ED, dialysis as per renal team, strict I's/O, monitor fluid balance, avoid nephrotoxic agents. (5) DVT prophylaxis Current Visit: No Status: Acute Plan to address problem: SCD to bilateral lower extremities while in bed, prophylactic anticoagulation (6) Advance care planning Current Visit: No Status: Acute Plan to address problem: Disease education conducted, care plan discussed, diagnoses discussed, prognosis discussed, patient is full code, patient family knowledge understanding and agree with care plan, +30 minutes.
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
[2021-03-31] MEDS ORDERED: MORPHINE 4 MG/1 ML INJ IV PRN (07:38)
[2021-03-31] MEDS ORDERED: ONDANSETRON 4 MG/2 ML INJ IV PRN (08:30)
[2021-03-31] MEDS ORDERED: ACETAMINOPHEN 325 MG TAB PO PRN (08:30)
[2021-03-31] MEDS ORDERED: DEXTROSE 50% IN WATER (25GM) 50 ML SYRINGE IV PRN (08:30)
[2021-03-31] MEDS ORDERED: HYDROcodone/ACETAMINOPHEN 5-325 MG TAB PO PRN (08:30)
[2021-03-31] MEDS ORDERED: MORPHINE 2 MG/1 ML INJ IV PRN (08:30)
[2021-03-31] MEDS ORDERED: INSULIN REGULAR, HUMAN 100 UNITS/1 ML SUB-Q SCH (09:00)
[2021-03-31] MEDS: HEPARIN 5,000 UNIT/1 ML VIAL SUB-Q SCH ×2 (09:17→23:04)
[2021-03-31] MEDS: SODIUM CHLORIDE 0.9% 1000 ML 1,000 ML IV SCH (09:38)
--- NOTE | 2021-03-31 10:06 | Consultation ---
History of Present Illness - Reason for Consult Consult date: 03/31/21 end stage renal disease Requesting physician: JOHN WETZEL - History of Present Illness 35-year-old male known to me with type 1 diabetes mellitus complicated by end- stage renal disease on hemodialysis. Patient has had numerous hospitalizations with severe hypertension, fluid overload and diabetic ketoacidosis and sometimes seizures or gastroparesis. Patient went for his routine dialysis yesterday and predialysis he was fine. After dialysis, patient was discharged but while in van on the way home, he became confused and lethargic. Patient was brought to the emergency room and his blood sugar was 16 mg/dL. It was treated and his mental status has subsequently improved. Labs showed BUN/creatinine of 32/5.8 mg/dL with potassium of 3.8 mmol/L. Blood pressure on presentation was quite high at 218/120 mmHg. I am consulted to assist with managing the kidney failure and providing dialysis and correcting fluid and electrolyte abnormalities. Past History Past Medical History: diabetes, ESRD, hypertension, seizures Past Surgical History: Other (Brain surgery, dialysis access) Social history: single. denies: smoking, alcohol abuse, prescription drug abuse Family history: diabetes, hypertension Medications and Allergies Allergies Allergy/AdvReac Type Severity Reaction Status Date / Time phenytoin sodium Allergy Hives Verified 03/12/21 16:00 [From Dilantin] phenytoin sodium extended Allergy Hives Verified 03/12/21 16:00 [From Dilantin] Home Medications Medication Instructions Recorded Confirmed Last Taken Type Ferric Citrate (Nf) [Auryxia] 2 tab PO TID 11/14/20 03/15/21 12/29/20 09:00 History Gabapentin 300 mg PO QHS 11/14/20 03/31/21 03/30/21 History Metoclopramide [Reglan TAB] 10 mg PO ACHS #60 tablet 01/16/21 03/15/21 Unknown Rx levETIRAcetam 500 mg PO BID 02/20/21 03/31/21 03/30/21 History Insulin Glargine [Lantus VIAL] 20 units SUB-Q QAMDIAB #600 units 02/21/21 03/15/21 Unknown Rx Lispro Insulin [HumaLOG] 6 unit SUB-Q AC 30 Days #540 units 02/21/21 03/15/21 Unknown Rx Cholecalciferol (Vitamin D3) 50,000 unit PO QWEEK 03/15/21 03/31/21 03/29/21 History [Vitamin D3 50,000UNIT CAP] Pantoprazole Sodium 40 mg PO QDAY 03/15/21 03/31/21 03/30/21 History Sucroferric Oxyhydroxide(Nf) 750 - 1,000 mg PO PRN PRN 03/15/21 03/15/21 Unknown History [Velphoro (Nf)] Sucroferric Oxyhydroxide(Nf) 750 - 1,000 mg PO TIDAC 03/15/21 03/15/21 Unknown History [Velphoro (Nf)] NIFEdipine XL [Procardia Xl] 60 mg PO Q12HR 30 Days #30 tablet 03/16/21 03/31/21 03/30/21 Rx amLODIPine 10 mg PO QDAY #30 tablet 03/16/21 Unknown Rx cloNIDine [Catapres] 0.3 mg PO TID #180 tablet 03/16/21 03/31/21 03/30/21 Rx hydrALAZINE [Apresoline TAB] 100 mg PO TID #90 tab 03/16/21 03/31/21 03/30/21 Rx labetaloL [Labetalol 100mg TAB] 300 mg PO Q8HR #180 tablet 03/16/21 Unknown Rx lisinopriL [Lisinopril] 40 mg PO DAILY #60 tab 03/16/21 03/31/21 03/30/21 Rx Metoprolol 100 mg PO BID 03/31/21 03/31/21 03/30/21 History Active Meds: Active Medications Acetaminophen (Acetaminophen 325 Mg Tab) 650 mg PO Q4H PRN PRN Reason: Pain MILD(1-3)/Fever >100.5/RODGERS Last Admin: 03/31/21 09:17 Dose: 650 mg Documented by: Hydrocodone Bitart/Acetaminophen (Hydrocodone/Acetaminophen 5-325 Mg Tab) 2 each PO Q6H PRN PRN Reason: Pain, Moderate (4-6) Dextrose (Dextrose 50% In Water (25gm) 50 Ml Syringe) 50 ml IV Q30MIN PRN; Protocol PRN Reason: Hypoglycemia Heparin Sodium (Porcine) (Heparin 5,000 Unit/1 Ml Vial) 5,000 unit SUB-Q Q12HR CODY Last Admin: 03/31/21 09:17 Dose: 5,000 unit Documented by: Sodium Chloride (Nacl 0.9% 1000 Ml) 1,000 mls @ 75 mls/hr IV DIRECT [facility] Insulin Human Regular (Insulin Regular, Human 100 Units/1 Ml) 0 units SUB-Q Q6H [facility]; Protocol Last Admin: 03/31/21 09:17 Dose: 4 units Documented by: Morphine Sulfate (Morphine 2 Mg/1 Ml Inj) 2 mg IV Q4H PRN PRN Reason: Pain , Severe (7-10) Ondansetron HCl (Ondansetron 4 Mg/2 Ml Inj) 4 mg IV Q8H PRN PRN Reason: Nausea And Vomiting Sodium Chloride (Sodium Chloride 0.9% 10 Ml Flush Syringe) 10 ml IV BID [facility] Last Admin: 03/31/21 09:35 Dose: 10 ml Documented by: Sodium Chloride (Sodium Chloride 0.9% 10 Ml Flush Syringe) 10 ml IV PRN PRN PRN Reason: LINE FLUSH Review of Systems All systems: negative (As noted in history of present illness) Exam - Vital Signs Vital signs: Vital Signs Resp Pulse Ox 12 98 03/30/21 17:29 03/30/21 17:29 - Physical Exam Narrative exam: Young -[place] male lying in bed in no acute distress HEENT: NCAT, pink oral mucous membrane Neck: Supple, no venous distention CVS: S1S2 RRR with no murmur, rub or gallop Chest: Clear to auscultation Abdomen: Protuberant, soft, nontender, no organomegaly, bowel sounds are present Extremities: No edema Skin scratch [place] with dressings over her shins Neuro: Awake, alert no focal deficits Results - Lab Results 03/30/21 17:25 03/30/21 17:25 Most recent lab results Calcium 9.5 mg/dL (8.4-10.2) 03/30/21 17:25 Assessment and Plan - Patient Problems (1) Hypoglycemia Current Visit: Yes Status: Acute Plan to address problem: Treated and his blood sugar is now normal (2) Anemia in end-stage renal disease Current Visit: Yes Status: Acute Plan to address problem: Give erythropoietin on dialysis (3) End stage renal disease on dialysis Current Visit: Yes Status: Acute Plan to address problem: Continue hemodialysis on a Monday, and Monday schedule (4) Acute encephalopathy Current Visit: No Status: Acute Plan to address problem: Metabolic encephalopathy secondary to hypoglycemia and or hypertensive encephalopathy. Blood sugar has improved. Continue to monitor mental status (5) End stage renal disease Current Visit: No Status: Acute (6) Type 1 diabetes mellitus with diabetic chronic kidney disease Current Visit: No Status: Acute (7) Hypertensive chronic kidney disease with stage 5 chronic kidney disease or end stage renal disease Current Visit: No Status: Chronic
--- NOTE | 2021-03-31 10:33 | Progress Note ---
Assessment and Plan Assessment and plan: Metabolic encephalopathy Hypoglycemia ESRD Hypertension Diabetes mellitus type 2 Seizure disorder. 03/31/2021. I suspect that the patient's altered mentation is secondary to metabolic encephalopathy from hypoglycemia. Upon patient's arrival to the ED, patient was noted to have a BG of 16. There was no witnessed seizure activity. However, given patient's history of seizure disorder we will monitor for 24 hours and consider EEG. We will also continue to monitor BG and if remains stable will likely discharge in a.m. Continue hemodialysis per nephrology. History Interval history: No new issues overnight. Hospitalist Physical - Constitutional Vitals: Temp Pulse Resp BP Pulse Ox 98.4 F 75 19 209/109 94 03/31/21 07:44 03/31/21 09:31 03/31/21 09:31 03/31/21 09:31 03/31/21 09:31 General appearance: Present: no acute distress - EENT Eyes: Present: PERRL, EOM intact ENT: hearing intact, clear oral mucosa, dentition normal - Neck Neck: Present: supple, normal ROM - Respiratory Respiratory effort: normal Respiratory: bilateral: CTA - Cardiovascular Rhythm: regular Heart Sounds: Present: S1 & S2. Absent: gallop, rub - Extremities Extremities: no ischemia, No edema, Full ROM - Abdominal General gastrointestinal: soft, non-tender, non-distended, normal bowel sounds - Integumentary Integumentary: Present: clear, warm, dry - Neurologic Neurologic: CNII-XII intact, moves all extremities Results - Labs CBC & Chem 7: 03/30/21 17:25 03/30/21 17:25 Labs: Laboratory Last Values WBC 6.5 K/mm3 (4.5-11.0) 03/30/21 17:25 RBC 3.38 M/mm3 (3.65-5.03) L 03/30/21 17:25 Hgb 9.4 gm/dl (11.8-15.2) L 03/30/21 17:25 Hct 30.2 % (35.5-45.6) L 03/30/21 17:25 MCV 89 fl (84-94) 03/30/21 17:25 MCH 28 pg (28-32) 03/30/21 17:25 MCHC 31 % (32-34) L 03/30/21 17:25 RDW 17.4 % (13.2-15.2) H 03/30/21 17:25 Plt Count 192 K/mm3 (140-440) 03/30/21 17:25 Lymph % (Auto) 7.3 % (13.4-35.0) L 03/30/21 17:25 [place] % (Auto) 14.8 % (0.0-7.3) H 03/30/21 17:25 Eos % (Auto) 3.8 % (0.0-4.3) 03/30/21 17:25 Baso % (Auto) 0.9 % (0.0-1.8) 03/30/21 17:25 Lymph # (Auto) 0.5 K/mm3 (1.2-5.4) L 03/30/21 17:25 [place] # (Auto) 1.0 K/mm3 (0.0-0.8) H 03/30/21 17:25 Eos # (Auto) 0.2 K/mm3 (0.0-0.4) 03/30/21 17:25 Baso # (Auto) 0.1 K/mm3 (0.0-0.1) 03/30/21 17:25 Seg Neutrophils % 73.2 % (40.0-70.0) H 03/30/21 17:25 Seg Neutrophils # 4.7 K/mm3 (1.8-7.7) 03/30/21 17:25 PT 13.7 Sec. (12.2-14.9) 03/30/21 17:25 INR 0.95 (0.87-1.13) 03/30/21 17:25 APTT 30.7 Sec. (24.2-36.6) 03/30/21 17:25 Sodium 136 mmol/L (137-145) L 03/30/21 17:25 Potassium 3.8 mmol/L (3.6-5.0) 03/30/21 17:25 Chloride 95.8 mmol/L (98-107) L 03/30/21 17:25 Carbon Dioxide 28 mmol/L (22-30) 03/30/21 17:25 Anion Gap 16 mmol/L 03/30/21 17:25 BUN 32 mg/dL (9-20) H 03/30/21 17:25 Creatinine 5.8 mg/dL (0.8-1.3) H 03/30/21 17:25 Estimated GFR 14 ml/min 03/30/21 17:25 BUN/Creatinine Ratio 6 % 03/30/21 17:25 Glucose 231 mg/dL (75-100) H 03/30/21 17:25 POC Glucose 285 mg/dL (70-105) H 03/31/21 08:44 Calcium 9.5 mg/dL (8.4-10.2) 03/30/21 17:25 Total Bilirubin 0.30 mg/dL (0.1-1.2) 03/30/21 17:25 AST 50 units/L (5-40) H 03/30/21 17:25 ALT 68 units/L (7-56) H 03/30/21 17:25 Alkaline Phosphatase 334 units/L (35-129) H 03/30/21 17:25 Total Protein 7.1 g/dL (6.3-8.2) 03/30/21 17:25 Albumin 4.1 g/dL (3.9-5) 03/30/21 17:25 Albumin/Globulin Ratio 1.4 % 03/30/21 17:25 Active Medications - Current Medications Current Medications: Generic Name Dose Route Start Last Admin Trade Name Freq PRN Reason Stop Dose Admin Acetaminophen 650 mg 03/31/21 08:30 03/31/21 09:17 Acetaminophen 325 Mg Tab PO 650 mg Q4H PRN Administration Pain MILD(1-3)/Fever >100.5/RODGERS Hydrocodone Bitart/Acetaminophen 2 each 03/31/21 08:30 Hydrocodone/Acetaminophen 5-325 Mg Tab PO Q6H PRN Pain, Moderate (4-6) Dextrose 50 ml 03/31/21 08:30 Dextrose 50% In Water (25gm) 50 Ml Syringe IV Q30MIN PRN Hypoglycemia Protocol Heparin Sodium (Porcine) 5,000 unit 03/31/21 09:00 03/31/21 09:17 Heparin 5,000 Unit/1 Ml Vial SUB-Q 5,000 unit Q12HR CODY Administration Sodium Chloride 1,000 mls @ 75 mls/hr 03/31/21 08:30 Nacl 0.9% 1000 Ml IV DIRECT CODY Insulin Human Regular 0 units 03/31/21 09:00 03/31/21 09:17 Insulin Regular, Human 100 Units/1 Ml SUB-Q 4 units Q6H CODY Administration Protocol Morphine Sulfate 2 mg 03/31/21 08:30 Morphine 2 Mg/1 Ml Inj IV Q4H PRN Pain , Severe (7-10) Ondansetron HCl 4 mg 03/31/21 08:30 Ondansetron 4 Mg/2 Ml Inj IV Q8H PRN Nausea And Vomiting Sodium Chloride 10 ml 03/31/21 10:00 03/31/21 09:35 Sodium Chloride 0.9% 10 Ml Flush Syringe IV 10 ml BID CODY Administration Sodium Chloride 10 ml 03/31/21 08:30 Sodium Chloride 0.9% 10 Ml Flush Syringe IV PRN PRN LINE FLUSH
[2021-03-31] MEDS ORDERED: EPOETIN ALFA-EPBX 20,000 UNIT/1 ML VIAL IV PRN (10:57)
[2021-03-31] MEDS ORDERED: SODIUM CHLORIDE 0.9% 100 ML IV PRN (10:57)
[2021-03-31] MEDS: cloNIDine 0.1 MG TAB PO SCH ×2 (11:26→23:05)
[2021-03-31] MEDS: INSULIN LISPRO 100 UNIT/ML SUB-Q SCH ×2 (12:10→17:00)
[2021-03-31] MEDS: NIFEdipine XL 60 MG TAB PO SCH ×2 (12:10→23:06)
[2021-03-31] MEDS: hydrALAZINE 100 MG TAB PO SCH ×2 (12:10→23:06)
[2021-03-31] MEDS: METOCLOPRAMIDE 10 MG TAB PO SCH ×3 (12:11→23:05)
[2021-03-31] MEDS: INSULIN REGULAR, HUMAN 100 UNITS/1 ML SUB-Q SCH ×2 (12:11→18:00)
[2021-03-31] MEDS: LISINOPRIL 40 MG TAB PO SCH (12:11)
[2021-03-31] MEDS ORDERED: NON-FORMULARY EACH (Ferric Citrate (Nf) 210 MG Tablet) PO SCH (14:00)
[2021-03-31] MEDS: PANTOPRAZOLE 40 MG TAB PO SCH (14:04)
[2021-03-31] MEDS: levETIRAcetam 500 MG TAB PO SCH ×2 (14:04→23:04)
[2021-03-31] MEDS: INSULIN GLARGINE 100 UNITS/ML SUB-Q SCH (14:05)
[2021-03-31 14:17] LABS: Hepatitis C Virus Antibody Non-Reactive (NonReactive)
[2021-03-31 14:26] LABS: Hepatitis B Surface Antigen Nonreactive (Negative)
[2021-03-31] MEDS ORDERED: GABAPENTIN 300 MG CAP PO SCH (22:00)
[2021-03-31] MEDS ORDERED: NON-FORMULARY EACH (Levetiracetam 500 MG) PO SCH (22:00)
[2021-04-01] MEDS: SODIUM CHLORIDE 0.9% 1000 ML 1,000 ML IV SCH (01:52)
[2021-04-01 05:37] LABS: Basophils # (Auto) 0.1 K/mm3 (0.0-0.1); Basophils % (Auto) 0.8 % (0.0-1.8); Eosinophils # (Auto) 0.2 K/mm3 (0.0-0.4); Eosinophils % (Auto) 2.4 % (0.0-4.3); Hemoglobin 8.7 gm/dl (11.8-15.2); Lymphocytes # (Auto) 0.8 K/mm3 (1.2-5.4); Lymphocytes % (Auto) 12.3 % (13.4-35.0); Mean Corpuscular HGB Conc 32 % (32-34); Mean Corpuscular Volume 90 fl (84-94); Monocytes # (Auto) 0.6 K/mm3 (0.0-0.8); Monocytes % (Auto) 9.9 % (0.0-7.3); Platelet Count 173 K/mm3 (140-440); Red Blood Count 2.99 M/mm3 (3.65-5.03); Red Cell Distribution Width 17.8 % (13.2-15.2)
[2021-04-01 05:46] LABS: Calcium 9.4 mg/dL (8.4-10.2)
[2021-04-01] MEDS: INSULIN REGULAR, HUMAN 100 UNITS/1 ML SUB-Q SCH ×3 (06:57→14:55)
--- NOTE | 2021-04-01 08:18 | Discharge Summary ---
Providers - Providers Date of Admission: 03/31/21 07:38 Date of discharge: 04/01/21 Attending physician: JOHN WETZEL 03/30/21 19:45 Consult to Physician [CONS] Routine Comment: Consulting Provider: TYREL RAMOS Physician Instructions: Reason For Exam: esrd 03/31/21 07:44 Consult to Physician [CONS] Routine Comment: Consulting Provider: BEVERLY COLIN Physician Instructions: Reason For Exam: AMS 03/31/21 23:14 Consult to Wound/ET Nurse [CONS] Routine Reason For Exam: wound eval Primary care physician: MERCANTILE REPORTER Hospitalization Reason for admission: accel htn Condition: Fair Hospital course: 35-year-old male with PMH of type 1 diabetes mellitus complicated by end-stage renal disease on hemodialysis, hypertension, seizure disorder and gastroparesis. Patient has had numerous hospitalizations with severe hypertension, fluid overload and diabetic ketoacidosis and sometimes seizures or gastroparesis. Patient went for his routine dialysis the day [employer] and predialysis he was fine. After dialysis, patient was discharged but while in van on the way home, he became confused and lethargic. No reports of bladder or bowel incontinence or seizure activity. Patient was brought to the emergency room and his blood sugar was 16 mg/dL. It was treated and his mental status has subsequently improved. Labs showed BUN/creatinine of 32/5.8 mg/dL with potassium of 3.8 mmol/L. Blood pressure on presentation was quite high at 218/120 mmHg. Nephrology consulted to assist with managing the kidney failure and providing dialysis and correcting fluid and electrolyte abnormalities. The patient was admitted with diagnosis of metabolic encephalopathy secondary to hypoglycemia. Patient had home insulin regimen adjusted to Lantus at 15 units at bedtime. Patient was seen by nephrology and underwent appropriate hemodialysis. Patient was maintained on home blood pressure medications and blood pressure remained stable. Patient is felt to have received maximal hospital benefit and will be discharged home. Dedicated discharge time 32 minutes Disposition: 01 HOME / SELF CARE / HOMELESS Final Discharge Diagnosis (Prints w/discharge instructions): Metabolic encephalopathy, hypoglycemia, accelerated hypertension, ESRD, diabetes mellitus type 2, seizure disorder Core Measure Documentation - Palliative Care Palliative Care/ Comfort Measures: Not Applicable - Core Measures Any of the following diagnoses?: none Exam - Constitutional Vitals: Temp Pulse Resp BP Pulse Ox 98.8 F 78 18 192/100 92 04/01/21 05:00 10/28/21 07:47 04/01/21 07:47 04/01/21 07:47 04/01/21 07:47 General appearance: Present: no acute distress, well-nourished - EENT Eyes: Present: PERRL ENT: hearing intact, clear oral mucosa - Neck Neck: Present: supple, normal ROM - Respiratory Respiratory effort: normal Respiratory: bilateral: CTA - Cardiovascular Heart Sounds: Present: S1 & S2. Absent: rub, click - Extremities Extremities: pulses symmetrical, No edema Peripheral Pulses: within normal limits - Abdominal General gastrointestinal: Present: soft, non-tender, non-distended, normal bowel sounds Male genitourinary: Present: normal - Integumentary Integumentary: Present: clear, warm, dry - Musculoskeletal Musculoskeletal: gait normal, strength equal bilaterally - Psychiatric Psychiatric: appropriate mood/affect, intact judgment & insight - Neurologic Neurologic: CNII-XII intact, moves all extremities Plan Activity: advance as tolerated Weight Bearing Status: Weight Bear as Tolerated Diet: renal Follow up with: EDWAR SINGH MD [Primary Care Provider] - 7 Days CARMELA TOVAR MD [Staff Physician] - 7 Days Prescriptions: hydrALAZINE [Apresoline TAB] 100 mg PO TID #90 tab cloNIDine [Catapres] 0.3 mg PO TID #180 tablet labetaloL [Labetalol 100mg TAB] 300 mg PO Q8HR #180 tablet Insulin Glargine [Lantus VIAL] 15 unit SUB-Q QAM 30 Days vial NIFEdipine XL [Procardia Xl] 60 mg PO Q12HR 30 Days #30 tablet lisinopriL [Zestril TAB] 40 mg PO QDAY #30 tablet
[2021-04-01] MEDS: METOCLOPRAMIDE 10 MG TAB PO SCH ×2 (08:23→14:54)
[2021-04-01] MEDS: cloNIDine 0.1 MG TAB PO SCH ×2 (08:23→14:55)
[2021-04-01] MEDS: PANTOPRAZOLE 40 MG TAB PO SCH ×2 (08:23→09:41)
[2021-04-01] MEDS: levETIRAcetam 500 MG TAB PO SCH ×2 (08:23→09:41)
[2021-04-01] MEDS: LISINOPRIL 40 MG TAB PO SCH ×2 (08:24→09:42)
[2021-04-01] MEDS: INSULIN GLARGINE 100 UNITS/ML SUB-Q SCH (08:24)
[2021-04-01] MEDS: INSULIN LISPRO 100 UNIT/ML SUB-Q SCH ×2 (08:24→14:55)
[2021-04-01] MEDS: hydrALAZINE 100 MG TAB PO SCH ×2 (08:24→14:54)
[2021-04-01] MEDS: NIFEdipine XL 60 MG TAB PO SCH ×2 (08:25→09:41)
[2021-04-01] MEDS ORDERED: amLODIPine 10 MG TAB PO SCH (10:00)
[2021-04-01] MEDS ORDERED: LISINOPRIL 20 MG TAB PO SCH (10:00)
--- NOTE | 2021-04-01 10:25 | Progress Note ---
Assessment and Plan - Patient Problems (1) Hypoglycemia Current Visit: Yes Status: Acute (2) Anemia in end-stage renal disease Current Visit: Yes Status: Acute (3) End stage renal disease on dialysis Current Visit: Yes Status: Acute (4) Acute encephalopathy Current Visit: No Status: Acute (5) End stage renal disease Current Visit: No Status: Acute (6) Type 1 diabetes mellitus with diabetic chronic kidney disease Current Visit: No Status: Acute (7) Hypertensive chronic kidney disease with stage 5 chronic kidney disease or end stage renal disease Current Visit: No Status: Chronic Subjective Date of service: 04/01/21 Objective - Vital Signs Vital signs: Vital Signs - 12hr 04/01/21 04/01/21 04/01/21 05:00 06:20 07:37 Temperature 98.8 F Pulse Rate 75 76 78 Respiratory 18 18 Rate Blood Pressure 172/93 192/101 194/99 O2 Sat by Pulse 94 93 90 Oximetry 04/01/21 07:47 Temperature Pulse Rate 78 Respiratory 18 Rate Blood Pressure 192/100 O2 Sat by Pulse 92 Oximetry - Lab 04/01/21 04:00 04/01/21 04:00 Most recent lab results Calcium 9.4 mg/dL (8.4-10.2) 04/01/21 04:00 Medications & Allergies - Medications Allergies/Adverse Reactions: Allergies phenytoin sodium [From Dilantin] Allergy (Verified 03/12/21 16:00) Hives phenytoin sodium extended [From Dilantin] Allergy (Verified 03/12/21 16:00) Hives Home Medications: Home Medications Medication Instructions Recorded Confirmed Last Taken Type Ferric Citrate (Nf) [Auryxia] 2 tab PO TID 11/14/20 03/15/21 12/29/20 09:00 History Gabapentin 300 mg PO QHS 11/14/20 03/31/21 03/30/21 History Metoclopramide [Reglan TAB] 10 mg PO ACHS #60 tablet 01/16/21 03/15/21 Unknown Rx levETIRAcetam 500 mg PO BID 02/20/21 03/31/21 03/30/21 History Lispro Insulin [HumaLOG] 6 unit SUB-Q AC 30 Days #540 units 02/21/21 03/15/21 Unknown Rx Cholecalciferol (Vitamin D3) 50,000 unit PO QWEEK 03/15/21 03/31/21 03/29/21 History [Vitamin D3 50,000UNIT CAP] Pantoprazole Sodium 40 mg PO QDAY 03/15/21 03/31/21 03/30/21 History Sucroferric Oxyhydroxide(Nf) 750 - 1,000 mg PO PRN PRN 03/15/21 03/15/21 Unknown History [Velphoro (Nf)] Sucroferric Oxyhydroxide(Nf) 750 - 1,000 mg PO TIDAC 03/15/21 03/15/21 Unknown History [Velphoro (Nf)] amLODIPine 10 mg PO QDAY #30 tablet 03/16/21 Unknown Rx lisinopriL [Lisinopril] 40 mg PO DAILY #60 tab 03/16/21 03/31/21 03/30/21 Rx Metoprolol 100 mg PO BID 03/31/21 03/31/21 03/30/21 History Epoetin José Manuel-Epbx 20,000 [Retacrit] 20,000 unit IV KATE PRN vial 04/01/21 Unknown Rx Ergocalciferol [Vitamin D2] 50,000 unit PO Garces@1000 capsule 04/01/21 Unknown Rx Insulin Glargine [Lantus VIAL] 15 unit SUB-Q QAM 30 Days vial 04/01/21 Unknown Rx Insulin Regular, Human [HumuLIN R] 0 units SUB-Q Q6HR units 04/01/21 Unknown Rx NIFEdipine XL [Procardia Xl] 60 mg PO Q12HR 30 Days #30 tablet 04/01/21 Unknown Rx cloNIDine [Catapres] 0.3 mg PO TID #180 tablet 04/01/21 Unknown Rx hydrALAZINE [Apresoline TAB] 100 mg PO TID #90 tab 04/01/21 Unknown Rx labetaloL [Labetalol 100mg TAB] 300 mg PO Q8HR #180 tablet 04/01/21 Unknown Rx levETIRAcetam [Keppra TAB] 500 mg PO BID tablet 04/01/21 Unknown Rx lisinopriL [Zestril TAB] 40 mg PO QDAY #30 tablet 04/01/21 Unknown Rx Active Medications: Generic Name Dose Route Start Last Admin Trade Name Freq PRN Reason Stop Dose Admin Acetaminophen 650 mg 03/31/21 08:30 03/31/21 09:17 Acetaminophen 325 Mg Tab PO 650 mg Q4H PRN Administration Pain MILD(1-3)/Fever >100.5/RODGERS Hydrocodone Bitart/Acetaminophen 2 each 03/31/21 08:30 Hydrocodone/Acetaminophen 5-325 Mg Tab PO Q6H PRN Pain, Moderate (4-6) Clonidine HCl 0.3 mg 03/31/21 11:30 04/01/21 08:23 Clonidine 0.1 Mg Tab PO 0.3 mg TID CODY Administration Dextrose 50 ml 03/31/21 08:30 Dextrose 50% In Water (25gm) 50 Ml Syringe IV Q30MIN PRN Hypoglycemia Protocol Ergocalciferol 50,000 unit 04/04/21 10:00 Ergocalciferol (Vit D2) 50,000 Unit Cap PO Garces@1000 CODY Gabapentin 300 mg 03/31/21 22:00 03/31/21 23:05 Gabapentin 300 Mg Cap PO 300 mg QHS CODY Administration Heparin Sodium (Porcine) 5,000 unit 03/31/21 09:00 03/31/21 23:04 Heparin 5,000 Unit/1 Ml Vial SUB-Q 5,000 unit Q12HR CODY Administration Hydralazine HCl 100 mg 03/31/21 11:30 04/01/21 08:24 Hydralazine 100 Mg Tab PO 100 mg TID CODY Administration Sodium Chloride 1,000 mls @ 75 mls/hr 03/31/21 08:30 04/01/21 01:52 Nacl 0.9% 1000 Ml IV 75 mls/hr DIRECT CODY Administration Sodium Chloride 100 mls @ 999 mls/hr 03/31/21 10:57 Nacl 0.9% IV KATE PRN Hypotension Insulin Glargine 20 units 03/31/21 12:00 04/01/21 08:24 Insulin Glargine 100 Units/Ml SUB-Q 20 units QAMDIAB CODY Administration Insulin Human Lispro 6 unit 03/31/21 11:30 04/01/21 08:24 Insulin Lispro 100 Unit/Ml SUB-Q 6 unit AC CODY Administration Insulin Human Regular 0 units 03/31/21 12:00 04/01/21 06:57 Insulin Regular, Human 100 Units/1 Ml SUB-Q 4 units Q6HR CODY Administration Protocol Labetalol HCl 300 mg 03/31/21 11:30 04/01/21 06:23 Labetalol 100 Mg Tab PO 300 mg Q8HR CODY Administration Levetiracetam 500 mg 03/31/21 12:00 04/01/21 09:41 Levetiracetam 500 Mg Tab PO Not Given BID [facility] Lisinopril 40 mg 03/31/21 11:30 04/01/21 09:42 Lisinopril 40 Mg Tab PO Not Given QDAY [facility] Metoclopramide HCl 5 mg 03/31/21 11:30 04/01/21 08:23 Metoclopramide 10 Mg Tab PO 5 mg ACHS [facility] Administration Miscellaneous Medication 2 tab 03/31/21 14:00 Ferric Citrate (Nf) PO TID [facility] Morphine Sulfate 2 mg 03/31/21 08:30 Morphine 2 Mg/1 Ml Inj IV Q4H PRN Pain , Severe (7-10) Nifedipine 60 mg 03/31/21 11:30 04/01/21 09:41 Nifedipine Xl 60 Mg Tab PO Not Given Q12HR [facility] Ondansetron HCl 4 mg 03/31/21 08:30 Ondansetron 4 Mg/2 Ml Inj IV Q8H PRN Nausea And Vomiting Pantoprazole Sodium 40 mg 03/31/21 12:00 04/01/21 09:41 Pantoprazole 40 Mg Tab PO Not Given QDAY [facility] Sodium Chloride 10 ml 03/31/21 10:00 04/01/21 01:52 Sodium Chloride 0.9% 10 Ml Flush Syringe IV 10 ml BID CODY Administration Sodium Chloride 10 ml 03/31/21 08:30 Sodium Chloride 0.9% 10 Ml Flush Syringe IV PRN PRN LINE FLUSH
[2021-04-01] MEDS: HEPARIN 5,000 UNIT/1 ML VIAL SUB-Q SCH (12:40)
[2021-04-01] MEDS ORDERED: cloNIDine 0.2 MG TAB PO STA (12:41)
[2021-04-01 15:04] VITALS: BP 162/79
[2021-04-04] MEDS ORDERED: ERGOCALCIFEROL (VIT D2) 50,000 UNIT CAP PO SCH (10:00)
[2021-04-07] MEDS ORDERED: NON-FORMULARY EACH (Cholecalciferol (Vitamin D3) [Vitamin D3 50,000unit Cap] 1,250 MCG Cap PO SCH (10:00)
== END 2021-04-01 16:29 | disposition home or self-care (01) | DRG 637 ==
LOC: ED 17:03 → 3A 03-31 07:38
PROVIDERS: ADMIT Hospitalist; ATTEND Hospitalist
PROC: 5A1D70Z Performance of Urinary Filtration, Intermittent, Less than 6 Hours Per Day (ICD-10-PCS; principal; 2021-04-01)
DX: E11.649 Type 2 diabetes mellitus with hypoglycemia without coma (principal); G93.41 Metabolic encephalopathy; N18.6 End stage renal disease; I12.0 Hypertensive chronic kidney disease with stage 5 chronic kidney disease or end stage renal disease; G40.909 Epilepsy, unspecified, not intractable, without status epilepticus; E87.8 Other disorders of electrolyte and fluid balance, not elsewhere classified; Z83.3 Family history of diabetes mellitus; Z82.49 Family history of ischemic heart disease and other diseases of the circulatory system
CPT/HCPCS: 36415; 70450; 80048; 80053; 80074; 82962; 85025; 85610; 85730; G0378; J1610; J1644; J1815; J7030